=== PATIENT | female | born 1940 | race Caucasian/White ===

== ENCOUNTER 2016-12-02 11:36 | Observation (INO) | payer OTHER ==
--- NOTE | 2016-12-02 12:54 | PDOC ---
History of Present Illness - General History Source: Patient, Family - History of Present Illness Initial Comments: 12/02/16 12:57 The patient is a 76 year old female, with a significant past medical history of diabetes mellitus, hypertension, hyperlipidemia, osteoarthritis, and diverticulosis, who presents to the emergency department with rectal bleed since last night. Patient states that she felt like she had to go to the bathroom and passed a large amount of blood but [id number] stool. She states she had 6 bowel movements. Patient also states she has been experiencing swelling in her legs bilaterally for 4 days. She denies recent fevers, chills, headache or dizziness. She denies recent nausea, vomit, diarrhea. She denies recent dysuria, frequency, urgency or hematuria. She denies recent chest pain or shortness of breath. Allergies: NKA Past surgical history: None reported. Social history: Nonsmoker. Denies EtOH use and recreational drug use. Primary Care Physician: Milan Ayala <Venessa Smith - Last Filed: 12/02/16 13:50> <Elisha Vaca - Last Filed: 12/05/16 20:03> - General Chief Complaint: Rectal Bleed Stated Complaint: RECTAL BLEED Time Seen by Provider: 12/02/16 11:50 Past History <Venessa Smith - Last Filed: 12/02/16 13:50> - Past Medical History Cardiac Disorders: Yes ([place]) Diabetes: Yes HTN: Yes Thyroid Disease: Yes - Surgical History Abdominal Surgery: Yes (Bladder surgery, hernia repair) - Immunization History Immunization Up to Date: Yes - Suicide/Smoking/Psychosocial Hx Smoking Status: No Smoking History: Never smoked Have you smoked in the past 12 months: No Number of Cigarettes Smoked Daily: 0 Information on smoking cessation initiated: Yes Hx Alcohol Use: No Drug/Substance Use Hx: No Substance Use Type: None Hx Substance Use Treatment: No <Elisha Vaca - Last Filed: 12/05/16 20:03> - Past Medical History Allergies/Adverse Reactions: Allergies Allergy/AdvReac Type Severity Reaction Status Date / Time No Known Allergies Allergy Verified 12/02/16 11:47 Home Medications: Ambulatory Orders Metformin HCl [Glucophage] 1,000 mg PO BID #0 tab 10/14/12 Aripiprazole [Abilify -] 10 mg PO DAILY 12/02/16 Atorvastatin Ca [Lipitor] 80 mg PO HS 12/02/16 Calcium Citrate/Vitamin D2 [Fransisco-Citrate Plus Vitamin D Tab] 1 each PO BID Clopidogrel Bisulfate [Plavix -] 75 mg PO DAILY 12/02/16 Olmesartan Medoxomil [Benicar -] 20 mg PO DAILY 12/02/16 Omeprazole 40 mg PO DAILY 12/02/16 Oxybutynin Chloride [Oxybutynin Chloride ER] 10 mg PO DAILY 12/02/16 Paroxetine HCl [Paxil -] 20 mg PO DAILY 12/02/16 Prednisone 5 mg PO DAILY 12/02/16 Pregabalin [Lyrica -] 75 mg PO DAILY 12/02/16 Repaglinide [Prandin] 1 mg PO TID 12/02/16 Levothyroxine [Synthroid -] 37.5 mcg PO ACBK #30 tablet 12/03/16 Review of Systems - Review of Systems Able to Perform ROS?: Yes Comments:: 12/02/16 12:57 GENERAL/CONSTITUTIONAL: No fever or chills. No weakness. HEAD, EYES, EARS, NOSE AND THROAT: No change in vision. No ear pain or discharge. No sore throat. CARDIOVASCULAR: No chest pain or shortness of breath. RESPIRATORY: No cough, wheezing, or hemoptysis. GASTROINTESTINAL: +rectal bleeding. No nausea, vomiting, diarrhea.. GENITOURINARY: No dysuria, frequency, or change in urination. MUSCULOSKELETAL: No joint or muscle swelling or pain. No neck or back pain. SKIN: No rash NEUROLOGIC: No headache, vertigo, loss of consciousness, or change in strength/ sensation. ENDOCRINE: No increased thirst. No abnormal weight change. HEMATOLOGIC/LYMPHATIC: No anemia, easy bleeding, or history of blood clots. ALLERGIC/IMMUNOLOGIC: No hives or skin allergy. Is the patient limited Micronesian proficient: Yes <Venessa Smith - Last Filed: 12/02/16 13:50> *Physical Exam - Vital Signs Last Vital Signs Temp Pulse Resp BP Pulse Ox 98.2 F 64 14 131/67 96 12/02/16 11:44 12/02/16 11:44 12/02/16 11:44 12/02/16 11:44 12/02/16 11:44 <Venessa Smith - Last Filed: 12/02/16 13:50> - Vital Signs Last Vital Signs Temp Pulse Resp BP Pulse Ox 98.2 F 64 14 131/67 96 12/02/16 11:44 12/02/16 11:44 12/02/16 11:44 12/02/16 11:44 12/02/16 11:44 <Elisha Vaca - Last Filed: 12/05/16 20:03> ED Treatment Course - LABORATORY CBC & Chemistry Diagram: 12/02/16 12:42 12/02/16 12:42 - Consult/PCP Time Called: 13:51 (called @1:50.) Case discussed with personal care physician: Milan Ayala <Venessa Smith - Last Filed: 12/02/16 13:50> - LABORATORY CBC & Chemistry Diagram: 12/03/16 06:00 12/03/16 06:00 - RADIOLOGY Radiology Studies Ordered: Category Date Time Status CHEST PA & LAT [RAD] Stat Radiology 12/02/16 12:45 Ordered <Elisha Vaca - Last Filed: 12/05/16 20:03> Medical Decision Making - Medical Decision Making 12/02/16 12:53 Pt comes with red blood and lots coming out of her rectum, even when she is not moving bowels. Pt bled 6 times since 1:30AM early today. She sat on toilet and appreciated blood and clots. 12/05/16 20:02 Pt's Hb is lower than usual. Pt will be admitted to her PMD [facility]. <Elisha Vaca - Last Filed: 12/05/16 20:03> *DC/Admit/Observation/Transfer - Attestations Scribe Attestion: 12/02/16 12:58 Documentation prepared by Venessa Smith, acting as medical laboratory technical officer for Elisha Vaca MD. <Venessa Smith - Last Filed: 12/02/16 13:50> - Discharge Dispostion Admit: Yes <Elisha Vaca - Last Filed: 12/05/16 20:03> Diagnosis at time of Disposition: Rectal bleeding - Discharge Dispostion Condition at time of disposition: Guarded - Prescriptions - Referrals
[2016-12-02 13:06] LABS: EOSINOPHIL 0.5 % (0-4.5); MCH 29.7 pg (25.7-33.7); MCHC 32.5 g/dl (32.0-36.0); MEAN CELL VOLUME 91.5 fl (80-96); MEAN PLT VOLUME 8.2 fl (7.5-11.1); NEUTROPHILS 73.7 % (42.8-82.8); PLATELET COUNT 187 K/MM3 (134-434); RDW 13.6 % (11.6-15.6); WHITE BLOOD COUNT 8.9 K/mm3 (4.0-10.0)
[2016-12-02 13:40] LABS: ALBUMIN 3.2 g/dl (3.4-5.0); ANION GAP 8 (8-16); CALCIUM 8.5 mg/dL (8.5-10.1); CO2 26 mmol/L (21-32); GLUCOSE,RANDOM 163 mg/dL (74-106)
[2016-12-02 13:46] LABS: ALK PHOS 49 U/L (45-117); BILIRUBIN,TOTAL 0.2 mg/dL (0.2-1.0); CPK 68 IU/L (26-192); CREATININE 1.1 mg/dL (0.55-1.02); SGOT/AST 12 U/L (15-37); SGPT/ALT 22 U/L (12-78); TOT PROT 6.3 g/dl (6.4-8.2); TROPONIN I < 0.02 ng/ml (0.00-0.05)
[2016-12-02 15:30] VITALS: BMI 30.2
[2016-12-02] MEDS ORDERED: CLOPIDOGREL BISULFATE 75 MG TABLET (FP) PO SCH (15:45)
[2016-12-02] MEDS ORDERED: PANTOPRAZOLE 40 MG TABLET (FP) PO SCH (16:15)
--- NOTE | 2016-12-02 16:27 | HP ---
CHIEF COMPLAINT: Rectal bleeding PCP: Lucy GI: Carlos HISTORY OF PRESENT ILLNESS: The patient is a 76 year-old female, with a PMH significant for HTN, HLD, NIDDM , severe/critical canal stenosis, bladder polyps, hypothyroidism, diverticulosis and dementia. Patient presented to the ED with a complaint of rectal bleeding since 1:30am this morning x 6 episodes. She described passing blood and clots, dark red in color, with little to no stool. She denies headache , lightheadedness, or dizziness. She denies fevers, sweats, chills. She denies nausea, vomiting, diarrhea. She denies dysuria, frequency, urgency or hematuria. She denies recent chest pain or shortness of breath. Patient states she has never had a colonoscopy although, according to Dr. Gonzalez's office, she had a colonoscopy in 2011. She was last seen in his office in 2013. ER course was notable for: (1) Vital signs stable (2) Hgb 9.8 (12.3 in 2012) Recent Travel: No PAST MEDICAL HISTORY: Hypertension Hyperlipidemia NIDDM Osteoarthritis Bladder polyps Diverticulosis Hypothyroidism Dementia PAST SURGICAL HISTORY: Removal of bladder polyps Social History: Smoking: no Alcohol: no Drugs: no Family History: Allergies No Known Allergies Allergy (Verified 12/02/16 11:47) HOME MEDICATIONS: Home Medications Medication Instructions Recorded Levothyroxine [Synthroid -] 25 mcg PO DAILY #0 tablet 10/14/12 Meloxicam [Mobic -] 15 mg PO DAILY #0 tablet 10/14/12 Metformin HCl [Glucophage] 1,000 mg PO BID #0 tab 10/14/12 Aripiprazole [Abilify -] 10 mg PO DAILY 12/02/16 Aspirin [ASA -] 81 mg PO DAILY 12/02/16 Atorvastatin Ca [Lipitor] 80 mg PO HS 12/02/16 Calcium Citrate/Vitamin D2 1 each PO BID 12/02/16 [Fransisco-Citrate Plus Vitamin D Tab] Clopidogrel Bisulfate [Plavix -] 75 mg PO DAILY 12/02/16 Olmesartan Medoxomil [Benicar (Nf)] 20 mg PO DAILY 12/02/16 Omeprazole 40 mg PO DAILY 12/02/16 Oxybutynin Chloride [Oxybutynin 10 mg PO DAILY 12/02/16 Chloride ER] Paroxetine HCl [Paxil -] 20 mg PO DAILY 12/02/16 Prednisone 5 mg PO DAILY 12/02/16 Pregabalin [Lyrica -] 75 mg PO DAILY 12/02/16 Repaglinide [Prandin] 1 mg PO TID 12/02/16 REVIEW OF SYSTEMS CONSTITUTIONAL: Absent: fever, chills, diaphoresis, generalized weakness, malaise, loss of appetite, weight change HEENT: Absent: rhinorrhea, nasal congestion, throat pain, throat swelling, difficulty swallowing, mouth swelling, ear pain, eye pain, visual changes CARDIOVASCULAR: Absent: chest pain, syncope, palpitations, irregular heart rate, lightheadedness , peripheral edema RESPIRATORY: Absent: cough, shortness of breath, dyspnea with exertion, orthopnea, wheezing, stridor, hemoptysis GASTROINTESTINAL: Present: dark red blood per rectum Absent: abdominal pain, abdominal distension, nausea, vomiting, diarrhea, constipation, melena, hematochezia GENITOURINARY: Absent: dysuria, frequency, urgency, hesitancy, hematuria, flank pain, genital pain MUSCULOSKELETAL: Absent: myalgia, arthralgia, joint swelling, back pain, neck pain SKIN: Absent: rash, itching, pallor HEMATOLOGIC/IMMUNOLOGIC: Absent: easy bleeding, easy bruising, lymphadenopathy, frequent infections ENDOCRINE: Absent: unexplained weight gain, unexplained weight loss, heat intolerance, cold intolerance NEUROLOGIC: Absent: headache, focal weakness or paresthesias, dizziness, unsteady gait, seizure, mental status changes, bladder or bowel incontinence PSYCHIATRIC: Absent: anxiety, depression, suicidal or homicidal ideation, hallucinations. PHYSICAL EXAMINATION Vital Signs - 24 hr 12/02/16 12/02/16 12/02/16 14:40 15:47 15:54 Temperature 97.9 F Pulse Rate 54 L 57 L Pulse Rate [ 54 L Apical] Respiratory 14 16 Rate Blood Pressure 114/85 131/75 Blood Pressure 114/85 [Left Arm] O2 Sat by Pulse 96 98 Oximetry (%) GENERAL: Awake, alert, and fully oriented, in no acute distress. HEAD: Normal with no signs of trauma. EYES: Pupils equal, round and reactive to light, extraocular movements intact, sclera anicteric, conjunctiva clear. No lid lag. EARS, NOSE, THROAT: Ears normal, nares patent, oropharynx clear without exudates. Moist mucous membranes. NECK: Normal range of motion, supple without lymphadenopathy, JVD, or masses. LUNGS: Breath sounds equal, clear to auscultation bilaterally. No wheezes, and no crackles. No accessory muscle use. HEART: Regular rate and rhythm, normal S1 and S2 without murmur, rub or gallop. ABDOMEN: Soft, nontender, not distended, normoactive bowel sounds, no guarding, no rebound, no masses. No hepatomegaly or splenomegaly. GI/: Anal fissures, and very small flat external hemorrhoids, no active bleeding MUSCULOSKELETAL: Normal range of motion at all joints. No bony deformities or tenderness. No CVA tenderness. UPPER EXTREMITIES: 2+ pulses, warm, well-perfused. No cyanosis. No clubbing. No peripheral edema. LOWER EXTREMITIES: 2+ pulses, warm, well-perfused. No calf tenderness. No peripheral edema. NEUROLOGICAL: Cranial nerves II-XII intact. Normal speech. Normal gait. PSYCHIATRIC: Cooperative. Good eye contact. Appropriate mood and affect. SKIN: Warm, dry, normal turgor, no rashes or lesions noted, normal capillary refill. ASSESSMENT/PLAN The patient is a 76 year-old female with a PMH significant for HTN, HLD, NIDDM, severe/critical canal stenosis, bladder polyps, hypothyroidism, diverticulosis, and dementia. Admitted for rectal bleeding. Rectal bleeding Diverticulosis --patient describes "darker" red blood per rectum, no report of melena --Hgb 9.8, no recent baseline study available; repeat cbc @ 6pm --11/27/16 CTAP: diverticulosis throughout the colon, no evidence of acute diverticulitis --last colonoscopy 2011 --NPO, IV fluids, protonix --type and screen done --GI Dr. Gonzalez consult requested Hypertension --BP stable, bradycardic --hold valsartan until repeat cbc done Hyperlipidemia --continue Lipitor NIDDM --sliding scale coverage Severe canal stenosis --continue Lyrica Bladder polyps --no acute issues, no blood in UA Hypothyroidism --continue levothyroxine --f/u TSH Dementia --continue deonepezil, paroxetine, seroquel MEDICATIONS RECONCILED WITH [facility]. Visit type - Emergency Visit Emergency Visit: Yes ED Registration Date: 12/02/16 Care time: The patient presented to the Emergency Department on the above date and was hospitalized for further evaluation of their emergent condition. - New Patient This patient is new to me today: Yes Date on this admission: 12/02/16 - Critical Care Critical Care patient: No
[2016-12-02] MEDS ORDERED: FLU VACCINE QUAD 60 MCG/0.5 ML (MDV 17-18) IM ONE (16:30)
[2016-12-02] MEDS ORDERED: INSULIN (NOVOLOG) ASPART 100 UNITS/ML 10ML VIAL ONE (16:47)
[2016-12-02] MEDS: INSULIN SLIDING SCALE (NOVOLOG) 1 VIAL SQ SCH ×2 (16:52→21:19)
[2016-12-02] MEDS: SODIUM CHLORIDE 1,000 ML IV SCH (16:53)
[2016-12-02 18:05] LABS: INR 0.96 (0.82-1.09); PROTHROMBIN TIME (PATIENT) 10.9 SEC (9.98-11.88)
--- NOTE | 2016-12-02 18:32 | CON.GI ---
Consult Consult Specialty:: Gastroenerology Reason for Consultation:: rectal bleeding - History of Present Illness History of Present Illness: 76 y/o female s/p colonoscpy Nov 2011--diveticulosis and colonic polyp was admitted because of rectal bleeding She is on PLavix and Aspirin. She felt weak but denies chest pain and LOC - History Source History Provided By: Patient - Alcohol/Substance Use Hx Alcohol Use: No - Smoking History Smoking history: Never smoked Have you smoked in the past 12 months: No Aproximately how many cigarettes per day: 0 Home Medications - Allergies Allergies/Adverse Reactions: Allergies Allergy/AdvReac Type Severity Reaction Status Date / Time No Known Allergies Allergy Verified 12/02/16 11:47 - Home Medications Home Medications: Ambulatory Orders Levothyroxine [Synthroid -] 25 mcg PO DAILY #0 tablet 10/14/12 Meloxicam [Mobic -] 15 mg PO DAILY #0 tablet 10/14/12 Metformin HCl [Glucophage] 1,000 mg PO BID #0 tab 10/14/12 Aripiprazole [Abilify -] 10 mg PO DAILY 12/02/16 Aspirin [ASA -] 81 mg PO DAILY 12/02/16 Atorvastatin Ca [Lipitor] 80 mg PO HS 12/02/16 Calcium Citrate/Vitamin D2 [Fransisco-Citrate Plus Vitamin D Tab] 1 each PO BID Clopidogrel Bisulfate [Plavix -] 75 mg PO DAILY 12/02/16 Olmesartan Medoxomil [Benicar (Nf)] 20 mg PO DAILY 12/02/16 Omeprazole 40 mg PO DAILY 12/02/16 Oxybutynin Chloride [Oxybutynin Chloride ER] 10 mg PO DAILY 12/02/16 Paroxetine HCl [Paxil -] 20 mg PO DAILY 12/02/16 Prednisone 5 mg PO DAILY 12/02/16 Pregabalin [Lyrica -] 75 mg PO DAILY 12/02/16 Repaglinide [Prandin] 1 mg PO TID 12/02/16 Review of Systems - Review of Systems Constitutional: denies: No Symptoms, Chills, Diaphoresis, Fever, Lethargy, Loss of Appetite, Malaise, Night Sweats, Unintentional Wgt. Loss, Weakness, Other HENT: denies: No Symptoms, Difficult Swallowing, Ear Discharge, Ear Pain, Epistaxis, Gingival Bleeding, Hearing Loss, Mouth Swelling, Nasal Congestion, Ocular Prosthesis, Throat Pain, Toothache, Ringing in Ears, Other Cardiovascular: denies: No Symptoms, Chest Pain, Edema, Palpitations, Shortness of Breath, Other Gastrointestinal: reports: Rectal Bleeding. denies: Dysphagia, Indigestion, Melena, Nausea, Vomiting Blood Genitourinary: denies: No Symptoms, Burning, Discharge, Dysuria, Flank Pain, Frequency, Hematuria, Incontinence, Lesions, Menses, Pain, Testicular Mass, Testicular Pain, Testicular Swelling, Urgency, Vaginal Bleeding, Other Psychiatric: denies: No Symptoms, Altered Sleep Pattern, Anxiety, Depression, Hallucinations, Panic, Paranoia, Suicidal, Other Physical Exam-GI Vital Signs: Vital Signs Temperature 97.9 F 12/02/16 15:54 Pulse Rate 57 L 12/02/16 15:54 Respiratory Rate 16 12/02/16 15:54 Blood Pressure 131/75 12/02/16 15:54 O2 Sat by Pulse Oximetry (%) 98 12/02/16 15:47 Constitutional: Yes: Well Nourished Eyes: Yes: Conjunctiva Clear HENT: Yes: Atraumatic Neck: Yes: Supple Cardiovascular: Yes: Regular Rate and Rhythm Respiratory: Yes: CTA Bilaterally ...Palpate: Yes: Soft. No: Firm/Rigid, Guarding, Hepatomegaly, Mass, Pulsatile Mass, Splenomegaly, Tenderness Problem List - Problems (1) GI (gastrointestinal bleed) Assessment/Plan: r/o peptic ulcer disease vs diverticular bleeding and malignancy R> for EGD and colonoscopy in am Code(s): K92.2 - GASTROINTESTINAL HEMORRHAGE, UNSPECIFIED
[2016-12-02] MEDS ORDERED: MAGNESIUM CITRATE 300 ML BOTTLE PO ONE (18:36)
[2016-12-02 18:46] LABS: MCHC 32.7 g/dl (32.0-36.0); MEAN CELL VOLUME 91.7 fl (80-96); MEAN PLT VOLUME 8.6 fl (7.5-11.1); PLATELET COUNT 183 K/MM3 (134-434); RDW 14.1 % (11.6-15.6); WHITE BLOOD COUNT 7.2 K/mm3 (4.0-10.0)
[2016-12-02] MEDS: PANTOPRAZOLE 40 MG TABLET (FP) PO SCH (21:21)
[2016-12-02] MEDS ORDERED: QUEtiapine FUMARATE 25 MG TABLET (FP) PO SCH (22:00)
[2016-12-02] MEDS ORDERED: ATORVASTATIN CA 80 MG TABLET (FP) PO SCH (22:00)
[2016-12-03] MEDS: SODIUM CHLORIDE 1,000 ML IV SCH (02:02)
[2016-12-03 02:46] LABS: URINE APPEARANCE CLEAR; URINE BILIRUBIN NEGATIVE (NEGATIVE); URINE BLOOD 1+ (NEGATIVE); URINE COLOR STRAW; URINE GLUCOSE (UA) NEGATIVE (NEGATIVE); URINE KETONE NEGATIVE (NEGATIVE); URINE NITRITE NEGATIVE (NEGATIVE); URINE PROTEIN NEGATIVE (NEGATIVE); URINE UROBILINOGEN NEGATIVE mg/dL (0.2-1.0)
[2016-12-03 02:47] LABS: URINE MUCUS RARE; URINE RBC 1 /hpf (0-3); URINE WBC 1 /hpf (3-5)
[2016-12-03] MEDS ORDERED: SODIUM PHOSPHATE/NA BIPHOS 133 ML ENEMA PR ONE (05:00)
[2016-12-03] MEDS: INSULIN SLIDING SCALE (NOVOLOG) 1 VIAL SQ SCH ×2 (06:01→12:23)
[2016-12-03] MEDS ORDERED: LEVOTHYROXINE NA 25 MCG TABLET (FP) PO SCH ×2 (07:00→08:14)
[2016-12-03 07:33] LABS: BASOPHIL 0.7 % (0-2.0); EOSINOPHIL 1.9 % (0-4.5); MCH 29.3 pg (25.7-33.7); MCHC 32.2 g/dl (32.0-36.0); MEAN CELL VOLUME 91.2 fl (80-96); MEAN PLT VOLUME 8.1 fl (7.5-11.1); NEUTROPHILS 58.6 % (42.8-82.8); PLATELET COUNT 207 K/MM3 (134-434); RDW 14.2 % (11.6-15.6); WHITE BLOOD COUNT 8.1 K/mm3 (4.0-10.0)
[2016-12-03] MEDS ORDERED: PROPOFOL 20 ML ONE ×2 (07:42)
[2016-12-03 07:54] LABS: ALBUMIN 3.6 g/dl (3.4-5.0); ANION GAP 6 (8-16); CO2 29 mmol/L (21-32); GLUCOSE,RANDOM 109 mg/dL (74-106); MAGNESIUM 2.6 mg/dL (1.8-2.4)
--- NOTE | 2016-12-03 07:57 | PN ---
Physical Exam: SUBJECTIVE: Patient seen and examined OBJECTIVE: Vital Signs Period Temp Pulse Resp BP Sys/Saravia Pulse Ox Last 24 Hr -98.4 F-98.1 F 52-71 18-18 135-159/55-67 97 GENERAL: The patient is awake, alert, and fully oriented, in no acute distress. HEAD: Normal with no signs of trauma. EYES: PERRL, extraocular movements intact, sclera anicteric, conjunctiva clear. No ptosis. ENT: Ears normal, nares patent, oropharynx clear without exudates, moist mucous membranes. NECK: Trachea midline, full range of motion, supple. LUNGS: Breath sounds equal, clear to auscultation bilaterally, no wheezes, no crackles, no accessory muscle use. HEART: Regular rate and rhythm, S1, S2 without murmur, rub or gallop. ABDOMEN: Soft, nontender, nondistended, normoactive bowel sounds, no guarding, no rebound, no hepatosplenomegaly, no masses. EXTREMITIES: 2+ pulses, warm, well-perfused, no edema. NEUROLOGICAL: Cranial nerves II through XII grossly intact. Normal speech, gait not observed. PSYCH: Normal mood, normal affect. SKIN: Warm, dry, normal turgor, no rashes or lesions noted Laboratory Results - last 24 hr 12/02/16 12/02/16 12/02/16 16:50 18:00 20:38 WBC 7.2 RBC 3.12 L Hgb 9.3 L Hct 28.6 L MCV 91.7 MCH 30.0 MCHC 32.7 RDW 14.1 Plt Count 183 MPV 8.6 Neutrophils % Lymphocytes % Monocytes % Eosinophils % Basophils % PTT (Actin FS) POC Glucometer 222 113 Urine Color Urine Appearance Urine pH Urine Protein Urine Glucose (UA) Urine Ketones Urine Blood Urine Nitrite Urine Bilirubin Urine Urobilinogen Urine RBC Urine WBC Ur Epithelial Cells Urine Mucus 12/03/16 12/03/16 12/03/16 02:30 06:00 06:00 WBC 8.1 RBC 3.56 L Hgb 10.5 L D Hct 32.5 MCV 91.2 MCH 29.3 MCHC 32.2 RDW 14.2 Plt Count 207 MPV 8.1 Neutrophils % 58.6 D Lymphocytes % 29.7 D Monocytes % 9.1 Eosinophils % 1.9 D Basophils % 0.7 PTT (Actin FS) 27.5 POC Glucometer Urine Color Straw Urine Appearance Clear Urine pH 6.0 Urine Protein Negative Urine Glucose (UA) Negative Urine Ketones Negative Urine Blood 1+ H Urine Nitrite Negative Urine Bilirubin Negative Urine Urobilinogen Negative Urine RBC 1 Urine WBC 1 Ur Epithelial Cells Rare Urine Mucus Rare 12/03/16 06:00 WBC RBC Hgb Hct MCV MCH MCHC RDW Plt Count MPV Neutrophils % Lymphocytes % Monocytes % Eosinophils % Basophils % PTT (Actin FS) POC Glucometer 105 Urine Color Urine Appearance Urine pH Urine Protein Urine Glucose (UA) Urine Ketones Urine Blood Urine Nitrite Urine Bilirubin Urine Urobilinogen Urine RBC Urine WBC Ur Epithelial Cells Urine Mucus Active Medications Generic Name Dose Route Start Last Admin Trade Name Freq PRN Reason Stop Dose Admin Aripiprazole 10 mg 12/03/16 10:00 Abilify PO DAILY YENI Atorvastatin Calcium 80 mg 12/02/16 22:00 12/02/16 21:21 Lipitor - PO 80 mg HS YENI Administration Sodium Chloride 1,000 mls @ 100 mls/hr 12/02/16 16:15 12/03/16 02:02 Normal Saline - IV 100 mls/hr ASDIR YENI Administration Insulin Aspart 1 vial 12/02/16 16:30 12/03/16 06:01 Novolog Vial Sliding Scale - SQ Not Given [facility] Protocol Levothyroxine Sodium 25 mcg 12/03/16 07:00 12/03/16 06:01 Synthroid - PO Not Given ACBK YENI Pantoprazole Sodium 40 mg 12/02/16 22:00 12/02/16 21:21 Protonix - PO 40 mg BID YENI Administration Paroxetine HCl 20 mg 12/03/16 10:00 Paxil - PO DAILY YENI Prednisone 5 mg 12/03/16 10:00 Deltasone - PO DAILY YENI Pregabalin 75 mg 12/03/16 10:00 Lyrica - PO DAILY YENI Valsartan 40 mg 12/03/16 10:00 Diovan - PO DAILY YENI ASSESSMENT/PLAN:
[2016-12-03 08:06] LABS: ALK PHOS 57 U/L (45-117); BILIRUBIN,TOTAL 0.3 mg/dL (0.2-1.0); CREATININE 0.9 mg/dL (0.55-1.02); PHOSPHOROUS 3.6 mg/dL (2.5-4.9); SGOT/AST 12 U/L (15-37); SGPT/ALT 21 U/L (12-78); THYROID STIMULATING HORMONE 6.83 uIU/ml (0.358-3.74); TOT PROT 6.7 g/dl (6.4-8.2)
[2016-12-03 09:23] VITALS: TEMP 99
[2016-12-03] MEDS ORDERED: VALSARTAN 40 MG TABLET (FP) PO SCH (10:00)
[2016-12-03] MEDS ORDERED: ARIPiprazole 10 MG TABLET PO SCH ×2 (10:00)
[2016-12-03] MEDS ORDERED: predniSONE 5 MG TABLET (UD) PO SCH ×2 (10:00)
[2016-12-03] MEDS ORDERED: PARoxetine HCL 20 MG TABLET (FP) PO SCH (10:00)
[2016-12-03] MEDS ORDERED: PREGABALIN 75 MG CAPSULE PO SCH (10:00)
[2016-12-03] MEDS ORDERED: PARoxetine HCL 10 MG TABLET (FP) ONE (10:29)
[2016-12-03 10:30] LABS: URINE LEUK ESTERASE Negative (NEGATIVE)
[2016-12-03] MEDS ORDERED: PT OWN MED DRAWER 7, Y5N ONE (10:30)
[2016-12-03] MEDS: PANTOPRAZOLE 40 MG TABLET (FP) PO SCH (10:33)
[2016-12-03 11:25] VITALS: BP 157/69; PULSE 68
--- NOTE | 2016-12-03 11:56 | EKG ---
Test Reason : Blood Pressure : / mmHG Vent. Rate : 063 BPM Atrial Rate : 063 BPM P-R Int : 160 ms QRS Dur : 076 ms QT Int : 400 ms P-R-T Axes : 000 -15 021 degrees QTc Int : 409 ms NORMAL SINUS RHYTHM INFERIOR INFARCT (CITED ON OR BEFORE 13-NOV-2006) ANTERIOR INFARCT (CITED ON OR BEFORE 10-OCT-2012) ABNORMAL ECG WHEN COMPARED WITH ECG OF 10-OCT-2012 21:06, VENT. RATE HAS DECREASED BY 40 BPM Confirmed by ALVA BAIRD MD ([id number]) on 12/03/2016 11:56:38 AM Referred By: Confirmed By:ALVA BAIRD MD
--- NOTE | 2016-12-03 12:43 | DS ---
Physical Exam: SUBJECTIVE: Patient seen and examined. Son present. Feels better, no complaints. No further episodes of rectal bleeding since arrival to ED. OBJECTIVE: Vital Signs Period Temp Pulse Resp BP Sys/Saravia Pulse Ox Last 24 Hr -98.4 F-99 F 52-80 14-20 135-164/55-75 96-98 PHYSICAL EXAM GENERAL: The patient is awake, alert, and fully oriented, in no acute distress. HEAD: Normal with no signs of trauma. EYES: PERRL, extraocular movements intact, sclera anicteric, conjunctiva clear. ENT: Ears normal, nares patent, oropharynx clear without exudates, moist mucous membranes. NECK: Trachea midline, full range of motion, supple. LUNGS: Breath sounds equal, clear to auscultation bilaterally, no wheezes, no crackles, no accessory muscle use. HEART: Regular rate and rhythm, S1, S2 without murmur, rub or gallop. ABDOMEN: Soft, nontender, nondistended, normoactive bowel sounds, no guarding, no rebound, no hepatosplenomegaly, no masses. EXTREMITIES: 2+ pulses, warm, well-perfused, no edema. NEUROLOGICAL: Cranial nerves II through XII grossly intact. Normal speech, gait not observed. PSYCH: Normal mood, normal affect. SKIN: Warm, dry, normal turgor, no rashes or lesions noted. LABS Laboratory Results - last 24 hr 12/02/16 12/02/16 12/02/16 16:50 18:00 20:38 WBC 7.2 RBC 3.12 L Hgb 9.3 L Hct 28.6 L MCV 91.7 MCH 30.0 MCHC 32.7 RDW 14.1 Plt Count 183 MPV 8.6 Neutrophils % Lymphocytes % Monocytes % Eosinophils % Basophils % PTT (Actin FS) Sodium Potassium Chloride Carbon Dioxide Anion Gap BUN Creatinine Creat Clearance w eGFR POC Glucometer 222 113 Random Glucose Calcium Phosphorus Magnesium Total Bilirubin AST ALT Alkaline Phosphatase Total Protein Albumin TSH Urine Color Urine Appearance Urine pH Ur Specific Davis Urine Protein Urine Glucose (UA) Urine Ketones Urine Blood Urine Nitrite Urine Bilirubin Urine Urobilinogen Ur Leukocyte Esterase Urine RBC Urine WBC Ur Epithelial Cells Urine Mucus 12/03/16 12/03/16 12/03/16 02:30 06:00 06:00 WBC 8.1 RBC 3.56 L Hgb 10.5 L D Hct 32.5 MCV 91.2 MCH 29.3 MCHC 32.2 RDW 14.2 Plt Count 207 MPV 8.1 Neutrophils % 58.6 D Lymphocytes % 29.7 D Monocytes % 9.1 Eosinophils % 1.9 D Basophils % 0.7 PTT (Actin FS) 27.5 Sodium Potassium Chloride Carbon Dioxide Anion Gap BUN Creatinine Creat Clearance w eGFR POC Glucometer Random Glucose Calcium Phosphorus Magnesium Total Bilirubin AST ALT Alkaline Phosphatase Total Protein Albumin TSH Urine Color Straw Urine Appearance Clear Urine pH 6.0 Ur Specific Davis 1.015 Urine Protein Negative Urine Glucose (UA) Negative Urine Ketones Negative Urine Blood 1+ H Urine Nitrite Negative Urine Bilirubin Negative Urine Urobilinogen Negative Ur Leukocyte Esterase Negative Urine RBC 1 Urine WBC 1 Ur Epithelial Cells Rare Urine Mucus Rare 12/03/16 12/03/16 12/03/16 06:00 06:00 12:22 WBC RBC Hgb Hct MCV MCH MCHC RDW Plt Count MPV Neutrophils % Lymphocytes % Monocytes % Eosinophils % Basophils % PTT (Actin FS) Sodium 141 Potassium 4.2 Chloride 106 Carbon Dioxide 29 Anion Gap 6 L BUN 14 D Creatinine 0.9 Creat Clearance w eGFR > 60 POC Glucometer 105 156 Random Glucose 109 H D Calcium 9.0 Phosphorus 3.6 Magnesium 2.6 H Total Bilirubin 0.3 D AST 12 L ALT 21 Alkaline Phosphatase 57 Total Protein 6.7 Albumin 3.6 TSH 6.83 H Urine Color Urine Appearance Urine pH Ur Specific Davis Urine Protein Urine Glucose (UA) Urine Ketones Urine Blood Urine Nitrite Urine Bilirubin Urine Urobilinogen Ur Leukocyte Esterase Urine RBC Urine WBC Ur Epithelial Cells Urine Mucus HOSPITAL COURSE: Date of Admission:12/02/16 Date of Discharge: 12/03/16 Pre hospital course The patient is a 76 year-old female, with a PMH significant for HTN, HLD, NIDDM , severe/critical canal stenosis, bladder polyps, hypothyroidism, diverticulosis and dementia. Patient presented to the ED with a complaint of rectal bleeding since 1:30am x 6 episodes. She described passing blood and clots , dark red in color, with little to no stool. She denied headache, lightheadedness, or dizziness. She denied fevers, sweats, chills. She denied nausea, vomiting, diarrhea. She denied dysuria, frequency, urgency or hematuria. She denied chest pain or shortness of breath. Patient states she has never had a colonoscopy although, according to Dr. Gonzalez's office, she had a colonoscopy in 2011. She was last seen in his office in 2013. ER course (1) Vital signs stable (2) Hgb 9.8 (12.3 in 2013) Subsequent hospital course by problem list Rectal bleeding, resolved Diverticulosis --on admission patient described "darker" red blood per rectum, no report of melena --no further episodes of bleeding reported or observed during hospital stay --Hgb 9.8 on admission, 10.5 today --11/27/16 CTAP: diverticulosis throughout the colon, no evidence of acute diverticulitis --EGD and colonoscopy performed today by Dr. Gonzalez; preliminary findings: abnormal duodenum, erythema in antrum, diverticulosis and poor pret --advised patient to follow up with Dr. Gonzalez in 3 months for repeat colon Hypertension --BP stable --held anti-hypertensives Hyperlipidemia --continued Lipitor NIDDM --sliding scale coverage Severe canal stenosis --continued Lyrica Bladder polyps --no acute issues, no blood in UA Hypothyroidism --TSH was elevated @6.83; increased levothyroxine to 37.5mcg, new script sent --patient advised to f/u blood work in 6 weeks Dementia --continue abilify, paroxetine Minutes to complete discharge: 35 Discharge Summary Reason For Visit: RECTAL HEMORRHAGE Current Active Problems GI (gastrointestinal bleed) (Acute) Rectal bleeding (Acute) Condition: Guarded - Instructions Diet, Activity, Other Instructions: A prescription has been sent to your pharmacy for an increased dose of your thyroid medicine, levothyroxine. You should take this increased dose until you follow up with your primary care provider, Dr. Ayala. You should have your thyroid function tested in 6 weeks. 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 Gonzalez, for a colonoscopy. Call his office to make an appointment. Return to the emergency room for any new or worsening symptoms. Referrals: Milan Ayala MD [Primary Care Provider] - Kumar Gonzalez MD [Staff Physician] - 1 Month - Home Medications Comprehensive Discharge Medication List: Ambulatory Orders Metformin HCl [Glucophage] 1,000 mg PO BID #0 tab 10/14/12 Aripiprazole [Abilify -] 10 mg PO DAILY 12/02/16 Atorvastatin Ca [Lipitor] 80 mg PO HS 12/02/16 Calcium Citrate/Vitamin D2 [Fransisco-Citrate Plus Vitamin D Tab] 1 each PO BID Clopidogrel Bisulfate [Plavix -] 75 mg PO DAILY 12/02/16 Olmesartan Medoxomil [Benicar -] 20 mg PO DAILY 12/02/16 Omeprazole 40 mg PO DAILY 12/02/16 Oxybutynin Chloride [Oxybutynin Chloride ER] 10 mg PO DAILY 12/02/16 Paroxetine HCl [Paxil -] 20 mg PO DAILY 12/02/16 Prednisone 5 mg PO DAILY 12/02/16 Pregabalin [Lyrica -] 75 mg PO DAILY 12/02/16 Repaglinide [Prandin] 1 mg PO TID 12/02/16 Levothyroxine [Synthroid -] 37.5 mcg PO ACBK #30 tablet 12/03/16 This patient is new to me today: No Emergency Visit: Yes ED Registration Date: 12/02/16 Care time: The patient presented to the Emergency Department on the above date and was hospitalized for further evaluation of their emergent condition. Critical Care patient: No - Discharge Referral Referred to [facility] No
[2016-12-03] MEDS ORDERED: SODIUM CHLORIDE 1,000 ML IV SCH (13:14)
[2016-12-03] MEDS ORDERED: INSULIN SLIDING SCALE (NOVOLOG) 1 VIAL SQ SCH (16:30)
[2016-12-03] MEDS ORDERED: PANTOPRAZOLE 40 MG TABLET (FP) PO SCH (22:00)
[2016-12-03] MEDS ORDERED: ATORVASTATIN CA 80 MG TABLET (FP) PO SCH (22:00)
[2016-12-04] MEDS ORDERED: LEVOTHYROXINE NA 25 MCG TABLET (FP) PO SCH (07:00)
[2016-12-04] MEDS ORDERED: predniSONE 5 MG TABLET (UD) PO SCH (10:00)
[2016-12-04] MEDS ORDERED: PREGABALIN 75 MG CAPSULE PO SCH (10:00)
[2016-12-04] MEDS ORDERED: VALSARTAN 40 MG TABLET (FP) PO SCH (10:00)
[2016-12-04] MEDS ORDERED: ARIPiprazole 10 MG TABLET PO SCH (10:00)
[2016-12-04] MEDS ORDERED: PARoxetine HCL 20 MG TABLET (FP) PO SCH (10:00)
--- NOTE | 2016-12-04 15:03 | PATH ---
Surgical Pathology Report Patient Name: SERENA CARRINGTON Med. Rec. #: [id number] /Age/Gender: 1940 (Age: 76) / F Account: [id number] Location: [facility] MED/SURG Taken: 12/03/2016 Received: 12/03/2016 Reported: 12/04/2016 Physicians: Kumar Gonzalez M.D. Specimen(s) Received BX BODY Clinical History Abdominal pain, rectal bleeding Deformed duodenum, erythema body, diverticulosis, poor prep Final Diagnosis STOMACH, BODY, BIOPSY: GASTRIC FUNDIC MUCOSA WITH HYPERPLASTIC CHANGES. IMMUNOSTAIN FOR H. PYLORI IS NEGATIVE. Electronically Signed Shoaib Murillo M.D. Gross Description Received in formalin, labeled "biopsy body" is a randolph, irregular portion of soft tissue measuring 0.4 cm. in greatest dimension. The specimen is submitted in toto in one cassette. /12/03/201612/03/2016
== END 2016-12-03 13:47 | disposition home or self-care (01) ==
LOC: JER 11:36 → JERBED 13:43 → INTOOBSV 13:43 → UNDOADMOB 13:43 → JERBED 15:27 → J7W 15:27 → JERBED 16:02
PROVIDERS: ADMIT Family Medicine; ATTEND Nurse Practitioner Acute Care
PROC: 0DJD8ZZ Inspection of Lower Intestinal Tract, Via Natural or Artificial Opening Endoscopic (ICD-10-PCS; principal; 2016-12-02)
PROC: 0DB68ZX Excision of Stomach, Via Natural or Artificial Opening Endoscopic, Diagnostic (ICD-10-PCS; 2016-12-02)
PROC: 3E0337Z Introduction of Electrolytic and Water Balance Substance into Peripheral Vein, Percutaneous Approach (ICD-10-PCS; 2016-12-02)
PROC: 3E0234Z Introduction of Serum, Toxoid and Vaccine into Muscle, Percutaneous Approach (ICD-10-PCS; 2016-12-02)
DX: K92.2 Gastrointestinal hemorrhage, unspecified (principal); K57.30 Diverticulosis of large intestine without perforation or abscess without bleeding; K64.8 Other hemorrhoids; K31.89 Other diseases of stomach and duodenum; I10 Essential (primary) hypertension; I25.2 Old myocardial infarction; E78.5 Hyperlipidemia, unspecified; E03.9 Hypothyroidism, unspecified; E11.9 Type 2 diabetes mellitus without complications; M19.90 Unspecified osteoarthritis, unspecified site; Z79.84 Long term (current) use of oral hypoglycemic drugs; F03.90 Unspecified dementia, unspecified severity, without behavioral disturbance, psychotic disturbance, mood disturbance, and anxiety; Z79.01 Long term (current) use of anticoagulants; Z23 Encounter for immunization
CPT/HCPCS: 36415; 43239; 45378; 71020-TC; 80053; 81003; 81015; 82550; 83735; 84100; 84443; 84484; 85025; 85027; 85610; 85730; 86850; 86900; 86901; 88305-TC; 90471; 90688; 93005; 93010; 99285-25; G0378

== ENCOUNTER 2017-01-05 14:47 | Emergency (ER) | payer OTHER ==
[2017-01-05 14:52] VITALS: BP 149/92; PULSE 67; TEMP 97.8; BMI 30.1
--- NOTE | 2017-01-05 14:53 | PDOC ---
Rapid Medical Evaluation Time Seen by Provider: 01/05/17 14:50 Medical Evaluation: Allergies Allergy/AdvReac Type Severity Reaction Status Date / Time No Known Allergies Allergy Verified 01/05/17 14:50 01/05/17 14:51 I have performed a brief in-person evaluation of this patient. The patient presents with a chief complaint of: high K+ Pertinent physical exam findings: vss, I have ordered the following: ekg, cbc, comp, ua The patient will proceed to the ED for further evaluation. Discharge Disposition - Referrals Referrals: Milan Ayala MD [Primary Care Provider] - - Patient Instructions - Post Discharge Activity
[2017-01-05 15:45] LABS: MCH 29.2 pg (25.7-33.7); MEAN CELL VOLUME 88.5 fl (80-96); MEAN PLT VOLUME 8.6 fl (7.5-11.1); PLATELET COUNT 314 K/MM3 (134-434); RDW 13.9 % (11.6-15.6); WHITE BLOOD COUNT 9.7 K/mm3 (4.0-10.0)
[2017-01-05 16:09] LABS: ALBUMIN 3.7 g/dl (3.4-5.0); ALK PHOS 74 U/L (45-117); ANION GAP 6 (8-16); BILIRUBIN,TOTAL 0.2 mg/dL (0.2-1.0); CALCIUM 8.8 mg/dL (8.5-10.1); CO2 25 mmol/L (21-32); CPK 58 IU/L (26-192); CREATININE 1.2 mg/dL (0.55-1.02); GLUCOSE,RANDOM 189 mg/dL (74-106); SGPT/ALT 20 U/L (12-78); TOT PROT 7.7 g/dl (6.4-8.2)
[2017-01-05 16:11] LABS: SGOT/AST 14 U/L (15-37); TROPONIN I < 0.02 ng/ml (0.00-0.05)
[2017-01-05 17:03] LABS: TOTAL CELLS COUNTED 100
[2017-01-05 17:04] LABS: PLATELET COMMENTS NO CLUMPING NOTED; PLATELET ESTIMATE ADEQUATE
[2017-01-05] MEDS ORDERED: DEXTROSE 50%-WATER - 25 GM/50 ML VIAL IVPUSH ONE (17:21)
[2017-01-05] MEDS ORDERED: INSULIN REGULAR HUMAN 100 UNITS/ML *VIAL SQ ONE (17:26)
--- NOTE | 2017-01-05 17:32 | PDOC ---
History of Present Illness - General Chief Complaint: Revisit, Lab Variance Stated Complaint: LAB VARIANCE (PCP SENT) Time Seen by Provider: 01/05/17 14:50 - History of Present Illness Initial Comments: 01/05/17 19:54 The patient is a 76 year old female with a history of HTN, HLD, DM, diverticulosis who presents from her PCP for evaluation of a high potassium level. The patient reports that she was seen at her primary care provider's office 1 day ago and was called today and informed to present to the ED due to a high potassium level. The patient denies any palpitations, fevers, chills, SOB, chest pain, abdominal pain, or changes with urination or bowel movements. Past History - Past Medical History Allergies/Adverse Reactions: Allergies Allergy/AdvReac Type Severity Reaction Status Date / Time No Known Allergies Allergy Verified 01/05/17 14:50 Home Medications: Ambulatory Orders Metformin HCl [Glucophage] 1,000 mg PO BID #0 tab 10/14/12 Aripiprazole [Abilify -] 10 mg PO DAILY 12/02/16 Atorvastatin Ca [Lipitor] 80 mg PO HS 12/02/16 Calcium Citrate/Vitamin D2 [Fransisco-Citrate Plus Vitamin D Tab] 1 each PO BID Clopidogrel Bisulfate [Plavix -] 75 mg PO DAILY 12/02/16 Olmesartan Medoxomil [Benicar -] 20 mg PO DAILY 12/02/16 Omeprazole 40 mg PO DAILY 12/02/16 Oxybutynin Chloride [Oxybutynin Chloride ER] 10 mg PO DAILY 12/02/16 Paroxetine HCl [Paxil -] 20 mg PO DAILY 12/02/16 Prednisone 5 mg PO DAILY 12/02/16 Pregabalin [Lyrica -] 75 mg PO DAILY 12/02/16 Repaglinide [Prandin] 1 mg PO TID 12/02/16 Levothyroxine [Synthroid -] 37.5 mcg PO ACBK #30 tablet 12/03/16 Cardiac Disorders: Yes ([place]) COPD: No Diabetes: Yes HTN: Yes Thyroid Disease: Yes - Surgical History Abdominal Surgery: Yes (Bladder surgery, hernia repair) - Immunization History Immunization Up to Date: Yes - Suicide/Smoking/Psychosocial Hx Smoking Status: No Smoking History: Never smoked Have you smoked in the past 12 months: No Number of Cigarettes Smoked Daily: 0 'Breaking Loose' booklet given: 12/02/16 Hx Alcohol Use: No Drug/Substance Use Hx: No Substance Use Type: None Hx Substance Use Treatment: No Review of Systems - Review of Systems Comments:: 01/05/17 19:55 Constitutional: No fevers, chills, fatigue, malaise HEENT: No Rhinorrhea, nasal congestion, Cardiovascular: No chest pain, syncope, palpitations, lightheadedness Respiratory: No Cough, SOB, Hemoptysis, Gastrointestinal: No Abdominal pain, Nausea, Vomiting, Constipation, Diarrhea, Melena Genitourinary: No Dysuria, Frequency, Urgency, Hesitancy, Hematuria, Flank pain Musculoskeletal: No Myalgia, arthralgia Skin: No rashes, bruising, pallor Neurologic: No Headache, Dizziness, Numbness, Weakness, or Tingling Psychiatric: No Hallucinations. No SI or HI *Physical Exam - Vital Signs Last Vital Signs Temp Pulse Resp BP Pulse Ox 97.8 F 67 20 149/92 95 01/05/17 14:50 01/05/17 14:50 01/05/17 14:50 01/05/17 14:50 01/05/17 14:50 - Physical Exam Comments: 01/05/17 19:56 General Appearance: Nourished. No Apparent Distress HEENT: EOMI, GELY. Neck: No Cervical Lymphadenopathy Respiratory/Chest: Lungs Clear, Normal Breath Sounds. No Crackles, Rales, Rhonchi, Wheezing Cardiovascular: Regular Rhythm, Regular Rate. No Murmur, Gallops, Rubs Gastrointestinal/Abdominal: Normal Bowel Sounds, Soft. 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 miner blasting II-XII NML intact, Fully Oriented, Alert, Normal Mood/Affect, Normal Response, Heart Score/ECG Review #1 ECG reviewed & interpreted by me at: 19:56 General ECG Interpretation: Sinus Rhythm, Normal Rate, Normal Intervals, No acute ischemic changes ED Treatment Course - LABORATORY CBC & Chemistry Diagram: 01/05/17 15:25 01/05/17 20:00 - ADDITIONAL ORDERS Additional order review: Laboratory Results 01/05/17 15:25 Sodium 136 Potassium 6.1 H* D Chloride 105 Carbon Dioxide 25 Anion Gap 6 L BUN 33 H D Creatinine 1.2 H D Creat Clearance w eGFR 43.68 Random Glucose 189 H D Calcium 8.8 Total Bilirubin 0.2 D AST 14 L ALT 20 Alkaline Phosphatase 74 D Creatine Kinase 58 Troponin I < 0.02 Total Protein 7.7 Albumin 3.7 01/05/17 15:25 RBC 3.64 MCV 88.5 MCHC 33.0 RDW 13.9 MPV 8.6 Neutrophils % No Result Required. Lymphocytes % No Result Required. Medical Decision Making - Medical Decision Making 01/05/17 19:57 The patient is a 76 year old female with a history of HTN, HLD, DM, diverticulosis who presents from her PCP for evaluation of a high potassium level. Lab work performed in triage demonstrates a potassium of 6.1 but otherwise unremarkable. EKG does not demonstrate any changes concerning for hyperkalemia. We will treat the patient with insulin and glucose and repeat the patient's potassium to ensure a downward trend. 01/05/17 20:54 Repeat potassium is 5.0 after treatment. The patient remains asymptomatic. We are comfortable with discharging the patient home at this time with primary care provider follow up. We discussed the results with the patient as well as the plan and she voiced understanding and is agreeable. *DC/Admit/Observation/Transfer Diagnosis at time of Disposition: High serum potassium level - Discharge Dispostion Disposition: HOME Condition at time of disposition: Improved Admit: No - Referrals Referrals: Milan Ayala MD [Primary Care Provider] - - Patient Instructions Printed Discharge Instructions: DI for Hyperkalemia Additional Instructions: Please return to the ER if you experience concerning or worsening symptoms including chest pain, difficulty breathing, or fainting. You were seen in the ER for evaluation of high potassium. We treated you in the ER with insulin and sugar. Your potassium improved after treatment. It is important that you call to schedule a follow up appointment with your primary care provider within 1 week to discuss your ER visit and further management of your symptoms. Por favor regrese a la yvonne de emergencias si experimenta o empeora los sntomas , incluyendo dolor torcico, dificultad para respirar o desmayo. Te vieron en urgencias para evaluacin de potasio alto. Te tratamos en urgencias con insulina y azcar. Chopra potasio mejor despus del tratamiento. Es importante que llame para programar navjot krystal de seguimiento con chopra proveedor de atencin primaria dentro de 1 semana para discutir chopra visita de ER y la administracin posterior de danny sntomas. Print Language: WELSH - Post Discharge Activity
[2017-01-05] MEDS ORDERED: DEXTROSE 50%-WATER 25 GM/50 ML DISP.SYRIN ONE (17:48)
[2017-01-05] MEDS ORDERED: INSULIN REGULAR HUMAN 100 UNITS/ML *VIAL ONE (17:50)
[2017-01-05 20:24] LABS: ANION GAP 7 (8-16); CALCIUM 8.5 mg/dL (8.5-10.1); CO2 24 mmol/L (21-32); CREATININE 1.1 mg/dL (0.55-1.02); GLUCOSE,RANDOM 179 mg/dL (74-106)
--- NOTE | 2017-01-05 20:59 | PDOC ---
Attending Attestation - Resident Resident Name: Agustín Costa - ED Attending Attestation I have performed the following: I have examined & evaluated the patient, The case was reviewed & discussed with the resident, I agree w/resident's findings & plan, Exceptions are as noted - HPI HPI: 01/05/17 20:58 76 yo female referred to ER by her physician because of LAB abnormality, her potassium was elevated. - Physicial Exam PE: 01/05/17 20:59 76 yo female who is alert,ambulating in the ER in no acute distress HEENT wnl neck supple lungs cta b/l cvs [id number] abd soft,nontender ext no deformity,no cellulits skin no vesclicles,no petechia neuro axox3,ambulating - Medical Decision Making 01/05/17 21:01 k was initially 6.1 and she was treated w d50 and insulin and repeat potassium shows k=5.0
--- NOTE | 2017-01-06 13:03 | EKG ---
Test Reason : Blood Pressure : / mmHG Vent. Rate : 067 BPM Atrial Rate : 067 BPM P-R Int : 162 ms QRS Dur : 070 ms QT Int : 372 ms P-R-T Axes : 055 -11 030 degrees QTc Int : 393 ms NORMAL SINUS RHYTHM INFERIOR INFARCT (CITED ON OR BEFORE 13-NOV-2006) POSSIBLE ANTERIOR INFARCT (CITED ON OR BEFORE 10-OCT-2012) ABNORMAL ECG WHEN COMPARED WITH ECG OF 02-DEC-2016 12:58, NO SIGNIFICANT CHANGE WAS FOUND Confirmed by ROSA KNOWLES MD ([id number]) on 01/06/2017 1:02:49 PM Referred By: Confirmed By:ROSA KNOWLES MD
== END 2017-01-05 21:29 | disposition home or self-care (01) ==
LOC: JER 14:47
PROC: 3E013VG Introduction of Insulin into Subcutaneous Tissue, Percutaneous Approach (ICD-10-PCS; principal; 2017-01-05)
PROC: 3E0337Z Introduction of Electrolytic and Water Balance Substance into Peripheral Vein, Percutaneous Approach (ICD-10-PCS; 2017-01-05)
DX: E87.5 Hyperkalemia (principal); I10 Essential (primary) hypertension; E11.9 Type 2 diabetes mellitus without complications; Z79.84 Long term (current) use of oral hypoglycemic drugs; E78.00 Pure hypercholesterolemia, unspecified; Z87.19 Personal history of other diseases of the digestive system
CPT/HCPCS: 36415; 71010-TC; 80048; 80053; 82550; 84484; 85025; 93005; 93010; 96372; 96374; 99282-25

== ENCOUNTER 2017-01-12 14:53 | Observation (INO) | payer OTHER ==
--- NOTE | 2017-01-12 14:59 | PDOC ---
Rapid Medical Evaluation Time Seen by Provider: 01/12/17 14:54 Medical Evaluation: Allergies Allergy/AdvReac Type Severity Reaction Status Date / Time No Known Allergies Allergy Verified 01/12/17 14:55 01/12/17 14:56 Pt arrives with complaints of: high k and low h & H On exam : VSS I have ordered ekg, cbc, type and screen, comp, ua, ucx Pt will go to : main ed Discharge Disposition - Diagnosis High serum potassium level - Referrals Referrals: Milan Ayala MD [Primary Care Provider] - - Patient Instructions - Post Discharge Activity
[2017-01-12 15:00] VITALS: BMI 29.4
[2017-01-12 16:28] LABS: INR 1.08 (0.82-1.09); PROTHROMBIN TIME (PATIENT) 12.2 SEC (9.98-11.88)
[2017-01-12 16:30] LABS: ALBUMIN 3.7 g/dl (3.4-5.0); ANION GAP 8 (8-16); BILIRUBIN,TOTAL 0.2 mg/dL (0.2-1.0); CALCIUM 9.3 mg/dL (8.5-10.1); CO2 25 mmol/L (21-32); CREATININE 1.4 mg/dL (0.55-1.02); GLUCOSE,RANDOM 118 mg/dL (74-106); SGOT/AST 12 U/L (15-37); SGPT/ALT 18 U/L (12-78); TOT PROT 7.2 g/dl (6.4-8.2)
[2017-01-12 16:33] LABS: ALK PHOS 69 U/L (45-117); CPK 58 IU/L (26-192); TROPONIN I < 0.02 ng/ml (0.00-0.05)
[2017-01-12 17:33] LABS: BASOPHIL 0.6 % (0-2.0); EOSINOPHIL 0.6 % (0-4.5); MCH 28.5 pg (25.7-33.7); MCHC 32.3 g/dl (32.0-36.0); MEAN CELL VOLUME 88.3 fl (80-96); MEAN PLT VOLUME 9.3 fl (7.5-11.1); NEUTROPHILS 76.9 % (42.8-82.8); PLATELET COUNT 260 K/MM3 (134-434); RDW 14.8 % (11.6-15.6); WHITE BLOOD COUNT 8.9 K/mm3 (4.0-10.0)
--- NOTE | 2017-01-12 17:43 | PDOC ---
History of Present Illness - General History Source: Patient Exam Limitations: No Limitations - History of Present Illness Initial Comments: 01/12/17 17:49 The patient is a 76 year old female with a significant PMH of HTN, hyperlipidemia, diabetes, diverticulosis, and peptic ulcer disease, on Prednisone who presents to the emergency department from her PCP for evaluation of multiple complaints. Dr. Davis sent the patient in to be evaluated for high potassium level, low H&H, GI bleed, and urinary retention. The patient reports abdominal pain and associated nausea. The patient denies chest pain, shortness of breath, headache and dizziness. Denies fever, chills, vomit, diarrhea and constipation. Denies dysuria and hematuria. Allergies: NKA Past surgical history: None reported. Social history: No reported cigarette, alcohol, or drug use. PCP: Dr. Ayala Insurance Agent:Dr. Davis <Zafar Sanchez - Last Filed: 01/12/17 17:49> <Ronnie Ma - Last Filed: 01/12/17 19:13> - General Chief Complaint: Revisit, Lab Variance Stated Complaint: GI BLEED Time Seen by Provider: 01/12/17 14:54 Past History <Zafar Sanchez - Last Filed: 01/12/17 17:49> - Past Medical History Cardiac Disorders: Yes ([place]) COPD: No DVT: No Diabetes: Yes HTN: Yes Thyroid Disease: Yes Other medical history: pud,arithrits - Surgical History Abdominal Surgery: Yes (Bladder surgery,pud) - Immunization History Immunization Up to Date: Yes - Suicide/Smoking/Psychosocial Hx Smoking Status: No Smoking History: Never smoked Have you smoked in the past 12 months: No Number of Cigarettes Smoked Daily: 0 Information on smoking cessation initiated: No 'Breaking Loose' booklet given: 12/02/16 Hx Alcohol Use: No Drug/Substance Use Hx: No Substance Use Type: None Hx Substance Use Treatment: No <Ronnie Ma - Last Filed: 01/12/17 19:13> - Past Medical History Allergies/Adverse Reactions: Allergies Allergy/AdvReac Type Severity Reaction Status Date / Time No Known Allergies Allergy Verified 01/12/17 14:55 Home Medications: Ambulatory Orders Metformin HCl [Glucophage] 1,000 mg PO BID #0 tab 10/14/12 Aripiprazole [Abilify -] 10 mg PO DAILY 12/02/16 Atorvastatin Ca [Lipitor] 80 mg PO HS 12/02/16 Calcium Citrate/Vitamin D2 [Fransisco-Citrate Plus Vitamin D Tab] 1 each PO BID Clopidogrel Bisulfate [Plavix -] 75 mg PO DAILY 12/02/16 Olmesartan Medoxomil [Benicar -] 20 mg PO DAILY 12/02/16 Omeprazole 40 mg PO DAILY 12/02/16 Oxybutynin Chloride [Oxybutynin Chloride ER] 10 mg PO DAILY 12/02/16 Paroxetine HCl [Paxil -] 20 mg PO DAILY 12/02/16 Prednisone 5 mg PO DAILY 12/02/16 Pregabalin [Lyrica -] 75 mg PO DAILY 12/02/16 Repaglinide [Prandin] 1 mg PO TID 12/02/16 Levothyroxine [Synthroid -] 37.5 mcg PO ACBK #30 tablet 12/03/16 Review of Systems - Review of Systems Able to Perform ROS?: Yes Comments:: 01/12/17 17:49 A complete review of 10 out of 10 review of systems is taken and is negative apart from what is previously mentioned below and in the HPI. <Zafar Sanchez - Last Filed: 01/12/17 17:49> *Physical Exam - Vital Signs Last Vital Signs Temp Pulse Resp BP Pulse Ox 98.0 F 58 L 18 113/62 100 01/12/17 14:55 01/12/17 14:55 01/12/17 14:55 01/12/17 14:55 01/12/17 14:55 - Physical Exam Comments: 01/12/17 17:50 Vitals: Triage Vital signs reviewed General Appearance: no acute distress, well nourished well developed, Head: Atraumatic, normocephalic Neck: Supple;No Nuchal rigidity Chest Wall: Nontender Cardiac: Regular rate and rhythm, no murmurs, no rubs, no gallops, Lungs: Clear to auscultation bilateral, good air movement bilaterally, Abdomen: Soft, nondistended, normal bowel sounds, nontender to palpation Extremities: Full range of motion to all extremities, no cyanosis, clubbing, or edema Skin: Warm and dry, no rashes or lesions, no petechiae Neuro: AOX3; Cranial Nerves 2-12 grossly intact, Strength intact to all extremities, Sensation intact to all extremities, gait normal Psych: normal mood, normal affect <Zafar Sanchez - Last Filed: 01/12/17 17:49> - Vital Signs Last Vital Signs Temp Pulse Resp BP Pulse Ox 98.0 F 58 L 18 113/62 100 01/12/17 14:55 01/12/17 14:55 01/12/17 14:55 01/12/17 14:55 01/12/17 14:55 <Ronnie Ma - Last Filed: 01/12/17 19:13> Heart Score/ECG Review #1 01/12/17 17:50 EKG performed at [15:03] demonstrates rate of [56], rhythm of [normal], axis equal to [normal]. Q wave in lead 3. Possible inferior infarct age indeterminate. No peaked T's. no T wave inversions, no ST elevations <Zafar Sanchez - Last Filed: 01/12/17 17:49> ED Treatment Course - LABORATORY CBC & Chemistry Diagram: 01/12/17 15:30 01/12/17 15:30 - ADDITIONAL ORDERS Additional order review: Laboratory Results 01/12/17 01/12/17 01/12/17 15:50 15:30 15:30 PT with INR INR Sodium 140 Potassium 5.5 H Chloride 107 Carbon Dioxide 25 Anion Gap 8 BUN 36 H Creatinine 1.4 H D Creat Clearance w eGFR 36.56 Random Glucose 118 H D Calcium 9.3 Total Bilirubin 0.2 AST 12 L ALT 18 Alkaline Phosphatase 69 Creatine Kinase 58 Troponin I < 0.02 Total Protein 7.2 Albumin 3.7 Stool Occult Blood Negative Blood Type B POSITIVE Antibody Screen Negative 01/12/17 15:30 PT with INR 12.20 H INR 1.08 Sodium Potassium Chloride Carbon Dioxide Anion Gap BUN Creatinine Creat Clearance w eGFR Random Glucose Calcium Total Bilirubin AST ALT Alkaline Phosphatase Creatine Kinase Troponin I Total Protein Albumin Stool Occult Blood Blood Type Antibody Screen 01/12/17 15:30 RBC 3.54 L MCV 88.3 MCHC 32.3 RDW 14.8 MPV 9.3 Neutrophils % 76.9 D Lymphocytes % 17.8 D Monocytes % 4.1 Eosinophils % 0.6 Basophils % 0.6 <Zafar Sanchez - Last Filed: 01/12/17 17:49> - LABORATORY CBC & Chemistry Diagram: 01/12/17 15:30 01/12/17 15:30 - ADDITIONAL ORDERS Additional order review: Laboratory Results 01/12/17 01/12/17 01/12/17 15:50 15:30 15:30 PT with INR INR Sodium 140 Potassium 5.5 H Chloride 107 Carbon Dioxide 25 Anion Gap 8 BUN 36 H Creatinine 1.4 H D Creat Clearance w eGFR 36.56 Random Glucose 118 H D Calcium 9.3 Total Bilirubin 0.2 AST 12 L ALT 18 Alkaline Phosphatase 69 Creatine Kinase 58 Troponin I < 0.02 Total Protein 7.2 Albumin 3.7 Stool Occult Blood Negative Blood Type B POSITIVE Antibody Screen Negative 01/12/17 15:30 PT with INR 12.20 H INR 1.08 Sodium Potassium Chloride Carbon Dioxide Anion Gap BUN Creatinine Creat Clearance w eGFR Random Glucose Calcium Total Bilirubin AST ALT Alkaline Phosphatase Creatine Kinase Troponin I Total Protein Albumin Stool Occult Blood Blood Type Antibody Screen 01/12/17 15:30 RBC 3.54 L MCV 88.3 MCHC 32.3 RDW 14.8 MPV 9.3 Neutrophils % 76.9 D Lymphocytes % 17.8 D Monocytes % 4.1 Eosinophils % 0.6 Basophils % 0.6 <Ronnie Ma - Last Filed: 01/12/17 19:13> Medical Decision Making - Medical Decision Making 01/12/17 17:50 Plan: Labs: CBC, stool culture, UA Cardiology: EKG Microbiology: Urine Culture <Zafar Sanchez - Last Filed: 01/12/17 17:49> - Medical Decision Making Patient with slowly downtrending hemoglobin hematocrit slowly increasing creatinine sent to ED for further evaluation to rule out GI bleed. Guaiac negative brown stool patient's primary care provider provider requested consultation by Dr. Bledsoe gastroenterology. K 5.5 no ekg changes , Kayexalate given. Will admit for further management 01/12/17 19:13 <Ronnie Ma - Last Filed: 01/12/17 19:13> *DC/Admit/Observation/Transfer - Attestations Scribe Attestion: 01/12/17 17:51 Documentation prepared by Zafar Sanchez, acting as medical record assistant for Ronnie Ma MD. <Zafar Sanchez - Last Filed: 01/12/17 17:49> <Ronnie Ma - Last Filed: 01/12/17 19:13> Diagnosis at time of Disposition: High serum potassium level - Referrals Referrals: Milan Ayala MD [Primary Care Provider] - - Patient Instructions - Post Discharge Activity
[2017-01-12] MEDS ORDERED: SODIUM POLYSTYRENE SULFONATE 15 GM/60 ML BOTTLE PO ONE (18:46)
--- NOTE | 2017-01-12 19:00 | HP ---
Admitting History and Physical - Primary Care Physician PCP: Dr. Ayala - Admission Chief Complaint: Abd pain History of Present Illness: 76 yo F h/o HTN, HLD, NIDDM, severe canal stenosis, bladder polyps, hypothyroidism, diverticulosis, PUD, and ?dementia sent by her doctor to the ED for low H/H, vague epigastric pain, and high potassium level. Patient is a very poor historian and [place] speaking only. Limited information was obtained from her via medical appliance maker who served as refrigeration service technician and ED chart. She endorses chronic epigastric pain but unable to provide further detail. She's on daily predisone for arthritis. She denies chest pain, shortness of breath, syncope, dizziness, weakness, fatigue, dark stool, n/v, fever, or chills. History Source: Patient, Medical Record Limitations to Obtaining History: Dementia, Language Barrier - Past Medical History HOT MOLDER: Yes: Dementia Cardiovascular: Yes: HTN, Hyperlipdemia Gastrointestinal: Yes: Diverticulosis Renal/: Yes: Other (chronic urinary retention and bladder polyps) Musculoskeletal: Yes: Other (osteoporosis) Endocrine: Yes: Diabetes Mellitus, Hypothyroidism - Past Surgical History Additional Past Surgical History: Bladder polyps removal - Smoking History Smoking history: Never smoked Have you smoked in the past 12 months: No Aproximately how many cigarettes per day: 0 - Alcohol/Substance Use Hx Alcohol Use: No Home Medications - Allergies Allergies/Adverse Reactions: Allergies Allergy/AdvReac Type Severity Reaction Status Date / Time No Known Allergies Allergy Verified 01/12/17 14:55 - Home Medications Home Medications: Ambulatory Orders Metformin HCl [Glucophage] 1,000 mg PO BID #0 tab 10/14/12 Aripiprazole [Abilify -] 10 mg PO DAILY 12/02/16 Atorvastatin Ca [Lipitor] 80 mg PO HS 12/02/16 Calcium Citrate/Vitamin D2 [Fransisco-Citrate Plus Vitamin D Tab] 1 each PO BID Clopidogrel Bisulfate [Plavix -] 75 mg PO DAILY 12/02/16 Olmesartan Medoxomil [Benicar -] 20 mg PO DAILY 12/02/16 Omeprazole 40 mg PO DAILY 12/02/16 Oxybutynin Chloride [Oxybutynin Chloride ER] 10 mg PO DAILY 12/02/16 Paroxetine HCl [Paxil -] 20 mg PO DAILY 12/02/16 Prednisone 5 mg PO DAILY 12/02/16 Pregabalin [Lyrica -] 75 mg PO DAILY 12/02/16 Repaglinide [Prandin] 1 mg PO TID 12/02/16 Levothyroxine [Synthroid -] 37.5 mcg PO ACBK #30 tablet 12/03/16 Review of Systems - Review of Systems Constitutional: reports: No Symptoms Cardiovascular: reports: No Symptoms Respiratory: reports: No Symptoms Gastrointestinal: reports: Abdominal Pain Neurological: reports: No Symptoms Physical Examination Vital Signs: Vital Signs Temperature 98.0 F 01/12/17 14:55 Pulse Rate 58 L 01/12/17 14:55 Respiratory Rate 18 01/12/17 14:55 Blood Pressure 113/62 01/12/17 14:55 O2 Sat by Pulse Oximetry (%) 100 01/12/17 14:55 Constitutional: Yes: No Distress, Calm Eyes: Yes: Conjunctiva Clear, EOM Intact HENT: Yes: Atraumatic, Normocephalic Neck: Yes: Supple, Trachea Midline. No: Tenderness Cardiovascular: Yes: Bradycardia, Pulse Irregular, S1, S2. No: Regular Rate and Rhythm Respiratory: Yes: CTA Bilaterally Gastrointestinal: Yes: Tenderness (epigastric region) Edema: Yes (1+) Peripheral Pulses WNL: Yes Neurological: Yes: Alert, Oriented Labs: CBC, BMP 01/12/17 15:30 01/12/17 15:30 Imaging - Results Chest X-ray: Report Reviewed, Image Reviewed EKG: Report Reviewed, Image Reviewed Assessment/Plan 76 yo F admitted to r/o GI bleed and for hyperkalemia. Normocytic anemia, r/o GI bleed - h/o diverticulosis and PUD (Last colonoscopy in 12/08) - IV access and gentle hydration - Unknown baseline H/H - Stool OB negative - PRBC transfusion if Hgb<7 - Hold plavix - GI onboard Hyperkalemia - No EKG change - Kayalate 15mg once - Repeat BMP SARANYA - Unknown baseline - Likely prerenal azotemia 2/2 bleed - Cont. gentle hydration - Trend Cr - f/u FeNA Exogenous prednisone use - ?for arthritis per chart - Re-evaluate the need for daily prednisone - High risk for osteoporosis as patient also on PPI Urinary retention - Cont. oxybutynin Hypertension - Hold benicar to maintain adequate perfusion Hyperlipidemia - Continue Lipitor NIDDM - BGM and sliding scale Severe canal stenosis - continue Lyrica Bladder polyps - S/p surgical removal - Stable Hypothyroidism - continue levothyroxine Depression - continue paroxetine, aripiprazole FEN - Gentle hydration NS 42cc/hr - Cont. to monitor K+ - Na+ controlled diet Prophylaxis - DVT: SCDs - GI: on home PPI Dispo - Telemetry monitoring - Primary team to obtain baseline Cr and H/H and reason for daily prednisone use - Pending GI kelton Augustin Medicine PGY2 Pager: [phone] Visit type - Emergency Visit Emergency Visit: Yes Care time: The patient presented to the Emergency Department on the above date and was hospitalized for further evaluation of their emergent condition. - New Patient This patient is new to me today: Yes Date on this admission: 01/12/17 - Critical Care Critical Care patient: No
[2017-01-12] MEDS ORDERED: SODIUM POLYSTYRENE SULFONATE 15 GM/60 ML BOTTLE ONE (19:34)
[2017-01-12] MEDS ORDERED: SODIUM CHLORIDE 1,000 ML IV SCH (19:45)
[2017-01-12] MEDS ORDERED: ATORVASTATIN CA 80 MG TABLET (FP) PO SCH (22:00)
[2017-01-12 23:46] LABS: ANION GAP 8 (8-16); CALCIUM 8.7 mg/dL (8.5-10.1); CO2 26 mmol/L (21-32); CREATININE 1.6 mg/dL (0.55-1.02); GLUCOSE,RANDOM 136 mg/dL (74-106)
[2017-01-13] MEDS: INSULIN SLIDING SCALE (NOVOLOG) 1 VIAL SQ SCH ×4 (00:45→16:58)
--- NOTE | 2017-01-13 05:11 | PN ---
Teaching Attending Note Name of Resident: Tim Augustin ATTENDING PHYSICIAN STATEMENT I saw and evaluated the patient. I reviewed the resident's note and discussed the case with the resident. I agree with the resident's findings and plan as documented. SUBJECTIVE: 76 F with pmhx of htn, hld, dm, arthritis, diverticulosis, PUD on Prednisone, who presents from PMD for decreased H&H. No chest pain, pressure or shortness of breath. No black or bloody stools. No dizziness or lightheadedness. OBJECTIVE: Physical: VS: Vital Signs Period Temp Pulse Resp BP Sys/Saravia Pulse Ox Last 24 Hr 98.0 F-98.5 F 58-78 18-18 113-114/62-70 99-100 GEN: NAD, Resting in bed HEENT: NCAT, PERRL, throat without erythema or exudates CARD: RRR S1, S2 RESP: CTAB ABD: BSX4, NTD to palpation EXT: - C/C/E RECTAL: Deferred by Patient CBCD WBC 8.9 K/mm3 (4.0-10.0) 01/12/17 15:30 RBC 3.54 M/mm3 (3.60-5.2) L 01/12/17 15:30 Hgb 10.1 GM/dL (10.7-15.3) L 01/12/17 15:30 Hct 31.2 % (32.4-45.2) L 01/12/17 15:30 MCV 88.3 fl (80-96) 01/12/17 15:30 MCHC 32.3 g/dl (32.0-36.0) 01/12/17 15:30 RDW 14.8 % (11.6-15.6) 01/12/17 15:30 Plt Count 260 K/MM3 (134-434) 01/12/17 15:30 MPV 9.3 fl (7.5-11.1) 01/12/17 15:30 CMP Sodium 140 mmol/L (136-145) 01/12/17 23:11 Potassium 5.0 mmol/L (3.5-5.1) 01/12/17 23:11 Chloride 106 mmol/L (98-107) 01/12/17 23:11 Carbon Dioxide 26 mmol/L (21-32) 11/21/17 23:11 Anion Gap 8 (8-16) 01/12/17 23:11 BUN 39 mg/dL (7-18) H 01/12/17 23:11 Creatinine 1.6 mg/dL (0.55-1.02) H 01/12/17 23:11 Creat Clearance w eGFR 36.56 (>60) 01/12/17 15:30 Random Glucose 136 mg/dL (74-106) H 01/12/17 23:11 Calcium 8.7 mg/dL (8.5-10.1) 01/12/17 23:11 Total Bilirubin 0.2 mg/dL (0.2-1.0) 01/12/17 15:30 AST 12 U/L (15-37) L 01/12/17 15:30 ALT 18 U/L (12-78) 01/12/17 15:30 Alkaline Phosphatase 69 U/L (45-117) 01/12/17 15:30 Total Protein 7.2 g/dl (6.4-8.2) 01/12/17 15:30 Albumin 3.7 g/dl (3.4-5.0) 01/12/17 15:30 CARDIAC ENZYMES Creatine Kinase 58 IU/L (26-192) 01/12/17 15:30 Troponin I < 0.02 ng/ml (0.00-0.05) 01/12/17 15:30 ASSESSMENT AND PLAN: 76 F with pmhx of HTN, HLD, DM, Divertculosis who presents with Low H&H and Hyperkalemia 1.) Anemia, Normocytis - Fe studies, B12, Folate - Stool Occ. negative - PRBC if HgB <7 - GI consulted - Plavix on hold 2.) Hyperkalemia - Now Resolved 3.) SARANYA - U Lytes - Trend Cr - Avoid Nephrotoxins 4.) HTN - Hold Meds 5.) DM - FS - RAISS 6.) Hypothyriodism - C/W Levothyroxine 7.) Urinary Retention - C/W Oxybutynin 8.) ?Exogenous Steriod Use - Get records for reason why? Arthritis 9.) Dvt ppx - SCDS Rest as per resident note Place in Med-Sx
[2017-01-13] MEDS ORDERED: LEVOTHYROXINE NA 25 MCG TABLET (FP) PO SCH (07:00)
[2017-01-13 07:29] LABS: MCH 28.9 pg (25.7-33.7); MCHC 32.7 g/dl (32.0-36.0); MEAN CELL VOLUME 88.4 fl (80-96); MEAN PLT VOLUME 8.5 fl (7.5-11.1); PLATELET COUNT 210 K/MM3 (134-434); RDW 14.3 % (11.6-15.6); WHITE BLOOD COUNT 10.3 K/mm3 (4.0-10.0)
[2017-01-13 07:53] LABS: CALCIUM 7.9 mg/dL (8.5-10.1)
[2017-01-13 07:57] LABS: ANION GAP 5 (8-16); CO2 27 mmol/L (21-32); CREATININE 1.2 mg/dL (0.55-1.02); GLUCOSE,RANDOM 70 mg/dL (74-106)
[2017-01-13 09:45] LABS: URINE APPEARANCE CLEAR; URINE BILIRUBIN NEGATIVE (NEGATIVE); URINE BLOOD NEGATIVE (NEGATIVE); URINE COLOR STRAW; URINE GLUCOSE (UA) NEGATIVE (NEGATIVE); URINE KETONE NEGATIVE (NEGATIVE); URINE NITRITE NEGATIVE (NEGATIVE); URINE PROTEIN NEGATIVE (NEGATIVE); URINE UROBILINOGEN NEGATIVE mg/dL (0.2-1.0)
[2017-01-13 09:58] LABS: URINE CREATININE 49.8 mg/dL (20-320)
[2017-01-13] MEDS ORDERED: PARoxetine HCL 20 MG TABLET (FP) PO SCH (10:00)
[2017-01-13] MEDS ORDERED: predniSONE 5 MG TABLET (UD) PO SCH (10:00)
[2017-01-13] MEDS ORDERED: OXYBUTYNIN CHLORIDE 5 MG TABLET PO SCH (10:00)
[2017-01-13] MEDS ORDERED: CALCIUM 500MG/VIT-D 200 UNITS COMBO TABLET (FP) PO SCH (10:00)
[2017-01-13] MEDS ORDERED: PANTOPRAZOLE 40 MG TABLET (FP) PO SCH (10:00)
[2017-01-13] MEDS ORDERED: ARIPiprazole 10 MG TABLET PO SCH (10:00)
[2017-01-13] MEDS ORDERED: PREGABALIN 75 MG CAPSULE PO SCH (10:00)
--- NOTE | 2017-01-13 12:11 | EKG ---
Test Reason : Blood Pressure : / mmHG Vent. Rate : 056 BPM Atrial Rate : 056 BPM P-R Int : 168 ms QRS Dur : 070 ms QT Int : 418 ms P-R-T Axes : 058 -07 029 degrees QTc Int : 403 ms SINUS BRADYCARDIA INFERIOR INFARCT (CITED ON OR BEFORE 13-NOV-2006) POSSIBLE ANTERIOR INFARCT (CITED ON OR BEFORE 10-OCT-2012) ABNORMAL ECG WHEN COMPARED WITH ECG OF 05-JAN-2017 16:05, NO SIGNIFICANT CHANGE WAS FOUND Confirmed by ROSA KNOWLES MD ([id number]) on 01/13/2017 12:10:51 PM Referred By: Confirmed By:ROSA KNOWLES MD
[2017-01-13 12:29] LABS: MCH 28.4 pg (25.7-33.7); MEAN CELL VOLUME 88.9 fl (80-96); MEAN PLT VOLUME 8.4 fl (7.5-11.1); PLATELET COUNT 228 K/MM3 (134-434); RDW 14.6 % (11.6-15.6); WHITE BLOOD COUNT 10.5 K/mm3 (4.0-10.0)
[2017-01-13 12:40] LABS: URINE LEUK ESTERASE TRACE (NEGATIVE)
--- NOTE | 2017-01-13 13:22 | PN ---
Teaching Attending Note Name of Resident: Nikko Leiva ATTENDING PHYSICIAN STATEMENT Time of evaluation: 10:00 AM I saw and evaluated the patient. I reviewed the resident's note and discussed the case with the resident. I agree with the resident's findings and plan as documented. SUBJECTIVE: Patient seen and examined, no epigastric pain, nausea, vomiting, dyspnea, dizziness or dark/bloody stools. Some suprapubic discomfort, but no flank pain, its intermittent around need to void. Tolerating diet well. OBJECTIVE: Vital Signs Period Temp Pulse Resp BP Sys/Saravia Pulse Ox Last 24 Hr 98.0 F-98.5 F 58-78 18-18 113-143/59-70 99-100 Intake & Output 01/10/17 01/11/17 01/12/17 01/13/17 23:59 23:59 23:59 23:59 Intake Total 300 Output Total 400 Balance -100 Weight 166 lb General: lying in bed in no acute distress ABdomen soft, mild suprapubic tenderness, no voluntary or involuntary guarding or rigidity, positive bowel sounds, no flank tenderness Home Medication List Medication Instructions Recorded Confirmed Type Aripiprazole [Abilify -] 10 mg PO DAILY 12/02/16 01/12/17 History Atorvastatin Ca [Lipitor] 80 mg PO HS 12/02/16 01/12/17 History Calcium Citrate/Vitamin D2 1 each PO BID 12/02/16 01/12/17 History [Fransisco-Citrate Plus Vitamin D Tab] Clopidogrel Bisulfate [Plavix -] 75 mg PO DAILY 12/02/16 01/12/17 History Olmesartan Medoxomil [Benicar -] 20 mg PO DAILY 12/02/16 01/12/17 History Omeprazole 40 mg PO DAILY 12/02/16 01/12/17 History Oxybutynin Chloride [Oxybutynin 10 mg PO DAILY 12/02/16 01/12/17 History Chloride ER] Paroxetine HCl [Paxil -] 20 mg PO DAILY 12/02/16 01/12/17 History Prednisone 5 mg PO DAILY 12/02/16 01/12/17 History Pregabalin [Lyrica -] 75 mg PO DAILY 12/02/16 01/12/17 History Repaglinide [Prandin] 1 mg PO TID 10/11/17 11/21/17 History Active Medications Generic Name Dose Route Start Last Admin Trade Name Catalina PRN Reason Stop Dose Admin Aripiprazole 10 mg 01/13/17 10:00 Abilify PO DAILY YENI Atorvastatin Calcium 80 mg 01/12/17 22:00 01/13/17 00:45 Lipitor - PO 80 mg HS YENI Administration Calcium Carbonate/Cholecalciferol 1 tab 01/13/17 10:00 01/13/17 09:19 Os-Fransisco 500+D - PO 1 tab BID YENI Administration Sodium Chloride 1,000 mls @ 42 mls/hr 01/12/17 19:45 01/12/17 19:57 Normal Saline - IV 42 mls/hr ASDIR YENI Administration Insulin Aspart 1 vial 01/12/17 22:00 01/13/17 11:40 Novolog Vial Sliding Scale - SQ 2 units ACHS YENI Administration Protocol Levothyroxine Sodium 37.5 mcg 01/13/17 07:00 01/13/17 06:17 Synthroid - PO 37.5 mcg ACBK YENI Administration Oxybutynin Chloride 10 mg 01/13/17 10:00 01/13/17 09:19 Ditropan - PO 10 mg DAILY YENI Administration Pantoprazole Sodium 40 mg 01/13/17 10:00 01/13/17 09:19 Protonix - PO 40 mg DAILY YENI Administration Paroxetine HCl 20 mg 01/13/17 10:00 01/13/17 09:19 Paxil - PO 20 mg DAILY YENI Administration Prednisone 5 mg 01/13/17 10:00 01/13/17 09:19 Deltasone - PO 5 mg DAILY YENI Administration Pregabalin 75 mg 01/13/17 10:00 01/13/17 09:19 Lyrica - PO 75 mg DAILY YENI Administration Lab Results WBC 10.5 K/mm3 (4.0-10.0) H 01/13/17 12:21 RBC 3.58 M/mm3 (3.60-5.2) L 01/13/17 12:21 Hgb 10.2 GM/dL (10.7-15.3) L 01/13/17 12:21 Hct 31.8 % (32.4-45.2) L 01/13/17 12:21 MCV 88.9 fl (80-96) 01/13/17 12:21 MCHC 32.0 g/dl (32.0-36.0) 01/13/17 12:21 RDW 14.6 % (11.6-15.6) 01/13/17 12:21 Plt Count 228 K/MM3 (134-434) 01/13/17 12:21 Sodium 141 mmol/L (136-145) 01/13/17 06:30 Potassium 4.5 mmol/L (3.5-5.1) 01/13/17 06:30 Chloride 109 mmol/L (98-107) H 01/13/17 06:30 Carbon Dioxide 27 mmol/L (21-32) 01/13/17 06:30 Anion Gap 5 (8-16) L 01/13/17 06:30 BUN 33 mg/dL (7-18) H 01/13/17 06:30 Creatinine 1.2 mg/dL (0.55-1.02) H D 01/13/17 06:30 Random Glucose 70 mg/dL (74-106) L D 01/13/17 06:30 Calcium 7.9 mg/dL (8.5-10.1) L 01/13/17 06:30 Blood Type B POSITIVE 01/12/17 15:30 Antibody Screen Negative 01/12/17 15:30 INR 1.08 (0.82-1.09) 01/12/17 15:30 ASSESSMENT AND PLAN: 76 yof sent by PCP for low hemoglobin, possible GI workup, r/o UTI and possible urinary retention H/h stable from recent admission in 11/2016. FOBT neg, no history concerning for bleed or epigastric symptoms. h/h stable. Recent EGD/colonscopy with Dr. Gonzalez in 11/2016. Continue PPI and outpatient follow up. No clinical evidence of UTI, check post voidal urine, if non concerning, plan for d/c later with outpatient GI and urology follow up. Discussed with patient and all questions answered.
--- NOTE | 2017-01-13 13:55 | MSN ---
Admitting History and Physical - Primary Care Physician PCP: Dr. Milan Ayala - Admission Chief Complaint: Elevated potassium, low H & H History of Present Illness: Alexandria Clay is a 76 year old estonian-speaking female with past medical history of HTN, HLD, DM, diverticulosis, peptic ulcer disease, MS (in 2014), arthritis (on rpednisone), and hypothyroidism, who was sent by her PCP for elevated potassium, low hemoglobin, and low hematocrit. Patient was sent to rule out GI bleed and to be evaluated for urinary retention. Patient states that she is having mild suprapubic pain that began yesterday. Patient states that she had a bowel movememnt last ngiht and it was normal. She denies loose stool and blood or mucous in her stool. Patient also reports weakness and tiredness but states that it's chronic. Patient denies headache, dizziness, nausea, vomiting, diarrhea, constipation, dysuria, hematuria, chest pain or SOB. Patient states that she lives alone at home but has a director of home health services to help her with her ADLs. 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 Cardiovascular: Yes: HTN, Hyperlipdemia, MS Gastrointestinal: Yes: Diverticulosis, Peptic Ulcer Disease Renal/: Yes: Other (chronic urinary retention and bladder polyps) ...: No Musculoskeletal: Yes: Other (osteoporosis) Rheumatology: Yes: Rheumatoid Arthritis Endocrine: Yes: Diabetes Mellitus, Hypothyroidism - Past Surgical History Additional Past Surgical History: Bladder polyps removal - Smoking History Smoking history: Never smoked Have you smoked in the past 12 months: No Aproximately how many cigarettes per day: 0 - Alcohol/Substance Use Hx Alcohol Use: No - Social History Usual Living Arrangement: Yes: Alone, Other (Has a director of home health services) Home Medications - Allergies Allergies/Adverse Reactions: Allergies Allergy/AdvReac Type Severity Reaction Status Date / Time No Known Allergies Allergy Verified 01/12/17 14:55 - Home Medications Home Medications: Ambulatory Orders Metformin HCl [Glucophage] 1,000 mg PO BID #0 tab 10/14/12 Aripiprazole [Abilify -] 10 mg PO DAILY 12/02/16 Atorvastatin Ca [Lipitor] 80 mg PO HS 12/02/16 Calcium Citrate/Vitamin D2 [Fransisco-Citrate Plus Vitamin D Tab] 1 each PO BID Clopidogrel Bisulfate [Plavix -] 75 mg PO DAILY 12/02/16 Olmesartan Medoxomil [Benicar -] 20 mg PO DAILY 12/02/16 Omeprazole 40 mg PO DAILY 12/02/16 Oxybutynin Chloride [Oxybutynin Chloride ER] 10 mg PO DAILY 12/02/16 Paroxetine HCl [Paxil -] 20 mg PO DAILY 12/02/16 Prednisone 5 mg PO DAILY 12/02/16 Pregabalin [Lyrica -] 75 mg PO DAILY 12/02/16 Repaglinide [Prandin] 1 mg PO TID 12/02/16 Levothyroxine [Synthroid -] 37.5 mcg PO ACBK #30 tablet 12/03/16 Tamsulosin HCl [Flomax] 0.4 mg PO DAILY #14 capsule 01/13/17 Review of Systems - Review of Systems Constitutional: reports: Weakness, Other (Fatigue) Eyes: reports: No Symptoms HENT: reports: No Symptoms Neck: reports: No Symptoms Cardiovascular: reports: No Symptoms Respiratory: reports: No Symptoms Gastrointestinal: reports: No Symptoms Genitourinary: reports: Pain (Pain in the suprapubic region) Breasts: reports: No Symptoms Reported Musculoskeletal: reports: Joint Pain (has hx of arthritis) Integumentary: reports: No Symptoms Neurological: reports: No Symptoms Physical Examination Vital Signs: Vital Signs Temperature 98.2 F 01/13/17 06:30 Pulse Rate 59 L 01/13/17 06:30 Respiratory Rate 18 01/13/17 09:00 Blood Pressure 143/59 01/13/17 06:30 O2 Sat by Pulse Oximetry (%) 99 01/13/17 09:00 Constitutional: Yes: No Distress, Calm Eyes: Yes: Conjunctiva Clear, EOM Intact, PERRL HENT: Yes: Atraumatic, Normocephalic Neck: Yes: Supple, Trachea Midline Cardiovascular: Yes: Regular Rate and Rhythm Respiratory: Yes: CTA Bilaterally Gastrointestinal: Yes: Normal Bowel Sounds, Soft Renal/: Yes: Other (mild tenderness to palpation in the suprapubic region that resolves after urinating) Musculoskeletal: Yes: Joint Stiffness (secondary to arthritis) Extremities: Yes: WNL Edema: No Integumentary: Yes: WNL Neurological: Yes: Alert, Oriented, Cran Nerves II-XII Intact, Loss of Sensation (decreased sensation in the soles of feet bilaterally, secondary to diabetic peripheral neuropathy) Labs: CBC, BMP 01/13/17 12:21 01/13/17 06:30 Assessment/Plan Alexandria Clay is a 76 year old female with pmhx of HTN, HLD, DM, Diverticulosis, PUD, MS (2014), arthritis (on prednisone), and hypothyroidism, who was sent by her PCP for elevated potassium, low hemoglobin and hematocrit, to rule out GI bleed and to be evaluated for urinary retention. 1. Normocytic anemia secondary to possible GI bleed - NS 1L - Patient is hemodynamically stable, BP is 143/59 - Will repeat H&H - 2. Hyperkalemia secondary to SARANYA or medication side effect - now resolved - Discontinue Benicar. Can follow up with PCP for new antihypertensive regimen 3. Suprapubic pain possibly due to urinary retention - Pain resolved after urinating - Patient currently taking oxybutinin. the retention can potentially be a side effect from the medication - Will do UA to rule out UTI 4. HTN - Discontinue Benicar, can f/u with PCP for new medication regimen 5. HLD - Continue Lipitor 80 mg PO HS 6. DM - Hold repaglinide adn metformin - ISS 7. Peripheral neuropathy - Continue paroxetine 20 mg PO daily - Continue pregabalin 75 mg PO daily 8. Hypothyroidism - Continue Levothyroxine 37.5 mcg PO 9. Arthritis - Continue Prednisone 5 mg PO daily 10. PUD - Continue Omeprazole 40 mg PO daily Dispo: If UA negative and H&H stable, can potentially discharge.
[2017-01-13 14:00] LABS: URINE BACTERIA FEW /hpf (NEGATIVE); URINE RBC 0-3 /hpf (0-3); URINE WBC 0-5 (0-5)
[2017-01-13 14:02] VITALS: BP 122/75; PULSE 76; TEMP 97.7
--- NOTE | 2017-01-13 16:07 | DS ---
Physical Exam: SUBJECTIVE: Patient seen and examined at bedside. Patient states that she has no abdominal pain. She states that her pain had improved after she urinated. Denies any current complaints. OBJECTIVE: Vital Signs Period Temp Pulse Resp BP Sys/[place] Pulse Ox Last 24 Hr 97.7 F-98.5 F 59-78 18-18 113-143/59-75 99-99 PHYSICAL EXAM Constitutional: Yes: No Distress, Calm Eyes: Yes: Conjunctiva Clear, EOM Intact HENT: Yes: Atraumatic, Normocephalic Neck: Yes: Supple, Trachea Midline. No: Tenderness Cardiovascular: Yes: Bradycardia, Pulse Irregular, S1, S2. No: Regular Rate and Rhythm Respiratory: Yes: CTA Bilaterally Gastrointestinal: No tenderness to palpation, bowel sounds present Edema: Yes (1+) Peripheral Pulses WNL: Yes Neurological: Yes: Alert, Oriented LABS Laboratory Results - last 24 hr 01/12/17 01/12/17 01/12/17 15:30 15:30 15:30 WBC 8.9 RBC 3.54 L Hgb 10.1 L Hct 31.2 L MCV 88.3 MCH 28.5 MCHC 32.3 RDW 14.8 Plt Count 260 MPV 9.3 Neutrophils % 76.9 D Lymphocytes % 17.8 D Monocytes % 4.1 Eosinophils % 0.6 Basophils % 0.6 PT with INR 12.20 H INR 1.08 Sodium 140 Potassium 5.5 H Chloride 107 Carbon Dioxide 25 Anion Gap 8 BUN 36 H Creatinine 1.4 H D Creat Clearance w eGFR 36.56 POC Glucometer Random Glucose 118 H D Calcium 9.3 Magnesium Total Bilirubin 0.2 AST 12 L ALT 18 Alkaline Phosphatase 69 Creatine Kinase 58 Troponin I < 0.02 Total Protein 7.2 Albumin 3.7 Urine Color Urine Appearance Urine pH Ur Specific [place] Urine Protein Urine Glucose (UA) Urine Ketones Urine Blood Urine Nitrite Urine Bilirubin Urine Urobilinogen Ur Leukocyte Esterase Urine RBC Urine WBC Ur Epithelial Cells Urine Bacteria Ur Random Sodium Ur Random Potassium Ur Random Chloride Urine Creatinine Stool Occult Blood Blood Type Antibody Screen 01/12/17 01/12/17 01/12/17 15:30 15:50 23:11 WBC RBC Hgb Hct MCV MCH MCHC RDW Plt Count MPV Neutrophils % Lymphocytes % Monocytes % Eosinophils % Basophils % PT with INR INR Sodium 140 Potassium 5.0 Chloride 106 Carbon Dioxide 26 Anion Gap 8 BUN 39 H Creatinine 1.6 H Creat Clearance w eGFR POC Glucometer Random Glucose 136 H Calcium 8.7 Magnesium Total Bilirubin AST ALT Alkaline Phosphatase Creatine Kinase Troponin I Total Protein Albumin Urine Color Urine Appearance Urine pH Ur Specific [place] Urine Protein Urine Glucose (UA) Urine Ketones Urine Blood Urine Nitrite Urine Bilirubin Urine Urobilinogen Ur Leukocyte Esterase Urine RBC Urine WBC Ur Epithelial Cells Urine Bacteria Ur Random Sodium Ur Random Potassium Ur Random Chloride Urine Creatinine Stool Occult Blood Negative Blood Type B POSITIVE Antibody Screen Negative 01/13/17 01/13/17 01/13/17 00:44 06:05 06:30 WBC 10.3 H RBC 3.28 L Hgb 9.5 L Hct 29.0 L MCV 88.4 MCH 28.9 MCHC 32.7 RDW 14.3 Plt Count 210 MPV 8.5 Neutrophils % Lymphocytes % Monocytes % Eosinophils % Basophils % PT with INR INR Sodium Potassium Chloride Carbon Dioxide Anion Gap BUN Creatinine Creat Clearance w eGFR POC Glucometer 95 73 Random Glucose Calcium Magnesium Total Bilirubin AST ALT Alkaline Phosphatase Creatine Kinase Troponin I Total Protein Albumin Urine Color Urine Appearance Urine pH Ur Specific [place] Urine Protein Urine Glucose (UA) Urine Ketones Urine Blood Urine Nitrite Urine Bilirubin Urine Urobilinogen Ur Leukocyte Esterase Urine RBC Urine WBC Ur Epithelial Cells Urine Bacteria Ur Random Sodium Ur Random Potassium Ur Random Chloride Urine Creatinine Stool Occult Blood Blood Type Antibody Screen 01/13/17 01/13/17 01/13/17 06:30 07:50 07:50 WBC RBC Hgb Hct MCV MCH MCHC RDW Plt Count MPV Neutrophils % Lymphocytes % Monocytes % Eosinophils % Basophils % PT with INR INR Sodium 141 Potassium 4.5 Chloride 109 H Carbon Dioxide 27 Anion Gap 5 L BUN 33 H Creatinine 1.2 H D Creat Clearance w eGFR POC Glucometer Random Glucose 70 L D Calcium 7.9 L Magnesium 2.0 D Total Bilirubin AST ALT Alkaline Phosphatase Creatine Kinase Troponin I Total Protein Albumin Urine Color Urine Appearance Urine pH Ur Specific [place] Urine Protein Urine Glucose (UA) Urine Ketones Urine Blood Urine Nitrite Urine Bilirubin Urine Urobilinogen Ur Leukocyte Esterase Urine RBC Urine WBC Ur Epithelial Cells Urine Bacteria Ur Random Sodium Cancelled 105 Ur Random Potassium 17.6 Ur Random Chloride 100 Urine Creatinine 49.8 Stool Occult Blood Blood Type Antibody Screen 01/13/17 01/13/17 01/13/17 09:00 11:38 12:21 WBC 10.5 H RBC 3.58 L Hgb 10.2 L Hct 31.8 L MCV 88.9 MCH 28.4 MCHC 32.0 RDW 14.6 Plt Count 228 MPV 8.4 Neutrophils % Lymphocytes % Monocytes % Eosinophils % Basophils % PT with INR INR Sodium Potassium Chloride Carbon Dioxide Anion Gap BUN Creatinine Creat Clearance w eGFR POC Glucometer 164 Random Glucose Calcium Magnesium Total Bilirubin AST ALT Alkaline Phosphatase Creatine Kinase Troponin I Total Protein Albumin Urine Color Straw Urine Appearance Clear Urine pH 5.0 Ur Specific [place] 1.011 Urine Protein Negative Urine Glucose (UA) Negative Urine Ketones Negative Urine Blood Negative Urine Nitrite Negative Urine Bilirubin Negative Urine Urobilinogen Negative Ur Leukocyte Esterase Trace H Urine RBC 0-3 Urine WBC 0-5 Ur Epithelial Cells Moderate Urine Bacteria Few Ur Random Sodium Ur Random Potassium Ur Random Chloride Urine Creatinine Stool Occult Blood Blood Type Antibody Screen HOSPITAL COURSE: Date of Admission:01/13/17 76 year old female with a past medical history of HTN, HLD, NIDDM, severe spinal stenosis, bladder polyps, hypothyroidism, diverticulosis, and PUD presents to the hospital after being sent by her doctor to the emergency department for low hemoglobin/hematocrit and a high potassium. Patient also complained to PCP of vague abdominal pain. Patient was admitted to the hospital for management. Patient was seen by gastroenterology in November 2016 for a rectal bleed, where it was discovered by colonoscopy that she had diverticulosis. Patient was not complaining of any abdominal issues when the primary team came and examined her. Her hemoglobin was low at around 10, but that was similar to her previous presentation on discharge, which led us to believe this was near her baseline. Patient told primary team that her abdominal pain improved on urination. A post-void bladder scan showed us that patient was retaining urine some urine, but that she was able to urinate. Patient was discharged on antibiotics per GI recommendations for PUD, Flomax for urinary retention, and recommendations to make appointments with gastroenterology, urology, and her primary care physician within 1 week of discharge. On discharge, patient's ARB was held due to hyperkalemia discovered on admission. Date of Discharge: 01/13/17 Minutes to complete discharge: 30 Discharge Summary Reason For Visit: GASTROINTESTINAL HEMORRHAGE Current Active Problems High serum potassium level (Acute) Condition: Stable - Instructions Diet, Activity, Other Instructions: You were admitted to the hospital for the treatment of anemia and urinary retention. Your abdominal discomfort was likely due to urinary retention. Your urine test was negative for infection. Medical Recommendations: 1. Please follow up with your greek professor Dr. Gonzalez within 1 month of discharge. 2. Please follow up with your primary care physician Dr. Ayala within 1 week of discharge. 3. Please follow up with your urologist, Dr. Shields within 1 week of discharge. 3. If you are unable to urinate, experience severe abdominal pain, diarrhea, nausea, vomiting, rectal bleeding, severe fatigue, please call 911 and return to the ED immediately. 4. Continue to take all of your current home medications 5. CBC with your doctor in 1 week. 7. Your medication olmesartan is being held on discharge. Advise home BP monitoring daily till next doctor visit and notify doctor if SBP (upper BP ) < 100 or persistently > 140 or any dizziness noted. Other Recommendations: -Please drink plenty of water and void frequently -Maintain bowel regimen to avoid constipation. -You are started on new medication flomax and will need to follow up with your urologist outpatient. -Take Flomax once at night daily for urination for 2 weeks -Please note that flomax can cause dizziness, so take it at night before going to bed and avoid aggressive activity, ambulation or sudden postural changes after the same. Stop if concerning dizziness noted. -Hold BP medication olmesartan till next doctor visit and monitor your BP till then. Referrals: Milan Ayala MD [Primary Care Provider] - Kumar Gonzalez MD [Staff Physician] - Garrett Shields MD [Staff Physician] - Disposition: HOME - Home Medications Comprehensive Discharge Medication List: Ambulatory Orders Metformin HCl [Glucophage] 1,000 mg PO BID #0 tab 10/14/12 Aripiprazole [Abilify -] 10 mg PO DAILY 12/02/16 Atorvastatin Ca [Lipitor] 80 mg PO HS 12/02/16 Calcium Citrate/Vitamin D2 [Fransisco-Citrate Plus Vitamin D Tab] 1 each PO BID Clopidogrel Bisulfate [Plavix -] 75 mg PO DAILY 12/02/16 Olmesartan Medoxomil [Benicar -] 20 mg PO DAILY 12/02/16 Omeprazole 40 mg PO DAILY 12/02/16 Oxybutynin Chloride [Oxybutynin Chloride ER] 10 mg PO DAILY 12/02/16 Paroxetine HCl [Paxil -] 20 mg PO DAILY 12/02/16 Prednisone 5 mg PO DAILY 12/02/16 Pregabalin [Lyrica -] 75 mg PO DAILY 12/02/16 Repaglinide [Prandin] 1 mg PO TID 12/02/16 Levothyroxine [Synthroid -] 37.5 mcg PO ACBK #30 tablet 12/03/16 Tamsulosin HCl 0.4 mg PO HS #14 cap.er.24h 01/13/17 This patient is new to me today: Yes Date on this admission: 01/13/17 Emergency Visit: No Critical Care patient: No - Discharge Referral Referred to [facility] No
[2017-01-13] MEDS ORDERED: metroNIDAZOLE 250 MG TABLET PO SCH (16:15)
--- NOTE | 2017-01-13 16:23 | CON.GI ---
Consult Consult Specialty:: gastroenterology Referred by:: Dr Malave - History of Present Illness History of Present Illness: 76 y/o F was asked to be seen because progressive anemia associated with constipation, abdominal bloating. She denies nausea, dysphagia, rectal bleeding and melena. She was taking aspirin daily until a week ago. 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 Cardio/Vascular: Yes: HTN, Hyperlipdemia, [place] Gastrointestinal: Yes: Diverticulosis, Peptic Ulcer Disease Renal/: Yes: Other (chronic urinary retention and bladder polyps) ...: No Musculoskeletal: Yes: Other (osteoporosis) Rheumatology: Yes: Rheumatoid Arthritis Endocrine: Yes: Diabetes Mellitus, Hypothyroidism - Alcohol/Substance Use Hx Alcohol Use: No - Smoking History Smoking history: Never smoked Have you smoked in the past 12 months: No Aproximately how many cigarettes per day: 0 Home Medications - Allergies Allergies/Adverse Reactions: Allergies Allergy/AdvReac Type Severity Reaction Status Date / Time No Known Allergies Allergy Verified 01/12/17 14:55 - Home Medications Home Medications: Ambulatory Orders Metformin HCl [Glucophage] 1,000 mg PO BID #0 tab 10/14/12 Aripiprazole [Abilify -] 10 mg PO DAILY 12/02/16 Atorvastatin Ca [Lipitor] 80 mg PO HS 12/02/16 Calcium Citrate/Vitamin D2 [Fransisco-Citrate Plus Vitamin D Tab] 1 each PO BID Clopidogrel Bisulfate [Plavix -] 75 mg PO DAILY 12/02/16 Olmesartan Medoxomil [Benicar -] 20 mg PO DAILY 12/02/16 Omeprazole 40 mg PO DAILY 12/02/16 Oxybutynin Chloride [Oxybutynin Chloride ER] 10 mg PO DAILY 12/02/16 Paroxetine HCl [Paxil -] 20 mg PO DAILY 12/02/16 Prednisone 5 mg PO DAILY 12/02/16 Pregabalin [Lyrica -] 75 mg PO DAILY 12/02/16 Repaglinide [Prandin] 1 mg PO TID 12/02/16 Levothyroxine [Synthroid -] 37.5 mcg PO ACBK #30 tablet 12/03/16 Tamsulosin HCl 0.4 mg PO HS #14 cap.er.24h 01/13/17 Review of Systems - Review of Systems Constitutional: denies: Fever Eyes: denies: Blind Spots HENT: denies: Difficult Swallowing Neck: denies: Decreased ROM Cardiovascular: denies: Chest Pain Gastrointestinal: reports: Constipation, Other (constipation). denies: Abdominal Pain, Dysphagia, Nausea, Rectal Bleeding Genitourinary: denies: Burning Integumentary: denies: Bruising Physical Exam-GI Vital Signs: Vital Signs Temperature 97.7 F 01/13/17 14:01 Pulse Rate 76 01/13/17 14:01 Respiratory Rate 18 01/13/17 14:01 Blood Pressure 122/75 01/13/17 14:01 O2 Sat by Pulse Oximetry (%) 99 01/13/17 09:00 Constitutional: Yes: Obese Eyes: Yes: Conjunctiva Clear HENT: Yes: Atraumatic Neck: Yes: Trachea Midline Cardiovascular: Yes: Regular Rate and Rhythm Respiratory: Yes: CTA Bilaterally Gastrointestinal Inspection: No: Ascites ...Auscultate: Yes: Normoactive Bowel Sounds ...Palpate: Yes: Soft. No: Firm/Rigid, Guarding, Hepatomegaly, Mass, Pulsatile Mass, Splenomegaly, Tenderness, Epigastium ...Percussion: Yes: Tympanitic Labs: CBC, BMP 01/13/17 12:21 01/13/17 06:30 INR, PTT INR 1.08 (0.82-1.09) 01/12/17 15:30 Home Medications Medication Instructions Recorded Metformin HCl [Glucophage] 1,000 mg PO BID #0 tab 10/14/12 Aripiprazole [Abilify -] 10 mg PO DAILY 12/02/16 Atorvastatin Ca [Lipitor] 80 mg PO HS 12/02/16 Calcium Citrate/Vitamin D2 1 each PO BID 12/02/16 [Fransisco-Citrate Plus Vitamin D Tab] Clopidogrel Bisulfate [Plavix -] 75 mg PO DAILY 12/02/16 Olmesartan Medoxomil [Benicar -] 20 mg PO DAILY 12/02/16 Omeprazole 40 mg PO DAILY 12/02/16 Oxybutynin Chloride [Oxybutynin 10 mg PO DAILY 12/02/16 Chloride ER] Paroxetine HCl [Paxil -] 20 mg PO DAILY 12/02/16 Prednisone 5 mg PO DAILY 12/02/16 Pregabalin [Lyrica -] 75 mg PO DAILY 12/02/16 Repaglinide [Prandin] 1 mg PO TID 12/02/16 Levothyroxine [Synthroid -] 37.5 mcg PO ACBK #30 tablet 12/03/16 Tamsulosin HCl 0.4 mg PO HS #14 cap.er.24h 01/13/17 Problem List - Problems (1) Anemia Assessment/Plan: R> for EGD Wednesday as an outpatient Pantoporazole 40mg daily Code(s): D64.9 - ANEMIA, UNSPECIFIED (2) IBS (irritable bowel syndrome) Assessment/Plan: suspect bacterial overgrowth and possible pancreatic insufficiency R> flagyl 25 0mg tid Creon 76221 tid Code(s): K58.9 - IRRITABLE BOWEL SYNDROME WITHOUT DIARRHEA
[2017-01-13] MEDS ORDERED: DOCUSATE SODIUM 100 MG CAPSULE (FP) PO SCH (16:30)
--- NOTE | 2017-01-13 16:55 | PN ---
Progress Note (short form) - Note Progress Note: Spoke with son by phone after discharge, informed him to have patient stop taking Olmesartan until she sees her PCP. Patient understood and is agreeable to plan.
[2017-01-13] MEDS ORDERED: LIPASE/PROTEASE/AMYLASE 36,000 UNIT CAPSULE PO SCH (17:30)
== END 2017-01-13 16:48 | disposition home or self-care (01) ==
LOC: JER 14:53 → JERBED 20:30 → UNDOADMOB 20:30 → INTOOBSV 20:30 → JERBED 01-13 00:23 → J6S 01-13 00:23 → JERBED 01-13 13:48 → J6S 01-13 13:48
PROVIDERS: ADMIT Internal Medicine; ATTEND Hospitalist
PROC: 3E0337Z Introduction of Electrolytic and Water Balance Substance into Peripheral Vein, Percutaneous Approach (ICD-10-PCS; principal; 2017-01-13)
DX: E78.5 Hyperlipidemia, unspecified (principal); D64.9 Anemia, unspecified; R33.9 Retention of urine, unspecified; I10 Essential (primary) hypertension; I25.2 Old myocardial infarction; E11.9 Type 2 diabetes mellitus without complications; E03.9 Hypothyroidism, unspecified; M48.00 Spinal stenosis, site unspecified; D41.4 Neoplasm of uncertain behavior of bladder; F32.9 Major depressive disorder, single episode, unspecified; Z87.11 Personal history of peptic ulcer disease; Z87.19 Personal history of other diseases of the digestive system
CPT/HCPCS: 36415; 71010-TC; 80048; 80053; 81003; 81015; 82272; 82436; 82550; 82570; 83735; 84133; 84300; 84484; 85025; 85027; 85610; 86850; 86900; 86901; 93005; 93010; 99284-25; G0378

== ENCOUNTER 2017-03-02 16:11 | Emergency (ER) | payer OTHER ==
[2017-03-02 16:16] VITALS: BP 120/67; PULSE 65; TEMP 98.5; BMI 28.7
--- NOTE | 2017-03-02 16:16 | PDOC ---
Rapid Medical Evaluation Chief Complaint: Revisit, Lab Variance Time Seen by Provider: 03/02/17 16:13 Medical Evaluation: Allergies Allergy/AdvReac Type Severity Reaction Status Date / Time No Known Allergies Allergy Verified 01/12/17 14:55 03/02/17 16:13 The patient presents with a chief complaint of: High potassium sent from Dr. Christian's office. Admitted in the past for same. Also states decreased appetite over the past few weeks. I have performed a brief in-person evaluation of this patient; Pertinent physical exam findings: CTAB, RRR I have ordered the following: EKG, CBC, CMP, Cardiac labs, PT/INR The patient will proceed to the ED for further evaluation.
[2017-03-02 16:36] LABS: BASO % 0.8 % (0-2.0); EOS % 0.7 % (0-4.5); HEMATOCRIT 34.8 % (32.4-45.2); HEMOGLOBIN 11.3 GM/dL (10.7-15.3); LYMPH % 19.2 % (8-40); MCH 27.8 pg (25.7-33.7); MCHC 32.4 g/dl (32.0-36.0); MEAN CELL VOLUME 85.8 fl (80-96); MEAN PLT VOLUME 8.2 fl (7.5-11.1); MONO % 4.6 % (3.8-10.2); NEUT % 74.7 % (42.8-82.8); PLATELET COUNT 263 K/MM3 (134-434); RBC 4.05 M/mm3 (3.60-5.2); RDW 15.6 % (11.6-15.6); WHITE BLOOD COUNT 7.2 K/mm3 (4.0-10.0)
[2017-03-02 16:49] LABS: INR 1.04 (0.82-1.09); PROTHROMBIN TIME (PATIENT) 11.7 SEC (9.98-11.88)
[2017-03-02 16:59] LABS: ALBUMIN 4.1 g/dl (3.4-5.0); ANION GAP 6 (8-16); BLOOD UREA NITROGEN 23 mg/dL (7-18); CALCIUM 9.3 mg/dL (8.5-10.1); CHLORIDE 105 mmol/L (98-107); CO2 26 mmol/L (21-32); CREATININE 1.5 mg/dL (0.55-1.02); GLUCOSE,RANDOM 90 mg/dL (74-106); POTASSIUM 5.4 mmol/L (3.5-5.1); SGOT/AST 12 U/L (15-37); SGPT/ALT 18 U/L (12-78); SODIUM 137 mmol/L (136-145)
[2017-03-02 17:00] LABS: ALK PHOS 75 U/L (45-117); BILIRUBIN,TOTAL 0.5 mg/dL (0.2-1.0); TOT PROT 8.1 g/dl (6.4-8.2)
--- NOTE | 2017-03-02 19:22 | PDOC ---
History of Present Illness - General Chief Complaint: Revisit, Lab Variance Stated Complaint: PCP SENT/HIGH POTASSIUM LEVEL Time Seen by Provider: 03/02/17 16:13 - History of Present Illness Initial Comments: 03/02/17 19:47 Ms. Ed Clay is a 76 yo female w/ pmh of HTN, HLD, DM, diverticulosis, and PUD who presents for potassium of 5.4 per PCP (Lucy) for evaluation. Patient currently has no complaints. The patient denies chest pain, shortness of breath, headache and dizziness. Denies fever, chills, nausea, vomit, diarrhea and constipation. Denies dysuria, frequency, urgency and hematuria. Allergies: NKDA Past History - Past Medical History Allergies/Adverse Reactions: Allergies Allergy/AdvReac Type Severity Reaction Status Date / Time No Known Allergies Allergy Verified 01/12/17 14:55 Home Medications: Ambulatory Orders Metformin HCl [Glucophage] 1,000 mg PO BID #0 tab 10/14/12 Aripiprazole [Abilify -] 10 mg PO DAILY 12/02/16 Atorvastatin Ca [Lipitor] 80 mg PO HS 12/02/16 Calcium Citrate/Vitamin D2 [Fransisco-Citrate Plus Vitamin D Tab] 1 each PO BID Clopidogrel Bisulfate [Plavix -] 75 mg PO DAILY 12/02/16 Oxybutynin Chloride [Oxybutynin Chloride ER] 10 mg PO DAILY 12/02/16 Paroxetine HCl [Paxil -] 20 mg PO DAILY 12/02/16 Prednisone 5 mg PO DAILY 12/02/16 Pregabalin [Lyrica -] 75 mg PO DAILY 12/02/16 Repaglinide [Prandin] 1 mg PO TID 12/02/16 Levothyroxine [Synthroid -] 37.5 mcg PO ACBK #30 tablet 12/03/16 Lipase/Protease/Amylase [Carlotta Pride 36,000 Units Capsule] 1 each PO TIDCM #90 capsule. 01/13/17 Metronidazole [Flagyl -] 250 mg PO TID #42 tablet 01/13/17 Pantoprazole Sodium 40 mg PO DAILY #30 tablet. 01/13/17 Tamsulosin HCl 0.4 mg PO HS #14 cap.er.24h 01/13/17 Anemia: Yes Cardiac Disorders: Yes (PR) COPD: No DVT: No Diabetes: Yes HTN: Yes Thyroid Disease: Yes - Surgical History Abdominal Surgery: Yes (Bladder surgery,pud,umbilical hernia) Cardiac Surgery: Yes - Immunization History Immunization Up to Date: Yes - Suicide/Smoking/Psychosocial Hx Smoking Status: No Smoking History: Never smoked Have you smoked in the past 12 months: No Number of Cigarettes Smoked Daily: 0 Information on smoking cessation initiated: No 'Breaking Loose' booklet given: 12/02/16 Hx Alcohol Use: No Drug/Substance Use Hx: No Substance Use Type: None Hx Substance Use Treatment: No Review of Systems - Review of Systems Comments:: 03/02/17 19:54 GENERAL/CONSTITUTIONAL: No fever or chills. No weakness. HEAD, EYES, EARS, NOSE AND THROAT: No change in vision. No ear pain or discharge. No sore throat. CARDIOVASCULAR: No chest pain or shortness of breath RESPIRATORY: No cough, wheezing, or hemoptysis. GASTROINTESTINAL: No nausea, vomiting, diarrhea or constipation. GENITOURINARY: No dysuria, frequency, or change in urination. MUSCULOSKELETAL: No joint or muscle swelling or pain. No neck or back pain. SKIN: No rash NEUROLOGIC: No headache, vertigo, loss of consciousness, or change in strength/ sensation. ENDOCRINE: No increased thirst. No abnormal weight change HEMATOLOGIC/LYMPHATIC: No anemia, easy bleeding, or history of blood clots. ALLERGIC/IMMUNOLOGIC: No hives or skin allergy. *Physical Exam - Vital Signs Last Vital Signs Temp Pulse Resp BP Pulse Ox 98.5 F 65 19 120/67 98 03/02/17 16:13 03/02/17 16:13 03/02/17 16:13 03/02/17 16:13 03/02/17 16:13 - Physical Exam Comments: 03/02/17 20:14 GENERAL: Awake, alert, and fully oriented, in no acute distress HEAD: No signs of trauma, normocephalic, atraumatic EYES: PERRLA, EOMI, sclera anicteric, conjunctiva clear ENT: Auricles normal inspection, hearing grossly normal, nares patent, oropharynx clear without exudates. Moist mucosa NECK: Normal ROM, supple, no lymphadenopathy, JVD, or masses LUNGS: No distress, speaks full sentences, clear to auscultation bilaterally HEART: Regular rate and rhythm, normal S1 and S2, no murmurs, rubs or gallops, peripheral pulses normal and equal bilaterally. ABDOMEN: Soft, nontender, normoactive bowel sounds. No guarding, no rebound. No masses EXTREMITIES: Normal inspection, Normal range of motion, no edema. No clubbing or cyanosis. NEUROLOGICAL: Cranial nerves II through XII grossly intact. Normal speech, no focal sensorimotor deficits SKIN: Warm, Dry, normal turgor, no rashes or lesions noted. ED Treatment Course - LABORATORY CBC & Chemistry Diagram: 03/02/17 16:23 03/02/17 16:23 - ADDITIONAL ORDERS Additional order review: Laboratory Results 03/02/17 03/02/17 03/02/17 16:23 16:23 16:23 PT with INR 11.70 INR 1.04 Sodium 137 Potassium 5.4 H Chloride 105 Carbon Dioxide 26 Anion Gap 6 L BUN 23 H D Creatinine 1.5 H D Creat Clearance w eGFR 33.76 Random Glucose 90 D Calcium 9.3 Total Bilirubin 0.5 D AST 12 L ALT 18 Alkaline Phosphatase 75 Creatine Kinase 74 Troponin I < 0.02 Total Protein 8.1 Albumin 4.1 03/02/17 16:23 RBC 4.05 MCV 85.8 MCHC 32.4 RDW 15.6 MPV 8.2 Neutrophils % 74.7 Lymphocytes % 19.2 Monocytes % 4.6 Eosinophils % 0.7 Basophils % 0.8 Medical Decision Making - Medical Decision Making 03/02/17 20:03 Ms. Ed Clay is a 76 yo female w/ pmh as described who presents with elevated potassium levels. EKG unchanged from previous. Patient potassium confirmed 5.4. Patient has no complaints, sent in for evaluation by PCP. Kayexalate 30mg given and will have patient follow-up with PCP later this week for further evaluation. *DC/Admit/Observation/Transfer Diagnosis at time of Disposition: High serum potassium level - Discharge Dispostion Disposition: HOME - Referrals Referrals: Milan Ayala MD [Primary Care Provider] - - Patient Instructions Printed Discharge Instructions: DI for Hyperkalemia Additional Instructions: Please return immediately if any shortness of breath, pain, fever, or other concerning symptoms. Follow-up with primary care provider in 1-2 days. - Post Discharge Activity
[2017-03-02] MEDS ORDERED: SODIUM POLYSTYRENE SULFONATE 15 GM/60 ML BOTTLE PO ONE (20:13)
[2017-03-02] MEDS ORDERED: SODIUM POLYSTYRENE SULFONATE 15 GM/60 ML BOTTLE ONE (20:20)
--- NOTE | 2017-03-02 20:25 | PDOC ---
Attending Attestation - Resident Resident Name: Chalino Atwood - ED Attending Attestation I have performed the following: I have examined & evaluated the patient, The case was reviewed & discussed with the resident, I agree w/resident's findings & plan, Exceptions are as noted - HPI HPI: 03/02/17 20:24 76 yo female sent to ER by Dr Dailey because he had a lab report of hyperkalemia , k=5.4 - Physicial Exam PE: 03/02/17 20:25 heavyset 76 yo female in no acute distress who is with her attendent head ncat neck supple eyes lilian,eomi lungs no crackles,no wheezing cvs [id number] abd soft ext no deformities skin warm,dry neuro alert,slovak speaking psych appropriate ' 03/02/17 20:27 - Medical Decision Making 03/03/17 02:33 IMP hyperkalemia for which the pt was given kayexalate and discharged home,she is to follow up with her PCP
--- NOTE | 2017-03-03 09:31 | EKG ---
Test Reason : Blood Pressure : / mmHG Vent. Rate : 064 BPM Atrial Rate : 064 BPM P-R Int : 174 ms QRS Dur : 070 ms QT Int : 388 ms P-R-T Axes : 053 -24 022 degrees QTc Int : 400 ms NORMAL SINUS RHYTHM INFERIOR INFARCT (CITED ON OR BEFORE 13-NOV-2006) ANTERIOR INFARCT (CITED ON OR BEFORE 10-OCT-2012) ABNORMAL ECG WHEN COMPARED WITH ECG OF 12-JAN-2017 15:03, QUESTIONABLE CHANGE IN INITIAL FORCES OF INFERIOR LEADS Confirmed by ELENI AHUJA, ROSA ([id number]) on 03/03/2017 9:30:55 AM Referred By: Confirmed By:ROSA KNOWLES MD
== END 2017-03-02 20:31 | disposition home or self-care (01) ==
LOC: JER 16:11
DX: E87.5 Hyperkalemia (principal); E11.9 Type 2 diabetes mellitus without complications; Z79.84 Long term (current) use of oral hypoglycemic drugs
CPT/HCPCS: 36415; 80053; 82550; 84484; 85025; 85610; 93005; 93010; 99282-25

== ENCOUNTER 2017-05-26 02:09 | Inpatient (IN) | payer MEDICARE, OTHER ==
[2017-05-26 02:23] VITALS: BMI 32.9
--- NOTE | 2017-05-26 04:41 | PDOC ---
History of Present Illness - General Chief Complaint: Injury Stated Complaint: FALL Time Seen by Provider: 05/26/17 03:49 - History of Present Illness Initial Comments: 05/26/17 04:41 CHIEF COMPLAINT: fall HISTORY OF PRESENT ILLNESS: 76 year old female with a significant PMH of HTN, hyperlipidemia, diabetes, diverticulosis, dementia, and peptic ulcer disease presents to ED s/p fall. Per EMS, patient activated life alert signal s/p fall from bed. EMS reports difficulty entering apartment as patient lives alone and EMS was unable to open the door until they were able to reach the space systems operations superintendent of the building who lives next door to the patient. Patient does reports feeling weak to bilateral extremities and that "I'm not speaking well right now, but I normally speak very well." Time of fall unknown, and it is uncertain if patient's history is reliable given mildly slurred speech and history of dementia. Patient currently reports pain to R arm and leg. PAST MEDICAL HISTORY: Denies past medical history FAMILY HISTORY: Denies SOCIAL HISTORY: Denies tobacco, alcohol, illicit drug use. SURGICAL HISTORY: Denies ALLERGIES: No known drug allergies REVIEW OF SYSTEMS General/Constitutional: Weakness. Denies fever or chills. HEENT: Denies change in vision. Denies ear pain or discharge. Denies sore throat. Cardiovascular: Denies chest pain or shortness of breath. Respiratory: Denies cough, wheezing, or hemoptysis. Gastrointestinal: Denies nausea, vomiting, diarrhea or constipation. Denies rectal bleeding. Genitourinary: Denies dysuria, frequency, or change in urination. Musculoskeletal: Pain to right arm and leg. Denies joint or muscle swelling or pain. Denies neck or back pain. Skin and breasts: Denies rash or easy bruising. Neurologic: "I feel like I'm not speaking well." PHYSICAL EXAM General Appearance: Well-appearing, appropriately dressed. No apparent distress , no intoxication. HEENT: EOMI, PERRLA, normal ENT inspection, normal voice, TMs normal, pharynx normal. No conjunctival pallor. No photophobia, scleral icterus. Neck: Supple. Trachea midline. No tenderness, rigidity, carotid bruit, stridor , lymphadenopathy, or thyromegaly. Respiratory/Chest: Lungs CTAB. No shortness of breath, chest tenderness, respiratory distress, accessory muscle use. No crackles, rales, rhonchi, stridor , wheezing, dullness Cardiovascular: RRR. S1, S2. No JVD, murmur, bradycardia, tachycardia. Vascular Pulses: Dorsalis-Pedis (R): 2+, Dorsalis-Pedis (L): 2+ Gastrointestinal/Abdominal: Normal bowel sounds. Abdomen soft, non-distended. No tenderness or rebound tenderness. No organomegaly, pulsatile mass, guarding , hernia, hepatomegaly, splenomegaly. Lymphatic: No adenopathy, tenderness. Musculoskeletal/Extremities: Ecchymosis to right upper arm. Normal inspection. FROM of all extremities, normal capillary refill. Pelvis Stable. No CVA tenderness. No tenderness to extremities, pedal edema, swelling, erythema or deformity. Integumentary: Appropriate color, dry, warm. No cyanosis, erythema, jaundice or rash Neurologic: bar tender II-XII intact. Fully oriented, alert. Appropriate mood/affect. Motor strength 5/5. No appreciable EOM palsy, facial droop or sensory deficit. Past History - Past Medical History Allergies/Adverse Reactions: Allergies Allergy/AdvReac Type Severity Reaction Status Date / Time No Known Allergies Allergy Verified 05/26/17 02:23 Home Medications: Ambulatory Orders metFORMIN HCL [Glucophage] 1,000 mg PO BID #0 tab 10/14/12 Aripiprazole [Abilify -] 10 mg PO DAILY 12/02/16 Atorvastatin Ca [Lipitor] 80 mg PO HS 12/02/16 Calcium Citrate/Vitamin D2 [Fransisco-Citrate Plus Vitamin D Tab] 1 each PO BID Clopidogrel Bisulfate [Plavix -] 75 mg PO DAILY 12/02/16 Oxybutynin Chloride [Oxybutynin Chloride ER] 10 mg PO DAILY 12/02/16 Paroxetine HCl [Paxil -] 20 mg PO DAILY 12/02/16 Prednisone 5 mg PO DAILY 12/02/16 Pregabalin [Lyrica -] 75 mg PO DAILY 12/02/16 Repaglinide [Prandin] 1 mg PO TID 12/02/16 Levothyroxine [Synthroid -] 37.5 mcg PO ACBK #30 tablet 12/03/16 Lipase/Protease/Amylase [Carlotta Pride 36,000 Units Capsule] 1 each PO TIDCM #90 capsule. 01/13/17 Pantoprazole Sodium 40 mg PO DAILY #30 tablet.dr 01/13/17 Tamsulosin HCl 0.4 mg PO HS #14 cap.er.24h 01/13/17 Anemia: Yes Cardiac Disorders: Yes (ME) COPD: No DVT: No Diabetes: Yes HTN: Yes Thyroid Disease: Yes - Surgical History Abdominal Surgery: Yes (Bladder surgery,pud,umbilical hernia) Cardiac Surgery: Yes - Immunization History Immunization Up to Date: Yes - Suicide/Smoking/Psychosocial Hx Smoking Status: No Smoking History: Never smoked Have you smoked in the past 12 months: No Number of Cigarettes Smoked Daily: 0 Information on smoking cessation initiated: No 'Breaking Loose' booklet given: 12/02/16 Hx Alcohol Use: No Drug/Substance Use Hx: No Substance Use Type: None Hx Substance Use Treatment: No *Physical Exam - Vital Signs Last Vital Signs Temp Pulse Resp BP Pulse Ox 98.1 F 73 19 140/67 98 05/26/17 02:21 05/26/17 02:21 05/26/17 02:21 05/26/17 02:21 05/26/17 02:21 ED Treatment Course - LABORATORY CBC & Chemistry Diagram: 05/26/17 04:50 05/26/17 04:50 - RADIOLOGY Radiology Studies Ordered: Category Date Time Status HEAD CT WITHOUT CONTRAST [CT] Stat CT Scan 05/26/17 04:38 Ordered FEMUR-RIGHT [RAD] Stat Radiology 05/26/17 04:40 Ordered FOREARM- RIGHT [RAD] Stat Radiology 05/26/17 04:40 Ordered HIP & PELVIS-RIGHT [RAD] Stat Radiology 05/26/17 04:40 Ordered HUMERUS-RIGHT [RAD] Stat Radiology 05/26/17 04:40 Ordered LEG TIB/FIB-RIGHT [RAD] Stat Radiology 05/26/17 04:40 Ordered Medical Decision Making - Medical Decision Making 05/26/17 05:20 76 year old female with a significant PMH of HTN, hyperlipidemia, diabetes, diverticulosis, dementia, and peptic ulcer disease presents to ED s/p fall. -CBC, CMP, PT/PTT/INR, card profile -UA, UCx -head ct, x-rays Laboratory Tests 05/26/17 05/26/17 04:50 04:50 WBC 13.1 H D RBC 3.40 L Hgb 9.3 L D Hct 29.0 L D BUN 59 H Creatinine 2.7 H Random Glucose 32 L* 05/26/17 06:05 Glucose 32, [id number] given, D5 + 1/2 NS fluids started at 75cc/hr. Repeat glucose 182. Patient incidental elevated creatinine of 2.7, up from 1.5 three months ago. Pt be admitted for AMS, hypoglycemia, SARANYA. At this time patient is speaking loudly and clearly on cell phone with family, fully alert and oriented to time and place. Discussed case with hospitalist attending Amol, will admit to med/surg obs. *DC/Admit/Observation/Transfer Diagnosis at time of Disposition: Hypoglycemia, Acute kidney injury Altered mental status Qualifiers: Altered mental status type: unspecified Qualified Code(s): R41.82 - Altered mental status, unspecified - Discharge Dispostion Condition at time of disposition: Stable Admit: Yes - Referrals Referrals: Milan Ayala MD [Primary Care Provider] - - Patient Instructions - Post Discharge Activity NIH Stroke Scale - Last Known Well Date/Time & Onset Date Last Known Well: 05/26/17 - Initial Evaluation Level of consciousness: Alert Ask patient the month and their age: Answers both correctly Ask patient to open & close eyes; make fist and let go: Obeys both correctly Best gaze (horizontal eye movement): Normal Visual field testing: No visual field loss Facial paresis (Show teeth/raise eyebrows/close eyes tight): Minor paralysis ( flattened nasolabial fold, asymmetry on smiling) Motor Function: Left Arm: Normal Motor Function: Right Arm: Normal (extends arm 90 (or 45) degrees for 10 seconds without drift Motor Function: Left Leg: Normal (extends leg 30 degrees for 5 seconds without drift) Motor Function: Right Leg: Some effort against gravity (pt complains of pain to leg) Limb Ataxia: No ataxia Sensory(Use pinprick test arms,legs,trunk,face/side to side): Normal Best language (Describe picture, name items, read sentences): Mild to moderate aphasia Dysarthria (read several words): Mild to moderate slurring of words Extinction and Inattention: No abnormality - Total Score NIH Stroke Scale Score: 5
[2017-05-26 05:09] LABS: BASO % 0.2 % (0-2.0); EOS % 0.4 % (0-4.5); HEMOGLOBIN 9.3 GM/dL (10.7-15.3); LYMPH % 12.6 % (8-40); MCH 27.5 pg (25.7-33.7); MCHC 32.2 g/dl (32.0-36.0); MEAN CELL VOLUME 85.4 fl (80-96); MEAN PLT VOLUME 8.6 fl (7.5-11.1); MONO % 7.2 % (3.8-10.2); NEUT % 79.6 % (42.8-82.8); PLATELET COUNT 192 K/MM3 (134-434); WHITE BLOOD COUNT 13.1 K/mm3 (4.0-10.0)
[2017-05-26 05:23] LABS: INR 1.03 (0.82-1.09); PROTHROMBIN TIME (PATIENT) 11.6 SEC (9.98-11.88)
[2017-05-26 05:25] LABS: ACTIVATED PTT 25.5 SECONDS (26.9-34.4)
[2017-05-26 05:33] LABS: ALBUMIN 3.5 g/dl (3.4-5.0); ANION GAP 6 (8-16); BILIRUBIN,TOTAL < 0.1 mg/dL (0.2-1.0); BLOOD UREA NITROGEN 59 mg/dL (7-18); CALCIUM 8.1 mg/dL (8.5-10.1); CHLORIDE 107 mmol/L (98-107); CO2 29 mmol/L (21-32); CREATININE 2.7 mg/dL (0.55-1.02); POTASSIUM 4.5 mmol/L (3.5-5.1); SGOT/AST 12 U/L (15-37); SGPT/ALT 15 U/L (12-78); SODIUM 142 mmol/L (136-145); TOT PROT 6.9 g/dl (6.4-8.2)
[2017-05-26 05:34] LABS: GLUCOSE,RANDOM 32 mg/dL (74-106)
[2017-05-26 05:35] LABS: ALK PHOS 60 U/L (45-117)
[2017-05-26] MEDS ORDERED: DEXTROSE 50%-WATER - 25 GM/50 ML VIAL IVPUSH ONE (05:35)
[2017-05-26] MEDS ORDERED: DEXTROSE 50%-WATER 25 GM/50 ML DISP.SYRIN ONE (05:37)
[2017-05-26] MEDS ORDERED: DEXTROSE 5%-0.45% SALINE 1,000 ML IV SCH (05:45)
[2017-05-26] MEDS ORDERED: HEMOQUE TEST 1 EACH EACH ONE (05:50)
[2017-05-26 07:31] LABS: URINE APPEARANCE CLEAR; URINE BILIRUBIN NEGATIVE (<2.0 mg/dL); URINE COLOR LTYELLOW; URINE GLUCOSE (UA) NEGATIVE (NEGATIVE); URINE KETONE NEGATIVE (NEGATIVE); URINE NITRITE NEGATIVE (NEGATIVE); URINE PROTEIN NEGATIVE (NEGATIVE); URINE UROBILINOGEN NEGATIVE mg/dL (0.2-1.0)
--- NOTE | 2017-05-26 08:01 | HP ---
CHIEF COMPLAINT: "i was week this morning" PCP: HISTORY OF PRESENT ILLNESS: This is a 76 yo F with PMH of NIDDM2, urinary retention, hyperkalemia, HLD, diverticulosis, dementia, and peptic ulcer disease, who was BIBEMS s/p fall at home. Patient reports that she woke up feeling very weak and lethargic, and reports falling due to weakness in legs when trying to get out of bed. She fell on her R arm and R hip but denies hitting her head. She also reports slurred speech this morning, which is unusual. She states that for the past month she has been on low K diet and has been eating less. She also reports 4 days of suprapubic pain and decreased amount of urination. She measures her glucose every morning and it ranges from 80 to 120. She takes her metformin as prescribed. She denies f/c, n/a, d/c/abd pain, h/a, cp, cough, sob, dysuria, hematuria, hematochezia. She lives alone. She reports using waker to ambulate due to severe arthritis and that she does not walk well at home. ER course was notable for: (1)labs (2)head ct, extremities, pelvic xr (3)D5W Recent Travel: denies PAST MEDICAL HISTORY: as above PAST SURGICAL HISTORY: as above Social History:lives at home alone Smoking: denies Alcohol: denies Drugs: denies Family History: DM, HTN Allergies No Known Allergies Allergy (Verified 05/26/17 02:23) HOME MEDICATIONS: Home Medications Medication Instructions Recorded metFORMIN HCL [Glucophage] 1,000 mg PO BID #0 tab 10/14/12 Aripiprazole [Abilify -] 10 mg PO DAILY 12/02/16 Atorvastatin Ca [Lipitor] 80 mg PO HS 12/02/16 Calcium Citrate/Vitamin D2 1 each PO BID 12/02/16 [Fransisco-Citrate Plus Vitamin D Tab] Clopidogrel Bisulfate [Plavix -] 75 mg PO DAILY 12/02/16 Oxybutynin Chloride [Oxybutynin 10 mg PO DAILY 12/02/16 Chloride ER] Paroxetine HCl [Paxil -] 20 mg PO DAILY 12/02/16 Prednisone 5 mg PO DAILY 12/02/16 Pregabalin [Lyrica -] 75 mg PO DAILY 12/02/16 Repaglinide [Prandin] 1 mg PO TID 12/02/16 Levothyroxine [Synthroid -] 37.5 mcg PO ACBK #30 tablet 12/03/16 Lipase/Protease/Amylase [Carlotta Pride 1 each PO TIDCM #90 capsule. 01/13/17 36,000 Units Capsule] Pantoprazole Sodium 40 mg PO DAILY #30 tablet. 01/13/17 Tamsulosin HCl 0.4 mg PO HS #14 cap.er.24h 01/13/17 REVIEW OF SYSTEMS CONSTITUTIONAL: Absent: fever, chills HEENT: Absent: rhinorrhea, nasal congestion, throat pain CARDIOVASCULAR: Absent: chest pain, syncope, palpitations, irregular heart rate, lightheadedness , peripheral edema RESPIRATORY: Absent: cough, shortness of breath GASTROINTESTINAL: Absent: abdominal pain, abdominal distension, nausea, vomiting, diarrhea, constipation, melena, hematochezia GENITOURINARY: Absent: dysuria, hematuria MUSCULOSKELETAL: Absent: back pain, neck pain SKIN: Absent: pallor HEMATOLOGIC/IMMUNOLOGIC: Absent: easy bleeding, easy bruising ENDOCRINE: Absent: unexplained weight gain, unexplained weight loss NEUROLOGIC: Absent: headache, focal weakness or paresthesias PSYCHIATRIC: Absent: anxiety, depression PHYSICAL EXAMINATION Vital Signs - 24 hr 05/26/17 05/26/17 02:21 06:55 Temperature 98.1 F Pulse Rate 73 Pulse Rate [ 66 Right Apical] Respiratory 19 18 Rate Blood Pressure 140/67 Blood Pressure 117/63 [Right Arm] O2 Sat by Pulse 98 97 Oximetry (%) GENERAL: Awake, alert, and fully oriented, in no acute distress. HEAD: Normal with no signs of trauma. EYES: Pupils equal, round and reactive to light, extraocular movements intact, sclera anicteric, conjunctiva clear. No lid lag. EARS, NOSE, THROAT: Moist mucous membranes. NECK:supple without JVD, or masses. LUNGS: Breath sounds equal, clear to auscultation bilaterally. HEART: Regular rate and rhythm, normal S1 and S2 ABDOMEN: Soft, moderately tender suprapubic, moderately distended, large tender bladder, normoactive bowel sounds, no guarding, no rebound, no masses. MUSCULOSKELETAL: No CVA tenderness. UPPER EXTREMITIES: 2+ pulses, warm, well-perfused. No cyanosis. No clubbing. No peripheral edema. LOWER EXTREMITIES: 2+ pulses, warm, well-perfused. No calf tenderness. No peripheral edema. NEUROLOGICAL: Cranial nerves II-XII grossly intact. Normal speech. PSYCHIATRIC: Cooperative. Good eye contact. Appropriate mood and affect. SKIN: Warm, dry Laboratory Results - last 24 hr 05/26/17 05/26/17 05/26/17 04:50 04:50 04:50 WBC 13.1 H D RBC 3.40 L Hgb 9.3 L D Hct 29.0 L D MCV 85.4 MCH 27.5 MCHC 32.2 RDW 17.0 H Plt Count 192 D MPV 8.6 Neutrophils % 79.6 Lymphocytes % 12.6 D Monocytes % 7.2 Eosinophils % 0.4 Basophils % 0.2 PT with INR 11.60 INR 1.03 PTT (Actin FS) 25.5 L Sodium 142 Potassium 4.5 Chloride 107 Carbon Dioxide 29 Anion Gap 6 L BUN 59 H Creatinine 2.7 H Creat Clearance w eGFR 17.13 POC Glucometer Random Glucose 32 L* Calcium 8.1 L Total Bilirubin < 0.1 L D AST 12 L ALT 15 Alkaline Phosphatase 60 Creatine Kinase 86 Troponin I < 0.02 Total Protein 6.9 Albumin 3.5 05/26/17 05:52 WBC RBC Hgb Hct MCV MCH MCHC RDW Plt Count MPV Neutrophils % Lymphocytes % Monocytes % Eosinophils % Basophils % PT with INR INR PTT (Actin FS) Sodium Potassium Chloride Carbon Dioxide Anion Gap BUN Creatinine Creat Clearance w eGFR POC Glucometer 182.10935 Random Glucose Calcium Total Bilirubin AST ALT Alkaline Phosphatase Creatine Kinase Troponin I Total Protein Albumin ASSESSMENT/PLAN: This is a 76 yo F with PMH of NIDDM2, urinary retention, hyperkalemia, HLD, diverticulosis, dementia, and peptic ulcer disease, who was BIBEMS s/p fall at home. Patient reports that she woke up feeling very weak and lethargic, and reports falling due to weakness in legs when trying to get out of bed. s/p fall/lethargy likely due to hypoglycemia -glucose 180's after d5w -possibly precipitated by diet -hold metformin -BGM q4h -store receiving clerk teaching -ISS -diabetic low k diet -imaging appreciated, no acute bony or brain pathology -PT UTI, SARANYA -creat 2.7, gfr 17 below baseline -possibly secondary to urinary retention -bladder scan, kidney US r/o hydro -barr insertion if retaining -rocephin -continue oxybutynin -hold lasix, arb, NSAID -trend creat HTN -holding antihypertensive ARB for now, currently normotensive -add Ca channel chintan of needed HLD -resume lipitor 80 d Dementia -aaox3 Anemia -hgb 9-10 at baseline Hypothyroid -resume levothyroxine FEN no IVF because eating monitor K diabetic low k diet Hep sq, ppi ASM MS, will need rehab Problem List - Problem (1) Fall Code(s): W19.XXXA - UNSPECIFIED FALL, INITIAL ENCOUNTER (2) Hypoglycemia Code(s): E16.2 - HYPOGLYCEMIA, UNSPECIFIED (3) Urinary retention Code(s): R33.9 - RETENTION OF URINE, UNSPECIFIED (4) UTI (urinary tract infection) Code(s): N39.0 - URINARY TRACT INFECTION, SITE NOT SPECIFIED (5) HLD (hyperlipidemia) Code(s): E78.5 - HYPERLIPIDEMIA, UNSPECIFIED (6) HTN (hypertension) Code(s): I10 - ESSENTIAL (PRIMARY) HYPERTENSION (7) Hypothyroid Code(s): E03.9 - HYPOTHYROIDISM, UNSPECIFIED (8) Acute kidney injury Code(s): N17.9 - ACUTE KIDNEY FAILURE, UNSPECIFIED (9) Altered mental status Code(s): R41.82 - ALTERED MENTAL STATUS, UNSPECIFIED Qualifiers: Altered mental status type: unspecified Qualified Code(s): R41.82 - Altered mental status, unspecified (10) Anemia Code(s): D64.9 - ANEMIA, UNSPECIFIED (11) Ambulatory dysfunction Code(s): R26.2 - DIFFICULTY IN WALKING, NOT ELSEWHERE CLASSIFIED Visit type - Emergency Visit Emergency Visit: Yes ED Registration Date: 05/26/17 Care time: The patient presented to the Emergency Department on the above date and was hospitalized for further evaluation of their emergent condition. - New Patient This patient is new to me today: Yes Date on this admission: 05/26/17 - Critical Care Critical Care patient: No Hospitalist Screening - Colonoscopy Questionnaire Colonoscopy Questionnaire: Colonoscopy Questionnaire - Patient: 50 - 75 years old and never had a screening colonoscopy: No History of colon or rectal polyps, or CA: No History of IBD, Crohn's disease or UC: No History of abdominal radiation therapy as a child: No - Relative: 1 with colon or rectal CA, or polyps at age 60 or younger: No Colon or rectal CA diagnosed at age 45 or younger: No Multiple relatives with colon or rectal CA: No - Outcome: Screening Result: Negative Screen
[2017-05-26 08:08] LABS: URINE LEUK ESTERASE 1+ (NEGATIVE)
[2017-05-26 08:10] LABS: EPI CELLS RARE /HPF (FEW); URINE BACTERIA MODERATE /hpf (NONE SEEN); URINE HYALINE CAST 5 /lpf; URINE MUCUS RARE
[2017-05-26] MEDS ORDERED: CYCLOBENZAPRINE HCL 10 MG TABLET (FP) PO PRN (08:43)
[2017-05-26] MEDS ORDERED: LEVOTHYROXINE NA 25 MCG TABLET (FP) PO SCH (10:00)
[2017-05-26] MEDS ORDERED: PARoxetine HCL 20 MG TABLET (FP) PO SCH (10:00)
[2017-05-26] MEDS: ARIPiprazole 10 MG TABLET PO SCH (11:00)
[2017-05-26] MEDS ORDERED: PT OWN MED DRAWER 7, Y5N ONE (11:06)
[2017-05-26] MEDS: OXYBUTYNIN CHLORIDE 5 MG TABLET PO SCH ×2 (11:12→21:48)
[2017-05-26] MEDS: CLOPIDOGREL BISULFATE 75 MG TABLET (FP) PO SCH (11:12)
[2017-05-26] MEDS: HEPARIN NA (PORCINE) 5,000 UNITS/ML 1ML VIAL SQ SCH ×3 (11:13→21:49)
[2017-05-26] MEDS: PANTOPRAZOLE 40 MG TABLET (FP) PO SCH (11:13)
[2017-05-26] MEDS: CEFTRIAXONE 2 GM-D5W BAG 2 GM/50 ML BAG IVPB SCH (11:14)
[2017-05-26] MEDS: INSULIN SLIDING SCALE (NOVOLOG) 1 VIAL SQ SCH ×2 (12:00→16:59)
[2017-05-26] MEDS: REPAGLINIDE 1 MG TABLET PO SCH ×3 (13:00→21:49)
--- NOTE | 2017-05-26 13:15 | EKG ---
Test Reason : Blood Pressure : / mmHG Vent. Rate : 069 BPM Atrial Rate : 069 BPM P-R Int : 172 ms QRS Dur : 080 ms QT Int : 376 ms P-R-T Axes : 001 -12 017 degrees QTc Int : 402 ms NORMAL SINUS RHYTHM NORMAL ECG WHEN COMPARED WITH ECG OF 02-MAR-2017 19:14, NO SIGNIFICANT CHANGE WAS FOUND Confirmed by ROSA KNOWLES MD ([id number]) on 05/26/2017 1:14:56 PM Referred By: Confirmed By:ROSA KNOWLES MD
--- NOTE | 2017-05-26 14:24 | PN ---
Teaching Attending Note Name of Resident: Jenna Morales ATTENDING PHYSICIAN STATEMENT I saw and evaluated the patient. I reviewed the resident's note and discussed the case with the resident. I agree with the resident's findings and plan as documented. SUBJECTIVE:76 yo F with PMH of NIDDM2, urinary retention, hyperkalemia, HLD, diverticulosis, dementia, and peptic ulcer disease presented to the ER after mechanical fall. states she felt very weak this AM when getting out of bed. she landed on her R side. denies hitting her head. no LOC of symptoms prior to falling. has been on a strict diet for the past month and been eating very little. also endorses dysuria, urinary frequency and suprapubic pain. has also been taking NSAIDs frequently for her pain in the past few days. denies CP, SOB , fever, chills, N/V/C/D, hematuria OBJECTIVE: Last Vital Signs Temp Pulse Resp BP Pulse Ox 98 F 72 20 113/56 97 05/26/17 12:11 05/26/17 12:11 05/26/17 12:11 05/26/17 12:11 05/26/17 06:55 General NAD HEENT dry mucous membranes, normocephalic, atraumatic CV S1 S2 RRR no murmur/rub/gallop Lungs CTA B/L no wheezing/rales/rhonchi Abdomen soft +suprapbic tenderness ND morbid obese Extremities no pedal edema, full ROM RUE/RLE,large circumferential bruising on R forearm, pulses intact ASSESSMENT AND PLAN: 76 yo F with PMH of NIDDM2, urinary retention, hyperkalemia, HLD, diverticulosis , dementia, and peptic ulcer disease presented to the ER after mechanical fall and found to have SARANYA and UTI 1. Acute on CKD- medicine admission. due to dehydration, medications (ARB and NSAIDS), NSAID use however can not r/o obstruction. switch fluids to D5NS. check urine studies, renal/bladder u/s. initial bladder scan this AM showing 600cc however on repeat showing only 250. will repeat again and determine if barr catheter is indicated. hold ARB and NSAIDS 2. UTI- start ceftriaxone. f/u Cx 3. normocytic anemia- no signs of bleeding. slightly lower than baseline. check iron studies. trend Hgb. txn for Hgb <7 4. Mechanical fall- due to generalized weakness and hypoglycemia. now improved. CT head, XR of R side of body all negative for acute pathology. PT evaluation 5. Hypoglycemia- possible due to reduced intak. 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 check A1c. hold oral agents. BGM, ISS 6. hx of hyperkalemia- normal 7. dementia- paxil, 8. DVT ppx- hep sq 9. PT eval. may benefit from VARINDER placement. pt is in agreement if needed.
[2017-05-26] MEDS: PARoxetine HCL 20 MG TABLET (FP) PO SCH (15:12)
[2017-05-26] MEDS: DEXTROSE 5%-NORMAL SALINE 1,000 ML IV SCH ×2 (15:12→21:51)
[2017-05-26] MEDS: PREGABALIN 50 MG CAPSULE PO SCH (21:48)
[2017-05-26] MEDS: ATORVASTATIN CA 80 MG TABLET (FP) PO SCH (21:48)
[2017-05-27] MEDS ORDERED: PT OWN MED DRAWER 7, Y5N ONE ×2 (05:10→06:23)
[2017-05-27] MEDS: DEXTROSE 5%-NORMAL SALINE 1,000 ML IV SCH (05:30)
[2017-05-27] MEDS: HEPARIN NA (PORCINE) 5,000 UNITS/ML 1ML VIAL SQ SCH ×3 (06:02→21:45)
[2017-05-27] MEDS: LEVOTHYROXINE NA 25 MCG TABLET (FP) PO SCH (06:02)
[2017-05-27] MEDS: REPAGLINIDE 1 MG TABLET PO SCH ×4 (06:02→21:44)
[2017-05-27] MEDS: INSULIN SLIDING SCALE (NOVOLOG) 1 VIAL SQ SCH ×3 (06:30→16:16)
[2017-05-27 07:09] LABS: BASO % 0.6 % (0-2.0); EOS % 3.1 % (0-4.5); HEMATOCRIT 28.1 % (32.4-45.2); HEMOGLOBIN 9.1 GM/dL (10.7-15.3); MCH 27.5 pg (25.7-33.7); MCHC 32.3 g/dl (32.0-36.0); MEAN CELL VOLUME 85.2 fl (80-96); MEAN PLT VOLUME 8.3 fl (7.5-11.1); MONO % 8.1 % (3.8-10.2); NEUT % 55.2 % (42.8-82.8); PLATELET COUNT 171 K/MM3 (134-434); RDW 17.2 % (11.6-15.6); WHITE BLOOD COUNT 6.3 K/mm3 (4.0-10.0)
--- NOTE | 2017-05-27 07:50 | PN ---
Physical Exam: SUBJECTIVE: Patient seen and examined by me this AM - No major overnight events. Barr placed in PM yesterday. Endorsing pain in R arm, L posterior cranium, R hip and R leg at the knee. Pt denies f/c/n/v/d, no cp, sob, cough, neuro deficits, vision changes. OBJECTIVE: Vital Signs Intake & Output 05/24/17 05/25/17 05/26/17 05/27/17 23:59 23:59 23:59 23:59 Intake Total 825 1200 Output Total 2000 500 Balance -1175 700 Weight 81.647 kg Period Temp Pulse Resp BP Sys/Saravia Pulse Ox Last 24 Hr 98 F-98.8 F 72-89 18-20 113-150/56-76 95-96 GENERAL: Elderly woman, NAD, A&Ox3 HEAD: Small focal edema in L posterior cranium, no ecchymoses or gross bony deformities or step-offs EYES: PERRL, extraocular movements intact, sclera anicteric, conjunctiva clear. No ptosis. ENT: Ears normal, nares patent, oropharynx clear without exudates, moist mucous membranes. NECK: Trachea midline, full range of motion, supple. LUNGS: Breath sounds equal, clear to auscultation bilaterally, no wheezes, no crackles, no accessory muscle use. HEART: Regular rate and rhythm, S1, S2 without murmur, rub or gallop. ABDOMEN: No suprapubic tenderness. Soft, nontender, nondistended, normoactive bowel sounds, no guarding, no rebound, no hepatosplenomegaly, no masses. EXTREMITIES: R lateral humerus with focal abrasion and ecchymoses, TTP. TTP in R hip over R greater trochanter, no obvious fx or bony deformities or ecchymoses. 2+ radial, DP, PT pulses BL, warm, well-perfused, no edema. NEUROLOGICAL: Cranial nerves II through XII grossly intact. Normal speech, gait not observed. 5/5 strength in all extremities, preserved sensation in all dermatomes diffusely PSYCH: Normal mood, normal affect. pleasant Laboratory Results - last 24 hr CBC, BMP 05/27/17 06:35 05/27/17 06:35 8 05/26/17 05/26/17 07:10 11:19 16:58 WBC RBC Hgb Hct MCV MCH MCHC RDW Plt Count MPV Neutrophils % Lymphocytes % Monocytes % Eosinophils % Basophils % POC Glucometer 83 193 Urine Color Ltyellow Urine Appearance Clear Urine pH 5.0 Ur Specific [place] 1.014 Urine Protein Negative Urine Glucose (UA) Negative Urine Ketones Negative Urine Blood Negative Urine Nitrite Negative Urine Bilirubin Negative Urine Urobilinogen Negative Ur Leukocyte Esterase 1+ H Urine WBC (Auto) 7 Urine RBC (Auto) 2 Ur Epithelial Cells Rare Urine Bacteria Moderate Hyaline Casts 5 Urine Mucus Rare Ur Random Sodium Ur Random Potassium Ur Random Chloride Urine Creatinine 05/26/17 05/26/17 05/26/17 17:00 17:00 21:06 WBC RBC Hgb Hct MCV MCH MCHC RDW Plt Count MPV Neutrophils % Lymphocytes % Monocytes % Eosinophils % Basophils % POC Glucometer 225 Urine Color Urine Appearance Urine pH Ur Specific [place] Urine Protein Urine Glucose (UA) Urine Ketones Urine Blood Urine Nitrite Urine Bilirubin Urine Urobilinogen Ur Leukocyte Esterase Urine WBC (Auto) Urine RBC (Auto) Ur Epithelial Cells Urine Bacteria Hyaline Casts Urine Mucus Ur Random Sodium 61 Ur Random Potassium 13.0 Ur Random Chloride 41 Urine Creatinine 54.1 05/27/17 05/27/17 05/27/17 02:39 05:25 06:35 WBC 6.3 D RBC 3.30 L Hgb 9.1 L Hct 28.1 L MCV 85.2 MCH 27.5 MCHC 32.3 RDW 17.2 H Plt Count 171 MPV 8.3 Neutrophils % 55.2 D Lymphocytes % 33.0 D Monocytes % 8.1 Eosinophils % 3.1 D Basophils % 0.6 POC Glucometer 171 145 Urine Color Urine Appearance Urine pH Ur Specific [place] Urine Protein Urine Glucose (UA) Urine Ketones Urine Blood Urine Nitrite Urine Bilirubin Urine Urobilinogen Ur Leukocyte Esterase Urine WBC (Auto) Urine RBC (Auto) Ur Epithelial Cells Urine Bacteria Hyaline Casts Urine Mucus Ur Random Sodium Ur Random Potassium Ur Random Chloride Urine Creatinine Active Medications Generic Name Dose Route Start Last Admin Trade Name Freq PRN Reason Stop Dose Admin Aripiprazole 10 mg 05/26/17 10:00 05/26/17 11:00 Abilify PO Not Given DAILY YENI Atorvastatin Calcium 80 mg 05/26/17 22:00 05/26/17 21:48 Lipitor - PO 80 mg HS YENI Administration Clopidogrel Bisulfate 75 mg 05/26/17 10:00 05/26/17 11:12 Plavix - PO 75 mg DAILY YENI Administration Cyclobenzaprine HCl 10 mg 05/26/17 08:43 Flexeril - PO BID PRN MUSCLE SPASMS Heparin Sodium (Porcine) 5,000 unit 05/26/17 10:00 05/27/17 06:02 Heparin - SQ 5,000 unit TID YENI Administration CEFTRIAXONE IN IS-OSM DEXTROSE 2 gm in 50 mls @ 100 mls/hr 05/26/17 09:15 06/09 11:14 Ceftriaxone 2 Gm-D5w Bag IVPB 100 mls/hr DAILY YENI Administration Dextrose/Sodium Chloride 1,000 mls @ 100 mls/hr 05/26/17 14:45 05/27/17 05:30 D5-Ns - IV 100 mls/hr ASDIR YENI Administration Insulin Aspart 1 vial 05/26/17 11:00 05/27/17 06:30 Novolog Vial Sliding Scale - SQ Not Given TIDAC [facility] Protocol Levothyroxine Sodium 37.5 mcg 05/27/17 06:00 05/27/17 06:02 Synthroid - PO 37.5 mcg DAILY@0600 YENI Administration Oxybutynin Chloride 5 mg 05/26/17 10:00 05/26/17 21:48 Ditropan - PO 5 mg BID YENI Administration Pantoprazole Sodium 40 mg 05/26/17 10:00 05/26/17 11:13 Protonix - PO 40 mg DAILY YENI Administration Paroxetine HCl 20 mg 05/26/17 14:45 05/26/17 15:12 Paxil - PO 20 mg DAILY YENI Administration Pregabalin 200 mg 05/26/17 22:00 05/26/17 21:48 Lyrica - PO 200 mg HS YENI Administration Repaglinide 1 mg 05/26/17 12:45 05/27/17 06:02 Prandin - PO 1 mg ACHS YENI Administration blood, urine cx pending R forearm XR 05/26 - Impression. No acute bony abnormalities are seen. No evidence of radiopaque foreign body. CT Head 05/26 - Impression. No evidence of acute intracranial hemorrhage, edema, midline shift, mass effect, or skull fracture. No CT evidence of acute territorial ischemic changes. R humerus 05/26 - Impression. No acute bony abnormalities are seen R Hip/femur 4/4 - Impression. No acute bony abnormality seen. No evidence of hip dislocation. Osteoarthritis of the right knee. R tibia./fibula XR 05/26 - Impression No acute bony abnormalities are seen Renal U/S - IMPRESSION: Both kidneys are small without evidence of hydronephrosis or stones, bilaterally. Slightly lobulated contour of the left mid renal anterior cortex that was also present on prior contrast enhanced CT scan of the abdomen pelvis dated 11/27/[address] scan of the abdomen pelvis dated 10/10/2012 without gross evidence of a discrete mass. Correlate clinically and if needed confirmation with MRI of the kidneys could be obtained Bladder/pelvic u/s - IMPRESSION: Adequately distended urinary bladder without wall thickening. Bilateral ureteral jets were identified. Large postvoid urine residue measuring 395 cc. Normal-appearing uterus and endometrial stripe thickness. ASSESSMENT/PLAN: 76 yo F with PMH of NIDDM2, urinary retention, hyperkalemia, HLD, diverticulosis , dementia, and peptic ulcer disease, who was BIBEMS s/p fall at home. Patient endorsing pain in R arm and R hip. All imaging negative for fractures. Will need PT eval then d/c home tomorrow potentially. #Mechanical fall - likely secondary to hypoglycemia; CT head negative; - no fractures on imaging - pain control - PT eval - walked 60ft today with rolling walker - c/w flexeril - Will likely need walker on d/c #NIDDM - -hold metformin -BGM q4h -ISS -diabetic diet - c/w lyrica #HyperNa - likely secondary to NS load from IVFs - trend - D/c fluids - PO hydration #UTI - likely secondary to urinary retention; UA +leuk esterase -renal/bladder imaging as above -barr placed; tov this PM; d/c now; if retaining in 4 hours, bladder scan and possible replacement of barr and discharge home with barr -Day 2 rocephin -c/w oxybutynin - f/u cultures -monitor for symptoms, fever, WBC #SARANYA -improved from 2.7 -> 1.4 with IVFs - d/c fluids, PO hydration - avoid nephrotoxins - trend Cr - TOV in PM - hold lasix, arb, NSAID #HTN - normotensive, well controlled -hold Anti-HTN now #HLD -lipitor 80 d #Anemia - normocytic, at baseline -hgb 9-10 range - trend H/H - transfuse at <7 - f/u iron studies. #Dementia - c/w paxil #Hypothyroid -resume levothyroxine FEN PO hydrationl trend K, Cr diabetic low k diet PPX Hep sq, ppi Dispo MS; will dispo to rehab Plan discussed with attending, Dr. Carol Sandoval, PGY1 Visit type - Emergency Visit Emergency Visit: Yes ED Registration Date: 05/26/17 Care time: The patient presented to the Emergency Department on the above date and was hospitalized for further evaluation of their emergent condition. - New Patient This patient is new to me today: No - Critical Care Critical Care patient: No - Discharge Referral Referred to [facility] No
[2017-05-27 07:51] LABS: BLOOD UREA NITROGEN 28 mg/dL (7-18); CHLORIDE 111 mmol/L (98-107); POTASSIUM 4.3 mmol/L (3.5-5.1); SODIUM 148 mmol/L (136-145)
[2017-05-27 07:53] LABS: ANION GAP 9 (8-16); CO2 28 mmol/L (21-32); CREATININE 1.3 mg/dL (0.55-1.02); GLUCOSE,RANDOM 113 mg/dL (74-106); MAGNESIUM 1.8 mg/dL (1.8-2.4)
[2017-05-27] MEDS: CEFTRIAXONE 2 GM-D5W BAG 2 GM/50 ML BAG IVPB SCH ×2 (09:26→10:10)
[2017-05-27] MEDS: PARoxetine HCL 20 MG TABLET (FP) PO SCH (09:26)
[2017-05-27] MEDS: ARIPiprazole 10 MG TABLET PO SCH (09:26)
[2017-05-27] MEDS: PANTOPRAZOLE 40 MG TABLET (FP) PO SCH (09:26)
[2017-05-27] MEDS: CLOPIDOGREL BISULFATE 75 MG TABLET (FP) PO SCH (09:26)
[2017-05-27] MEDS: OXYBUTYNIN CHLORIDE 5 MG TABLET PO SCH ×2 (09:26→21:43)
--- NOTE | 2017-05-27 13:49 | PN ---
Teaching Attending Note Name of Resident: Behzad Sandoval ATTENDING PHYSICIAN STATEMENT I saw and evaluated the patient. I reviewed the resident's note and discussed the case with the resident. I agree with the resident's findings and plan as documented. SUBJECTIVE:suprapubic tenderness improved. denies CP, SOB, fever, chills, N/V/C/ D OBJECTIVE: Last Vital Signs Temp Pulse Resp BP Pulse Ox 98.4 F 82 18 148/74 97 05/27/17 08:00 05/27/17 08:00 05/27/17 08:00 05/27/17 08:00 05/27/17 08:46 General NAD CV S1 S2 RRR no murmur/rub/gallop Lungs CTA B/L no wheezing/rales/rhonchi Abdomen soft +suprapbic tenderness ND morbid obese ASSESSMENT AND PLAN: 76 yo F with PMH of NIDDM2, urinary retention, hyperkalemia, HLD, diverticulosis , dementia, and peptic ulcer disease presented to the ER after mechanical fall and found to have SARANYA and UTI 1. Acute on CKD-FeNa 2. likely intrinsic from ARB/NSAID use. improved. barr was placed in the evening last night due to retention. d/c IVF. d/c barr once getting out of bed. no acute pathology on renal/bladder u/s. cont to hold ARB and NSAIDS 2. UTI-leukcytosis resolved. afebrile. on ceftriaxone day2. f/u Cx 3. normocytic anemia- no signs of bleeding. Hgb stable. slightly lower than baseline. iron studies pending. txn for Hgb <7 4. Mechanical fall- due to generalized weakness and hypoglycemia. now improved. CT head, XR of R side of body all negative for acute pathology. PT evaluation 5. Hypoglycemia- possible due to reduced intake. 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 A1c 6.8. cont iss,bgm. resume hypoglycemics on discharge. 6. hx of hyperkalemia- normal 7. dementia- paxil, 8. DVT ppx- hep sq 9. PT eval. may benefit from VARINDER placement. possible d/c tomorrow
[2017-05-27] MEDS ORDERED: ACETAMINOPHEN 500 MG TABLET (FP) PO PRN (14:53)
[2017-05-27] MEDS: ATORVASTATIN CA 80 MG TABLET (FP) PO SCH (21:43)
[2017-05-27] MEDS: PREGABALIN 50 MG CAPSULE PO SCH (21:43)
[2017-05-28 06:07] LABS: SERUM IRON SATURATION 6 % (15-55); TOTAL IRON BINDING CAPACITY 293 ug/dL (250-450); UIBC 275 ug/dL (118-369)
[2017-05-28] MEDS: LEVOTHYROXINE NA 25 MCG TABLET (FP) PO SCH (06:10)
[2017-05-28] MEDS: HEPARIN NA (PORCINE) 5,000 UNITS/ML 1ML VIAL SQ SCH ×2 (06:10→14:33)
[2017-05-28] MEDS: INSULIN SLIDING SCALE (NOVOLOG) 1 VIAL SQ SCH ×2 (06:11→11:55)
[2017-05-28] MEDS: REPAGLINIDE 1 MG TABLET PO SCH ×2 (06:11→12:03)
--- NOTE | 2017-05-28 06:34 | PN ---
Physical Exam: SUBJECTIVE: Patient seen and examined by me this AM - No major overnight events. Afebrile, VSS. Pt with bladder scan in early AM 741 cc. Barr replaced, drained 800 cc of urine. Pt may require discharge with barr - Denies any f/c/n/v/d, cp, cough, sob, ab pain, LE edema. Pt with throat pain, suprapubic pain and pain in R shoulder and back. Counseled about hospital course , imaging results and need for barr on discharge due to urinary retention. Pt expressed verbal understanding. Will d/c [place]ady with barr and outpt f/u with Urology. OBJECTIVE: Vital Signs Intake & Output 05/25/17 05/26/17 05/27/17 05/28/17 23:59 23:59 23:59 23:59 Intake Total 825 3175 Output Total 1999 2700 800 Balance -1175 475 -800 Weight 81.647 kg Period Temp Pulse Resp BP Sys/Saravia Pulse Ox Last 24 Hr 98.4 F-98.5 F 82-83 18-20 136-148/67-74 97-97 GENERAL: Elderly woman, NAD, A&Ox3 HEAD: TTP in small patch of edema on L posterior cranium; still w/ no ecchymoses or gross bony deformities or step-offs EYES: PERRL, extraocular movements intact, sclera anicteric, conjunctiva clear. No ptosis. ENT: Ears normal, nares patent, oropharynx clear without exudates, moist mucous membranes. NECK: Trachea midline, full range of motion, supple. LUNGS: Breath sounds equal, clear to auscultation bilaterally, no wheezes, no crackles, no accessory muscle use. HEART: Regular rate and rhythm, S1, S2 without murmur, rub or gallop. ABDOMEN: + suprapubic tenderness. Soft, nontender, nondistended, normoactive bowel sounds, no guarding, no rebound, no hepatosplenomegaly, no masses. EXTREMITIES: R lateral humerus with focal abrasion and ecchymoses, diffusely on lateral aspected. still TTP in R hip over R greater trochanter, no obvious fx or bony deformities or ecchymoses. 2+ radial, DP, PT pulses BL, warm, well- perfused, no edema. NEUROLOGICAL: Cranial nerves II through XII grossly intact. Normal speech, gait not observed. 5/5 strength in all extremities, preserved sensation in all dermatomes diffusely PSYCH: Normal mood, normal affect. pleasant Laboratory Results - last 24 hr CBC, BMP 05/28/17 07:05 05/28/17 07:05 05/27/17 06:35 05/27/17 06:35 05/27/17 05/27/17 05/27/17 06:35 06:35 06:35 WBC 6.3 D RBC 3.30 L Hgb 9.1 L Hct 28.1 L MCV 85.2 MCH 27.5 MCHC 32.3 RDW 17.2 H Plt Count 171 MPV 8.3 Neutrophils % 55.2 D Lymphocytes % 33.0 D Monocytes % 8.1 Eosinophils % 3.1 D Basophils % 0.6 Sodium 148 H Potassium 4.3 Chloride 111 H Carbon Dioxide 28 Anion Gap 9 BUN 28 H D Creatinine 1.3 H POC Glucometer Random Glucose 113 H Hemoglobin A1c % Calcium 8.0 L Phosphorus 3.0 Magnesium 1.8 Iron 18 L TIBC 293 Iron Saturation 6 L Ferritin 11.370 05/27/17 05/27/17 05/27/17 06:35 06:35 11:44 WBC RBC Hgb Hct MCV MCH MCHC RDW Plt Count MPV Neutrophils % Lymphocytes % Monocytes % Eosinophils % Basophils % Sodium Potassium Chloride Carbon Dioxide Anion Gap BUN Creatinine POC Glucometer 207 Random Glucose Hemoglobin A1c % 6.8 H Calcium Phosphorus Magnesium Iron TIBC Iron Saturation Ferritin Cancelled 05/27/17 05/27/17 05/28/17 16:15 21:40 05:20 WBC RBC Hgb Hct MCV MCH MCHC RDW Plt Count MPV Neutrophils % Lymphocytes % Monocytes % Eosinophils % Basophils % Sodium Potassium Chloride Carbon Dioxide Anion Gap BUN Creatinine POC Glucometer 160 185 88 Random Glucose Hemoglobin A1c % Calcium Phosphorus Magnesium Iron TIBC Iron Saturation Ferritin Active Medications Generic Name Dose Route Start Last Admin Trade Name Freq PRN Reason Stop Dose Admin Acetaminophen 500 mg 05/27/17 14:53 Tylenol - PO Q4H PRN PAIN LEVEL 1-5 Aripiprazole 10 mg 05/26/17 10:00 05/27/17 09:26 Abilify PO 10 mg DAILY YENI Administration Atorvastatin Calcium 80 mg 05/26/17 22:00 05/27/17 21:43 Lipitor - PO 80 mg HS YENI Administration Clopidogrel Bisulfate 75 mg 05/26/17 10:00 05/27/17 09:26 Plavix - PO 75 mg DAILY YENI Administration Cyclobenzaprine HCl 10 mg 05/26/17 08:43 Flexeril - PO BID PRN MUSCLE SPASMS Heparin Sodium (Porcine) 5,000 unit 05/26/17 10:00 05/28/17 06:10 Heparin - SQ 5,000 unit TID YENI Administration CEFTRIAXONE IN IS-OSM DEXTROSE 2 gm in 50 mls @ 100 mls/hr 05/26/17 09:15 07/09 10:10 Ceftriaxone 2 Gm-D5w Bag IVPB Not Given DAILY [facility] Insulin Aspart 1 vial 05/26/17 11:00 05/28/17 06:11 Novolog Vial Sliding Scale - SQ Not Given TIDAC [facility] Protocol Levothyroxine Sodium 37.5 mcg 05/27/17 06:00 05/28/17 06:10 Synthroid - PO 37.5 mcg DAILY@0600 YENI Administration Oxybutynin Chloride 5 mg 05/26/17 10:00 05/27/17 21:43 Ditropan - PO 5 mg BID YENI Administration Pantoprazole Sodium 40 mg 05/26/17 10:00 05/27/17 09:26 Protonix - PO 40 mg DAILY YENI Administration Paroxetine HCl 20 mg 05/26/17 14:45 05/27/17 09:26 Paxil - PO 20 mg DAILY YENI Administration Pregabalin 200 mg 05/26/17 22:00 05/27/17 21:43 Lyrica - PO 200 mg HS YENI Administration Repaglinide 1 mg 05/26/17 12:45 05/28/17 06:11 Prandin - PO 1 mg ACHS YENI Administration Microbiology 05/26/17 09:30 Blood - Peripheral Venous Blood Culture - Preliminary NO GROWTH OBTAINED AFTER 24 HOURS, INCUBATION TO CONTINUE FOR 4 DAYS. 05/26/17 09:13 Blood - Peripheral Venous Blood Culture - Preliminary NO GROWTH OBTAINED AFTER 24 HOURS, INCUBATION TO CONTINUE FOR 4 DAYS. 05/26/17 07:10 Urine - Urine Clean Catch Urine Culture - Final R forearm XR 05/26 - Impression. No acute bony abnormalities are seen. No evidence of radiopaque foreign body. CT Head 05/26 - Impression. No evidence of acute intracranial hemorrhage, edema, midline shift, mass effect, or skull fracture. No CT evidence of acute territorial ischemic changes. R humerus 05/26 - Impression. No acute bony abnormalities are seen R Hip/femur 05/26 - Impression. No acute bony abnormality seen. No evidence of hip dislocation. Osteoarthritis of the right knee. R tibia./fibula XR 05/26 - Impression No acute bony abnormalities are seen Renal U/S - IMPRESSION: Both kidneys are small without evidence of hydronephrosis or stones, bilaterally. Slightly lobulated contour of the left mid renal anterior cortex that was also present on prior contrast enhanced CT scan of the abdomen pelvis dated 11/27/[address] scan of the abdomen pelvis dated 10/10/2012 without gross evidence of a discrete mass. Correlate clinically and if needed confirmation with MRI of the kidneys could be obtained Bladder/pelvic u/s - IMPRESSION: Adequately distended urinary bladder without wall thickening. Bilateral ureteral jets were identified. Large postvoid urine residue measuring 395 cc. Normal-appearing uterus and endometrial stripe thickness. ASSESSMENT/PLAN: 76 yo F with PMH of NIDDM2, urinary retention, hyperkalemia, HLD, diverticulosis , dementia, and peptic ulcer disease, who was BIBEMS s/p fall at home. Patient endorsing pain in R arm and R hip. All imaging negative for fractures. Will need PT eval then d/c home tomorrow potentially. #Mechanical fall - likely secondary to hypoglycemia; CT head negative; - no fractures on imaging - pain control - PT eval - walked 60ft today with rolling walker - c/w flexeril - Will likely need walker on d/c #NIDDM - -hold metformin -BGM q4h -ISS -diabetic diet - c/w lyrica #HyperNa - likely secondary to NS load from IVFs - trend - D/c fluids - PO hydration #UTI - likely secondary to urinary retention; UA +leuk esterase -renal/bladder imaging as above -barr placed; tov this PM; d/c now; if retaining in 4 hours, bladder scan and possible replacement of barr and discharge home with barr -Day 2 rocephin -c/w oxybutynin - f/u cultures -monitor for symptoms, fever, WBC #SARANYA -improved from 2.7 -> 1.4 with IVFs - d/c fluids, PO hydration - avoid nephrotoxins - trend Cr - TOV in PM - hold lasix, arb, NSAID #HTN - normotensive, well controlled -hold Anti-HTN now #HLD -lipitor 80 d #Anemia - normocytic, at baseline -hgb 9-10 range - trend H/H - transfuse at <7 - f/u iron studies. #Dementia - c/w paxil #Hypothyroid -resume levothyroxine FEN PO hydrationl trend K, Cr diabetic low k diet PPX Hep sq, ppi Dispo MS; will dispo to rehab Plan discussed with attending, Dr. Carol Sandoval, PGY1
[2017-05-28] MEDS ORDERED: DOCUSATE SODIUM 100 MG CAPSULE (FP) PO PRN (08:00)
[2017-05-28 08:02] LABS: BASO % 0.6 % (0-2.0); EOS % 3.6 % (0-4.5); HEMATOCRIT 26.7 % (32.4-45.2); HEMOGLOBIN 8.7 GM/dL (10.7-15.3); LYMPH % 40.9 % (8-40); MCH 27.5 pg (25.7-33.7); MCHC 32.6 g/dl (32.0-36.0); MEAN CELL VOLUME 84.5 fl (80-96); MEAN PLT VOLUME 8.5 fl (7.5-11.1); NEUT % 45.9 % (42.8-82.8); PLATELET COUNT 166 K/MM3 (134-434); RBC 3.16 M/mm3 (3.60-5.2); RDW 16.8 % (11.6-15.6); WHITE BLOOD COUNT 6.5 K/mm3 (4.0-10.0)
[2017-05-28 08:25] LABS: CHLORIDE 110 mmol/L (98-107); POTASSIUM 4.2 mmol/L (3.5-5.1); SODIUM 145 mmol/L (136-145)
[2017-05-28 08:35] LABS: ANION GAP 7 (8-16); BLOOD UREA NITROGEN 21 mg/dL (7-18); CALCIUM 8.4 mg/dL (8.5-10.1); CO2 28 mmol/L (21-32); GLUCOSE,RANDOM 66 mg/dL (74-106)
[2017-05-28 09:02] VITALS: BP 145/81; PULSE 82; TEMP 98
[2017-05-28] MEDS ORDERED: CEFTRIAXONE 2 GM-D5W BAG 2 GM/50 ML BAG IVPB ONE (09:15)
[2017-05-28] MEDS ORDERED: CEPHALEXIN MONOHYDRATE 500 MG CAPSULE (UD) PO SCH (10:00)
[2017-05-28] MEDS ORDERED: SENNOSIDES 8.6MG TABLET (FP) PO SCH (10:00)
[2017-05-28] MEDS ORDERED: PT OWN MED DRAWER 7, Y5N ONE ×2 (10:21→12:02)
[2017-05-28] MEDS: ARIPiprazole 10 MG TABLET PO SCH (10:25)
[2017-05-28] MEDS: CLOPIDOGREL BISULFATE 75 MG TABLET (FP) PO SCH (10:25)
[2017-05-28] MEDS: PANTOPRAZOLE 40 MG TABLET (FP) PO SCH (10:25)
[2017-05-28] MEDS: OXYBUTYNIN CHLORIDE 5 MG TABLET PO SCH (10:25)
[2017-05-28] MEDS: PARoxetine HCL 20 MG TABLET (FP) PO SCH (10:25)
--- NOTE | 2017-05-28 11:01 | PN ---
Teaching Attending Note Name of Resident: Behzad Sandoval ATTENDING PHYSICIAN STATEMENT I saw and evaluated the patient. I reviewed the resident's note and discussed the case with the resident. I agree with the resident's findings and plan as documented. SUBJECTIVE:asymptomatic. denies Cp, SOB, fever, chills, N/V/C/D OBJECTIVE: Last Vital Signs Temp Pulse Resp BP Pulse Ox 98.0 F 82 20 145/81 97 05/28/17 09:02 05/28/17 09:02 05/28/17 09:02 05/28/17 09:02 05/27/17 21:00 General NAD CV S1 S2 RRR no murmur/rub/gallop Lungs CTA B/L no wheezing/rales/rhonchi Abdomen soft NT/ND morbid obese ASSESSMENT AND PLAN: 76 yo F with PMH of NIDDM2, urinary retention, hyperkalemia, HLD, diverticulosis , dementia, and peptic ulcer disease presented to the ER after mechanical fall and found to have SARANYA and UTI 1. Acute on CKD-FeNa 2. likely intrinsic from ARB/NSAID use. resolved. started retaining in the evening and barr re-inserted. will leave with barr in place and follow up with urology as outpatient. can re-start arb. 2. UTI-leukcytosis resolved. afebrile. on ceftriaxone day3. d/c on keflex to complete course. Cx negative 3. normocytic anemia- no signs of bleeding. Hgb stable. slightly lower than baseline. iron studies pending. txn for Hgb <7 4. Mechanical fall- due to generalized weakness and hypoglycemia. now improved. CT head, XR of R side of body all negative for acute pathology. PT evaluation 5. Hypoglycemia- possible due to reduced intake. 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 A1c 6.8. cont iss,bgm. resume hypoglycemics on discharge. 6. hx of hyperkalemia- normal 7. dementia- paxil, 8. DVT ppx- hep sq 9. ambulated 60ft iwth PT. can d/c home with VNS
--- NOTE | 2017-05-28 11:29 | DS ---
Physical Exam: SUBJECTIVE: Patient seen and examined - No major overnight events. Afebrile, VSS. Pt with bladder scan in early AM 741 cc. Barr replaced, drained 800 cc of urine. Pt may require discharge with barr - Denies any f/c/n/v/d, cp, cough, sob, ab pain, LE edema. Pt with throat pain, suprapubic pain and pain in R shoulder and back. Counseled about hospital course , imaging results and need for barr on discharge due to urinary retention. Pt expressed verbal understanding. Will d/c toady with barr and outpt f/u with Urology. OBJECTIVE: Vital Signs Intake & Output 05/25/17 05/26/17 05/27/17 05/28/17 23:59 23:59 23:59 23:59 Intake Total 825 3175 Output Total 1999 2700 800 Balance -1175 475 -800 Weight 81.647 kg Period Temp Pulse Resp BP Sys/[place]avia Pulse Ox Last 24 Hr 98.0 F-98.5 F 82-83 20-20 136-145/67-81 97 PHYSICAL EXAM GENERAL: Elderly woman, NAD, A&Ox3 HEAD: TTP in small patch of edema on L posterior cranium; still w/ no ecchymoses or gross bony deformities or step-offs EYES: PERRL, extraocular movements intact, sclera anicteric, conjunctiva clear. No ptosis. ENT: Ears normal, nares patent, oropharynx clear without exudates, moist mucous membranes. NECK: Trachea midline, full range of motion, supple. LUNGS: Breath sounds equal, clear to auscultation bilaterally, no wheezes, no crackles, no accessory muscle use. HEART: Regular rate and rhythm, S1, S2 without murmur, rub or gallop. ABDOMEN: + suprapubic tenderness. Soft, nontender, nondistended, normoactive bowel sounds, no guarding, no rebound, no hepatosplenomegaly, no masses. EXTREMITIES: R lateral humerus with focal abrasion and ecchymoses, diffusely on lateral aspected. still TTP in R hip over R greater trochanter, no obvious fx or bony deformities or ecchymoses. 2+ radial, DP, PT pulses BL, warm, well- perfused, no edema. NEUROLOGICAL: Cranial nerves II through XII grossly intact. Normal speech, gait not observed. 5/5 strength in all extremities, preserved sensation in all dermatomes diffusely PSYCH: Normal mood, normal affect. pleasant LABS Laboratory Results - last 24 hr CBC, BMP 05/28/17 07:05 05/28/17 07:05 05/27/17 05/27/17 05/27/17 06:35 11:44 16:15 WBC RBC Hgb Hct MCV MCH MCHC RDW Plt Count MPV Neutrophils % Lymphocytes % Monocytes % Eosinophils % Basophils % Sodium Potassium Chloride Carbon Dioxide Anion Gap BUN Creatinine POC Glucometer 207 160 Random Glucose Calcium Iron 18 L TIBC 293 Iron Saturation 6 L 05/27/17 05/28/17 05/28/17 21:40 05:20 07:05 WBC 6.5 RBC 3.16 L Hgb 8.7 L Hct 26.7 L MCV 84.5 MCH 27.5 MCHC 32.6 RDW 16.8 H Plt Count 166 MPV 8.5 Neutrophils % 45.9 Lymphocytes % 40.9 H D Monocytes % 9.0 Eosinophils % 3.6 Basophils % 0.6 Sodium Potassium Chloride Carbon Dioxide Anion Gap BUN Creatinine POC Glucometer 185 88 Random Glucose Calcium Iron TIBC Iron Saturation 05/28/17 07:05 WBC RBC Hgb Hct MCV MCH MCHC RDW Plt Count MPV Neutrophils % Lymphocytes % Monocytes % Eosinophils % Basophils % Sodium 145 Potassium 4.2 Chloride 110 H Carbon Dioxide 28 Anion Gap 7 L BUN 21 H Creatinine 1.0 POC Glucometer Random Glucose 66 L Calcium 8.4 L Iron TIBC Iron Saturation Microbiology 05/26/17 09:13 Blood - Peripheral Venous Blood Culture - Preliminary NO GROWTH OBTAINED AFTER 48 HOURS, INCUBATION TO CONTINUE FOR 3 DAYS. 05/26/17 09:30 Blood - Peripheral Venous Blood Culture - Preliminary NO GROWTH OBTAINED AFTER 48 HOURS, INCUBATION TO CONTINUE FOR 3 DAYS. 05/26/17 07:10 Urine - Urine Clean Catch Urine Culture - Final Imaging: R forearm XR / - Impression. No acute bony abnormalities are seen. No evidence of radiopaque foreign body. CT Head 05/26 - Impression. No evidence of acute intracranial hemorrhage, edema, midline shift, mass effect, or skull fracture. No CT evidence of acute territorial ischemic changes. R humerus / - Impression. No acute bony abnormalities are seen R Hip/femur / - Impression. No acute bony abnormality seen. No evidence of hip dislocation. Osteoarthritis of the right knee. R tibia./fibula XR 05/26 - Impression No acute bony abnormalities are seen Renal U/S - IMPRESSION: Both kidneys are small without evidence of hydronephrosis or stones, bilaterally. Slightly lobulated contour of the left mid renal anterior cortex that was also present on prior contrast enhanced CT scan of the abdomen pelvis dated 11/27/[address] scan of the abdomen pelvis dated 10/10/2012 without gross evidence of a discrete mass. Correlate clinically and if needed confirmation with MRI of the kidneys could be obtained Bladder/pelvic u/s - IMPRESSION: Adequately distended urinary bladder without wall thickening. Bilateral ureteral jets were identified. Large postvoid urine residue measuring 395 cc. Normal-appearing uterus and endometrial stripe thickness. HOSPITAL COURSE: Prehospital: This is a 76 yo F with PMH of NIDDM2, urinary retention, hyperkalemia, HLD, diverticulosis, dementia, and peptic ulcer disease, who was BIBEMS s/p fall at home. Patient reports that she woke up feeling very weak and lethargic, and reports falling due to weakness in legs when trying to get out of bed. She fell on her R arm and R hip but denies hitting her head. She also reports slurred speech this morning, which is unusual. She states that for the past month she has been on low K diet and has been eating less. She also reports 4 days of suprapubic pain and decreased amount of urination. She measures her glucose every morning and it ranges from 80 to 120. She takes her metformin as prescribed. She denies f/c, n/a, d/c/abd pain, h/a, cp, cough, sob, dysuria, hematuria, hematochezia. She lives alone. She reports using waker to ambulate due to severe arthritis and that she does not walk well at home. ER course was notable for: (1)labs (2)head ct, extremities, pelvic xr (3)D5W Hospital: VSS on admission. Labs notable for WBC 13, Hgb 9.3, glucose of 32, and Cr 2.7. UA 1+ luek est, 7 wbcs. Received dose of rocephin in ED. Pt received amp of D25 , started on d5w IVFs with correction of glucose to 180. Metformin held, ordered for ISS. Bladder scan notable for 600cc retained urine, barr placed. All imaging negative for acute fractures or gross bony deformities; Head CT negative for acute pathology. Pt started on flexeril. Renal and bladder U/S ordered given SARANYA, results noted above. Pt continued on rocephin for UTI coverage, urine and blood cultures sent. Walked 60 ft with PT on day 2 admission. Cr improved from 2.7 to 1.4 with IVFs; switched to PO hydration. WBC count resolved, no fevers on day 3; switched to keflex for total of 7 day course. Pt failed TOV, discharged home with barr and VNS. Provided with outpt urology referral with Dr. Kilgore. Started on ferrous sulfate due to chronic anemia on discharge. Pt counseled on plan, all questions answered. Date of Admission:05/26/17 Date of Discharge: 05/28/17 Pt is medically cleared for discharge with outpt with PCP and Urology for further management of urinary retention and removal of indwelling barr catheter. Minutes to complete discharge: 35 Discharge Summary Reason For Visit: ACUTE KIDNEY INJURY,HYPOGLYCEMIA,AMS Current Active Problems Acute kidney injury (Acute) Altered mental status (Acute) Ambulatory dysfunction (Acute) Fall (Acute) HLD (hyperlipidemia) (Acute) HTN (hypertension) (Acute) Hypoglycemia (Acute) Hypothyroid (Acute) UTI (urinary tract infection) (Acute) Urinary retention (Acute) Condition: Stable - Instructions Diet, Activity, Other Instructions: During your stay at [facility], you were treated for a mechanical fall and low blood sugar. You have received extensive imaging of your body to rule out fractures and no gross deformities or fractures have been found. Medications: Please take the following medications as directed below: Ferrous sulfate (325mg), take one pill twice a day by mouth. This medication can turn your stools dark and can induce constipation. Do not be alarmed as this is normal. Please take laxative as needed to help with the constipation. Keflex (500mg), take one pill twice a day by mouth, for the next two days (05/29-). Please take all other home medication as previously prescribed. Please check your sugars regularly and frequently at home and keep a meticulous records of the values. Please bring this information to your primary care doctor to determine if you require adjustment of your home diabetes regimen. If you experience pain, you may take one tylenol 650mg every four hours, until your pain resolves. Follow-ups: Please follow-up with your primary care physician, Dr Malave, in one week for further management of your medications. Please call their office to schedule an appointment. You are being discharged with a barr catheter to help you urinate due to the fact that you have been having difficulty urinating since your admission. You will need to be seen by a urologist upon discharge to determine when to remove this catheter. Contact information for Dr. Carvajal, our urologist, has been provided in this packet. Please call his office to schedule an appointment for removal of the catheter. Diet/exercise: During your stay at [facility], you were seen and evaluated by our physical therapy team. They determined you will require a walker when ambulating at home. A prescription for a rolling walker has been provided to you. Please return to the hospital if you experience any of the following symptoms: - Any persistent swelling, decreased temperature or redness in one leg versus the other. - Any numbness or weakness in one or multiple limbs. - Any gross deformities or annalee fractures that you notice that may have been missed due to soft tissue swelling after your fall. - Any drastic changes in your mental status, such as severe fatigue, inability to concentrate, facial asymmetry, persistent vision changes or think clearly or any loss of consciousness/seizures. - Persistently increased urination or thirst - Any new or concerning symptoms Referrals: Milan Ayala MD [Primary Care Provider] - 1 Week Tony Kilgore MD [Staff Physician] - 1 Week (Evaluation of urinary retention and removal of barr catheter on discharge after mechanical fall. ) Disposition: VNS/HOME HEALTH CARE - Home Medications Comprehensive Discharge Medication List: Ambulatory Orders metFORMIN HCL [Glucophage] 1,000 mg PO BID #0 tab 10/14/12 Atorvastatin Ca [Lipitor] 80 mg PO HS 12/02/16 Clopidogrel Bisulfate [Plavix -] 75 mg PO DAILY 12/02/16 Paroxetine HCl [Paxil -] 20 mg PO DAILY 12/02/16 Pregabalin [Lyrica -] 200 mg PO HS 12/02/16 Repaglinide [Prandin] 1 mg PO QID 12/02/16 Pantoprazole Sodium 40 mg PO DAILY #30 tablet. 01/13/17 Aripiprazole [Abilify] 10 mg PO DAILY 05/26/17 Cyclobenzaprine HCl [Flexeril 10 mg] 10 mg PO BID PRN 05/26/17 Diclofenac Sodium [Diclofenac Sodium ER] 100 mg PO DAILY 05/26/17 Furosemide [Lasix] 40 mg PO DAILY 05/26/17 Olmesartan Medoxomil [Benicar -] 20 mg PO DAILY 05/26/17 Oxybutynin Chloride [Oxybutynin Chloride ER] 10 mg PO DAILY 05/26/17 Cephalexin Monohydrate [Keflex -] 500 mg PO BID #4 capsule 05/28/17 Ferrous Sulfate 325 mg PO BID #60 tablet 05/28/17 Levothyroxine [Synthroid -] 37.5 mcg PO DAILY@0600 tablet 05/28/17 Miscellaneous Drug Not in Syst 1 each .ROUTE ASDIR #1 each 05/28/17 This patient is new to me today: No Emergency Visit: Yes ED Registration Date: 05/26/17 Care time: The patient presented to the Emergency Department on the above date and was hospitalized for further evaluation of their emergent condition. Critical Care patient: No - Discharge Referral Referred to [facility] Med [facility].: No
== END 2017-05-28 15:52 | disposition home health service (06) | DRG 683 ==
LOC: JER 02:09 → JERBED 06:33 → OBSVTOIN 08:19 → J6S 08:30
PROVIDERS: ADMIT Internal Medicine; ATTEND Internal Medicine
DX: N17.9 Acute kidney failure, unspecified (principal); E87.0 Hyperosmolality and hypernatremia; N39.0 Urinary tract infection, site not specified; E11.649 Type 2 diabetes mellitus with hypoglycemia without coma; E78.5 Hyperlipidemia, unspecified; F03.90 Unspecified dementia, unspecified severity, without behavioral disturbance, psychotic disturbance, mood disturbance, and anxiety; E86.0 Dehydration; D72.829 Elevated white blood cell count, unspecified; R41.82 Altered mental status, unspecified; K57.90 Diverticulosis of intestine, part unspecified, without perforation or abscess without bleeding; R26.2 Difficulty in walking, not elsewhere classified; I12.9 Hypertensive chronic kidney disease with stage 1 through stage 4 chronic kidney disease, or unspecified chronic kidney disease; N18.9 Chronic kidney disease, unspecified; E11.22 Type 2 diabetes mellitus with diabetic chronic kidney disease; R33.9 Retention of urine, unspecified; E03.9 Hypothyroidism, unspecified; D64.9 Anemia, unspecified; S70.211A Abrasion, right hip, initial encounter; W18.39XA Other fall on same level, initial encounter; Y93.89 Activity, other specified; Y92.099 Unspecified place in other non-institutional residence as the place of occurrence of the external cause; Z87.11 Personal history of peptic ulcer disease
CPT/HCPCS: 36415; 70450-TC; 73060-TC-RT-FY; 73090-TC-RT-FY; 73523-TC-FY; 73552-TC-RT-FY; 73590-TC-RT-FY; 76775-TC; 76856-TC; 80048; 80053; 81003; 81015; 82436; 82550; 82570; 82728; 82962; 83036; 83540; 83550; 83735; 84100; 84133; 84300; 84484; 85025; 85610; 85730; 87040; 87086; 93005; 93010; 97116-GP; 97161-GP; 99283-25; G0378; J1644

== ENCOUNTER 2017-09-07 13:57 | Inpatient (IN) | payer MEDICARE, OTHER ==
[2017-09-07 14:06] VITALS: BMI 30.2
--- NOTE | 2017-09-07 14:14 | PDOC ---
History of Present Illness - General Chief Complaint: SIRS, Suspected/Possible Stated Complaint: BLOOD PRESSURE PROBLEM Time Seen by Provider: 09/07/17 14:13 - History of Present Illness Initial Comments: 09/07/17 14:23 Ms. Ed Clay is a 77 yo female w/ pmh of PUD, NE, NIDDM, hypokalemia, HLD, dementia, and recent admission 09/01-09/06 for hyperkalemia, SARANYA, and UTI (ESBL) - scheduled for 3 more days (today 06/28) of outpatient ertapenem 1gm who presents for evaluation of hypotension noted earlier today while at her appointment for her ertapenem administration. She also endorses single episode today of getting dizzy while sitting in her chair and that she subsequently fell out of bed. She is unsure if she hit her head or lost consciousness earlier although she reports pain at left shoulder and right forearm where she was hurt when she fell. The patient denies chest pain, shortness of breath, headache and dizziness. Denies fever, chills, nausea, vomit, diarrhea and constipation. Denies dysuria, frequency, urgency and hematuria. Allergies: NKDA Past History - Past Medical History Allergies/Adverse Reactions: Allergies Allergy/AdvReac Type Severity Reaction Status Date / Time No Known Allergies Allergy Verified 09/07/17 14:01 Home Medications: Ambulatory Orders metFORMIN HCL [Glucophage] 1,000 mg PO BID #0 tab 10/14/12 Atorvastatin Ca [Lipitor] 80 mg PO HS 12/02/16 Clopidogrel Bisulfate [Plavix -] 75 mg PO DAILY 12/02/16 Paroxetine HCl [Paxil -] 20 mg PO DAILY 12/02/16 Pregabalin [Lyrica -] 200 mg PO HS 12/02/16 Repaglinide [Prandin] 1 mg PO QID 12/02/16 Pantoprazole Sodium 40 mg PO DAILY #30 tablet. 01/13/17 Aripiprazole [Abilify] 10 mg PO DAILY 05/26/17 Cyclobenzaprine HCl [Flexeril 10 mg] 10 mg PO BID PRN 05/26/17 Oxybutynin Chloride [Oxybutynin Chloride ER] 10 mg PO DAILY 05/26/17 Ferrous Sulfate 325 mg PO BID #60 tablet 05/28/17 Levothyroxine [Synthroid -] 37.5 mcg PO DAILY@00 tablet 05/28/17 Miscellaneous Drug Not in Syst 1 each .ROUTE ASDIR #1 each 05/28/17 Ertapenem Sodium [Invanz -] 1 gm IVPB DAILY 3 Days #3 vial 09/06/17 Metoprolol Succinate [Toprol XL -] 25 mg PO DAILY #30 tab.sr.24h 09/06/17 [place]-3 Acid Ethyl Esters [Lovaza -] 2 gm PO BID #60 cap 09/06/17 Anemia: Yes Asthma: No Cancer: No Cardiac Disorders: Yes (NE) CVA: No COPD: No CHF: No DVT: No Dementia: No Diabetes: Yes Dialysis: No GI Disorders: No Disorders: No HTN: Yes Hypercholesterolemia: No Kidney Stones: No Liver Disease: No Psychiatric Problems: No Seizures: No Thyroid Disease: Yes Lung CA: No - Surgical History Abdominal Surgery: Yes (Bladder surgery,pud,umbilical hernia) Appendectomy: No Cardiac Surgery: No Cholecystectomy: No Gastric Stapling: No GI Surgery: No Lung Surgery: No Neurologic Surgery: No Orthopedic Surgery: No - Immunization History Immunization Up to Date: Yes - Suicide/Smoking/Psychosocial Hx Smoking Status: No Smoking History: Never smoked Have you smoked in the past 12 months: No Number of Cigarettes Smoked Daily: 0 Information on smoking cessation initiated: No 'Breaking Loose' booklet given: 12/02/16 Hx Alcohol Use: No Drug/Substance Use Hx: No Substance Use Type: None Hx Substance Use Treatment: No Review of Systems - Review of Systems Comments:: 09/07/17 14:49 GENERAL/CONSTITUTIONAL: No fever or chills. No weakness. HEAD, EYES, EARS, NOSE AND THROAT: No change in vision. No ear pain or discharge. No sore throat. CARDIOVASCULAR: No chest pain or shortness of breath RESPIRATORY: No cough, wheezing, or hemoptysis. GASTROINTESTINAL: No nausea, vomiting, diarrhea or constipation. GENITOURINARY: No dysuria, frequency, or change in urination. MUSCULOSKELETAL: +Pain at left shoulder and right forearm s/p fall SKIN: No rash NEUROLOGIC: +Dizziness w/ fall as described. No headache, vertigo, or change in strength/sensation. ENDOCRINE: No increased thirst. No abnormal weight change HEMATOLOGIC/LYMPHATIC: No anemia, easy bleeding, or history of blood clots. ALLERGIC/IMMUNOLOGIC: No hives or skin allergy. *Physical Exam - Vital Signs Last Vital Signs Temp Pulse Resp BP Pulse Ox 98.6 F 77 18 62/29 100 09/07/17 14:02 09/07/17 14:02 09/07/17 14:02 09/07/17 14:02 09/07/17 14:02 - Physical Exam Comments: 09/07/17 14:51 GENERAL: Awake, alert, and fully oriented, in no acute distress HEAD: No signs of trauma, normocephalic, atraumatic EYES: PERRLA, EOMI, sclera anicteric, conjunctiva clear ENT: Auricles normal inspection, hearing grossly normal, nares patent, oropharynx clear without exudates. Moist mucosa NECK: Normal ROM, supple, no lymphadenopathy, JVD, or masses LUNGS: No distress, speaks full sentences, clear to auscultation bilaterally HEART: Regular rate and rhythm, normal S1 and S2, no murmurs, rubs or gallops, peripheral pulses normal and equal bilaterally. ABDOMEN: Soft, nontender, normoactive bowel sounds. No guarding, no rebound. No masses EXTREMITIES: +Left shoulder abbrasion extremely shallow however 10-15 cm long. Right forearm has additional abbrasion. Otherwise normal inspection, normal range of motion, no edema. No clubbing or cyanosis. NEUROLOGICAL: Cranial nerves II through XII grossly intact. Normal speech, normal gait, no focal sensorimotor deficits SKIN: Warm, Dry, normal turgor, no rashes or lesions noted. ED Treatment Course - LABORATORY CBC & Chemistry Diagram: 09/07/17 15:00 09/07/17 15:00 Medical Decision Making - Medical Decision Making 09/07/17 19:41 Ms. Ed Clay is a 77 yo female w/ pmh as described who presents for evaluation after syncopal episode with hypotension as noted. Sepsis workup started, patient noted to continue to have UTI w/ WBC as below. Head /c-spine CT both ordered for evaluation post fall (both negative). Patient given planned ertapenem as well as renally dosed zosyn. Inpatient team paged for admission. Laboratory Results - last 24 hr 09/07/17 09/07/17 09/07/17 15:00 15:00 15:00 WBC 11.4 H RBC 3.69 Hgb 10.6 L Hct 32.6 MCV 88.3 MCH 28.7 MCHC 32.5 RDW 16.3 H Plt Count 267 MPV 8.2 Absolute Neuts (auto) 9.5 Neutrophils % 83.4 H D Lymphocytes % 10.9 D Monocytes % 4.6 Eosinophils % 0.5 D Basophils % 0.6 Nucleated RBC % 0 PT with INR 11.90 INR 1.05 PTT (Actin FS) 27.4 VBG pH 7.35 POC VBG pCO2 52.0 POC VBG pO2 31.0 Mixed VBG HCO3 28.2 H Sodium Potassium Chloride Carbon Dioxide Anion Gap BUN Creatinine Creat Clearance w eGFR Random Glucose Lactic Acid Calcium Total Bilirubin AST ALT Alkaline Phosphatase Troponin I Total Protein Albumin Urine Color Urine Appearance Urine pH Ur Specific [place] Urine Protein Urine Glucose (UA) Urine Ketones Urine Blood Urine Nitrite Urine Bilirubin Urine Urobilinogen Ur Leukocyte Esterase Urine WBC (Auto) Urine RBC (Auto) Ur Epithelial Cells Hyaline Casts Urine Mucus 09/07/17 09/07/17 09/07/17 15:00 15:00 18:35 WBC RBC Hgb Hct MCV MCH MCHC RDW Plt Count MPV Absolute Neuts (auto) Neutrophils % Lymphocytes % Monocytes % Eosinophils % Basophils % Nucleated RBC % PT with INR INR PTT (Actin FS) VBG pH POC VBG pCO2 POC VBG pO2 Mixed VBG HCO3 Sodium 141 Potassium 4.0 Chloride 102 Carbon Dioxide 30 Anion Gap 9 BUN 30 H Creatinine 2.4 H Creat Clearance w eGFR 19.58 Random Glucose 62 L Lactic Acid 3.3 H* Calcium 9.2 Total Bilirubin 0.2 AST 23 ALT 27 Alkaline Phosphatase 79 Troponin I < 0.02 Total Protein 7.7 Albumin 3.8 Urine Color Ltyellow Urine Appearance Slcloudy Urine pH 5.0 Ur Specific [place] 1.008 Urine Protein Negative Urine Glucose (UA) Negative Urine Ketones Negative Urine Blood Negative Urine Nitrite Negative Urine Bilirubin Negative Urine Urobilinogen Negative Ur Leukocyte Esterase 2+ H Urine WBC (Auto) 6 Urine RBC (Auto) 1 Ur Epithelial Cells Few Hyaline Casts 6 Urine Mucus Rare *DC/Admit/Observation/Transfer Diagnosis at time of Disposition: Sepsis Qualifiers: Sepsis type: sepsis due to unspecified organism Qualified Code(s): A41.9 - Sepsis, unspecified organism UTI (urinary tract infection) Qualifiers: Urinary tract infection type: site unspecified Hematuria presence: without hematuria Qualified Code(s): N39.0 - Urinary tract infection, site not specified - Discharge Dispostion Decision to Admit order: Yes - Referrals - Patient Instructions - Post Discharge Activity
[2017-09-07] MEDS ORDERED: SODIUM CHLORIDE 0.9% 1000 ML INFUS.BAG IV STA (14:32)
[2017-09-07] MEDS ORDERED: DIPHTH,PERTUSS(ACELL),TET 0.5 ML DISP.SYRIN IM ONE (14:47)
[2017-09-07] MEDS ORDERED: ACETAMINOPHEN 1000 MG/100 ML VIAL (NON FORMULARY) IVPB ONE ×2 (14:52→17:29)
--- NOTE | 2017-09-07 15:00 | PDOC ---
Attending Attestation - HPI HPI: 09/07/17 17:15 The patient is a 77 year old female accompanied with her aide, with a significant past medical history of DC, hypertension, anemia, diabetes, PUD, dementia, and recent hyperkalemia, SARANYA, UTI (09/01-09/06) who presents to the emergency department for evaluation of dizziness s/p fall. The patient reports falling out of her bed and getting dizzy while sitting in her chair this morning at an outpatient office for ertapenem administration for her recent UTI. Patients BP noted to be 50/20 prior to arrival. The patient states she is unsure if she hit her head or if she lost consciousness. She reports 2 abrasions on her left arm. The patient denies chest pain, shortness of breath, headache and dizziness. Denies fever, chills, nausea, vomit, diarrhea and constipation. Denies dysuria, frequency, urgency and hematuria. Allergies: NKDA Social History: No reported alcohol, cigarette, or drug use. Surgical History: Yes: Bladder surgery,pud,umbilical hernia, bilateral knee, eye - Physicial Exam PE: Vitals: Triage Vital signs reviewed General Appearance: no acute distress, well nourished well developed, Head: Atraumatic, normocephalic Eyes: Pupils equal reactive round, extraocular movement intact Neck: Supple Chest Wall: Nontender Cardiac: Regular rate and rhythm, no murmurs, no rubs, no gallops, Lungs: Clear to auscultation bilateral, good air movement bilaterally, Abdomen: Soft, nondistended, nontender to palpation Extremities: (+)Abrasion on left humerus. (+)Abrasion on left forearm. (+)Mild bruising to left foot. Skin: Warm and dry, no rashes or lesions, no petechiae Psych: normal mood, normal affect. - Medical Decision Making The patient is a 77 year old female accompanied with her aide, with a significant past medical history of DC, hypertension, anemia, diabetes, PUD, dementia, and recent hyperkalemia, SARANYA, UTI (09/01-09/06) who presents to the emergency department for evaluation of dizziness s/p fall. Plans: EKG Labs Head CT Cervical spine CT <Zeke Rogers - Last Filed: 09/07/17 17:15> - Resident Resident Name: Chalino Atwood - ED Attending Attestation I have performed the following: I have examined & evaluated the patient, The case was reviewed & discussed with the resident, I agree w/resident's findings & plan, Exceptions are as noted - Medical Decision Making Patient presents with fall from hypotension has been on outpatient ertapenem for resistant UTI Here in the emergency department initially hypotensive but responded appropriately to fluids patient redosed with ertapenem. Vital signs have markedly improved after IV fluids she is comfortable she has no abdominal discomfort Her labs are notable for an elevated lactic of 3.3 as well as a bump in her creatinine We will broaden her antibiotic coverage to include vancomycin she will be admitted to medicine for IV hydration and further management as well as follow- up of cultures <Ronnie Ma - Last Filed: 09/07/17 19:22> Heart Score/ECG Review - ECG Impressions Comment:: 09/07/17 19:22 EKG performed at 1432 demonstrates normal sinus rhythm inferior infarct age indeterminate. No ST elevations no acute T-wave inversions Interpreted by me. <Ronnie Ma - Last Filed: 09/07/17 19:22> Attestations - Attestations Documentation prepared by Zeke Rogers, acting as pesticide use medical coordinator for Ronnie Ma MD. <Zeke Rogers - Last Filed: 09/07/17 17:15>
[2017-09-07 15:18] LABS: BASO % 0.6 % (0-2.0); EOS % 0.5 % (0-4.5); HEMATOCRIT 32.6 % (32.4-45.2); HEMOGLOBIN 10.6 GM/dL (10.7-15.3); LYMPH % 10.9 % (8-40); MCH 28.7 pg (25.7-33.7); MCHC 32.5 g/dl (32.0-36.0); MEAN CELL VOLUME 88.3 fl (80-96); MEAN PLT VOLUME 8.2 fl (7.5-11.1); MONO % 4.6 % (3.8-10.2); NEUT % 83.4 % (42.8-82.8); PLATELET COUNT 267 K/MM3 (134-434); RBC 3.69 M/mm3 (3.60-5.2); RDW 16.3 % (11.6-15.6); WHITE BLOOD COUNT 11.4 K/mm3 (4.0-10.0)
[2017-09-07 15:24] LABS: VENOUS PH 7.35 (7.32-7.42)
[2017-09-07] MEDS ORDERED: BACITRACIN 0.9 GM PACKET ONE (15:25)
[2017-09-07 15:46] LABS: INR 1.05 (0.82-1.09); PROTHROMBIN TIME (PATIENT) 11.9 SEC (9.7-13.0)
[2017-09-07 15:49] LABS: ACTIVATED PTT 27.4 SECONDS (25.2-36.5)
[2017-09-07] MEDS ORDERED: ERTAPENEM SODIUM 1 GM/50 ML PRE-DOCKED IVPB ONE (15:56)
[2017-09-07 16:15] LABS: ALBUMIN 3.8 g/dl (3.4-5.0); ANION GAP 9 (8-16); BILIRUBIN,TOTAL 0.2 mg/dL (0.2-1.0); BLOOD UREA NITROGEN 30 mg/dL (7-18); CALCIUM 9.2 mg/dL (8.5-10.1); CHLORIDE 102 mmol/L (98-107); CO2 30 mmol/L (21-32); CREATININE 2.4 mg/dL (0.55-1.02); GLUCOSE,RANDOM 62 mg/dL (74-106); SGOT/AST 23 U/L (15-37); SGPT/ALT 27 U/L (12-78); SODIUM 141 mmol/L (136-145); TOT PROT 7.7 g/dl (6.4-8.2)
[2017-09-07 16:18] LABS: ALK PHOS 79 U/L (45-117)
[2017-09-07] MEDS ORDERED: ACETAMINOPHEN INJECTION 100 ML IVPB ONE (16:34)
[2017-09-07] MEDS ORDERED: ERTAPENEM SODIUM 1 GM VIAL ONE (17:52)
[2017-09-07 18:42] LABS: URINE APPEARANCE SLCLOUDY; URINE BILIRUBIN NEGATIVE (<2.0 mg/dL); URINE COLOR LTYELLOW; URINE GLUCOSE (UA) NEGATIVE (NEGATIVE); URINE KETONE NEGATIVE (NEGATIVE); URINE NITRITE NEGATIVE (NEGATIVE); URINE PROTEIN NEGATIVE (NEGATIVE); URINE UROBILINOGEN NEGATIVE mg/dL (0.2-1.0)
[2017-09-07 18:43] LABS: URINE LEUK ESTERASE 2+ (NEGATIVE)
[2017-09-07 18:46] LABS: EPI CELLS FEW /HPF (FEW); URINE HYALINE CAST 6 /lpf; URINE MUCUS RARE
[2017-09-07] MEDS ORDERED: PIPERACILLIN/TAZOB 2.25 GM 2.25 GM in DEXTROSE 5%-WATER - 50 ML IVPB ONE (19:06)
[2017-09-07] MEDS ORDERED: VANCOMYCIN 1,000 MG in DEXTROSE 5%-WATER - 250 ML IVPB ONE (19:30)
[2017-09-07] MEDS ORDERED: SODIUM CHLORIDE 1,000 ML IV STA (20:21)
--- NOTE | 2017-09-07 20:54 | PN ---
Teaching Attending Note Name of Resident: Juanjo Vazquez ATTENDING PHYSICIAN STATEMENT I saw and evaluated the patient. I reviewed the resident's note and discussed the case with the resident. I agree with the resident's findings and plan as documented. SUBJECTIVE: Patient is a 77 year old woman with history of PUD, [place], NIDDM, hypokalemia, HLD , dementia, and recent admission 09/01-09/06 for hyperkalemia, SARANYA, and UTI (ESBL producing Klebsiella Pneumonia) - scheduled for 3 more days (today 06/28) of outpatient Ertapenem (1 gm daily) who presents for evaluation of hypotension noted earlier today while at her appointment for her ertapenem administration. She also has a history of dizziness today while sitting in her chair and that she subsequently fell out of bed. She is unsure if she hit her head or lost consciousness although she reports pain at left shoulder and right forearm where she was hurt when she fell. She says she has had a chronic issue with dizzness. In the ER she was noted to have lactic acidosis and got bolus doses of IV NS, vancomycin and zosyn. Sepsis work up is being repeated and CXR, head and neck CT did not show any abnormality. OBJECTIVE: Alert and in no acute distress. Not orthostatic. Vital Signs Period Temp Pulse Resp BP Sys/[place] Pulse Ox Last 24 Hr 98.6 F-100 F 77 18 62-104/29-59 100 HEENT: No Jaundice, eye redness or discharge, PERRLA, EOMI. Normocephalic, atraumatic. External ears are normal and hearing is grossly intact. No nasal discharge. Neck: Supple, nontender. No palpable adenopathy or thyromegaly. No JVD Chest: Good effort. Clear to auscultation and percussion. Heart: Regular. No S3, rub or murmur Abdomen: Not distended, soft, nontender and no HSM. No rebound or guarding. Normoactive bowel sounds. Ext: Peripheral pulses intact. No leg edema. Skin: Warm and dry. No petechiae, rash or ecchymosis. Abrasions on left shoulder and right forearm. Neuro: Oriented x 3. Alert. CN 2-12 grossly intact. Sensation grossly intact in all four extremities and DTR are symmetric. Current Medications Generic Name Dose Route Start Last Admin Trade Name Freq PRN Reason Stop Dose Admin Sodium Chloride 1,000 mls @ 1,000 mls/hr 09/07/17 20:21 Normal Saline - IV 09/07/17 21:20 ASDIR STA Home Medications Medication Instructions Recorded metFORMIN HCL [Glucophage] 1,000 mg PO BID #0 tab 10/14/12 Atorvastatin Ca [Lipitor] 80 mg PO HS 12/02/16 Clopidogrel Bisulfate [Plavix -] 75 mg PO DAILY 12/02/16 Paroxetine HCl [Paxil -] 20 mg PO DAILY 12/02/16 Pregabalin [Lyrica -] 200 mg PO HS 12/02/16 Repaglinide [Prandin] 1 mg PO QID 12/02/16 Pantoprazole Sodium 40 mg PO DAILY #30 tablet.dr 01/13/17 Aripiprazole [Abilify] 10 mg PO DAILY 05/26/17 Cyclobenzaprine HCl [Flexeril 10 10 mg PO BID PRN 05/26/17 mg] Oxybutynin Chloride [Oxybutynin 10 mg PO DAILY 05/26/17 Chloride ER] Ferrous Sulfate 325 mg PO BID #60 tablet 05/28/17 Levothyroxine [Synthroid -] 37.5 mcg PO DAILY@0600 tablet 05/28/17 Miscellaneous Drug Not in Syst 1 each .ROUTE ASDIR #1 each 05/28/17 Ertapenem Sodium [Invanz -] 1 gm IVPB DAILY 3 Days #3 vial 09/06/17 Metoprolol Succinate [Toprol XL -] 25 mg PO DAILY #30 tab.sr.24h 09/06/17 [place]-3 Acid Ethyl Esters [Lovaza 2 gm PO BID #60 cap 09/06/17 -] Abnormal Lab Results 09/07/17 09/07/17 09/07/17 15:00 15:00 15:00 WBC 11.4 H Hgb 10.6 L RDW 16.3 H Neutrophils % 83.4 H D Mixed VBG HCO3 28.2 H BUN Creatinine Random Glucose Lactic Acid 3.3 H* Ur Leukocyte Esterase 09/07/17 09/07/17 15:00 18:35 WBC Hgb RDW Neutrophils % Mixed VBG HCO3 BUN 30 H Creatinine 2.4 H Random Glucose 62 L Lactic Acid Ur Leukocyte Esterase 2+ H ASSESSMENT AND PLAN: 1. Sepsis due to UTI - Its is likely that current symptoms are related to ESBL producing Klebsiella Pneumonia UTI that was note on 09/01/17. Toxic metabolic encephalopathy may explain mental status changes. Anemia as well as drug side effect may be potential contributing variables to her mental status changes and dizziness - will hold Lyrica, Abilify, Flexeril, Oxybutynin and Paxil. Lactic acidosis may be partly due to metformin. Will trend lactic acid, discontinue metformin, continue Ertapenem 1 gm IV daily pending results of repeat sepsis work up. Consult ID and continue IV NS in the ICU. her underlying dizziness is a chronic issue - CT head/neck and CXR are all negative. Will monitor her on telemetry, get an ECHO and implement fall precautions. Neurology consult. 2. DM - For now, we will hold the home diabetes drugs and implement sliding scale insulin regimen. Provide comprehensive diabetes care with patient teaching and counseling about the importance of euglycemia, eye care and foot care. 3. SARANYA - Etiology unclear. May also be transitioning to CKD. Will consult nephrology and avoid nephrotoxic agents such as NSAIDS, aminoglycosides, contrast dyes and certain alternative medicine products. 4. Anemia - Do basic anemia work up including serial stool guaiacs, reticulocyte count and iron studies. 5. DVT prophylaxis - Heparin 5000u sq tid. 6. Advance directives - Full code
[2017-09-07 21:36] LABS: BASO % 1.3 % (0-2.0); EOS % 0.4 % (0-4.5); HEMATOCRIT 26.2 % (32.4-45.2); HEMOGLOBIN 8.5 GM/dL (10.7-15.3); LYMPH % 21.4 % (8-40); MCH 28.8 pg (25.7-33.7); MCHC 32.5 g/dl (32.0-36.0); MEAN CELL VOLUME 88.7 fl (80-96); MEAN PLT VOLUME 8.5 fl (7.5-11.1); MONO % 7.1 % (3.8-10.2); NEUT % 69.8 % (42.8-82.8); PLATELET COUNT 201 K/MM3 (134-434); RBC 2.95 M/mm3 (3.60-5.2); RDW 16.4 % (11.6-15.6); WHITE BLOOD COUNT 8.8 K/mm3 (4.0-10.0)
--- NOTE | 2017-09-07 21:41 | EKG ---
Test Reason : Blood Pressure : / mmHG Vent. Rate : 075 BPM Atrial Rate : 075 BPM P-R Int : 188 ms QRS Dur : 076 ms QT Int : 396 ms P-R-T Axes : 044 -20 042 degrees QTc Int : 442 ms NORMAL SINUS RHYTHM INFERIOR INFARCT (CITED ON OR BEFORE 01-SEP-2017) ANTERIOR INFARCT (CITED ON OR BEFORE 01-SEP-2017) ABNORMAL ECG WHEN COMPARED WITH ECG OF 02-SEP-2017 04:11, NO SIGNIFICANT CHANGE WAS FOUND Confirmed by MD YISEL, SOLITARIO ([id number]) on 09/07/2017 9:41:37 PM Referred By: Confirmed By:SOLITARIO MORILLO MD
[2017-09-07 22:01] LABS: ALBUMIN 2.9 g/dl (3.4-5.0); ANION GAP 10 (8-16); BILIRUBIN,TOTAL 0.2 mg/dL (0.2-1.0); BLOOD UREA NITROGEN 30 mg/dL (7-18); CALCIUM 7.8 mg/dL (8.5-10.1); CHLORIDE 106 mmol/L (98-107); CO2 25 mmol/L (21-32); CREATININE 2.3 mg/dL (0.55-1.02); GLUCOSE,RANDOM 109 mg/dL (74-106); SGOT/AST 18 U/L (15-37); SGPT/ALT 21 U/L (12-78); SODIUM 141 mmol/L (136-145); TOT PROT 5.9 g/dl (6.4-8.2)
[2017-09-07 22:04] LABS: ALK PHOS 61 U/L (45-117)
[2017-09-07] MEDS ORDERED: PIPERACILLIN/TAZOBACTAM 2.25 GM VIAL IVPB ONE (22:05)
[2017-09-08] MEDS ORDERED: SODIUM CHLORIDE 1,000 ML IV SCH (00:30)
--- NOTE | 2017-09-08 02:31 | HP ---
CHIEF COMPLAINT: Hypotension PCP: HISTORY OF PRESENT ILLNESS: 77 y/o female with PMH ESBL Klebsiella UTI on Ertapenem, PUD, [place], DM, HLD presents after hypotensive episode today as she was to recieve Ertapenem infusion. She states she felt lightheaded today, and admits to multiple episodes of lightheadedness associated with multiple falls over past 3 months. Admits to fall today from chair as she attempted to get up. She denies any prior workup for these falls. Denies prodromal symptoms prior to fall. Denies fevers, flushing, chills, shortness of breath, cough, chest pain, palpitaitons, abdominal pain, nausea, vomiting, diarrhea, hematuria, hematochezia. ER course was notable for: (1) UA, blod cx, (2) Zosyn, Vancomycin, Ertapenem, Ofirimev, IVNS (3) Recent Travel: PAST MEDICAL HISTORY: ESBL Klebsiella UTI on Ertapenem, PUD, [place], DM, HLD PAST SURGICAL HISTORY: Umbilical hernia repair, unknown bladder surgery Social History: Smoking: denies Alcohol: denies Drugs: denies Family History: Allergies No Known Allergies Allergy (Verified 09/07/17 14:01) HOME MEDICATIONS: Home Medications Medication Instructions Recorded metFORMIN HCL [Glucophage] 1,000 mg PO BID #0 tab 10/14/12 Atorvastatin Ca [Lipitor] 80 mg PO HS 12/02/16 Clopidogrel Bisulfate [Plavix -] 75 mg PO DAILY 12/02/16 Paroxetine HCl [Paxil -] 20 mg PO DAILY 12/02/16 Pregabalin [Lyrica -] 200 mg PO HS 12/02/16 Repaglinide [Prandin] 1 mg PO QID 12/02/16 Pantoprazole Sodium 40 mg PO DAILY #30 tablet. 01/13/17 Aripiprazole [Abilify] 10 mg PO DAILY 05/26/17 Cyclobenzaprine HCl [Flexeril 10 10 mg PO BID PRN 05/26/17 mg] Oxybutynin Chloride [Oxybutynin 10 mg PO DAILY 05/26/17 Chloride ER] Ferrous Sulfate 325 mg PO BID #60 tablet 05/28/17 Levothyroxine [Synthroid -] 37.5 mcg PO DAILY@0600 tablet 05/28/17 Ertapenem Sodium [Invanz -] 1 gm IVPB DAILY 3 Days #3 vial 09/06/17 Metoprolol Succinate [Toprol XL -] 25 mg PO DAILY #30 tab.sr.24h 09/06/17 [place]-3 Acid Ethyl Esters [Lovaza 2 gm PO BID #60 cap 09/06/17 -] REVIEW OF SYSTEMS As per HPI PHYSICAL EXAMINATION Vital Signs - 24 hr 09/07/17 09/07/17 09/07/17 14:02 14:50 15:30 Temperature 98.6 F 100 F H Pulse Rate 77 Pulse Rate [ Radial] Respiratory 18 18 Rate Blood Pressure 62/29 Blood Pressure 93/70 [Right Arm] O2 Sat by Pulse 100 93 L Oximetry (%) 09/07/17 09/07/17 09/07/17 16:06 17:00 17:11 Temperature Pulse Rate Pulse Rate [ 66 66 Radial] Respiratory 18 19 Rate Blood Pressure Blood Pressure 95/53 104/59 104/59 [Right Arm] O2 Sat by Pulse 95 Oximetry (%) 09/07/17 18:30 Temperature 98.2 F Pulse Rate Pulse Rate [ 66 Radial] Respiratory 18 Rate Blood Pressure Blood Pressure 114/57 [Right Arm] O2 Sat by Pulse Oximetry (%) GENERAL: Awake, alert, and fully oriented, in no acute distress. HEAD: Normal with no signs of trauma. EYES: Pupils equal, round and reactive to light, extraocular movements intact EARS, NOSE, THROAT: Oropharynx clear without exudates. Moist mucous membranes. LUNGS: Breath sounds equal, clear to auscultation bilaterally. No wheezes, and no crackles. No accessory muscle use. HEART: Regular rate and rhythm, normal S1 and S2 without murmur, rub or gallop. ABDOMEN: Soft, nontender, not distended, normoactive bowel sounds, no guarding, no rebound, no masses. No hepatomegaly or splenomegaly. EXTREMITIES: 2+ pulses, warm, well-perfused. No cyanosis. No peripheral edema. NEUROLOGICAL: Cranial nerves II-XII intact. Normal speech. PSYCHIATRIC: Cooperative. Appropriate mood and affect. SKIN: Warm, dry, normal capillary refill. Laboratory Results - last 24 hr 09/07/17 09/07/17 09/07/17 15:00 15:00 15:00 WBC 11.4 H RBC 3.69 Hgb 10.6 L Hct 32.6 MCV 88.3 MCH 28.7 MCHC 32.5 RDW 16.3 H Plt Count 267 MPV 8.2 Absolute Neuts (auto) 9.5 Neutrophils % 83.4 H D Lymphocytes % 10.9 D Monocytes % 4.6 Eosinophils % 0.5 D Basophils % 0.6 Nucleated RBC % 0 PT with INR 11.90 INR 1.05 PTT (Actin FS) 27.4 VBG pH 7.35 POC VBG pCO2 52.0 POC VBG pO2 31.0 Mixed VBG HCO3 28.2 H Sodium Potassium Chloride Carbon Dioxide Anion Gap BUN Creatinine Creat Clearance w eGFR Random Glucose Lactic Acid Calcium Phosphorus Magnesium Total Bilirubin AST ALT Alkaline Phosphatase Troponin I Total Protein Albumin Urine Color Urine Appearance Urine pH Ur Specific [place] Urine Protein Urine Glucose (UA) Urine Ketones Urine Blood Urine Nitrite Urine Bilirubin Urine Urobilinogen Ur Leukocyte Esterase Urine WBC (Auto) Urine RBC (Auto) Ur Epithelial Cells Hyaline Casts Urine Mucus 09/07/17 09/07/17 09/07/17 15:00 15:00 18:35 WBC RBC Hgb Hct MCV MCH MCHC RDW Plt Count MPV Absolute Neuts (auto) Neutrophils % Lymphocytes % Monocytes % Eosinophils % Basophils % Nucleated RBC % PT with INR INR PTT (Actin FS) VBG pH POC VBG pCO2 POC VBG pO2 Mixed VBG HCO3 Sodium 141 Potassium 4.0 Chloride 102 Carbon Dioxide 30 Anion Gap 9 BUN 30 H Creatinine 2.4 H Creat Clearance w eGFR 19.58 Random Glucose 62 L Lactic Acid 3.3 H* Calcium 9.2 Phosphorus Magnesium Total Bilirubin 0.2 AST 23 ALT 27 Alkaline Phosphatase 79 Troponin I < 0.02 Total Protein 7.7 Albumin 3.8 Urine Color Ltyellow Urine Appearance Slcloudy Urine pH 5.0 Ur Specific [place] 1.008 Urine Protein Negative Urine Glucose (UA) Negative Urine Ketones Negative Urine Blood Negative Urine Nitrite Negative Urine Bilirubin Negative Urine Urobilinogen Negative Ur Leukocyte Esterase 2+ H Urine WBC (Auto) 6 Urine RBC (Auto) 1 Ur Epithelial Cells Few Hyaline Casts 6 Urine Mucus Rare 09/07/17 09/07/17 09/07/17 21:30 21:30 21:30 WBC 8.8 RBC 2.95 L Hgb 8.5 L Hct 26.2 L D MCV 88.7 MCH 28.8 MCHC 32.5 RDW 16.4 H Plt Count 201 D MPV 8.5 Absolute Neuts (auto) 6.1 Neutrophils % 69.8 Lymphocytes % 21.4 D Monocytes % 7.1 Eosinophils % 0.4 Basophils % 1.3 Nucleated RBC % 0 PT with INR INR PTT (Actin FS) VBG pH POC VBG pCO2 POC VBG pO2 Mixed VBG HCO3 Sodium 141 Potassium 4.0 Chloride 106 Carbon Dioxide 25 Anion Gap 10 BUN 30 H Creatinine 2.3 H Creat Clearance w eGFR 20.56 Random Glucose 109 H Lactic Acid 2.2 H* Calcium 7.8 L Phosphorus Magnesium 2.0 Total Bilirubin 0.2 AST 18 ALT 21 Alkaline Phosphatase 61 D Troponin I < 0.02 Total Protein 5.9 L Albumin 2.9 L Urine Color Urine Appearance Urine pH Ur Specific [place] Urine Protein Urine Glucose (UA) Urine Ketones Urine Blood Urine Nitrite Urine Bilirubin Urine Urobilinogen Ur Leukocyte Esterase Urine WBC (Auto) Urine RBC (Auto) Ur Epithelial Cells Hyaline Casts Urine Mucus 09/07/17 21:30 WBC RBC Hgb Hct MCV MCH MCHC RDW Plt Count MPV Absolute Neuts (auto) Neutrophils % Lymphocytes % Monocytes % Eosinophils % Basophils % Nucleated RBC % PT with INR INR PTT (Actin FS) VBG pH POC VBG pCO2 POC VBG pO2 Mixed VBG HCO3 Sodium Potassium Chloride Carbon Dioxide Anion Gap BUN Creatinine Creat Clearance w eGFR Random Glucose Lactic Acid Calcium Phosphorus 4.3 Magnesium Total Bilirubin AST ALT Alkaline Phosphatase Troponin I Total Protein Albumin Urine Color Urine Appearance Urine pH Ur Specific [place] Urine Protein Urine Glucose (UA) Urine Ketones Urine Blood Urine Nitrite Urine Bilirubin Urine Urobilinogen Ur Leukocyte Esterase Urine WBC (Auto) Urine RBC (Auto) Ur Epithelial Cells Hyaline Casts Urine Mucus ASSESSMENT/PLAN: 77 y/o female with PMH ESBL Klebsiella UTI on Ertapenem, PUD, [place], DM, HLD presents with hypotension as she was to recieve Ertapenem infusion today. Sepsis -Likely d/t ESBL resistant Klebsiella UTI -Continue Ertapenem for now -Nephrology consult requested -ID consult requested -F/U urine, blood cultures Dizziness with falls -Monitor on telemetry -F/U cardiac echo -Neurology consult placed Lactic Acidosis -Lactate 3.3 -May be d/t Metformin -hold Metformin -IVNS 50ml/ hr -trend lactic acid DM -ISS, fingestick blood glucose monitoring SARANYA -Cr 2.4 -Nephrology consult requested Anemia -Hb 10.6/ Hct 32.6 -F/U Fe studies, reticulocytes -F/U stool guiac Hx urine retention -F/U bladder scan -Insert barr if retaining urine Isolation precautions Fall precautions FEN -IVNS 50ml/ hr -No electrolyte repletion for now -Diabetic diet PPX -Heparin 5000u subq TID Advance directives: Full code Disposition: Admit to telemetry Case discussed with radiosonde specialist attending Visit type - Emergency Visit Emergency Visit: Yes ED Registration Date: 09/07/17 Care time: The patient presented to the Emergency Department on the above date and was hospitalized for further evaluation of their emergent condition. - New Patient This patient is new to me today: Yes Date on this admission: 09/08/17 - Critical Care Critical Care patient: No Hospitalist Screening - Colonoscopy Questionnaire Colonoscopy Questionnaire: Colonoscopy Questionnaire - Patient: 50 - 75 years old and never had a screening colonoscopy: Unknown History of colon or rectal polyps, or CA: Unknown History of IBD, Crohn's disease or UC: Unknown History of abdominal radiation therapy as a child: Unknown - Relative: 1 with colon or rectal CA, or polyps at age 60 or younger: Unknown Colon or rectal CA diagnosed at age 45 or younger: Unknown Multiple relatives with colon or rectal CA: Unknown - Outcome: Screening Result: Negative Screen
[2017-09-08] MEDS: HEPARIN NA (PORCINE) 5,000 UNITS/ML 1ML VIAL SQ SCH ×3 (06:39→22:20)
[2017-09-08] MEDS: INSULIN SLIDING SCALE (NOVOLOG) 1 VIAL SQ SCH ×4 (06:57→22:24)
[2017-09-08 07:40] LABS: BASO % 0.4 % (0-2.0); EOS % 1.7 % (0-4.5); HEMATOCRIT 27.5 % (32.4-45.2); HEMOGLOBIN 9.1 GM/dL (10.7-15.3); LYMPH % 24.7 % (8-40); MCH 29.2 pg (25.7-33.7); MCHC 32.9 g/dl (32.0-36.0); MEAN CELL VOLUME 88.6 fl (80-96); MEAN PLT VOLUME 8.8 fl (7.5-11.1); MONO % 8.3 % (3.8-10.2); NEUT % 64.9 % (42.8-82.8); PLATELET COUNT 201 K/MM3 (134-434); RBC 3.11 M/mm3 (3.60-5.2); WHITE BLOOD COUNT 9.6 K/mm3 (4.0-10.0)
[2017-09-08 08:17] LABS: ALBUMIN 3.2 g/dl (3.4-5.0); ANION GAP 7 (8-16); BILIRUBIN,TOTAL 0.2 mg/dL (0.2-1.0); BLOOD UREA NITROGEN 31 mg/dL (7-18); CALCIUM 8.7 mg/dL (8.5-10.1); CHLORIDE 105 mmol/L (98-107); CO2 30 mmol/L (21-32); CREATININE 2.3 mg/dL (0.55-1.02); GLUCOSE,RANDOM 84 mg/dL (74-106); SGOT/AST 20 U/L (15-37); SGPT/ALT 22 U/L (12-78); SODIUM 142 mmol/L (136-145); TOT PROT 6.4 g/dl (6.4-8.2)
[2017-09-08 08:19] LABS: ALK PHOS 64 U/L (45-117)
--- NOTE | 2017-09-08 08:19 | PN ---
Physical Exam: SUBJECTIVE: Patient seen and examined at the bedside. States she feels weak, and now presents with a fall at home. Patient lives alone and has a mobile homes repairer. She has a life alert button. OBJECTIVE: left upper arm, right lower skin tear cleaned with NS and changed by copy writer Vital Signs Period Temp Pulse Resp BP Sys/[place] Pulse Ox Last 24 Hr 98 F-100 F 64-77 18-20 62-119/29-70 93-100 GENERAL: The patient is awake, alert, and fully oriented, in no acute distress. HEAD: Normal with no signs of trauma. EYES: PERRL, extraocular movements intact, sclera anicteric, conjunctiva clear. No ptosis. ENT: Ears normal, nares patent, oropharynx clear without exudates, moist mucous membranes. NECK: Trachea midline, full range of motion, supple. LUNGS: Breath sounds diminished bilateraly HEART: Regular rate and rhythm ABDOMEN: Soft, nontender, nondistended, normoactive bowel sounds EXTREMITIES: no edema. left upper arm bruise, minimal bleeding, right arm skin tear, wound care performed NEUROLOGICAL: Normal speech, gait not observed. PSYCH: Normal mood, normal affect. Laboratory Results - last 24 hr 09/07/17 09/07/17 09/07/17 15:00 15:00 15:00 WBC 11.4 H RBC 3.69 Hgb 10.6 L Hct 32.6 MCV 88.3 MCH 28.7 MCHC 32.5 RDW 16.3 H Plt Count 267 MPV 8.2 Absolute Neuts (auto) 9.5 Neutrophils % 83.4 H D Lymphocytes % 10.9 D Monocytes % 4.6 Eosinophils % 0.5 D Basophils % 0.6 Nucleated RBC % 0 PT with INR 11.90 INR 1.05 PTT (Actin FS) 27.4 VBG pH 7.35 POC VBG pCO2 52.0 POC VBG pO2 31.0 Mixed VBG HCO3 28.2 H Sodium Potassium Chloride Carbon Dioxide Anion Gap BUN Creatinine Creat Clearance w eGFR POC Glucometer Random Glucose Lactic Acid Calcium Phosphorus Magnesium Total Bilirubin AST ALT Alkaline Phosphatase Troponin I Total Protein Albumin Urine Color Urine Appearance Urine pH Ur Specific [place] Urine Protein Urine Glucose (UA) Urine Ketones Urine Blood Urine Nitrite Urine Bilirubin Urine Urobilinogen Ur Leukocyte Esterase Urine WBC (Auto) Urine RBC (Auto) Ur Epithelial Cells Hyaline Casts Urine Mucus 09/07/17 09/07/17 09/07/17 15:00 15:00 18:35 WBC RBC Hgb Hct MCV MCH MCHC RDW Plt Count MPV Absolute Neuts (auto) Neutrophils % Lymphocytes % Monocytes % Eosinophils % Basophils % Nucleated RBC % PT with INR INR PTT (Actin FS) VBG pH POC VBG pCO2 POC VBG pO2 Mixed VBG HCO3 Sodium 141 Potassium 4.0 Chloride 102 Carbon Dioxide 30 Anion Gap 9 BUN 30 H Creatinine 2.4 H Creat Clearance w eGFR 19.58 POC Glucometer Random Glucose 62 L Lactic Acid 3.3 H* Calcium 9.2 Phosphorus Magnesium Total Bilirubin 0.2 AST 23 ALT 27 Alkaline Phosphatase 79 Troponin I < 0.02 Total Protein 7.7 Albumin 3.8 Urine Color Ltyellow Urine Appearance Slcloudy Urine pH 5.0 Ur Specific [place] 1.008 Urine Protein Negative Urine Glucose (UA) Negative Urine Ketones Negative Urine Blood Negative Urine Nitrite Negative Urine Bilirubin Negative Urine Urobilinogen Negative Ur Leukocyte Esterase 2+ H Urine WBC (Auto) 6 Urine RBC (Auto) 1 Ur Epithelial Cells Few Hyaline Casts 6 Urine Mucus Rare 09/07/17 09/07/17 09/07/17 21:30 21:30 21:30 WBC 8.8 RBC 2.95 L Hgb 8.5 L Hct 26.2 L D MCV 88.7 MCH 28.8 MCHC 32.5 RDW 16.4 H Plt Count 201 D MPV 8.5 Absolute Neuts (auto) 6.1 Neutrophils % 69.8 Lymphocytes % 21.4 D Monocytes % 7.1 Eosinophils % 0.4 Basophils % 1.3 Nucleated RBC % 0 PT with INR INR PTT (Actin FS) VBG pH POC VBG pCO2 POC VBG pO2 Mixed VBG HCO3 Sodium 141 Potassium 4.0 Chloride 106 Carbon Dioxide 25 Anion Gap 10 BUN 30 H Creatinine 2.3 H Creat Clearance w eGFR 20.56 POC Glucometer Random Glucose 109 H Lactic Acid 2.2 H* Calcium 7.8 L Phosphorus Magnesium 2.0 Total Bilirubin 0.2 AST 18 ALT 21 Alkaline Phosphatase 61 D Troponin I < 0.02 Total Protein 5.9 L Albumin 2.9 L Urine Color Urine Appearance Urine pH Ur Specific [place] Urine Protein Urine Glucose (UA) Urine Ketones Urine Blood Urine Nitrite Urine Bilirubin Urine Urobilinogen Ur Leukocyte Esterase Urine WBC (Auto) Urine RBC (Auto) Ur Epithelial Cells Hyaline Casts Urine Mucus 09/07/17 09/08/17 09/08/17 21:30 06:38 07:10 WBC 9.6 RBC 3.11 L Hgb 9.1 L Hct 27.5 L MCV 88.6 MCH 29.2 MCHC 32.9 RDW 17.0 H Plt Count 201 MPV 8.8 Absolute Neuts (auto) 6.2 Neutrophils % 64.9 Lymphocytes % 24.7 Monocytes % 8.3 Eosinophils % 1.7 D Basophils % 0.4 Nucleated RBC % 0 PT with INR INR PTT (Actin FS) VBG pH POC VBG pCO2 POC VBG pO2 Mixed VBG HCO3 Sodium Potassium Chloride Carbon Dioxide Anion Gap BUN Creatinine Creat Clearance w eGFR POC Glucometer 81 Random Glucose Lactic Acid Calcium Phosphorus 4.3 Magnesium Total Bilirubin AST ALT Alkaline Phosphatase Troponin I Total Protein Albumin Urine Color Urine Appearance Urine pH Ur Specific [place] Urine Protein Urine Glucose (UA) Urine Ketones Urine Blood Urine Nitrite Urine Bilirubin Urine Urobilinogen Ur Leukocyte Esterase Urine WBC (Auto) Urine RBC (Auto) Ur Epithelial Cells Hyaline Casts Urine Mucus Active Medications Generic Name Dose Route Start Last Admin Trade Name Javedq PRN Reason Stop Dose Admin Ertapenem 1 gm 09/08/17 18:00 Invanz (Pre-Docked) IVPB DAILY YENI Heparin Sodium (Porcine) 5,000 unit 09/08/17 06:00 09/08/17 06:39 Heparin - SQ 5,000 unit TID YENI Administration Sodium Chloride 1,000 mls @ 50 mls/hr 09/08/17 00:30 09/08/17 05:30 Normal Saline - IV 09/09/17 00:20 50 mls/hr ASDIR YENI Administration Insulin Aspart 1 vial 09/08/17 07:00 09/08/17 06:57 Novolog Vial Sliding Scale - SQ Not Given ACHS [facility] Protocol ASSESSMENT/PLAN: The patient is a 77 year old female with past medical history of MS, NIDDM 2, urinary retention, hypokalemia, HLD and dementia who presents to the ED overnight for hypotension and syncopal episode at home. She was recently here from 09/01 to 09/06 for hyperkalemia, SARANYA and ESBL UTI. She was scheduled for 3 more days of outpatient IV Ertapenem at the endoscopy suite but was noted to be hypotensive. Patient reported a fall at home and was sent to the ED for further evaluation. Patient reports intermittent dizziness at home. She ambulates with a rolling walker and has a mobile homes repairer a few times a week. She also attends a senior day program three times per week. Renal: SARANYA: SARANYA worsened since last admission. Her Lasix was put on hold for SARANYA on recent admission. Patient is forgetful and unsure which medications she took at home. Will hydrate. Renal consulted, for kidney ultrasound. Hyperkalemia: resolved on last admission, continue to hold Benicar. ID: [id number] UTI: On dose / of ertapenem today. Will reduce Ertapenem to 500mg based on creat clearance. Card: CAD s/p MS: On Plavix and Lipitor. Cardiology following. Hypertriglyceridemia: On Lipitor 80mg daily. Started on Lovaza for elevated triglycerides. Rule out ACS: troponins negative. Echo on 09/08/17: with trace MR Neurology: Syncope: syncope workup. carotid doppler. Physical therapy. Monitor mental status. Dizziness: unclear etiology: head ct negative, echo with trace MR. Will order carotid doppler. Iron studies pending. Stool for occult blood ordered. Endocrine: Diabetes: On Novolog SS, BGMs controlled. Hypothyroidism: On synthroid. TSH wnl. fen normal saline @ 50cc/hr monitor electrolytes diabetic diet prophy SCDs when bed, heparin, protonix Visit type - Emergency Visit Emergency Visit: Yes ED Registration Date: 09/07/17 Care time: The patient presented to the Emergency Department on the above date and was hospitalized for further evaluation of their emergent condition. - New Patient This patient is new to me today: No - Critical Care Critical Care patient: No - Discharge Referral Referred to [facility] Med P.C.: No
--- NOTE | 2017-09-08 08:58 | PN ---
Progress Note (short form) - Note Progress Note: ID Day 5 Ertepenem Dizziness with hypotesnion noted Currently looks feels ok though still experiencing dizziness Selected Entries 09/08/17 04:00 Temperature 98 F Pulse Rate 64 Respiratory 20 Rate Blood Pressure 102/64 O2 Sat by Pulse 100 Oximetry (%) Lung Clear Cor S1 S2 RR Abd Soft nontender Ext No CCE Microbiology 09/01/17 11:30 Urine - Urine Clean Catch Urine Culture - Final Klebsiella Pneumoniae - Esbl Laboratory Tests 09/07/17 09/07/17 09/07/17 15:00 18:35 21:30 WBC Hgb Hct Plt Count INR 1.05 BUN Creat Clearance w eGFR Lactic Acid 2.2 H* Total Bilirubin AST ALT Alkaline Phosphatase Ur Leukocyte Esterase 2+ H 09/08/17 09/08/17 09/08/17 07:10 07:10 07:10 WBC 9.6 Hgb 9.1 L Hct 27.5 L Plt Count 201 INR BUN 31 H Creat Clearance w eGFR 20.56 Lactic Acid 1.1 Total Bilirubin 0.2 AST 20 ALT 22 Alkaline Phosphatase 64 Ur Leukocyte Esterase Assessment Episode of hypotension and dizziness. No chest pain EKG no acute change I doubt sepsis Blood cultures no growth this am so far Got Vanco Zosyn On therapy for UTI ESBL day 5 Plan Continue Ertepenem as originally ordered Louise AHUJA Problem List - Problems (1) Drug (multiple) resistant infection Code(s): Z16.35 - RESISTANCE TO MULTIPLE ANTIMICROBIAL DRUGS (2) Hypotension Code(s): I95.9 - HYPOTENSION, UNSPECIFIED
--- NOTE | 2017-09-08 09:21 | CONSULT ---
Consult - text type - Consultation Consultation Note: Neurology CHIEF COMPLAINT: Hypotension HISTORY OF PRESENT ILLNESS: 77 y/o female with PMH ESBL Klebsiella UTI on Ertapenem, PUD, [place], DM, HLD presented after hypotensive episode as she was to recieve Ertapenem infusion. She stated she felt lightheaded with reportedly multiple episodes of lightheadedness associated with multiple falls over past 3 months. Reportedly with fall from chair as she attempted to get up. CT head completed and without acute changes. CT C spine without fractures or dislocations reviewed. May require Physical therapy for ambulation and gait training. May benefit from assistive device and if needed, short term rehab, depending on PT recommendations. PAST MEDICAL HISTORY: ESBL Klebsiella UTI on Ertapenem, PUD, [place], DM, HLD PAST SURGICAL HISTORY: Umbilical hernia repair, unknown bladder surgery Social History: Smoking: denies Alcohol: denies Drugs: denies Family History: Allergies No Known Allergies Allergy (Verified 09/07/17 14:01) HOME MEDICATIONS: Home Medications Medication Instructions Recorded metFORMIN HCL [Glucophage] 1,000 mg PO BID #0 tab 10/14/12 Atorvastatin Ca [Lipitor] 80 mg PO HS 12/02/16 Clopidogrel Bisulfate [Plavix -] 75 mg PO DAILY 12/02/16 Paroxetine HCl [Paxil -] 20 mg PO DAILY 12/02/16 Pregabalin [Lyrica -] 200 mg PO HS 12/02/16 Repaglinide [Prandin] 1 mg PO QID 12/02/16 Pantoprazole Sodium 40 mg PO DAILY #30 tablet. 01/13/17 Aripiprazole [Abilify] 10 mg PO DAILY 05/26/17 Cyclobenzaprine HCl [Flexeril 10 10 mg PO BID PRN 05/26/17 mg] Oxybutynin Chloride [Oxybutynin 10 mg PO DAILY 05/26/17 Chloride ER] Ferrous Sulfate 325 mg PO BID #60 tablet 05/28/17 Levothyroxine [Synthroid -] 37.5 mcg PO DAILY@0600 tablet 05/28/17 Ertapenem Sodium [Invanz -] 1 gm IVPB DAILY 3 Days #3 vial 09/06/17 Metoprolol Succinate [Toprol XL -] 25 mg PO DAILY #30 tab.sr.24h 09/06/17 [place]-3 Acid Ethyl Esters [Lovaza 2 gm PO BID #60 cap 09/06/17 -] REVIEW OF SYSTEMS As per HPI PHYSICAL EXAMINATION Vital Signs Temperature 98 F 09/08/17 04:00 Pulse Rate 64 09/08/17 04:00 Respiratory Rate 20 09/08/17 04:00 Blood Pressure 102/64 09/08/17 04:00 O2 Sat by Pulse Oximetry (%) 100 09/08/17 04:00 GENERAL: Awake, alert, and fully oriented, in no acute distress. HEAD: Normal with no signs of trauma. EYES: Pupils equal, round and reactive to light, extraocular movements intact EARS, NOSE, THROAT: Oropharynx clear without exudates. Moist mucous membranes. LUNGS: Breath sounds equal, clear to auscultation bilaterally. No wheezes, and no crackles. No accessory muscle use. HEART: Regular rate and rhythm, normal S1 and S2 without murmur, rub or gallop. ABDOMEN: Soft, nontender, not distended, normoactive bowel sounds, no guarding, no rebound, no masses. No hepatomegaly or splenomegaly. EXTREMITIES: 2+ pulses, warm, well-perfused. No cyanosis. No peripheral edema. NEUROLOGICAL: Cranial nerves II-XII intact. Normal speech, moves all extremities equally, sensory intact PSYCHIATRIC: Cooperative. Appropriate mood and affect. SKIN: Warm, dry, normal capillary refill. Laboratory Results - last 24 hr 09/07/17 09/07/17 09/07/17 15:00 15:00 15:00 WBC 11.4 H RBC 3.69 Hgb 10.6 L Hct 32.6 MCV 88.3 MCH 28.7 MCHC 32.5 RDW 16.3 H Plt Count 267 MPV 8.2 Absolute Neuts (auto) 9.5 Neutrophils % 83.4 H D Lymphocytes % 10.9 D Monocytes % 4.6 Eosinophils % 0.5 D Basophils % 0.6 Nucleated RBC % 0 PT with INR 11.90 INR 1.05 PTT (Actin FS) 27.4 VBG pH 7.35 POC VBG pCO2 52.0 POC VBG pO2 31.0 Mixed VBG HCO3 28.2 H Sodium Potassium Chloride Carbon Dioxide Anion Gap BUN Creatinine Creat Clearance w eGFR Random Glucose Lactic Acid Calcium Phosphorus Magnesium Total Bilirubin AST ALT Alkaline Phosphatase Troponin I Total Protein Albumin Urine Color Urine Appearance Urine pH Ur Specific [place] Urine Protein Urine Glucose (UA) Urine Ketones Urine Blood Urine Nitrite Urine Bilirubin Urine Urobilinogen Ur Leukocyte Esterase Urine WBC (Auto) Urine RBC (Auto) Ur Epithelial Cells Hyaline Casts Urine Mucus 09/07/17 09/07/17 09/07/17 15:00 15:00 18:35 WBC RBC Hgb Hct MCV MCH MCHC RDW Plt Count MPV Absolute Neuts (auto) Neutrophils % Lymphocytes % Monocytes % Eosinophils % Basophils % Nucleated RBC % PT with INR INR PTT (Actin FS) VBG pH POC VBG pCO2 POC VBG pO2 Mixed VBG HCO3 Sodium 141 Potassium 4.0 Chloride 102 Carbon Dioxide 30 Anion Gap 9 BUN 30 H Creatinine 2.4 H Creat Clearance w eGFR 19.58 Random Glucose 62 L Lactic Acid 3.3 H* Calcium 9.2 Phosphorus Magnesium Total Bilirubin 0.2 AST 23 ALT 27 Alkaline Phosphatase 79 Troponin I < 0.02 Total Protein 7.7 Albumin 3.8 Urine Color Ltyellow Urine Appearance Slcloudy Urine pH 5.0 Ur Specific [place] 1.008 Urine Protein Negative Urine Glucose (UA) Negative Urine Ketones Negative Urine Blood Negative Urine Nitrite Negative Urine Bilirubin Negative Urine Urobilinogen Negative Ur Leukocyte Esterase 2+ H Urine WBC (Auto) 6 Urine RBC (Auto) 1 Ur Epithelial Cells Few Hyaline Casts 6 Urine Mucus Rare 09/07/17 09/07/17 09/07/17 21:30 21:30 21:30 WBC 8.8 RBC 2.95 L Hgb 8.5 L Hct 26.2 L D MCV 88.7 MCH 28.8 MCHC 32.5 RDW 16.4 H Plt Count 201 D MPV 8.5 Absolute Neuts (auto) 6.1 Neutrophils % 69.8 Lymphocytes % 21.4 D Monocytes % 7.1 Eosinophils % 0.4 Basophils % 1.3 Nucleated RBC % 0 PT with INR INR PTT (Actin FS) VBG pH POC VBG pCO2 POC VBG pO2 Mixed VBG HCO3 Sodium 141 Potassium 4.0 Chloride 106 Carbon Dioxide 25 Anion Gap 10 BUN 30 H Creatinine 2.3 H Creat Clearance w eGFR 20.56 Random Glucose 109 H Lactic Acid 2.2 H* Calcium 7.8 L Phosphorus Magnesium 2.0 Total Bilirubin 0.2 AST 18 ALT 21 Alkaline Phosphatase 61 D Troponin I < 0.02 Total Protein 5.9 L Albumin 2.9 L Urine Color Urine Appearance Urine pH Ur Specific [place] Urine Protein Urine Glucose (UA) Urine Ketones Urine Blood Urine Nitrite Urine Bilirubin Urine Urobilinogen Ur Leukocyte Esterase Urine WBC (Auto) Urine RBC (Auto) Ur Epithelial Cells Hyaline Casts Urine Mucus 09/07/17 21:30 WBC RBC Hgb Hct MCV MCH MCHC RDW Plt Count MPV Absolute Neuts (auto) Neutrophils % Lymphocytes % Monocytes % Eosinophils % Basophils % Nucleated RBC % PT with INR INR PTT (Actin FS) VBG pH POC VBG pCO2 POC VBG pO2 Mixed VBG HCO3 Sodium Potassium Chloride Carbon Dioxide Anion Gap BUN Creatinine Creat Clearance w eGFR Random Glucose Lactic Acid Calcium Phosphorus 4.3 Magnesium Total Bilirubin AST ALT Alkaline Phosphatase Troponin I Total Protein Albumin Urine Color Urine Appearance Urine pH Ur Specific [place] Urine Protein Urine Glucose (UA) Urine Ketones Urine Blood Urine Nitrite Urine Bilirubin Urine Urobilinogen Ur Leukocyte Esterase Urine WBC (Auto) Urine RBC (Auto) Ur Epithelial Cells Hyaline Casts Urine Mucus CT head reviewed CT C spine reviewed ASSESSMENT/PLAN: 77 y/o female with PMH ESBL Klebsiella UTI on Ertapenem, PUD, [place], DM, HLD presented after hypotensive episode as she was to recieve Ertapenem infusion. She stated she felt lightheaded with reportedly multiple episodes of lightheadedness associated with multiple falls over past 3 months. Reportedly with fall from chair as she attempted to get up. CT head completed and without acute changes. CT C spine without fractures or dislocations reviewed. May require Physical therapy for ambulation and gait training. May benefit from assistive device and if needed, short term rehab, depending on PT recommendations. Can continue mgmt for UTI and infection, abx per ID. Follow up cultures. Maintain adequate hydration, IV fluids as needed. Check orthostatics, avoid sudden ambulation. Monitor blood sugars, maintain normal range.
[2017-09-08] MEDS ORDERED: PT OWN MED DRAWER 7, Y5N ONE (09:51)
[2017-09-08] MEDS ORDERED: ERTAPENEM SODIUM 1 GM in SODIUM CHLORIDE 50 ML IVPB SCH (10:00)
--- NOTE | 2017-09-08 10:55 | PN ---
Progress Note, Physician History of Present Illness: Readmitted for orthostasis and fall while undergoing home abx infusion, positional light-headedness improved post fluids. - Current Medication List Current Medications: Active Medications Acetaminophen (Tylenol -) 650 mg PO Q6H PRN PRN Reason: PAIN LEVEL 7 - 10 Heparin Sodium (Porcine) (Heparin -) 5,000 unit SQ TID YENI Last Admin: 09/08/17 06:39 Dose: 5,000 unit Sodium Chloride (Normal Saline -) 1,000 mls @ 50 mls/hr IV ASDIR YENI Stop: 09/09/17 00:20 Last Admin: 09/08/17 05:30 Dose: 50 mls/hr Ertapenem 0.5 gm/ Sodium (Chloride) 50 mls @ 50 mls/hr IVPB DAILY [facility]; Protocol Insulin Aspart (Novolog Vial Sliding Scale -) 1 vial SQ ACHS [facility]; Protocol Last Admin: 09/08/17 06:57 Dose: Not Given - Objective Vital Signs: Vital Signs Temperature 98 F 09/08/17 04:00 Pulse Rate 64 09/08/17 04:00 Respiratory Rate 20 09/08/17 04:00 Blood Pressure 102/64 09/08/17 04:00 O2 Sat by Pulse Oximetry (%) 100 09/08/17 04:00 Constitutional: Yes: No Distress, Calm Neck: Yes: Supple Cardiovascular: Yes: Regular Rate and Rhythm Respiratory: Yes: Regular, CTA Bilaterally Gastrointestinal: Yes: Normal Bowel Sounds, Soft Edema: No Labs: CBC, BMP 09/08/17 07:10 09/08/17 07:10 INR, PTT INR 1.05 (0.82-1.09) 09/07/17 15:00 Problem List - Problems (1) Hypotension Code(s): I95.9 - HYPOTENSION, UNSPECIFIED Qualifiers: Hypotension type: orthostatic hypotension Qualified Code(s): I95.1 - Orthostatic hypotension (2) UTI (urinary tract infection) Code(s): N39.0 - URINARY TRACT INFECTION, SITE NOT SPECIFIED Qualifiers: Urinary tract infection type: site unspecified Hematuria presence: without hematuria Qualified Code(s): N39.0 - Urinary tract infection, site not specified (3) Acute kidney injury Code(s): N17.9 - ACUTE KIDNEY FAILURE, UNSPECIFIED (4) CKD (chronic kidney disease) Code(s): N18.9 - CHRONIC KIDNEY DISEASE, UNSPECIFIED Qualifiers: Chronic kidney disease stage: stage 2 (mild) Qualified Code(s): N18.2 - Chronic kidney disease, stage 2 (mild) (5) Coronary artery disease Code(s): I25.10 - ATHSCL HEART DISEASE OF [place] CORONARY ARTERY W/O ANG PCTRS Qualifiers: Coronary Disease-Associated Artery/Lesion type: [place] artery [place] vs. transplanted heart: [place] heart Associated angina: without angina Qualified Code(s): I25.10 - Atherosclerotic heart disease of [place] coronary artery without angina pectoris (6) Diabetes Code(s): E11.9 - TYPE 2 DIABETES MELLITUS WITHOUT COMPLICATIONS Qualifiers: Diabetes mellitus type: type 2 Diabetes mellitus half-way insulin use: without intermediate school teacher use Diabetes mellitus complication status: without complication Qualified Code(s): E11.9 - Type 2 diabetes mellitus without complications (7) HLD (hyperlipidemia) Code(s): E78.5 - HYPERLIPIDEMIA, UNSPECIFIED Qualifiers: Hyperlipidemia type: mixed hyperlipidemia Qualified Code(s): E78.2 - Mixed hyperlipidemia (8) HTN (hypertension) Code(s): I10 - ESSENTIAL (PRIMARY) HYPERTENSION Qualifiers: Hypertension type: essential hypertension Qualified Code(s): I10 - Essential (primary) hypertension (9) Hypothyroid Code(s): E03.9 - HYPOTHYROIDISM, UNSPECIFIED Qualifiers: Hypothyroidism type: unspecified Qualified Code(s): E03.9 - Hypothyroidism , unspecified Assessment/Plan 1. Orthostatic hypotension and falls 2. Acute in CKD hemodynamic alterations 3. CAD h/o [place] 4. Mixed hyperlipidemia 5. Type 2 DM 6. Hypothyroidism 7. Klebsiella UTI P:1. Continue abx course, hydration 2. Hold Lasix and Benicar pending recovery of renal fxn 3. Resume Plavix 75 qd, Lipitor 80 qhs, Lovaza 2 bid, and Toprol XL 25 qd as hemodynamics tolerate 4. Further cardiovascular work-up may be performed as outpatient 5. PT and gait training, DVT prophylaxis
--- NOTE | 2017-09-08 12:32 | CONSULT ---
Consult - text type - Consultation Consultation Note: Renal Consult for SARANYA This is a 77 year old woman with PMhx of CKD, DM, CAD s/p AL, Dementia, PUD recent admission for SARANYA/UTI discharged on outpatient Abx who presented with hypotension while at infusion center for her Abx and noted to have lactic acidosis and SARANYA in setting of hypotension/Sepsis. Pt denie any fever, chills or dysuria at home. Did feel very weak yesterday. Making urine w/o blood or pain. NO flank pain. Started on IVF in the ED and felt better. Denies any sob, cough, abd pain, N/V/D. No Leg swelling. No rash on skin. No recent contrast exposure. On PPI at home. PMhx: as above Allergies: NKDA Family hx: NC Social Hx: No T/A/D ROS: As per HPI Home Medications Medication Instructions Recorded metFORMIN HCL [Glucophage] 1,000 mg PO BID #0 tab 10/14/12 Atorvastatin Ca [Lipitor] 80 mg PO HS 12/02/16 Clopidogrel Bisulfate [Plavix -] 75 mg PO DAILY 12/02/16 Paroxetine HCl [Paxil -] 20 mg PO DAILY 12/02/16 Pregabalin [Lyrica -] 200 mg PO HS 12/02/16 Repaglinide [Prandin] 1 mg PO QID 12/02/16 Pantoprazole Sodium 40 mg PO DAILY #30 tablet. 01/13/17 Aripiprazole [Abilify] 10 mg PO DAILY 05/26/17 Cyclobenzaprine HCl [Flexeril 10 10 mg PO BID PRN 05/26/17 mg] Oxybutynin Chloride [Oxybutynin 10 mg PO DAILY 05/26/17 Chloride ER] Ferrous Sulfate 325 mg PO BID #60 tablet 05/28/17 Levothyroxine [Synthroid -] 37.5 mcg PO DAILY@0600 tablet 05/28/17 Ertapenem Sodium [Invanz -] 1 gm IVPB DAILY 3 Days #3 vial 09/06/17 Metoprolol Succinate [Toprol XL -] 25 mg PO DAILY #30 tab.sr.24h 09/06/17 [place]-3 Acid Ethyl Esters [Lovaza 2 gm PO BID #60 cap 09/06/17 -] Vital Signs Temperature 98 F 09/08/17 04:00 Pulse Rate 86 09/08/17 08:50 Respiratory Rate 20 09/08/17 04:00 Blood Pressure 130/86 09/08/17 08:50 O2 Sat by Pulse Oximetry (%) 100 09/08/17 04:00 Intake & Output 09/05/17 09/06/17 09/07/17 09/08/17 23:59 23:59 23:59 23:59 Intake Total 350 Balance 350 Weight 68.039 kg 72.263 kg NAD awake and alert neck supple, No JVD RRR, No M/R CTA, no rales or wheeze soft NT/ND no LE edema, clubbing or cyanosis CBC, BMP 09/08/17 07:10 09/08/17 07:10 Current Medications Acetaminophen (Tylenol -) 650 mg PO Q6H PRN PRN Reason: PAIN LEVEL 7 - 10 Atorvastatin Calcium (Lipitor -) 80 mg PO HS YENI Clopidogrel Bisulfate (Plavix -) 75 mg PO DAILY [facility] Heparin Sodium (Porcine) (Heparin -) 5,000 unit SQ TID [facility] Last Admin: 09/08/17 06:39 Dose: 5,000 unit Sodium Chloride (Normal Saline -) 1,000 mls @ 50 mls/hr IV ASDIR YENI Stop: 09/09/17 00:20 Last Admin: 09/08/17 05:30 Dose: 50 mls/hr Ertapenem 0.5 gm/ Sodium (Chloride) 50 mls @ 50 mls/hr IVPB DAILY [facility]; Protocol Insulin Aspart (Novolog Vial Sliding Scale -) 1 vial SQ ACHS [facility]; Protocol Last Admin: 09/08/17 11:37 Dose: 2 units Metoprolol Succinate (Toprol Xl -) 25 mg PO DAILY [facility] 77 year old woman with PMhx of CKD, DM, CAD s/p AL, Dementia, PUD recent admission for SARANYA/UTI discharged on outpatient Abx who presented with hypotension while at infusion center for her Abx and noted to have lactic acidosis and SARANYA in setting of hypotension/Sepsis. #SARANYA on CKD Likely secondary to renal hypoprofusion in setting of hypotension/ sepsis but need to r/o AIN with Abx and PPI #SARANYA #Sepsis secondary to UTI #Hypotension #Anemia #Lactic acidosis Renal function unchanged in the first 24 hours Check urine studies and imaging of the kidney (unlikely obstructed but r/o pylonephritis) Continue Abx as per ID Maintain map > 65 would no start AMY/ARB in this acute setting avoid NSAIDs, Aminoglycosides, Fleets Trend H/H, check iron studies Thank you Will follow Ayo Cortes DO
--- NOTE | 2017-09-08 12:42 | EKG ---
Test Reason : Blood Pressure : / mmHG Vent. Rate : 072 BPM Atrial Rate : 072 BPM P-R Int : 218 ms QRS Dur : 078 ms QT Int : 414 ms P-R-T Axes : 052 -09 035 degrees QTc Int : 453 ms SINUS RHYTHM WITH 1ST DEGREE A-V BLOCK INFERIOR INFARCT (CITED ON OR BEFORE 01-SEP-2017) CANNOT RULE OUT ANTERIOR INFARCT (CITED ON OR BEFORE 01-SEP-2017) ABNORMAL ECG WHEN COMPARED WITH ECG OF 07-SEP-2017 14:32, [place] INTERVAL HAS INCREASED Confirmed by ELENI AHUJA, ROSA ([id number]) on 09/08/2017 12:41:53 PM Referred By: Confirmed By:ROSA KNOWLES MD
[2017-09-08] MEDS: CLOPIDOGREL BISULFATE 75 MG TABLET (FP) PO SCH (13:12)
--- NOTE | 2017-09-08 14:39 | ECHO ---
Name: DARIAN ONTIVERO, SERENA Exam:Adult Echocardiogram Study Date: 09/08/2017 01:20 PM Reason For Study: HX OF FALLS Height: 59 in Weight: 150 lb BSA: 1.6 m2 MMode/2D Measurements & Calculations IVSd: 1.1 cm Ao root diam: 2.6 cm LVIDd: 3.9 cm LA dimension: 3.0 cm LVIDs: 2.5 cm LVPWd: 0.77 cm EDV(Teich): 64.1 ml RV S Tony: 10.5 cm/sec ESV(Teich): 23.0 ml Doppler Measurements & Calculations MV E max tony: 58.7 cm/sec TR max tony: 213.1 cm/sec MV A max tony: 91.8 cm/sec TR max P.2 mmHg MV E/A: 0.64 PI end-d tony: 126.2 cm/sec Med Peak E' Tony: 5.9 cm/sec Med E/e': 9.9 Lat Peak E' Tony: 4.3 cm/sec Lat E/e': 13.7 Procedure A two-dimensional transthoracic echocardiogram with color flow and Doppler was performed. Left Ventricle The left ventricular size, thickness and function are normal. The left ventricular ejection fraction is normal. E/A reversal consistent with but not diagnostic of poor LV compliance. The left ventricular w all motion is normal. Right Ventricle The right ventricle is normal in size and function. Atria Normal left and right atrial size and function. Mitral Valve There is mild mitral valve thickening. There is no mitral valve stenosis. There is trace mitral regur gitation. Tricuspid Valve There is mild tricuspid valve thickening. There is no tricuspid stenosis. There is mild to moderate t ricuspid regurgitation. Right ventricular systolic pressure is normal. Aortic Valve The aortic valve is normal in structure and function. No hemodynamically significant valvular aortic stenosis. No aortic regurgitation is present. Pulmonic Valve The pulmonic valve is not well visualized. There is no pulmonic valvular stenosis. Mild pulmonic valv ular regurgitation. Great Vessels The aortic root is normal size. Pericardium/Pleura There is no pericardial effusion. Interpretation Summary There is mild to moderate tricuspid regurgitation. Right ventricular systolic pressure is normal. E/A reversal consistent with but not diagnostic of poor LV compliance The left ventricular size, thickness and function are normal The left ventricular ejection fraction is normal. The left ventricular wall motion is normal. There is trace mitral regurgitation. MD Duke Mcwilliams 09/08/2017 02:39 PM
[2017-09-08 15:54] LABS: URINE CREATININE 28.1 mg/dL (20-320)
[2017-09-08 17:17] LABS: BASO % 0.6 % (0-2.0); EOS % 3.8 % (0-4.5); HEMATOCRIT 26.7 % (32.4-45.2); MCHC 33.8 g/dl (32.0-36.0); MEAN CELL VOLUME 88.8 fl (80-96); MEAN PLT VOLUME 8.3 fl (7.5-11.1); MONO % 9.2 % (3.8-10.2); NEUT % 54.4 % (42.8-82.8); PLATELET COUNT 206 K/MM3 (134-434); RBC 3.01 M/mm3 (3.60-5.2); RDW 16.2 % (11.6-15.6); WHITE BLOOD COUNT 6.3 K/mm3 (4.0-10.0)
[2017-09-08] MEDS ORDERED: ERTAPENEM SODIUM 0.5 GM in SODIUM CHLORIDE 50 ML IVPB ONE (18:00)
[2017-09-08] MEDS ORDERED: ERTAPENEM SODIUM 1 GM/50 ML PRE-DOCKED IVPB SCH (18:00)
[2017-09-08] MEDS: ARIPiprazole 10 MG TABLET PO SCH (20:20)
[2017-09-08] MEDS: SODIUM CHLORIDE 1,000 ML IV SCH (22:21)
[2017-09-08] MEDS: OMEGA-3 ACID ETHYL ESTERS (FATTY-ACIDS) 1 GM CAPSULE (FP) PO SCH (22:21)
[2017-09-08] MEDS: ACETAMINOPHEN 325 MG TABLET (FP) PO PRN (22:25)
[2017-09-08] MEDS: ATORVASTATIN CA 80 MG TABLET (FP) PO SCH (22:27)
[2017-09-09] MEDS: INSULIN SLIDING SCALE (NOVOLOG) 1 VIAL SQ SCH ×4 (06:24→23:35)
[2017-09-09] MEDS: HEPARIN NA (PORCINE) 5,000 UNITS/ML 1ML VIAL SQ SCH ×3 (06:24→23:34)
[2017-09-09] MEDS: SODIUM CHLORIDE 1,000 ML IV SCH (06:27)
[2017-09-09 08:06] LABS: BASO % 0.7 % (0-2.0); EOS % 5.2 % (0-4.5); HEMATOCRIT 26.5 % (32.4-45.2); MCH 29.9 pg (25.7-33.7); MCHC 33.8 g/dl (32.0-36.0); MEAN CELL VOLUME 88.4 fl (80-96); MEAN PLT VOLUME 8.7 fl (7.5-11.1); MONO % 9.5 % (3.8-10.2); NEUT % 51.6 % (42.8-82.8); PLATELET COUNT 189 K/MM3 (134-434); RDW 16.3 % (11.6-15.6); WHITE BLOOD COUNT 5.4 K/mm3 (4.0-10.0)
[2017-09-09 08:23] LABS: ANION GAP 6 (8-16); BLOOD UREA NITROGEN 25 mg/dL (7-18); CALCIUM 8.6 mg/dL (8.5-10.1); CHLORIDE 108 mmol/L (98-107); CO2 27 mmol/L (21-32); CREATININE 1.4 mg/dL (0.55-1.02); GLUCOSE,RANDOM 128 mg/dL (74-106); MAGNESIUM 2.1 mg/dL (1.8-2.4); POTASSIUM 4.1 mmol/L (3.5-5.1); SGOT/AST 17 U/L (15-37); SGPT/ALT 21 U/L (12-78); SODIUM 141 mmol/L (136-145)
[2017-09-09 08:28] LABS: ALK PHOS 65 U/L (45-117); BILIRUBIN,TOTAL 0.1 mg/dL (0.2-1.0); PHOSPHOROUS 3.1 mg/dL (2.5-4.9); TOT PROT 6.2 g/dl (6.4-8.2)
[2017-09-09 08:52] LABS: SERUM IRON SATURATION 11 % (15-55); TOTAL IRON BINDING CAPACITY 288 ug/dL (250-450); UIBC 255 ug/dL (118-369)
--- NOTE | 2017-09-09 09:22 | PN ---
Progress Note (short form) - Note Progress Note: Neurology HISTORY OF PRESENT ILLNESS: 77 y/o female with PMH ESBL Klebsiella UTI on Ertapenem, PUD, AL, DM, HLD presented after hypotensive episode as she was to recieve Ertapenem infusion. She stated she felt lightheaded with reportedly multiple episodes of lightheadedness associated with multiple falls over past 3 months. Reportedly with fall from chair as she attempted to get up. CT head completed and without acute changes. CT C spine without fractures or dislocations reviewed. Echo completed and reviewed, mild to mod TR, normal RV and LV function. Discussed with patient. Neurologically stable and ambulating with assistance. Active Medications Acetaminophen (Tylenol -) 650 mg PO Q6H PRN PRN Reason: PAIN LEVEL 7 - 10 Last Admin: 09/08/17 22:25 Dose: 650 mg Aripiprazole (Abilify) 10 mg PO DAILY [facility] Last Admin: 09/08/17 20:20 Dose: 10 mg Atorvastatin Calcium (Lipitor -) 80 mg PO HS [facility] Last Admin: 09/08/17 22:27 Dose: 80 mg Clopidogrel Bisulfate (Plavix -) 75 mg PO DAILY [facility] Last Admin: 09/08/17 13:12 Dose: 75 mg Heparin Sodium (Porcine) (Heparin -) 5,000 unit SQ TID [facility] Last Admin: 09/09/17 06:24 Dose: 5,000 unit Ertapenem 0.5 gm/ Sodium (Chloride) 50 mls @ 50 mls/hr IVPB DAILY [facility]; Protocol Sodium Chloride (Normal Saline -) 1,000 mls @ 50 mls/hr IV ASDIR [facility] Stop: 09/09/17 21:14 Last Admin: 09/09/17 06:27 Dose: 50 mls/hr Insulin Aspart (Novolog Vial Sliding Scale -) 1 vial SQ ACHS [facility]; Protocol Last Admin: 09/09/17 06:24 Dose: Not Given Metoprolol Succinate (Toprol Xl -) 25 mg PO DAILY [facility] [id number] Ethyl Esters (Lovaza -) 2 gm PO BID [facility] Last Admin: 09/08/17 22:21 Dose: 2 gm Pantoprazole Sodium (Protonix -) 40 mg PO DAILY [facility] PHYSICAL EXAMINATION Vital Signs Period Temp Pulse Resp BP Sys/[place] Pulse Ox Last 24 Hr 98.5 F-98.6 F 75-75 18-20 109-133/60-74 100 GENERAL: Awake, alert, and fully oriented, in no acute distress. HEAD: Normal with no signs of trauma. EYES: Pupils equal, round and reactive to light, extraocular movements intact EARS, NOSE, THROAT: Oropharynx clear without exudates. Moist mucous membranes. LUNGS: Breath sounds equal, clear to auscultation bilaterally. No wheezes, and no crackles. No accessory muscle use. HEART: Regular rate and rhythm, normal S1 and S2 without murmur, rub or gallop. ABDOMEN: Soft, nontender, not distended, normoactive bowel sounds, no guarding, no rebound, no masses. No hepatomegaly or splenomegaly. EXTREMITIES: 2+ pulses, warm, well-perfused. No cyanosis. No peripheral edema. NEUROLOGICAL: Cranial nerves II-XII intact. Normal speech, moves all extremities equally, sensory intact, ambulating with assistance PSYCHIATRIC: Cooperative. Appropriate mood and affect. SKIN: Warm, dry, normal capillary refill. CBCD WBC 5.4 K/mm3 (4.0-10.0) 09/09/17 07:10 RBC 3.00 M/mm3 (3.60-5.2) L 09/09/17 07:10 Hgb 9.0 GM/dL (10.7-15.3) L 09/09/17 07:10 Hct 26.5 % (32.4-45.2) L 09/09/17 07:10 MCV 88.4 fl (80-96) 09/09/17 07:10 MCHC 33.8 g/dl (32.0-36.0) 09/09/17 07:10 RDW 16.3 % (11.6-15.6) H 09/09/17 07:10 Plt Count 189 K/MM3 (134-434) 09/09/17 07:10 MPV 8.7 fl (7.5-11.1) 09/09/17 07:10 CMP Sodium 141 mmol/L (136-145) 09/09/17 07:10 Potassium 4.1 mmol/L (3.5-5.1) 09/09/17 07:10 Chloride 108 mmol/L (98-107) H 09/09/17 07:10 Carbon Dioxide 27 mmol/L (21-32) 09/09/17 07:10 Anion Gap 6 (8-16) L 09/09/17 07:10 BUN 25 mg/dL (7-18) H 09/09/17 07:10 Creatinine 1.4 mg/dL (0.55-1.02) H 09/09/17 07:10 Creat Clearance w eGFR 36.46 (>60) 09/09/17 07:10 Random Glucose 128 mg/dL (74-106) H 09/09/17 07:10 Calcium 8.6 mg/dL (8.5-10.1) 09/09/17 07:10 Total Bilirubin 0.1 mg/dL (0.2-1.0) L 09/09/17 07:10 AST 17 U/L (15-37) 09/09/17 07:10 ALT 21 U/L (12-78) 09/09/17 07:10 Alkaline Phosphatase 65 U/L (45-117) 09/09/17 07:10 Total Protein 6.2 g/dl (6.4-8.2) L 09/09/17 07:10 Albumin 3.0 g/dl (3.4-5.0) L 09/09/17 07:10 CARDIAC ENZYMES Troponin I < 0.02 ng/ml (0.00-0.05) 09/08/17 07:[address] C spine reviewed Echo reviewed ASSESSMENT/PLAN: 77 y/o female with PMH ESBL Klebsiella UTI on Ertapenem, PUD, AL, DM, HLD presented after hypotensive episode as she was to recieve Ertapenem infusion. She stated she felt lightheaded with reportedly multiple episodes of lightheadedness associated with multiple falls over past 3 months. Reportedly with fall from chair as she attempted to get up. CT head completed and without acute changes. CT C spine without fractures or dislocations reviewed. May require Physical therapy for ambulation and gait training. May benefit from assistive device and if needed, short term rehab, depending on PT recommendations. Can continue mgmt for UTI and infection, abx per ID. Follow up cultures. Maintain adequate hydration, IV fluids as needed. Echo reviewed, cardiology followup. Check orthostatics, avoid sudden ambulation. Monitor blood sugars, maintain normal range.
[2017-09-09] MEDS ORDERED: PT OWN MED DRAWER 7, Y5N ONE (10:08)
--- NOTE | 2017-09-09 10:19 | PN ---
Progress Note, Physician History of Present Illness: Positional light-headedness improved post fluids. - Current Medication List Current Medications: Active Medications Acetaminophen (Tylenol -) 650 mg PO Q6H PRN PRN Reason: PAIN LEVEL 7 - 10 Last Admin: 09/08/17 22:25 Dose: 650 mg Aripiprazole (Abilify) 10 mg PO DAILY [facility] Last Admin: 09/08/17 20:20 Dose: 10 mg Atorvastatin Calcium (Lipitor -) 80 mg PO HS [facility] Last Admin: 09/08/17 22:27 Dose: 80 mg Clopidogrel Bisulfate (Plavix -) 75 mg PO DAILY [facility] Last Admin: 09/08/17 13:12 Dose: 75 mg Heparin Sodium (Porcine) (Heparin -) 5,000 unit SQ TID [facility] Last Admin: 09/09/17 06:24 Dose: 5,000 unit Ertapenem 0.5 gm/ Sodium (Chloride) 50 mls @ 50 mls/hr IVPB DAILY [facility]; Protocol Sodium Chloride (Normal Saline -) 1,000 mls @ 50 mls/hr IV ASDIR [facility] Stop: 09/09/17 21:14 Last Admin: 09/09/17 06:27 Dose: 50 mls/hr Insulin Aspart (Novolog Vial Sliding Scale -) 1 vial SQ ACHS [facility]; Protocol Last Admin: 09/09/17 06:24 Dose: Not Given Metoprolol Succinate (Toprol Xl -) 25 mg PO DAILY [facility] [id number]-[id number] Ethyl Esters (Lovaza -) 2 gm PO BID [facility] Last Admin: 09/08/17 22:21 Dose: 2 gm Pantoprazole Sodium (Protonix -) 40 mg PO DAILY [facility] - Objective Vital Signs: Vital Signs Temperature 98.5 F 09/09/17 06:43 Pulse Rate 75 09/09/17 06:43 Respiratory Rate 20 09/09/17 06:43 Blood Pressure 133/74 09/09/17 06:43 O2 Sat by Pulse Oximetry (%) 100 09/08/17 21:00 Constitutional: Yes: No Distress, Calm Neck: Yes: Supple Cardiovascular: Yes: Regular Rate and Rhythm Respiratory: Yes: Regular, CTA Bilaterally Gastrointestinal: Yes: Normal Bowel Sounds, Soft Edema: No Labs: CBC, BMP 09/09/17 07:10 09/09/17 07:10 INR, PTT INR 1.05 (0.82-1.09) 09/07/17 15:00 Problem List - Problems (1) Hypotension Code(s): I95.9 - HYPOTENSION, UNSPECIFIED Qualifiers: Hypotension type: orthostatic hypotension Qualified Code(s): I95.1 - Orthostatic hypotension (2) UTI (urinary tract infection) Code(s): N39.0 - URINARY TRACT INFECTION, SITE NOT SPECIFIED Qualifiers: Urinary tract infection type: site unspecified Hematuria presence: without hematuria Qualified Code(s): N39.0 - Urinary tract infection, site not specified (3) Acute kidney injury Code(s): N17.9 - ACUTE KIDNEY FAILURE, UNSPECIFIED (4) CKD (chronic kidney disease) Code(s): N18.9 - CHRONIC KIDNEY DISEASE, UNSPECIFIED Qualifiers: Chronic kidney disease stage: stage 2 (mild) Qualified Code(s): N18.2 - Chronic kidney disease, stage 2 (mild) (5) Coronary artery disease Code(s): I25.10 - ATHSCL HEART DISEASE OF [place] CORONARY ARTERY W/O ANG PCTRS Qualifiers: Coronary Disease-Associated Artery/Lesion type: [place] artery [place] vs. 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 Diabetes mellitus complication status: without complication Qualified Code(s): E11.9 - Type 2 diabetes mellitus without complications (7) HLD (hyperlipidemia) Code(s): E78.5 - HYPERLIPIDEMIA, UNSPECIFIED Qualifiers: Hyperlipidemia type: mixed hyperlipidemia Qualified Code(s): E78.2 - Mixed hyperlipidemia (8) HTN (hypertension) Code(s): I10 - ESSENTIAL (PRIMARY) HYPERTENSION Qualifiers: Hypertension type: essential hypertension Qualified Code(s): I10 - Essential (primary) hypertension (9) Hypothyroid Code(s): E03.9 - HYPOTHYROIDISM, UNSPECIFIED Qualifiers: Hypothyroidism type: unspecified Qualified Code(s): E03.9 - Hypothyroidism , unspecified Assessment/Plan 1. Orthostatic hypotension and falls 2. Acute in CKD hemodynamic alterations 3. CAD h/o [place] 4. Mixed hyperlipidemia 5. Type 2 DM 6. Hypothyroidism 7. Klebsiella UTI P:1. Continue abx course, hydration 2. Hold Lasix and Benicar pending recovery of renal fxn 3. Continue Plavix 75 qd, Lipitor 80 qhs, Lovaza 2 bid, and Toprol XL 25 qd as hemodynamics tolerate 4. Further cardiovascular work-up may be performed as outpatient 5. PT and gait training, DVT prophylaxis, counseled on abortive maneuvers when prodromal sxs are experienced, compression stockings
[2017-09-09] MEDS: ERTAPENEM SODIUM 0.5 GM in SODIUM CHLORIDE 50 ML IVPB SCH (10:38)
[2017-09-09] MEDS: PANTOPRAZOLE 40 MG TABLET (FP) PO SCH (10:39)
[2017-09-09] MEDS: OMEGA-3 ACID ETHYL ESTERS (FATTY-ACIDS) 1 GM CAPSULE (FP) PO SCH ×2 (10:39→23:33)
[2017-09-09] MEDS: ARIPiprazole 10 MG TABLET PO SCH (10:39)
[2017-09-09] MEDS: metoPROLOL SUCCINATE 25 MG TAB.SR.24H (FP) PO SCH (10:39)
[2017-09-09] MEDS: CLOPIDOGREL BISULFATE 75 MG TABLET (FP) PO SCH (10:39)
--- NOTE | 2017-09-09 11:32 | PN ---
Progress Note (short form) - Note Progress Note: ID Othostatic hypotension Ertepenem day 6 Rx NO fever Selected Entries 09/09/17 06:43 Temperature 98.5 F Pulse Rate 75 Respiratory 20 Rate Blood Pressure 133/74 Microbiology 09/07/17 18:35 Urine - Urine Clean Catch Urine Culture - Final NO GROWTH OBTAINED 09/01/17 11:30 Urine - Urine Clean Catch Urine Culture - Final Klebsiella Pneumoniae - Esbl 09/07/17 15:00 Blood - Peripheral Venous Blood Culture - Preliminary NO GROWTH OBTAINED AFTER 24 HOURS, INCUBATION TO CONTINUE FOR 4 DAYS. 09/07/17 15:00 Blood - Peripheral Venous Blood Culture - Preliminary NO GROWTH OBTAINED AFTER 24 HOURS, INCUBATION TO CONTINUE FOR 4 DAYS. Laboratory Tests 09/09/17 09/09/17 07:10 07:10 WBC 5.4 RBC 3.00 L Hgb 9.0 L Plt Count 189 BUN 25 H Creatinine 1.4 H Creat Clearance w eGFR 36.46 Assessment Complete treatmetn for original UTI ESBL day 6 Tomorrow last dose Louise AHUJA Problem List - Problems (1) Drug (multiple) resistant infection Code(s): Z16.35 - RESISTANCE TO MULTIPLE ANTIMICROBIAL DRUGS (2) Hypotension Code(s): I95.9 - HYPOTENSION, UNSPECIFIED Qualifiers: Hypotension type: orthostatic hypotension Qualified Code(s): I95.1 - Orthostatic hypotension
--- NOTE | 2017-09-09 14:36 | PN ---
Progress Note (short form) - Note Progress Note: Renal follow up for SARANYA Pt seen and examined at the bedside no acute complaints denies any sob, chest pain, abd pain, N/V/D, fever, chills making urine on IVF Vital Signs Temperature 97.6 F 09/09/17 09:00 Pulse Rate 72 09/09/17 08:30 Respiratory Rate 20 09/09/17 09:00 Blood Pressure 110/70 09/09/17 09:00 O2 Sat by Pulse Oximetry (%) 97 09/09/17 09:00 Intake & Output 09/06/17 09/07/17 09/08/17 09/09/17 23:59 23:59 23:59 23:59 Intake Total 1067 350 Balance 1067 350 Weight 68.039 kg 72.263 kg NAD RRR, No M/R CTA soft NT/ND No LE edema CBC, BMP 09/09/17 07:10 09/09/17 07:10 Laboratory Tests 09/09/17 07:10 Calcium 8.6 Phosphorus 3.1 Magnesium 2.1 Albumin 3.0 L Current Medications Acetaminophen (Tylenol -) 650 mg PO Q6H PRN PRN Reason: PAIN LEVEL 7 - 10 Last Admin: 09/08/17 22:25 Dose: 650 mg Aripiprazole (Abilify) 10 mg PO DAILY [facility] Last Admin: 09/09/17 10:39 Dose: 10 mg Atorvastatin Calcium (Lipitor -) 80 mg PO HS [facility] Last Admin: 09/08/17 22:27 Dose: 80 mg Clopidogrel Bisulfate (Plavix -) 75 mg PO DAILY [facility] Last Admin: 09/09/17 10:39 Dose: 75 mg Heparin Sodium (Porcine) (Heparin -) 5,000 unit SQ TID [facility] Last Admin: 09/09/17 13:54 Dose: 5,000 unit Ertapenem 0.5 gm/ Sodium (Chloride) 50 mls @ 50 mls/hr IVPB DAILY [facility]; Protocol Last Admin: 09/09/17 10:38 Dose: 50 mls/hr Sodium Chloride (Normal Saline -) 1,000 mls @ 50 mls/hr IV ASDIR [facility] Stop: 09/09/17 21:14 Last Admin: 09/09/17 06:27 Dose: 50 mls/hr Insulin Aspart (Novolog Vial Sliding Scale -) 1 vial SQ ACHS [facility]; Protocol Last Admin: 09/09/17 11:44 Dose: 4 units Metoprolol Succinate (Toprol Xl -) 25 mg PO DAILY [facility] Last Admin: 09/09/17 10:39 Dose: 25 mg Rfcda-8-Jmrm Ethyl Esters (Lovaza -) 2 gm PO BID [facility] Last Admin: 09/09/17 10:39 Dose: 2 gm Pantoprazole Sodium (Protonix -) 40 mg PO DAILY [facility] Last Admin: 09/09/17 10:39 Dose: 40 mg 77 year old woman with PMhx of CKD, DM, CAD s/p [place], Dementia, PUD recent admission for SARANYA/UTI discharged on outpatient Abx who presented with hypotension while at infusion center for her Abx and noted to have lactic acidosis and SARANYA in setting of hypotension/Sepsis. #SARANYA on CKD Likely secondary to renal hypoprofusion in setting of hypotension/ sepsis but need to r/o AIN with Abx and PPI #Sepsis secondary to UTI #Hypotension #Anemia with low iron levels #Lactic acidosis (improved) Renal function improving with IVF Urine studies showed FeNa of 3.6% and non-significant proteinuira would continue gentle IVF for now Renal US is pending Urine Eos pending keep MAP > 65 hold diuretics for now, can plan to resume on discharge continue Abx for UTI iron studies show low iron saturation, start oral iron discharge planning as per primary Ayo Cortes DO
[2017-09-09] MEDS: ACETAMINOPHEN 325 MG TABLET (FP) PO PRN (16:53)
--- NOTE | 2017-09-09 16:56 | PN ---
Physical Exam: SUBJECTIVE: Patient seen and examined. Pt feels well, no complaints, no sob, cp , dysuria. OBJECTIVE: Vital Signs Period Temp Pulse Resp BP Sys/Saravia Pulse Ox Last 24 Hr 97.6 F-98.5 F 72-79 18-20 89-133/59-74 97-100 PE Neuro: alert, awake, cn 2-12intact Pulm: CTAB CV: s1 s2 rrr no mrg Abd: s nt nd + bs Ext: Warm, no le edema Skin: skin tear: r wrist dressing, lue dressing intact, no bleeding Laboratory Results - last 24 hr 09/08/17 09/08/17 09/08/17 07:10 16:31 17:00 WBC 6.3 RBC 3.01 L Hgb 9.0 L Hct 26.7 L MCV 88.8 MCH 30.0 MCHC 33.8 RDW 16.2 H Plt Count 206 MPV 8.3 Absolute Neuts (auto) 3.4 Neutrophils % 54.4 Lymphocytes % 32.0 D Monocytes % 9.2 Eosinophils % 3.8 D Basophils % 0.6 Nucleated RBC % 0 Sodium Potassium Chloride Carbon Dioxide Anion Gap BUN Creatinine Creat Clearance w eGFR POC Glucometer 136 Random Glucose Calcium Phosphorus Magnesium Iron 33 TIBC 288 Iron Saturation 11 L Ferritin Total Bilirubin AST ALT Alkaline Phosphatase Total Protein Albumin Stool Occult Blood 09/08/17 09/09/17 09/09/17 22:24 06:21 07:10 WBC 5.4 RBC 3.00 L Hgb 9.0 L Hct 26.5 L MCV 88.4 MCH 29.9 MCHC 33.8 RDW 16.3 H Plt Count 189 MPV 8.7 Absolute Neuts (auto) 2.8 Neutrophils % 51.6 Lymphocytes % 33.0 Monocytes % 9.5 Eosinophils % 5.2 H Basophils % 0.7 Nucleated RBC % 0 Sodium Potassium Chloride Carbon Dioxide Anion Gap BUN Creatinine Creat Clearance w eGFR POC Glucometer 123 127 Random Glucose Calcium Phosphorus Magnesium Iron TIBC Iron Saturation Ferritin Total Bilirubin AST ALT Alkaline Phosphatase Total Protein Albumin Stool Occult Blood 09/09/17 09/09/17 09/09/17 07:10 11:35 12:11 WBC RBC Hgb Hct MCV MCH MCHC RDW Plt Count MPV Absolute Neuts (auto) Neutrophils % Lymphocytes % Monocytes % Eosinophils % Basophils % Nucleated RBC % Sodium 141 Potassium 4.1 Chloride 108 H Carbon Dioxide 27 Anion Gap 6 L BUN 25 H Creatinine 1.4 H Creat Clearance w eGFR 36.46 POC Glucometer 194 Random Glucose 128 H Calcium 8.6 Phosphorus 3.1 Magnesium 2.1 Iron TIBC Iron Saturation Ferritin 13.6 Total Bilirubin 0.1 L AST 17 ALT 21 Alkaline Phosphatase 65 Total Protein 6.2 L Albumin 3.0 L Stool Occult Blood Negative Active Medications Generic Name Dose Route Start Last Admin Trade Name Freq PRN Reason Stop Dose Admin Acetaminophen 650 mg 09/08/17 08:53 09/08/17 22:25 Tylenol - PO 650 mg Q6H PRN Administration PAIN LEVEL 7 - 10 Aripiprazole 10 mg 09/08/17 18:15 09/09/17 10:39 Abilify PO 10 mg DAILY [facility] Administration Atorvastatin Calcium 80 mg 09/08/17 22:00 09/08/17 22:27 Lipitor - PO 80 mg HS [facility] Administration Clopidogrel Bisulfate 75 mg 09/08/17 11:45 09/09/17 10:39 Plavix - PO 75 mg DAILY [facility] Administration Heparin Sodium (Porcine) 5,000 unit 09/08/17 22:00 09/09/17 13:54 Heparin - SQ 5,000 unit TID [facility] Administration Ertapenem 0.5 gm/ Sodium 50 mls @ 50 mls/hr 09/09/17 10:00 09/09/17 10:38 Chloride IVPB 50 mls/hr DAILY [facility] Administration Protocol Sodium Chloride 1,000 mls @ 50 mls/hr 09/08/17 21:15 09/09/17 06:27 Normal Saline - IV 09/09/17 21:14 50 mls/hr ASDIR [facility] Administration Insulin Aspart 1 vial 09/08/17 22:00 09/09/17 11:44 Novolog Vial Sliding Scale - SQ 4 units ACHS [facility] Administration Protocol Metoprolol Succinate 25 mg 09/09/17 10:00 09/09/17 10:39 Toprol Xl - PO 25 mg DAILY [facility] Administration Ikcjk-0-Wugx Ethyl Esters 2 gm 09/08/17 22:00 09/09/17 10:39 Lovaza - PO 2 gm BID [facility] Administration Pantoprazole Sodium 40 mg 09/09/17 10:00 09/09/17 10:39 Protonix - PO 40 mg DAILY [facility] Administration Assessment: 77 year old female with Pmhx of CAD s/p [place], CKD, DM II, urinary retention, hypokalemia, HLD, and dementia recent admission for SARANYA/UTI is now admitted with pre syncope and evaluation of hypotension while at infusion center. Plan: 1. Sepsis ESBL UTI - Final dose ertapenem tomorrow - Lactic acidosis resolved 2. SARANYA on CKD - Likely d/t hypotension/AID d/t ppi and abx - Improving - Hold benicar, lasix, can resume at discharge - Continue fluids - Follow kidney/bladder us - d/w Renal 3. Orthostaic hypotension - Further cardiac w/u as outpt 4. CAD s/p [place] - Continue plavix, lipitor 5. Hypertriglyceridemia - Started Lovaza 6. DM II - ISS, BGM ACHS 7. Anemia, low iron sat - Dose x1 venofer - Start ferrous sulfate Visit type - Emergency Visit Emergency Visit: Yes ED Registration Date: 09/07/17 Care time: The patient presented to the Emergency Department on the above date and was hospitalized for further evaluation of their emergent condition. - New Patient This patient is new to me today: Yes Date on this admission: 09/09/17 - Critical Care Critical Care patient: No
[2017-09-09] MEDS: FERROUS SO4 325 MG TABLET (FP) PO SCH (18:03)
[2017-09-09] MEDS ORDERED: IRON SUCROSE INJECTION 200 MG in SODIUM CHLORIDE 90 ML IVPB ONE (18:15)
[2017-09-09] MEDS ORDERED: INSULIN (NOVOLOG) ASPART 100 UNITS/ML 10ML VIAL ONE (18:51)
[2017-09-09] MEDS: ATORVASTATIN CA 80 MG TABLET (FP) PO SCH (23:34)
[2017-09-10] MEDS: INSULIN SLIDING SCALE (NOVOLOG) 1 VIAL SQ SCH ×2 (06:42→12:05)
[2017-09-10] MEDS: HEPARIN NA (PORCINE) 5,000 UNITS/ML 1ML VIAL SQ SCH ×2 (06:42→13:30)
[2017-09-10] MEDS: FERROUS SO4 325 MG TABLET (FP) PO SCH (07:46)
[2017-09-10 08:38] LABS: ANION GAP 7 (8-16); BLOOD UREA NITROGEN 21 mg/dL (7-18); CALCIUM 9.1 mg/dL (8.5-10.1); CHLORIDE 108 mmol/L (98-107); CO2 29 mmol/L (21-32); CREATININE 1.4 mg/dL (0.55-1.02); GLUCOSE,RANDOM 116 mg/dL (74-106); POTASSIUM 4.3 mmol/L (3.5-5.1); SODIUM 144 mmol/L (136-145)
--- NOTE | 2017-09-10 09:04 | PN ---
Progress Note (short form) - Note Progress Note: Neurology HISTORY OF PRESENT ILLNESS: 77 y/o female with PMH ESBL Klebsiella UTI on Ertapenem, PUD, [place], DM, HLD presented after hypotensive episode as she was to recieve Ertapenem infusion. She stated she felt lightheaded with reportedly multiple episodes of lightheadedness associated with multiple falls over past 3 months. Reportedly with fall from chair as she attempted to get up. CT head completed and without acute changes. CT C spine without fractures or dislocations reviewed. Echo completed and reviewed, mild to mod TR, normal RV and LV function. Carotids compelted with mild athero w/o hemodynamically significant stenosis. Renal ultrasound reviewed and small kidney noted, no acute path. Neurologically stable and ambulating with assistance. Active Medications Acetaminophen (Tylenol -) 650 mg PO Q6H PRN PRN Reason: PAIN LEVEL 7 - 10 Last Admin: 09/09/17 16:53 Dose: 650 mg Aripiprazole (Abilify) 10 mg PO DAILY [facility] Last Admin: 09/09/17 10:39 Dose: 10 mg Atorvastatin Calcium (Lipitor -) 80 mg PO HS [facility] Last Admin: 09/09/17 23:34 Dose: 80 mg Clopidogrel Bisulfate (Plavix -) 75 mg PO DAILY [facility] Last Admin: 09/09/17 10:39 Dose: 75 mg Ferrous Sulfate (Feosol -) 325 mg PO BIDWM [facility] Last Admin: 09/10/17 07:46 Dose: 325 mg Heparin Sodium (Porcine) (Heparin -) 5,000 unit SQ TID [facility] Last Admin: 09/10/17 06:42 Dose: 5,000 unit Ertapenem 0.5 gm/ Sodium (Chloride) 50 mls @ 50 mls/hr IVPB DAILY [facility]; Protocol Last Admin: 09/09/17 10:38 Dose: 50 mls/hr Insulin Aspart (Novolog Vial Sliding Scale -) 1 vial SQ ACHS [facility]; Protocol Last Admin: 09/10/17 06:42 Dose: 2 units Metoprolol Succinate (Toprol Xl -) 25 mg PO DAILY [facility] Last Admin: 09/09/17 10:39 Dose: 25 mg Cieqj-7-Stkz Ethyl Esters (Lovaza -) 2 gm PO BID [facility] Last Admin: 09/09/17 23:33 Dose: 2 gm Pantoprazole Sodium (Protonix -) 40 mg PO DAILY [facility] Last Admin: 09/09/17 10:39 Dose: 40 mg PHYSICAL EXAMINATION Vital Signs Period Temp Pulse Resp BP Sys/Saravia Pulse Ox Last 24 Hr 97.4 F-98.7 F 78-92 16-18 120-145/67-87 96 GENERAL: Awake, alert, and fully oriented, in no acute distress. HEAD: Normal with no signs of trauma. EYES: Pupils equal, round and reactive to light, extraocular movements intact EARS, NOSE, THROAT: Oropharynx clear without exudates. Moist mucous membranes. LUNGS: Breath sounds equal, clear to auscultation bilaterally. No wheezes, and no crackles. No accessory muscle use. HEART: Regular rate and rhythm, normal S1 and S2 without murmur, rub or gallop. ABDOMEN: Soft, nontender, not distended, normoactive bowel sounds, no guarding, no rebound, no masses. No hepatomegaly or splenomegaly. EXTREMITIES: 2+ pulses, warm, well-perfused. No cyanosis. No peripheral edema. NEUROLOGICAL: Cranial nerves II-XII intact. Normal speech, moves all extremities equally, sensory intact, ambulating with assistance PSYCHIATRIC: Cooperative. Appropriate mood and affect. SKIN: Warm, dry, normal capillary refill. CBCD WBC 5.4 K/mm3 (4.0-10.0) 09/09/17 07:10 RBC 3.00 M/mm3 (3.60-5.2) L 09/09/17 07:10 Hgb 9.0 GM/dL (10.7-15.3) L 09/09/17 07:10 Hct 26.5 % (32.4-45.2) L 09/09/17 07:10 MCV 88.4 fl (80-96) 09/09/17 07:10 MCHC 33.8 g/dl (32.0-36.0) 09/09/17 07:10 RDW 16.3 % (11.6-15.6) H 09/09/17 07:10 Plt Count 189 K/MM3 (134-434) 09/09/17 07:10 MPV 8.7 fl (7.5-11.1) 09/09/17 07:10 CMP Sodium 144 mmol/L (136-145) 09/10/17 06:20 Potassium 4.3 mmol/L (3.5-5.1) 09/10/17 06:20 Chloride 108 mmol/L (98-107) H 09/10/17 06:20 Carbon Dioxide 29 mmol/L (21-32) 09/10/17 06:20 Anion Gap 7 (8-16) L 09/10/17 06:20 BUN 21 mg/dL (7-18) H 09/10/17 06:20 Creatinine 1.4 mg/dL (0.55-1.02) H 09/10/17 06:20 Creat Clearance w eGFR 36.46 (>60) 09/10/17 06:20 Calcium 9.1 mg/dL (8.5-10.1) 09/10/17 06:20 Total Bilirubin 0.1 mg/dL (0.2-1.0) L 09/09/17 07:10 AST 17 U/L (15-37) 09/09/17 07:10 ALT 21 U/L (12-78) 09/09/17 07:10 Alkaline Phosphatase 65 U/L (45-117) 09/09/17 07:10 Total Protein 6.2 g/dl (6.4-8.2) L 09/09/17 07:10 Albumin 3.0 g/dl (3.4-5.0) L 09/09/17 07:[address] C spine reviewed Echo reviewed Carotids reviewed Renal ultrasound reviewed ASSESSMENT/PLAN: 77 y/o female with PMH ESBL Klebsiella UTI on Ertapenem, PUD, [place], DM, HLD presented after hypotensive episode as she was to recieve Ertapenem infusion. She stated she felt lightheaded with reportedly multiple episodes of lightheadedness associated with multiple falls over past 3 months. Reportedly with fall from chair as she attempted to get up. CT head completed and without acute changes. CT C spine without fractures or dislocations reviewed. Consider short term rehab, depending on PT recommendations. Can continue mgmt for UTI and infection, abx per ID. Carotids and Echo stable, defer to cardiology/ primary.Maintain adequate hydration, IV fluids as needed. Avoid sudden ambulation. Monitor blood sugars, maintain normal range. Fall precautions.
[2017-09-10] MEDS ORDERED: PT OWN MED DRAWER 7, Y5N ONE (09:32)
[2017-09-10] MEDS: ERTAPENEM SODIUM 0.5 GM in SODIUM CHLORIDE 50 ML IVPB SCH (09:36)
[2017-09-10] MEDS: PANTOPRAZOLE 40 MG TABLET (FP) PO SCH (09:36)
[2017-09-10] MEDS: ARIPiprazole 10 MG TABLET PO SCH (09:36)
[2017-09-10] MEDS: CLOPIDOGREL BISULFATE 75 MG TABLET (FP) PO SCH (09:36)
[2017-09-10] MEDS: metoPROLOL SUCCINATE 25 MG TAB.SR.24H (FP) PO SCH (09:37)
--- NOTE | 2017-09-10 09:56 | PN ---
Progress Note, Physician History of Present Illness: Positional light-headedness improved post fluids. - Current Medication List Current Medications: Active Medications Acetaminophen (Tylenol -) 650 mg PO Q6H PRN PRN Reason: PAIN LEVEL 7 - 10 Last Admin: 09/09/17 16:53 Dose: 650 mg Aripiprazole (Abilify) 10 mg PO DAILY [facility] Last Admin: 09/10/17 09:36 Dose: 10 mg Atorvastatin Calcium (Lipitor -) 80 mg PO HS [facility] Last Admin: 09/09/17 23:34 Dose: 80 mg Clopidogrel Bisulfate (Plavix -) 75 mg PO DAILY [facility] Last Admin: 09/10/17 09:36 Dose: 75 mg Ferrous Sulfate (Feosol -) 325 mg PO BIDWM [facility] Last Admin: 09/10/17 07:46 Dose: 325 mg Heparin Sodium (Porcine) (Heparin -) 5,000 unit SQ TID [facility] Last Admin: 09/10/17 06:42 Dose: 5,000 unit Ertapenem 0.5 gm/ Sodium (Chloride) 50 mls @ 50 mls/hr IVPB DAILY [facility]; Protocol Last Admin: 09/10/17 09:36 Dose: 50 mls/hr Insulin Aspart (Novolog Vial Sliding Scale -) 1 vial SQ ACHS [facility]; Protocol Last Admin: 09/10/17 06:42 Dose: 2 units Metoprolol Succinate (Toprol Xl -) 25 mg PO DAILY [facility] Last Admin: 09/10/17 09:37 Dose: 25 mg Eiwwe-0-Xnea Ethyl Esters (Lovaza -) 2 gm PO BID [facility] Last Admin: 09/09/17 23:33 Dose: 2 gm Pantoprazole Sodium (Protonix -) 40 mg PO DAILY [facility] Last Admin: 09/10/17 09:36 Dose: 40 mg - Objective Vital Signs: Vital Signs Temperature 97.4 F L 09/10/17 08:00 Pulse Rate 87 09/10/17 08:00 Respiratory Rate 16 09/10/17 08:00 Blood Pressure 120/75 09/10/17 08:00 O2 Sat by Pulse Oximetry (%) 96 09/09/17 21:00 Constitutional: Yes: No Distress, Calm Neck: Yes: Supple Cardiovascular: Yes: Regular Rate and Rhythm Respiratory: Yes: Regular, CTA Bilaterally Gastrointestinal: Yes: Normal Bowel Sounds, Soft Edema: No Labs: CBC, BMP 09/09/17 07:10 09/10/17 06:20 INR, PTT INR 1.05 (0.82-1.09) 09/07/17 15:00 - ....Imaging Ultrasound: Report Reviewed (No carotid stenosis, no renal hydronephrosis) Problem List - Problems (1) Hypotension Code(s): I95.9 - HYPOTENSION, UNSPECIFIED Qualifiers: Hypotension type: orthostatic hypotension Qualified Code(s): I95.1 - Orthostatic hypotension (2) UTI (urinary tract infection) Code(s): N39.0 - URINARY TRACT INFECTION, SITE NOT SPECIFIED Qualifiers: Urinary tract infection type: site unspecified Hematuria presence: without hematuria Qualified Code(s): N39.0 - Urinary tract infection, site not specified (3) Acute kidney injury Code(s): N17.9 - ACUTE KIDNEY FAILURE, UNSPECIFIED (4) CKD (chronic kidney disease) Code(s): N18.9 - CHRONIC KIDNEY DISEASE, UNSPECIFIED Qualifiers: Chronic kidney disease stage: stage 2 (mild) Qualified Code(s): N18.2 - Chronic kidney disease, stage 2 (mild) (5) Coronary artery disease Code(s): I25.10 - ATHSCL HEART DISEASE OF [place] CORONARY ARTERY W/O ANG PCTRS Qualifiers: Coronary Disease-Associated Artery/Lesion type: [place] artery [place] vs. transplanted heart: [place] heart Associated angina: without angina Qualified Code(s): I25.10 - Atherosclerotic heart disease of [place] coronary artery without angina pectoris (6) Diabetes Code(s): E11.9 - TYPE 2 DIABETES MELLITUS WITHOUT COMPLICATIONS Qualifiers: Diabetes mellitus type: type 2 Diabetes mellitus [place] insulin use: without residential use Diabetes mellitus complication status: without complication Qualified Code(s): E11.9 - Type 2 diabetes mellitus without complications (7) HLD (hyperlipidemia) Code(s): E78.5 - HYPERLIPIDEMIA, UNSPECIFIED Qualifiers: Hyperlipidemia type: mixed hyperlipidemia Qualified Code(s): E78.2 - Mixed hyperlipidemia (8) HTN (hypertension) Code(s): I10 - ESSENTIAL (PRIMARY) HYPERTENSION Qualifiers: Hypertension type: essential hypertension Qualified Code(s): I10 - Essential (primary) hypertension (9) Hypothyroid Code(s): E03.9 - HYPOTHYROIDISM, UNSPECIFIED Qualifiers: Hypothyroidism type: unspecified Qualified Code(s): E03.9 - Hypothyroidism , unspecified Assessment/Plan 1. Orthostatic hypotension and falls 2. Acute in CKD hemodynamic alterations improving 3. CAD h/o [place] 4. Mixed hyperlipidemia 5. Type 2 DM 6. Hypothyroidism 7. Klebsiella UTI P:1. Continue abx course, oral hydration 2. Hold Lasix and Benicar pending recovery of renal fxn 3. Continue Plavix 75 qd, Lipitor 80 qhs, Lovaza 2 bid, and Toprol XL 25 qd as hemodynamics tolerate 4. Further cardiovascular work-up may be performed as outpatient 5. PT and gait training, DVT prophylaxis, counseled on abortive maneuvers when prodromal sxs are experienced, compression stockings
[2017-09-10] MEDS: OMEGA-3 ACID ETHYL ESTERS (FATTY-ACIDS) 1 GM CAPSULE (FP) PO SCH (09:57)
[2017-09-10 13:41] VITALS: BP 140/62; PULSE 77; TEMP 98.5
--- NOTE | 2017-09-10 14:34 | PN ---
Progress Note (short form) - Note Progress Note: Renal follow up for SARANYA Pt seen and examined at the bedside awake and alert no acute complaints for discharge home today as per Pt making urine no sob, chest pain, abd pain Vital Signs Temperature 98.5 F 09/10/17 13:39 Pulse Rate 77 09/10/17 13:39 Respiratory Rate 18 09/10/17 13:39 Blood Pressure 140/62 09/10/17 13:39 O2 Sat by Pulse Oximetry (%) 95 09/10/17 09:00 Intake & Output 09/07/17 09/08/17 09/09/17 09/10/17 23:59 23:59 23:59 23:59 Intake Total 1067 1700 350 Balance 1067 1700 350 Weight 68.039 kg 72.263 kg NAD RRR, No M/R CTA soft NT/ND No LE edema CBC, BMP 09/09/17 07:10 09/10/17 06:20 Current Medications Acetaminophen (Tylenol -) 650 mg PO Q6H PRN PRN Reason: PAIN LEVEL 7 - 10 Last Admin: 09/09/17 16:53 Dose: 650 mg Aripiprazole (Abilify) 10 mg PO DAILY [facility] Last Admin: 09/10/17 09:36 Dose: 10 mg Atorvastatin Calcium (Lipitor -) 80 mg PO HS [facility] Last Admin: 09/09/17 23:34 Dose: 80 mg Clopidogrel Bisulfate (Plavix -) 75 mg PO DAILY [facility] Last Admin: 09/10/17 09:36 Dose: 75 mg Ferrous Sulfate (Feosol -) 325 mg PO BIDWM [facility] Last Admin: 09/10/17 07:46 Dose: 325 mg Heparin Sodium (Porcine) (Heparin -) 5,000 unit SQ TID [facility] Last Admin: 09/10/17 13:30 Dose: 5,000 unit Ertapenem 0.5 gm/ Sodium (Chloride) 50 mls @ 50 mls/hr IVPB DAILY [facility]; Protocol Last Admin: 09/10/17 09:36 Dose: 50 mls/hr Insulin Aspart (Novolog Vial Sliding Scale -) 1 vial SQ ACHS [facility]; Protocol Last Admin: 09/10/17 12:05 Dose: 4 units Metoprolol Succinate (Toprol Xl -) 25 mg PO DAILY [facility] Last Admin: 09/10/17 09:37 Dose: 25 mg [id number] Ethyl Esters (Lovaza -) 2 gm PO BID [facility] Last Admin: 09/10/17 09:57 Dose: 2 gm Pantoprazole Sodium (Protonix -) 40 mg PO DAILY [facility] Last Admin: 09/10/17 09:36 Dose: 40 mg 77 year old woman with PMhx of CKD, DM, CAD s/p [place], Dementia, PUD recent admission for SARANYA/UTI discharged on outpatient Abx who presented with hypotension while at infusion center for her Abx and noted to have lactic acidosis and SARANYA in setting of hypotension/Sepsis. #SARANYA on CKD Likely secondary to renal hypoprofusion in setting of hypotension/ sepsis but need to r/o AIN with Abx and PPI #Sepsis secondary to UTI #Hypotension #Anemia with low iron levels #Lactic acidosis (improved) Renal function stable can d.c IVF Us of the kidneys showed small kidney s/o obstruction or stones can resume diuretics on discharge will need to follow up with and have BUN/Cr monitored as outpatient discharge planning as per primary Ayo Cortes DO
--- NOTE | 2017-09-10 14:47 | DS ---
Physical Exam: SUBJECTIVE: Patient seen and examined. She feels well, ambulating with walker, eager to go home. OBJECTIVE: Vital Signs Period Temp Pulse Resp BP Sys/Saravia Pulse Ox Last 24 Hr 97.4 F-98.7 F 77-92 16-18 120-145/62-87 95-96 PE Neuro: alert, awake, cn 2-12intact Pulm: CTAB CV: s1 s2 rrr no mrg Abd: s nt nd + bs Ext: Warm, no le edema Skin: skin tear: r wrist dressing, lue skin tear, stable no bleeding Laboratory Results - last 24 hr 09/09/17 09/09/17 09/10/17 16:56 23:32 06:20 Sodium 144 Potassium 4.3 Chloride 108 H Carbon Dioxide 29 Anion Gap 7 L BUN 21 H Creatinine 1.4 H Creat Clearance w eGFR 36.46 POC Glucometer 156 124 Random Glucose 116 H Calcium 9.1 09/10/17 09/10/17 06:41 12:04 Sodium Potassium Chloride Carbon Dioxide Anion Gap BUN Creatinine Creat Clearance w eGFR POC Glucometer 115 183 Random Glucose Calcium HOSPITAL COURSE: Date of Admission:09/07/17 Date of Discharge: 09/10/17 Minutes to complete discharge: 36 Discharge Summary Reason For Visit: UTI/SEPSIS Current Active Problems Drug (multiple) resistant infection (Acute) Hypotension (Acute) Sepsis (Acute) UTI (urinary tract infection) (Acute) Hospital Course: Initial Hospital Course: Briefly, this 77 year old female wiht pmhx of PUD, [place], NIDDM, hypokalemia, HLD, dementia, and recent admission 09/01-09/06 for hyperkalemia, SARANYA, and UTI (ESBL producing Klebsiella Pneumonia) - scheduled for 3 more days of outpatient Ertapenem (1 gm daily) presented for evaluation of hypotension noted earlier today while at her appointment for her ertapenem infusion. Additionally, had an episode of dizziness while sitting in her chair and subsequently fell out of bed. She is unsure if she hit her head or lost consciousness although she reported pain at left shoulder and right forearm where she was hurt when she fell. In the ER she was noted to have lactic acidosis and got bolus doses of IV NS, vancomycin and zosyn. Head CT negative. Subsequent Hospital Course/Progress Note/DC summary: Assessment: 77 year old female with Pmhx of CAD s/p [place], CKD, DM II, urinary retention, hypokalemia, HLD, and dementia recent admission for SARANYA/UTI is now admitted with pre syncope and evaluation of hypotension while at infusion center. Plan: 1. Sepsis ESBL UTI - Ertapenem 7 days - Lactic acidosis resolved 2. SARANYA on CKD - Improved - Likely d/t hypotension/AID d/t ppi and abx - Does not appear to have been on diuretics as home medication, however restart po antidiabetics 3. Orthostaic hypotension - Further cardiac w/u as outpt 4. CAD s/p [place] - Continue plavix, lipitor 5. Hypertriglyceridemia - Continue Lovaza 6. DM II - Resume po meds 7. Anemia, low iron sat - Dose x1 venofer - Ferrous sulfate BID Dispo: - Home with above meds and pcp follow up Condition: Stable - Instructions Diet, Activity, Other Instructions: Please return to the ED for any new, persistent, or worsening symptoms. Follow up with your PCP in 1 week Take home medications as directed Apply neosporin to skin years on R wrist and L upper arm Referrals: Milan Ayala MD [Staff Physician] - Disposition: HOME - Home Medications Comprehensive Discharge Medication List: Ambulatory Orders metFORMIN HCL [Glucophage] 1,000 mg PO BID #0 tab 10/14/12 Atorvastatin Ca [Lipitor] 80 mg PO HS 12/02/16 Clopidogrel Bisulfate [Plavix -] 75 mg PO DAILY 12/02/16 Paroxetine HCl [Paxil -] 20 mg PO DAILY 12/02/16 Pregabalin [Lyrica -] 200 mg PO HS 12/02/16 Repaglinide [Prandin] 1 mg PO QID 12/02/16 Pantoprazole Sodium 40 mg PO DAILY #30 tablet. 01/13/17 Aripiprazole [Abilify] 10 mg PO DAILY 05/26/17 Cyclobenzaprine HCl [Flexeril 10 mg] 10 mg PO BID PRN 05/26/17 Oxybutynin Chloride [Oxybutynin Chloride ER] 10 mg PO DAILY 05/26/17 Ferrous Sulfate 325 mg PO BID #60 tablet 05/28/17 Levothyroxine [Synthroid -] 37.5 mcg PO DAILY@0600 tablet 05/28/17 Metoprolol Succinate [Toprol XL -] 25 mg PO DAILY #30 tab.sr.24h 09/06/17 [place]-3 Acid Ethyl Esters [Lovaza -] 2 gm PO BID #60 cap 09/06/17 This patient is new to me today: No Emergency Visit: Yes ED Registration Date: 09/07/17 Care time: The patient presented to the Emergency Department on the above date and was hospitalized for further evaluation of their emergent condition. Critical Care patient: No - Discharge Referral Referred to [facility] Med P.C.: No
== END 2017-09-10 15:01 | disposition home or self-care (01) | DRG 872 ==
LOC: JER 13:57 → JERBED 19:41 → J8W 09-08 03:38
PROVIDERS: ADMIT Internal Medicine; ATTEND Nurse Practitioner Acute Care
DX: A41.9 Sepsis, unspecified organism (principal); N17.9 Acute kidney failure, unspecified; N39.0 Urinary tract infection, site not specified; E87.2 Acidosis; E78.5 Hyperlipidemia, unspecified; F03.90 Unspecified dementia, unspecified severity, without behavioral disturbance, psychotic disturbance, mood disturbance, and anxiety; E11.9 Type 2 diabetes mellitus without complications; I25.2 Old myocardial infarction; E78.1 Pure hyperglyceridemia; D64.9 Anemia, unspecified; E03.9 Hypothyroidism, unspecified; R33.9 Retention of urine, unspecified; I12.9 Hypertensive chronic kidney disease with stage 1 through stage 4 chronic kidney disease, or unspecified chronic kidney disease; B96.1 Klebsiella pneumoniae [K. pneumoniae] as the cause of diseases classified elsewhere; N18.2 Chronic kidney disease, stage 2 (mild); Z16.35 Resistance to multiple antimicrobial drugs; Z87.11 Personal history of peptic ulcer disease
CPT/HCPCS: 36415; 70450-TC; 71045-TC-FY; 72125-TC; 76775-TC; 80048; 80053; 81003; 81015; 82272; 82570; 82728; 82803; 82962; 83540; 83550; 83605; 83735; 84100; 84156; 84300; 84484; 85025; 85044; 85610; 85730; 87040; 87086; 87205; 90715; 93005; 93010; 93306-TC; 93880-TC; 97116-GP; 97161-GP; 99284-25; J0131; J1644; J1756; J7030

== ENCOUNTER 2018-03-10 13:05 | Emergency (ER) | payer OTHER ==
[2018-03-10 13:17] VITALS: BP 147/66; PULSE 69; TEMP 98.6; BMI 41.8
[2018-03-10] MEDS ORDERED: IBUPROFEN 400 MG TABLET (FP) PO ONE ×3 (14:27→14:36)
--- NOTE | 2018-03-10 14:34 | PDOC ---
History of Present Illness - General Chief Complaint: Ear Problem Stated Complaint: EAR PAIN Time Seen by Provider: 03/10/18 14:16 History Source: Patient Exam Limitations: Clinical Condition - History of Present Illness Initial Comments: 03/10/18 14:35 Patient with history of diabetes, hyperlipidemia, hypertension and hypothyroidism present with complaint of one month history of intermittent bilateral ear pain and jaw pain. Patient reported taking Tylenol for pain with no improvement. Patient reported using upper and lower dentures for 3 years now. Patient reported increased pain with chewing.Patient denies fever, decreased hearing or any other symptoms. 03/10/18 14:37 Timing/Duration: other (1 MONTH) Past History - Past Medical History Allergies/Adverse Reactions: Allergies Allergy/AdvReac Type Severity Reaction Status Date / Time No Known Allergies Allergy Verified 09/07/17 14:01 Home Medications: Ambulatory Orders metFORMIN HCL [Glucophage] 1,000 mg PO BID #0 tab 10/14/12 Atorvastatin Ca [Lipitor] 80 mg PO HS 12/02/16 Clopidogrel Bisulfate [Plavix -] 75 mg PO DAILY 12/02/16 Paroxetine HCl [Paxil -] 20 mg PO DAILY 12/02/16 Pregabalin [Lyrica -] 200 mg PO HS 12/02/16 Repaglinide [Prandin] 1 mg PO QID 12/02/16 Pantoprazole Sodium 40 mg PO DAILY #30 tablet. 01/13/17 Aripiprazole [Abilify] 10 mg PO DAILY 05/26/17 Cyclobenzaprine HCl [Flexeril 10 mg] 10 mg PO BID PRN 05/26/17 Oxybutynin Chloride [Oxybutynin Chloride ER] 10 mg PO DAILY 05/26/17 Ferrous Sulfate 325 mg PO BID #60 tablet 05/28/17 Levothyroxine [Synthroid -] 37.5 mcg PO DAILY@0600 tablet 05/28/17 Metoprolol Succinate [Toprol XL -] 25 mg PO DAILY #30 tab.sr.24h 09/06/17 [place]-3 Acid Ethyl Esters [Lovaza -] 2 gm PO BID #60 cap 09/06/17 Ferrous Sulfate [Feosol] 325 mg PO BID #60 tablet 09/11/17 Naproxen 500 mg PO BID PRN #20 tablet 03/10/18 Anemia: Yes Asthma: No Cancer: No Cardiac Disorders: Yes ([place]) CVA: No COPD: No CHF: No DVT: No Dementia: No Diabetes: Yes Dialysis: No GI Disorders: No Disorders: No HTN: Yes Hypercholesterolemia: No Kidney Stones: No Liver Disease: No Psychiatric Problems: No Seizures: No Thyroid Disease: Yes Lung CA: No - Surgical History Abdominal Surgery: Yes (Bladder surgery,pud,umbilical hernia) Appendectomy: No Cardiac Surgery: No Cholecystectomy: No Gastric Stapling: No GI Surgery: No Lung Surgery: No Neurologic Surgery: No Orthopedic Surgery: No - Immunization History Immunization Up to Date: Yes - Suicide/Smoking/Psychosocial Hx Smoking Status: No Smoking History: Never smoked Have you smoked in the past 12 months: No Number of Cigarettes Smoked Daily: 0 Information on smoking cessation initiated: No 'Breaking Loose' booklet given: 12/02/16 Hx Alcohol Use: No Drug/Substance Use Hx: No Substance Use Type: None Hx Substance Use Treatment: No Review of Systems - Review of Systems Able to Perform ROS?: Yes Is the patient limited Italian proficient: No Constitutional: No: Chills, Fever, Weakness HEENTM: Yes: See HPI, Ear Pain (b/l ear pain). No: Blurred Vision, Recent change in vision, Double Vision, Hearing Loss Respiratory: No: Symptoms reported Cardiac (ROS): No: Symptoms Reported ABD/GI: No: Nausea, Vomiting *Physical Exam - Vital Signs Last Vital Signs Temp Pulse Resp BP Pulse Ox 98.6 F 69 16 147/66 97 03/10/18 13:13 03/10/18 13:13 03/10/18 13:13 03/10/18 13:13 03/10/18 13:13 - Physical Exam Comments: 03/10/18 14:38 GENERAL: Well developed, well nourished. Awake and alert. No acute distress. HEENT: Normal external ear canal bilateral. Tympanic membrane normal bilateral. Mild tenderness over bilateral TMJ which is worse with occlusion of mouth against resistance. No mastoid tenderness bilateral. Normocephalic, atraumatic. PERRLA, EOMI. No conjunctival pallor. Sclera are non-icteric. Moist mucous membranes. Oropharynx is clear. NECK: Supple. Full ROM. CARDIOVASCULAR: Regular rate and rhythm. No murmurs, rubs, or gallops. Distal pulses are 2+ and symmetric. PULMONARY: No evidence of respiratory distress. Lungs clear to auscultation bilaterally. No wheezing, rales or rhonchi. ABDOMINAL: Soft. Non-tender. Non-distended. No rebound or guarding. No organomegaly. Normoactive bowel sounds. SKIN: Warm and dry. NEUROLOGICAL: Alert, awake, appropriate. Gait is normal without ataxia. PSYCHIATRIC: Cooperative. Good eye contact. Appropriate mood General Appearance: Yes: Nourished, Appropriately Dressed. No: Apparent Distress Moderate Sedation - Procedure Monitoring Vital Signs: Procedure Monitoring Vital Signs Temperature 98.6 F 03/10/18 13:13 Pulse Rate 69 03/10/18 13:13 Respiratory Rate 16 03/10/18 13:13 Blood Pressure 147/66 03/10/18 13:13 O2 Sat by Pulse Oximetry (%) 97 03/10/18 13:13 Medical Decision Making - Medical Decision Making 03/10/18 14:40 Patient with history of multiple comorbidities culture with meds present with complaint of one month history of bilateral ear pain and jaw pain. Patient reported taking Tylenol for symptoms with no improvement. Patient has not seen anybody for symptoms. Exam shows normal ear canals bilateral with no evidence of any infection. Mild tenderness to bilateral TMJ. Patient symptoms likely TMJ arthralgia caused by patient dentures. Patient stable for discharge with oral surgery follow-up. Motrin 800 mg by mouth given for pain. *DC/Admit/Observation/Transfer Diagnosis at time of Disposition: Otalgia of both ears TMJ arthralgia Qualifiers: Laterality: bilateral Qualified Code(s): M26.623 - Arthralgia of bilateral temporomandibular joint - Discharge Dispostion Disposition: HOME Condition at time of disposition: Stable Decision to Admit order: No - Prescriptions Prescriptions: Naproxen 500 mg PO BID PRN #20 tablet PRN Reason: pain - Referrals Referrals: Milan Ayala MD [Primary Care Provider] - [facility] [place] [Other] - Patient Instructions Printed Discharge Instructions: TMJ Syndrome (Alternative Therapy), DI for Temporomandibular Disorder Additional Instructions: Take medication as prescribed as needed for pain. Follow-up with dentist for jaw pains. Print Language: ERITREAN - Post Discharge Activity
== END 2018-03-10 15:21 | disposition home or self-care (01) ==
LOC: JERFT 13:05
DX: M26.623 Arthralgia of bilateral temporomandibular joint (principal); H92.03 Otalgia, bilateral; I25.10 Atherosclerotic heart disease of native coronary artery without angina pectoris; I10 Essential (primary) hypertension; I25.2 Old myocardial infarction; E11.9 Type 2 diabetes mellitus without complications; E78.00 Pure hypercholesterolemia, unspecified; E03.9 Hypothyroidism, unspecified; Z87.19 Personal history of other diseases of the digestive system
CPT/HCPCS: 99281-25

== ENCOUNTER 2018-09-29 11:40 | Inpatient (IN) | payer OTHER ==
[2018-09-29 11:46] VITALS: BMI 27.4
[2018-09-29] MEDS ORDERED: ACETAMINOPHEN 1000 MG/100 ML VIAL (NON FORMULARY) IVPB ONE (12:52)
[2018-09-29] MEDS ORDERED: ACETAMINOPHEN INJECTION 100 ML IVPB ONE (13:40)
[2018-09-29 13:43] LABS: EPI CELLS 8.5 /HPF (0-5/HPF); HYALINE CASTS 4 /lpf (0-8); URINE APPEARANCE CLEAR; URINE BACTERIA 215.7 /hpf (NEGATIVE); URINE BILIRUBIN NEGATIVE (NEGATIVE); URINE COLOR YELLOW; URINE GLUCOSE (UA) NEGATIVE (NEGATIVE); URINE KETONE NEGATIVE (NEGATIVE); URINE LEUK ESTERASE 1+ (NEGATIVE); URINE NITRITE NEGATIVE (NEGATIVE); URINE PROTEIN NEGATIVE (NEGATIVE); URINE RBC 0 /hpf (0-4); URINE UROBILINOGEN 0.2 mg/dL (0.2-1.0); URINE WBC 16 /hpf (0-5)
[2018-09-29 14:01] LABS: BASO % 0.9 % (0-2.0); EOS % 1.8 % (0-4.5); HEMOGLOBIN 12.9 GM/dL (10.7-15.3); LYMPH % 35.1 % (8-40); MCH 31.4 pg (25.7-33.7); MCHC 33.9 g/dl (32.0-36.0); MEAN CELL VOLUME 92.6 fl (80-96); MONO % 7.5 % (3.8-10.2); NEUT % 54.7 % (42.8-82.8); PLATELET COUNT 267 K/MM3 (134-434); RBC 4.11 M/mm3 (3.60-5.2); RDW 12.6 % (11.6-15.6); WHITE BLOOD COUNT 9.2 K/mm3 (4.0-10.0)
--- NOTE | 2018-09-29 14:24 | PDOC ---
History of Present Illness - General Chief Complaint: Pain Stated Complaint: PELVIC PAIN Time Seen by Provider: 09/29/18 11:55 History Source: Patient Exam Limitations: Language Barrier Past History - Past Medical History Allergies/Adverse Reactions: Allergies Allergy/AdvReac Type Severity Reaction Status Date / Time No Known Allergies Allergy Verified 09/29/18 11:43 Home Medications: Ambulatory Orders metFORMIN HCL [Glucophage] 1,000 mg PO BID #0 tab 10/14/12 Atorvastatin Ca [Lipitor] 80 mg PO HS 12/02/16 Clopidogrel Bisulfate [Plavix -] 75 mg PO DAILY 12/02/16 Paroxetine HCl [Paxil -] 20 mg PO DAILY 12/02/16 Pregabalin [Lyrica -] 200 mg PO HS 12/02/16 Repaglinide [Prandin] 1 mg PO QID 12/02/16 Pantoprazole Sodium 40 mg PO DAILY #30 tablet. 01/13/17 Aripiprazole [Abilify] 10 mg PO DAILY 05/26/17 Cyclobenzaprine HCl [Flexeril 10 mg] 10 mg PO BID PRN 05/26/17 Oxybutynin Chloride [Oxybutynin Chloride ER] 10 mg PO DAILY 05/26/17 Ferrous Sulfate 325 mg PO BID #60 tablet 05/28/17 Levothyroxine [Synthroid -] 37.5 mcg PO DAILY@0600 tablet 05/28/17 Metoprolol Succinate [Toprol XL -] 25 mg PO DAILY #30 tab.sr.24h 09/06/17 [place]-3 Acid Ethyl Esters [Lovaza -] 2 gm PO BID #60 cap 09/06/17 Ferrous Sulfate [Feosol] 325 mg PO BID #60 tablet 09/11/17 Naproxen 500 mg PO BID PRN #20 tablet 03/10/18 Anemia: Yes Asthma: No Cancer: No Cardiac Disorders: Yes ([place]) CVA: No COPD: No CHF: No DVT: No Dementia: No Diabetes: Yes Dialysis: No GI Disorders: No Disorders: No HTN: Yes Hypercholesterolemia: No Kidney Stones: No Liver Disease: No Psychiatric Problems: No Seizures: No Thyroid Disease: Yes Lung CA: No Other medical history: arthritis - Surgical History Abdominal Surgery: Yes (Bladder surgery,pud,umbilical hernia) Appendectomy: No Cardiac Surgery: No Cholecystectomy: No Gastric Stapling: No GI Surgery: No Lung Surgery: No Neurologic Surgery: No Orthopedic Surgery: No - Immunization History Immunization Up to Date: Yes - Suicide/Smoking/Psychosocial Hx Smoking Status: No Smoking History: Never smoked Have you smoked in the past 12 months: No Number of Cigarettes Smoked Daily: 0 'Breaking Loose' booklet given: 12/02/16 Hx Alcohol Use: No Drug/Substance Use Hx: No Substance Use Type: None Hx Substance Use Treatment: No *Physical Exam - Vital Signs Last Vital Signs Temp Pulse Resp BP Pulse Ox 98.4 F 94 H 24 H 145/77 99 09/29/18 11:43 09/29/18 11:43 09/29/18 11:43 09/29/18 11:43 09/29/18 11:43 - Physical Exam General Appearance: Yes: Mild Distress (due to pain) Respiratory/Chest: positive: Lungs Clear, Normal Breath Sounds. negative: Respiratory Distress Cardiovascular: positive: Regular Rhythm, Regular Rate, S1, S2. negative: Murmur Female Pelvic Exam: positive: normal external exam. negative: lesions Gastrointestinal/Abdominal: positive: Tender (suprapubic region), Soft. negative: Distended, Guarding, Rebound, Hernia, Mass Rectal Exam: positive: normal exam. negative: melena, hemorrhoids Integumentary: positive: Normal Color Neurologic: positive: Alert, Normal Mood/Affect ED Treatment Course - LABORATORY CBC & Chemistry Diagram: 09/29/18 13:50 09/29/18 13:50 - ADDITIONAL ORDERS Additional order review: Laboratory Results 09/29/18 13:01 Urine Color Yellow Urine Appearance Clear Urine pH 6.0 Ur Specific [place] 1.011 Urine Protein Negative Urine Glucose (UA) Negative Urine Ketones Negative Urine Blood Negative Urine Nitrite Negative Urine Bilirubin Negative Urine Urobilinogen 0.2 Ur Leukocyte Esterase 1+ H Urine WBC (Auto) 16 Urine RBC (Auto) 0 Urine Casts (Auto) 4 U Epithel Cells (Auto) 8.5 Urine Bacteria (Auto) 215.7 09/29/18 13:50 RBC 4.11 MCV 92.6 MCHC 33.9 RDW 12.6 D MPV 8.0 Neutrophils % 54.7 Lymphocytes % 35.1 Monocytes % 7.5 Eosinophils % 1.8 Basophils % 0.9 - Medications Given in the ED: ED Medications Discontinued Medications Generic Name Dose Route Start Last Admin Trade Name Freq PRN Reason Stop Dose Admin Acetaminophen 1,000 mg 09/29/18 12:52 09/29/18 13:45 Ofirmev Injection - IVPB 09/29/18 12:53 1,000 mg ONCE ONE Administration Medical Decision Making - Medical Decision Making 78 y/o F hx of HTN, HLD, DM, hypothyroid, PUD, CAD s/p [place], CKD presents with supapubic pressure, pelvic/anal discomfort x 10 days, worsening the past 2 days. Mentions having dysuria x 8 days and decreased voiding x 2 days. Denies fever, sob, cp, n/v/d, constipation, hematuria. Patient had normal BM today. Abdominal surgery hx includes and hernia repair. Bedside US performed with Dr. Askew - 100 cc of urine noted in bladder, no evidence of hydronephrosis Rectal exam unremarkable UA sent - however, not very remarkable for UTI Given age and discomfort, will get CT A/P to further assess Patient resting more comfortably after getting IV Tylenol 09/29/18 14:18 CT A/P negative Will tx for UTI given symptomatic Prior Urine cx shows kleb, resistant to PO abx Will give Zosyn and admit for IV abx Pending admission - signed out to [employer] Courtney Edwards 09/29/18 16:22 *DC/Admit/Observation/Transfer Diagnosis at time of Disposition: UTI (urinary tract infection) Qualifiers: Urinary tract infection type: acute cystitis Hematuria presence: without hematuria Qualified Code(s): N30.00 - Acute cystitis without hematuria - Discharge Dispostion Decision to Admit order: Yes - Referrals - Patient Instructions - Post Discharge Activity
[2018-09-29 14:27] LABS: ALBUMIN 4.1 g/dl (3.4-5.0); BILIRUBIN,TOTAL 0.3 mg/dL (0.2-1); BLOOD UREA NITROGEN 16.1 mg/dL (7-18); CALCIUM 9.2 mg/dL (8.5-10.1); CREATININE 1.1 mg/dL (0.55-1.3); POTASSIUM 4.2 mmol/L (3.5-5.1)
[2018-09-29] MEDS ORDERED: PIPERACILLIN/TAZOB 3.375 GM 3.375 GM in DEXTROSE 5%-WATER - 50 ML IVPB ONE (15:58)
[2018-09-29] MEDS ORDERED: PHENAZOPYRIDINE HCL 100 MG TABLET (FP) PO ONE (16:26)
--- NOTE | 2018-09-29 16:58 | PN ---
Teaching Attending Note Name of Resident: Miguel Angel Gore ATTENDING PHYSICIAN STATEMENT I saw and evaluated the patient. I reviewed the resident's note and discussed the case with the resident. I agree with the resident's findings and plan as documented. 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 OBJECTIVE: Vital Signs Temperature 98.4 F 09/29/18 11:43 Pulse Rate 94 H 09/29/18 11:43 Respiratory Rate 24 H 09/29/18 11:43 Blood Pressure 145/77 09/29/18 11:43 O2 Sat by Pulse Oximetry (%) 99 09/29/18 11:43 Elderly F c/o suprapubic pain HEENT:Mm moist no anemia, PERRLa EOMI NECK: No JVD No Bruit CHEST:CTa B/L CVS:S1S2 R ABD:No distention suprapubic tenderness EXT:No edema feet, no calf tenderness OVERHEAD [employer]ER:AOX3 non focal CBC, BMP 09/29/18 13:50 09/29/18 13:50 Urine Test Results Urine Color Yellow 09/29/18 13:01 Urine Appearance Clear 09/29/18 13:01 Urine pH 6.0 (5.0-8.0) 09/29/18 13:01 Ur Specific [place] 1.011 (1.010-1.035) 09/29/18 13:01 Urine Protein Negative (NEGATIVE) 09/29/18 13:01 Urine Glucose (UA) Negative (NEGATIVE) 09/29/18 13:01 Urine Ketones Negative (NEGATIVE) 09/29/18 13:01 Urine Blood Negative (NEGATIVE) 09/29/18 13:01 Urine Nitrite Negative (NEGATIVE) 09/29/18 13:01 Urine Bilirubin Negative (NEGATIVE) 09/29/18 13:01 Ur Leukocyte Esterase 1+ (NEGATIVE) H 09/29/18 13:01 Abd Ultrasound: CT abd; Normal ASSESSMENT AND PLAN: 78 yrs old man with H/O T2DM, HTN, CAD s/p [place], CKD stgae 3 present with lower abd discomfort dysuria for past 10 days recent worsening over past 2 days normal CBc, afebrile, UA suggestive of UTI Problem List - Problems (1) UTI (urinary tract infection) Assessment/Plan: present with symptoms of cystitis Ct scan is normal, F/U urine culture although H/O ESBL but 1 yr ago considering no systemic sign cont Ceftriaxone pending cultures , Pyridium IV Hydration , needs [employer] exam to R/o vaginitis meantime topical clotrimazole and Po fluconazole Code(s): N39.0 - URINARY TRACT INFECTION, SITE NOT SPECIFIED Qualifiers: Urinary tract infection type: acute cystitis Hematuria presence: without hematuria Qualified Code(s): N30.00 - Acute cystitis without hematuria (2) T2DM (type 2 diabetes mellitus) Assessment/Plan: Poor Po RPG 58 hold Po Meds correction dose insulin AC Code(s): E11.9 - TYPE 2 DIABETES MELLITUS WITHOUT COMPLICATIONS (3) Coronary artery disease Assessment/Plan: S/P stent 1 yr ago resume all home meds including antiplatelete Code(s): I25.10 - ATHSCL HEART DISEASE OF [place] CORONARY ARTERY W/O ANG PCTRS Qualifiers: Coronary Disease-Associated Artery/Lesion type: [place] artery [place] vs. transplanted heart: [place] heart Associated angina: without angina Qualified Code(s): I25.10 - Atherosclerotic heart disease of [place] coronary artery without angina pectoris (4) CKD (chronic kidney disease) Assessment/Plan: Satge 3 renal functions are at base line Code(s): N18.9 - CHRONIC KIDNEY DISEASE, UNSPECIFIED Qualifiers: Chronic kidney disease stage: stage 2 (mild) Qualified Code(s): N18.2 - Chronic kidney disease, stage 2 (mild) (5) Hypothyroid Assessment/Plan: Resume Levothyroxine F/U TSh Code(s): E03.9 - HYPOTHYROIDISM, UNSPECIFIED Qualifiers: Hypothyroidism type: unspecified Qualified Code(s): E03.9 - Hypothyroidism , unspecified (6) HTN (hypertension) Assessment/Plan: Resume home meds Code(s): I10 - ESSENTIAL (PRIMARY) HYPERTENSION Qualifiers: Hypertension type: essential hypertension Qualified Code(s): I10 - Essential (primary) hypertension (7) HLD (hyperlipidemia) Assessment/Plan: Cont Statin Code(s): E78.5 - HYPERLIPIDEMIA, UNSPECIFIED Qualifiers: Hyperlipidemia type: mixed hyperlipidemia Qualified Code(s): E78.2 - Mixed hyperlipidemia
[2018-09-29] MEDS ORDERED: traMADol HCL 50 MG TABLET PO PRN (17:26)
--- NOTE | 2018-09-29 18:19 | HP ---
CHIEF COMPLAINT: Dysuria PCP: Dr. Malave HISTORY OF PRESENT ILLNESS: This is a 78 Y/O azerbaijani speaking female (who resides at home with a health aid ) with a PMH of PUD, OA, Hypothyroidism, NIDDM, CAD s/p stent placement 3 yrs ago, who presented to the ED c/o sharp pain in the suprapubic region 10/10 on pain scale for 10 days. It acutely worsened as of yesterday and she has associated difficulty emptying her bladder fully when she urinates. Patient admits to having cloudy urine in appearance. She admits to having chills along with this, increased urgency, frequency, but denies any fevers, hematuria, flank pain, or recent abx use. 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 She endorses having a barr catheter placed for a short time a couple years ago but doesnt recall why. She admits increasing her water intake improves her symptoms. She denies taking any medications to alleviate her symptoms. ER course was notable for: (1) UA 1+ leuk esterase, wbc- 16 negative nitrites (2) zosyn 1 dose given, UA Cx pending (3) Phenazopyridine 200mg given. Recent Travel: PAST MEDICAL HISTORY: see HPI PAST SURGICAL HISTORY: b/l knee replacements in [place], umbillical hernia, breast reduction, b/l eye cataracts, c section Social History: Smoking: never Alcohol: never Drugs: never Family History: brother and sister- of lung CA they were heavy smokers in [place], Mom, Dad- nothing Allergies: NKDA No Known Allergies Allergy (Verified 09/29/18 11:43) HOME MEDICATIONS: Home Medications Medication Instructions Recorded metFORMIN HCL [Glucophage] 1,000 mg PO BID #0 tab 10/14/12 Atorvastatin Ca [Lipitor] 80 mg PO HS 12/02/16 Clopidogrel Bisulfate [Plavix -] 75 mg PO DAILY 12/02/16 Paroxetine HCl [Paxil -] 20 mg PO DAILY 12/02/16 Pregabalin [Lyrica -] 200 mg PO HS 12/02/16 Repaglinide [Prandin] 1 mg PO QID 12/02/16 Pantoprazole Sodium 40 mg PO DAILY #30 tablet. 01/13/17 Aripiprazole [Abilify] 10 mg PO DAILY 05/26/17 Cyclobenzaprine HCl [Flexeril 10 10 mg PO BID PRN 05/26/17 mg] Oxybutynin Chloride [Oxybutynin 10 mg PO DAILY 05/26/17 Chloride ER] Ferrous Sulfate 325 mg PO BID #60 tablet 05/28/17 Levothyroxine [Synthroid -] 37.5 mcg PO DAILY@0600 tablet 05/28/17 Metoprolol Succinate [Toprol XL -] 25 mg PO DAILY #30 tab.sr.24h 09/06/17 [place]-3 Acid Ethyl Esters [Lovaza 2 gm PO BID #60 cap 09/06/17 -] Ferrous Sulfate [Feosol] 325 mg PO BID #60 tablet 09/11/17 Naproxen 500 mg PO BID PRN #20 tablet 03/10/18 REVIEW OF SYSTEMS See HPI PHYSICAL EXAMINATION GENERAL: Awake, alert, and fully oriented, in moderate distress. HEAD: Normal with no signs of trauma. NECK: Normal range of motion, supple without lymphadenopathy, JVD. No thyromegaly or nodules present exam. LUNGS: Breath sounds equal, clear to auscultation bilaterally. No wheezes, and no crackles. No accessory muscle use. HEART: Regular rate and rhythm, normal S1 and S2 without murmur, rub or gallop. ABDOMEN: Soft, nontender in mid and upper epigastrium, non-distended, hyperactive bowel sounds, no guarding, no rebound, no masses, + suprapubic tenderness on deep palpation. No hepatomegaly or splenomegaly. MUSCULOSKELETAL: No CVA tenderness. UPPER EXTREMITIES: 2+ pulses, warm, well-perfused. No cyanosis. No clubbing. No peripheral edema. LOWER EXTREMITIES: 2+ pulses, warm, well-perfused. No calf tenderness. No peripheral edema. NEUROLOGICAL: Cranial nerves II-XII grossly intact. Normal speech. walks with walker difficulty ambulating PSYCHIATRIC: Cooperative. Good eye contact. Appropriate mood and affect. SKIN: Warm, dry, no rashes or lesions noted. ASSESSMENT/PLAN: This is a 78 y/o F with a PMH of PUD, hypothyroidism, OA, NIDDM, CAD s/p stent 3 yrs ago, who presented for 10 days of dysuria and incomplete bladder emptying. #Acute uncomplicated cystitis - UA 1+ leuk est, wbc 16, negative nitrites - dysuria on phenazopyridine 100 mg to anesthetize her bladder, pt needs to be warned of blood orange urine side effect. - 1g Ceftriaxone - UA Cx pending - IV 75ml of NS - holding oxybutynin for her overactive bladder (overflow incontinence) #CAD s/p stent - continuing Plavix - atorvastatin 80mg #NIDDM - hypoglycemic(56) in ER possible malnutrition - stopping metformin and prandin - SSI - Lyrica for neuropathy #Hypothyroidism -continue synthroid 37.5 mcg DVT PPX: lovenox 40mg SQ FEN: Diabetic diet, monitor lytes, IV NS 75mL. Visit type - Emergency Visit Emergency Visit: Yes ED Registration Date: 09/29/18 Care time: The patient presented to the Emergency Department on the above date and was hospitalized for further evaluation of their emergent condition. - New Patient This patient is new to me today: Yes Date on this admission: 09/29/18 - Critical Care Critical Care patient: No ATTENDING PHYSICIAN STATEMENT I saw and evaluated the patient. I reviewed the resident's note and discussed the case with the resident. I agree with the resident's findings and plan as documented. SUBJECTIVE: OBJECTIVE: ASSESSMENT AND PLAN:
[2018-09-29] MEDS ORDERED: FLUCONAZOLE 100 MG TABLET (UD) PO ONE (18:30)
[2018-09-29] MEDS ORDERED: FLUCONAZOLE 100 MG TABLET (UD) ONE (18:34)
[2018-09-29] MEDS ORDERED: PHENAZOPYRIDINE HCL 100 MG TABLET (FP) ONE (18:34)
[2018-09-29] MEDS: SODIUM CHLORIDE 1,000 ML IV SCH (18:35)
[2018-09-29] MEDS ORDERED: CEFTRIAXONE 1 GM/50 ML BAG ONE (18:35)
[2018-09-29] MEDS: CEFTRIAXONE 1 GM in DEXTROSE 5%-WATER - 50 ML IVPB SCH (18:35)
[2018-09-29] MEDS: PHENAZOPYRIDINE HCL 100 MG TABLET (FP) PO SCH (18:36)
[2018-09-29] MEDS: INSULIN SLIDING SCALE (NOVOLOG) 1 VIAL SQ SCH (21:41)
[2018-09-29] MEDS: CLOTRIMAZOLE 1% VAGINAL CREAM WITH APPLICATOR 45 GM TUBE VG SCH (22:59)
[2018-09-30] MEDS: LEVOTHYROXINE NA 25 MCG TABLET (FP) PO SCH (05:14)
[2018-09-30] MEDS: ACETAMINOPHEN 325 MG TABLET (FP) PO PRN (05:29)
[2018-09-30] MEDS: INSULIN SLIDING SCALE (NOVOLOG) 1 VIAL SQ SCH ×4 (06:18→22:50)
[2018-09-30 07:00] LABS: HEMOGLOBIN 11.4 GM/dL (10.7-15.3); MCH 31.2 pg (25.7-33.7); MCHC 33.5 g/dl (32.0-36.0); MEAN CELL VOLUME 93.2 fl (80-96); MEAN PLT VOLUME 8.5 fl (7.5-11.1); PLATELET COUNT 220 K/MM3 (134-434); RBC 3.65 M/mm3 (3.60-5.2); RDW 12.9 % (11.6-15.6); WHITE BLOOD COUNT 5.5 K/mm3 (4.0-10.0)
[2018-09-30 07:18] LABS: BLOOD UREA NITROGEN 15.2 mg/dL (7-18); CALCIUM 8.7 mg/dL (8.5-10.1); POTASSIUM 4.4 mmol/L (3.5-5.1)
--- NOTE | 2018-09-30 07:56 | PN ---
Teaching Attending Note Name of Resident: Miguel Angel Gore ATTENDING PHYSICIAN STATEMENT I saw and evaluated the patient. I reviewed the resident's note and discussed the case with the resident. I agree with the resident's findings and plan as documented. SUBJECTIVE: Pain disperpiotnate to Physical findinGs OBJECTIVE: Vital Signs Temperature 98.1 F 09/30/18 06:00 Pulse Rate 71 09/30/18 06:00 Respiratory Rate 18 09/30/18 06:00 Blood Pressure 139/75 09/30/18 06:00 O2 Sat by Pulse Oximetry (%) 99 09/29/18 21:00 Elderly F HEENT:Mm moist no anemia, PERRLa EOMI NECK: No JVD No Bruit CHEST:CTa B/L CVS:S1S2 R ABD:No distention suprapubic tenderness EXT:No edema feet, no calf tenderness [employer] ENG[employer]ER:AOX3 non focal Abd Ultrasound: CT abd; Normal ASSESSMENT AND PLAN: 78 yrs old man with H/O T2DM, HTN, CAD s/p NM, CKD stgae 3 present with lower abd discomfort dysuria for past 10 days recent worsening over past 2 days normal CBc, afebrile, UA few WBC U Culture -ve : Problem List - Problems (1) UTI (urinary tract infection) Assessment/Plan: Pain disproportionate to imaging lab and physical finding will Dc IV abx as U culture is -ve consider N INSIDE PHONE SALES exam and consult possibility of vaginitis Code(s): N39.0 - URINARY TRACT INFECTION, SITE NOT SPECIFIED Qualifiers: Urinary tract infection type: acute cystitis Hematuria presence: without hematuria Qualified Code(s): N30.00 - Acute cystitis without hematuria (2) T2DM (type 2 diabetes mellitus) Assessment/Plan: Poor Po RPG 58 hold Po Meds correction dose insulin AC Code(s): E11.9 - TYPE 2 DIABETES MELLITUS WITHOUT COMPLICATIONS (3) Coronary artery disease Assessment/Plan: S/P stent 1 yr ago resume all home meds including antiplatelete Code(s): I25.10 - ATHSCL HEART DISEASE OF [place] CORONARY ARTERY W/O ANG PCTRS Qualifiers: Coronary Disease-Associated Artery/Lesion type: [place] artery [place] vs. transplanted heart: [place] heart Associated angina: without angina Qualified Code(s): I25.10 - Atherosclerotic heart disease of [place] coronary artery without angina pectoris (4) CKD (chronic kidney disease) Assessment/Plan: Satge 3 renal functions are at base line Code(s): N18.9 - CHRONIC KIDNEY DISEASE, UNSPECIFIED Qualifiers: Chronic kidney disease stage: stage 2 (mild) Qualified Code(s): N18.2 - Chronic kidney disease, stage 2 (mild) (5) Hypothyroid Assessment/Plan: Resume Levothyroxine F/U TSh Code(s): E03.9 - HYPOTHYROIDISM, UNSPECIFIED Qualifiers: Hypothyroidism type: unspecified Qualified Code(s): E03.9 - Hypothyroidism , unspecified (6) HTN (hypertension) Assessment/Plan: Resume home meds Code(s): I10 - ESSENTIAL (PRIMARY) HYPERTENSION Qualifiers: Hypertension type: essential hypertension Qualified Code(s): I10 - Essential (primary) hypertension (7) HLD (hyperlipidemia) Assessment/Plan: Cont Statin Code(s): E78.5 - HYPERLIPIDEMIA, UNSPECIFIED Qualifiers: Hyperlipidemia type: mixed hyperlipidemia Qualified Code(s): E78.2 - Mixed hyperlipidemia
[2018-09-30] MEDS ORDERED: MORPHINE SULFATE 2 MG/ML VIAL IVPUSH ONE (09:01)
[2018-09-30] MEDS ORDERED: DEXTROSE 5%-WATER - 50 ML IVPB ONE (09:14)
[2018-09-30] MEDS ORDERED: cefTRIAXone SODIUM 1 GM VIAL ONE (09:14)
[2018-09-30] MEDS: CLOPIDOGREL BISULFATE 75 MG TABLET (FP) PO SCH (09:23)
[2018-09-30] MEDS: FOLIC ACID 1 MG TABLET (FP) PO SCH (09:23)
[2018-09-30] MEDS: CEFTRIAXONE 1 GM in DEXTROSE 5%-WATER - 50 ML IVPB SCH (09:24)
[2018-09-30] MEDS: PHENAZOPYRIDINE HCL 100 MG TABLET (FP) PO SCH ×3 (09:24→17:32)
[2018-09-30] MEDS ORDERED: ENOXAPARIN NA (PORCINE) 40 MG/0.4 ML DISP.SYRIN SQ SCH (10:00)
[2018-09-30] MEDS: SODIUM CHLORIDE 1,000 ML IV SCH ×2 (11:07→17:32)
--- NOTE | 2018-09-30 14:04 | EKG ---
Test Reason : Blood Pressure : / mmHG Vent. Rate : 075 BPM Atrial Rate : 075 BPM P-R Int : 172 ms QRS Dur : 076 ms QT Int : 400 ms P-R-T Axes : 064 -08 050 degrees QTc Int : 446 ms POOR DATA QUALITY, INTERPRETATION MAY BE ADVERSELY AFFECTED NORMAL SINUS RHYTHM INFERIOR INFARCT (CITED ON OR BEFORE 01-SEP-2017) ABNORMAL ECG WHEN COMPARED WITH ECG OF 08-SEP-2017 00:54, VT INTERVAL HAS DECREASED Confirmed by DORIS REBOLLEDO MD ([id number]) on 09/30/2018 2:04:17 PM Referred By: Confirmed By:DORIS REBOLLEDO MD
--- NOTE | 2018-09-30 14:21 | CONSULT ---
Consult - text type - Consultation Consultation Note: 78yo with numerous co-morbidities, including diabetes, admitted for suprapubic discomfort with a significant history for UTIs, also now noting vaginal discomfort/burning- though not presenting problem. Not bleeding. Uncertain if she has a private OBGYN. Chart and labs reviewed. Given her age and co-morbidities this could be fungal/bacterial vs atrophy related, in addition to other causes. This is not a pressing inpatient matter and she can follow up as an outpatient with OBGYN for appropriate testing to determine the etiology of her symptoms, if still present and the appropriate treatment. Stephanie Duffy MD OBGYN
--- NOTE | 2018-09-30 17:52 | PN ---
Physical Exam: SUBJECTIVE: Patient seen and examined at the bedside. no acute events. OBJECTIVE: Vital Signs Period Temp Pulse Resp BP Sys/[place] Pulse Ox Last 24 Hr 98.1 F-98.7 F 65-73 18-18 139-156/70-80 99-99 GENERAL: The patient is awake, alert, and fully oriented, in no acute distress. HEAD: Normal with no signs of trauma. LUNGS: Breath sounds equal, clear to auscultation bilaterally, no wheezes, no crackles, no accessory muscle use. HEART: Regular rate and rhythm, S1, S2 without murmur, rub or gallop. ABDOMEN: Soft, nontender, nondistended, no guarding, no rebound, no hepatosplenomegaly, no masses. EXTREMITIES: warm, well-perfused, no edema. NEUROLOGICAL: Cranial nerves II through XII grossly intact. Normal speech, gait not observed. PSYCH: Normal mood, normal affect. SKIN: Warm, dry, no rashes or lesions noted Laboratory Results - last 24 hr 09/29/18 09/29/18 09/30/18 20:30 21:39 05:45 WBC 5.5 RBC 3.65 Hgb 11.4 Hct 34.0 MCV 93.2 MCH 31.2 MCHC 33.5 RDW 12.9 Plt Count 220 MPV 8.5 Sodium Potassium Chloride Carbon Dioxide Anion Gap BUN Creatinine Est GFR (CKD-EPI)AfAm Est GFR (CKD-EPI)NonAf POC Glucometer 87 Random Glucose 109 H Calcium 09/30/18 09/30/18 09/30/18 05:45 06:17 16:34 WBC RBC Hgb Hct MCV MCH MCHC RDW Plt Count MPV Sodium 142 Potassium 4.4 Chloride 110 H Carbon Dioxide 25 Anion Gap 6 L BUN 15.2 Creatinine 1.0 Est GFR (CKD-EPI)AfAm 62.49 Est GFR (CKD-EPI)NonAf 53.92 POC Glucometer 90 147 Random Glucose 94 Calcium 8.7 Active Medications Generic Name Dose Route Start Last Admin Trade Name Freq PRN Reason Stop Dose Admin Acetaminophen 650 mg 09/29/18 17:10 09/30/18 05:29 Tylenol - PO 650 mg Q4H PRN Administration FEVER Atorvastatin Calcium 80 mg 09/30/18 22:00 Lipitor - PO HS YENI Clopidogrel Bisulfate 75 mg 09/30/18 10:00 09/30/18 09:23 Plavix - PO 75 mg DAILY YENI Administration Clotrimazole 1 applic 09/29/18 22:00 09/29/18 22:59 Gyne-Lotrimin - VG 1 applic HS YENI Administration Folic Acid 1 mg 09/30/18 10:00 09/30/18 09:23 Folic Acid - PO 1 mg DAILY YENI Administration Sodium Chloride 1,000 mls @ 75 mls/hr 09/29/18 18:15 09/30/18 17:32 Normal Saline - IV Not Given ASDIR YENI Insulin Aspart 1 vial 09/29/18 22:00 09/30/18 16:35 Novolog Vial Sliding Scale - SQ Not Given ACHS [facility] Protocol Levothyroxine Sodium 37.5 mcg 09/30/18 06:00 09/30/18 05:14 Synthroid - PO 37.5 mcg DAILY@0600 YENI Administration Metronidazole 500 mg 09/30/18 22:00 Flagyl - PO BID YENI Phenazopyridine HCl 100 mg 09/29/18 18:30 09/30/18 17:32 Pyridium - PO 100 mg PC YENI Administration ASSESSMENT/PLAN: This is a 78 y/o F with a PMH of PUD, hypothyroidism, OA, NIDDM, CAD s/p stent 3 yrs ago, who presented for 10 days of dysuria and incomplete bladder emptying. #Vulvovaginitis/vaginismus - UA Cx negative - dysuria on phenazopyridine 100 mg to anesthetize her bladder, pt needs to be warned of blood orange urine side effect. - clotrimazole vaginal cream - Flagyl 500 BID PO - IV 75ml of NS - holding oxybutynin for her overactive bladder (overflow incontinence) #CAD s/p stent - continuing Plavix - atorvastatin 80mg #NIDDM - hypoglycemic(56) in ER possible malnutrition - stopping metformin and prandin - SSI - Lyrica for neuropathy #Hypothyroidism -continue synthroid 37.5 mcg DVT PPX: lovenox 40mg SQ FEN: Diabetic diet, monitor lytes, IV NS 75mL Visit type - Emergency Visit Emergency Visit: Yes ED Registration Date: 09/29/18 Care time: The patient presented to the Emergency Department on the above date and was hospitalized for further evaluation of their emergent condition. - New Patient This patient is new to me today: Yes Date on this admission: 09/30/18 - Critical Care Critical Care patient: No - Discharge Referral Referred to [facility] Med P.C.: No ATTENDING PHYSICIAN STATEMENT I saw and evaluated the patient. I reviewed the resident's note and discussed the case with the resident. I agree with the resident's findings and plan as documented. SUBJECTIVE: OBJECTIVE: ASSESSMENT AND PLAN:
[2018-09-30] MEDS: ATORVASTATIN CA 80 MG TABLET (FP) PO SCH (21:03)
[2018-09-30] MEDS: metroNIDAZOLE 250 MG TABLET PO SCH (21:03)
[2018-09-30] MEDS: CLOTRIMAZOLE 1% VAGINAL CREAM WITH APPLICATOR 45 GM TUBE VG SCH (22:59)
[2018-10-01] MEDS: LEVOTHYROXINE NA 25 MCG TABLET (FP) PO SCH (06:32)
[2018-10-01] MEDS: SODIUM CHLORIDE 1,000 ML IV SCH (06:35)
[2018-10-01] MEDS: INSULIN SLIDING SCALE (NOVOLOG) 1 VIAL SQ SCH ×4 (07:00→21:14)
[2018-10-01 07:03] LABS: BASO % 0.8 % (0-2.0); EOS % 3.1 % (0-4.5); HEMATOCRIT 35.2 % (32.4-45.2); HEMOGLOBIN 11.9 GM/dL (10.7-15.3); LYMPH % 31.2 % (8-40); MCH 31.5 pg (25.7-33.7); MCHC 33.9 g/dl (32.0-36.0); MEAN CELL VOLUME 93.1 fl (80-96); MEAN PLT VOLUME 8.2 fl (7.5-11.1); MONO % 8.3 % (3.8-10.2); NEUT % 56.6 % (42.8-82.8); PLATELET COUNT 209 K/MM3 (134-434); RBC 3.78 M/mm3 (3.60-5.2); RDW 12.8 % (11.6-15.6); WHITE BLOOD COUNT 5.5 K/mm3 (4.0-10.0)
[2018-10-01 07:43] LABS: ALBUMIN 3.4 g/dl (3.4-5.0); BILIRUBIN,TOTAL 0.4 mg/dL (0.2-1); BLOOD UREA NITROGEN 19.4 mg/dL (7-18); CALCIUM 8.9 mg/dL (8.5-10.1); POTASSIUM 4.8 mmol/L (3.5-5.1)
[2018-10-01] MEDS: FOLIC ACID 1 MG TABLET (FP) PO SCH (09:01)
[2018-10-01] MEDS: metroNIDAZOLE 250 MG TABLET PO SCH ×2 (09:01→21:15)
[2018-10-01] MEDS: CLOPIDOGREL BISULFATE 75 MG TABLET (FP) PO SCH (09:01)
[2018-10-01] MEDS: PHENAZOPYRIDINE HCL 100 MG TABLET (FP) PO SCH (09:01)
[2018-10-01] MEDS ORDERED: PHENAZOPYRIDINE HCL 100 MG TABLET (FP) PO PRN (11:46)
--- NOTE | 2018-10-01 11:46 | PN ---
<Miguel Angel Gore - Last Filed: 10/01/18 11:52> Physical Exam: SUBJECTIVE: Patient seen and examined at bedside this AM. No acute events OBJECTIVE: Vital Signs Period Temp Pulse Resp BP Sys/[place] Pulse Ox Last 24 Hr 97.8 F-98.9 F 69-75 18-18 134-147/68-91 97-98 GENERAL: The patient is awake, alert, and fully oriented, in slight acute distress due to vaginal pain HEAD: Normal with no signs of trauma. NECK: supple. LUNGS: Breath sounds equal, clear to auscultation bilaterally, no wheezes, no crackles, no accessory muscle use. HEART: Regular rate and rhythm, S1, S2 without murmur, rub or gallop. ABDOMEN: Soft, tender suprapubic area and lower towards the vagina, nondistended , normoactive bowel sounds, no guarding, no rebound. EXTREMITIES: warm, well-perfused, no edema. NEUROLOGICAL: Cranial nerves II through XII grossly intact. Normal speech, gait not observed. PSYCH: Normal mood, normal affect. SKIN: Warm, dry, no rashes or lesions noted Laboratory Results - last 24 hr 09/30/18 09/30/18 10/01/18 16:34 20:20 06:31 WBC 5.5 RBC 3.78 Hgb 11.9 Hct 35.2 MCV 93.1 MCH 31.5 MCHC 33.9 RDW 12.8 Plt Count 209 MPV 8.2 Absolute Neuts (auto) 3.1 Neutrophils % 56.6 Lymphocytes % 31.2 Monocytes % 8.3 Eosinophils % 3.1 Basophils % 0.8 Nucleated RBC % 0 Sodium Potassium Chloride Carbon Dioxide Anion Gap BUN Creatinine Est GFR (CKD-EPI)AfAm Est GFR (CKD-EPI)NonAf POC Glucometer 147 117 Random Glucose Calcium Total Bilirubin AST ALT Alkaline Phosphatase Total Protein Albumin 10/01/18 10/01/18 10/01/18 06:31 06:55 11:04 WBC RBC Hgb Hct MCV MCH MCHC RDW Plt Count MPV Absolute Neuts (auto) Neutrophils % Lymphocytes % Monocytes % Eosinophils % Basophils % Nucleated RBC % Sodium 144 Potassium 4.8 Chloride 111 H Carbon Dioxide 25 Anion Gap 8 BUN 19.4 H Creatinine 1.0 Est GFR (CKD-EPI)AfAm 62.49 Est GFR (CKD-EPI)NonAf 53.92 POC Glucometer 123 148 Random Glucose 106 Calcium 8.9 Total Bilirubin 0.4 AST 11 L ALT 18 Alkaline Phosphatase 106 Total Protein 7.0 Albumin 3.4 Active Medications Generic Name Dose Route Start Last Admin Trade Name [place] PRN Reason Stop Dose Admin Acetaminophen 650 mg 09/29/18 17:10 09/30/18 05:29 Tylenol - PO 650 mg Q4H PRN Administration FEVER Atorvastatin Calcium 80 mg 09/30/18 22:00 09/30/18 21:03 Lipitor - PO 80 mg HS YENI Administration Clopidogrel Bisulfate 75 mg 09/30/18 10:00 10/01/18 09:01 Plavix - PO 75 mg DAILY YENI Administration Clotrimazole 1 applic 09/29/18 22:00 09/30/18 22:59 Gyne-Lotrimin - VG 1 applic HS YENI Administration Folic Acid 1 mg 09/30/18 10:00 10/01/18 09:01 Folic Acid - PO 1 mg DAILY YENI Administration Insulin Aspart 1 vial 09/29/18 22:00 10/01/18 11:06 Novolog Vial Sliding Scale - SQ Not Given ACHS [facility] Protocol Levothyroxine Sodium 37.5 mcg 09/30/18 06:00 10/01/18 06:32 Synthroid - PO 37.5 mcg DAILY@0600 YENI Administration Metronidazole 500 mg 09/30/18 22:00 10/01/18 09:01 Flagyl - PO 500 mg BID YENI Administration Phenazopyridine HCl 100 mg 09/29/18 18:30 10/01/18 09:01 Pyridium - PO 100 mg PC YENI Administration ASSESSMENT/PLAN: This is a 78 y/o F with a PMH of PUD, hypothyroidism, OA, NIDDM, CAD s/p stent 3 yrs ago, who presented for 10 days of dysuria and incomplete bladder emptying. #Vulvovaginitis/vaginismus - UA Cx negative - dysuria changed pyridium to PRN. - awaiting vaginal discharge culture for gardnerella, trichomonas. - clotrimazole vaginal cream - Flagyl 500 BID PO for vaginitis - d/c the fluids #CAD s/p stent - continuing Plavix - atorvastatin 80mg #NIDDM - hypoglycemic(56) in ER possible malnutrition - stopping metformin and prandin - SSI - Lyrica for neuropathy #Hypothyroidism -continue synthroid 37.5 mcg DVT PPX: ON PLAVIX FEN: Diabetic diet, monitor lytes Visit type - Emergency Visit Emergency Visit: Yes ED Registration Date: 09/29/18 Care time: The patient presented to the Emergency Department on the above date and was hospitalized for further evaluation of their emergent condition. - New Patient This patient is new to me today: No - Critical Care Critical Care patient: No - Discharge Referral Referred to [facility] Med P.C.: No ATTENDING PHYSICIAN STATEMENT I saw and evaluated the patient. I reviewed the resident's note and discussed the case with the resident. I agree with the resident's findings and plan as documented. SUBJECTIVE: OBJECTIVE: ASSESSMENT AND PLAN: <Javier Way - Last Filed: 10/01/18 16:29> Physical Exam: SUBJECTIVE: Patient seen and examined OBJECTIVE: Vital Signs Period Temp Pulse Resp BP Sys/[place] Pulse Ox Last 24 Hr 97.8 F-98.9 F 72-75 18-20 134-147/68-91 97-98 GENERAL: The patient is awake, alert, and fully oriented, in no acute distress. HEAD: Normal with no signs of trauma. EYES: PERRL, extraocular movements intact, sclera anicteric, conjunctiva clear. No ptosis. ENT: Ears normal, nares patent, oropharynx clear without exudates, moist mucous membranes. NECK: Trachea midline, full range of motion, supple. LUNGS: Breath sounds equal, clear to auscultation bilaterally, no wheezes, no crackles, no accessory muscle use. HEART: Regular rate and rhythm, S1, S2 without murmur, rub or gallop. ABDOMEN: Soft, nontender, nondistended, normoactive bowel sounds, no guarding, no rebound, no hepatosplenomegaly, no masses. EXTREMITIES: 2+ pulses, warm, well-perfused, no edema. NEUROLOGICAL: Cranial nerves II through XII grossly intact. Normal speech, gait not observed. PSYCH: Normal mood, normal affect. SKIN: Warm, dry, normal turgor, no rashes or lesions noted Laboratory Results - last 24 hr 09/30/18 09/30/18 10/01/18 16:34 20:20 06:31 WBC 5.5 RBC 3.78 Hgb 11.9 Hct 35.2 MCV 93.1 MCH 31.5 MCHC 33.9 RDW 12.8 Plt Count 209 MPV 8.2 Absolute Neuts (auto) 3.1 Neutrophils % 56.6 Lymphocytes % 31.2 Monocytes % 8.3 Eosinophils % 3.1 Basophils % 0.8 Nucleated RBC % 0 Sodium Potassium Chloride Carbon Dioxide Anion Gap BUN Creatinine Est GFR (CKD-EPI)AfAm Est GFR (CKD-EPI)NonAf POC Glucometer 147 117 Random Glucose Calcium Total Bilirubin AST ALT Alkaline Phosphatase Total Protein Albumin 10/01/18 10/01/18 10/01/18 06:31 06:55 11:04 WBC RBC Hgb Hct MCV MCH MCHC RDW Plt Count MPV Absolute Neuts (auto) Neutrophils % Lymphocytes % Monocytes % Eosinophils % Basophils % Nucleated RBC % Sodium 144 Potassium 4.8 Chloride 111 H Carbon Dioxide 25 Anion Gap 8 BUN 19.4 H Creatinine 1.0 Est GFR (CKD-EPI)AfAm 62.49 Est GFR (CKD-EPI)NonAf 53.92 POC Glucometer 123 148 Random Glucose 106 Calcium 8.9 Total Bilirubin 0.4 AST 11 L ALT 18 Alkaline Phosphatase 106 Total Protein 7.0 Albumin 3.4 Active Medications Generic Name Dose Route Start Last Admin Trade Name Freq PRN Reason Stop Dose Admin Acetaminophen 650 mg 09/29/18 17:10 10/01/18 12:41 Tylenol - PO 650 mg Q4H PRN Administration FEVER Atorvastatin Calcium 80 mg 09/30/18 22:00 09/30/18 21:03 Lipitor - PO 80 mg HS YENI Administration Clopidogrel Bisulfate 75 mg 09/30/18 10:00 10/01/18 09:01 Plavix - PO 75 mg DAILY YENI Administration Clotrimazole 1 applic 09/29/18 22:00 09/30/18 22:59 Gyne-Lotrimin - VG 1 applic HS YENI Administration Enoxaparin Sodium 40 mg 10/01/18 16:30 Lovenox - SQ DAILY YENI Folic Acid 1 mg 09/30/18 10:00 10/01/18 09:01 Folic Acid - PO 1 mg DAILY YENI Administration Insulin Aspart 1 vial 09/29/18 22:00 10/01/18 16:28 Novolog Vial Sliding Scale - SQ Not Given ACHS [facility] Protocol Levothyroxine Sodium 37.5 mcg 09/30/18 06:00 10/01/18 06:32 Synthroid - PO 37.5 mcg DAILY@0600 YENI Administration Metronidazole 500 mg 09/30/18 22:00 10/01/18 09:01 Flagyl - PO 500 mg BID YENI Administration ASSESSMENT/PLAN: ATTENDING PHYSICIAN STATEMENT See teaching attending note
[2018-10-01] MEDS: ACETAMINOPHEN 325 MG TABLET (FP) PO PRN ×2 (12:41→21:17)
--- NOTE | 2018-10-01 15:11 | PN ---
Teaching Attending Note Name of Resident: Miguel Angel Gore ATTENDING PHYSICIAN STATEMENT I saw and evaluated the patient. I reviewed the resident's note and discussed the case with the resident. I agree with the resident's findings and plan as documented. SUBJECTIVE: Pt with no acute events overnight, reports some improvement in pelvic discomfort ,no further dysuria, tolerating PO intake, no N/V/D or fever spikes. Now on flagyl and pending trichomonas. OBJECTIVE: Vital Signs Temperature 97.8 F 10/01/18 13:14 Pulse Rate 73 10/01/18 13:14 Respiratory Rate 20 10/01/18 13:14 Blood Pressure 141/69 10/01/18 13:14 O2 Sat by Pulse Oximetry (%) 98 10/01/18 09:00 GEN: well appearing, elderly woman in no distress, AAOx3 HEENT: EOMI, MMM, no scleral pallor or icterus NECK: no JVD CVS: NRRR, S1 &S2 nrml, no murmurs, rubs or gallops RESP: CTA b/l, no wheezes, rales, or rhonchi. ABD: soft, obese pannus, nondistended, normoactive BS EXT: warm, well perfused, 2+ DP and radial pulses b/l, no LE Edema Laboratory Results - last 24 hr 09/30/18 09/30/18 10/01/18 16:34 20:20 06:31 WBC 5.5 RBC 3.78 Hgb 11.9 Hct 35.2 MCV 93.1 MCH 31.5 MCHC 33.9 RDW 12.8 Plt Count 209 MPV 8.2 Absolute Neuts (auto) 3.1 Neutrophils % 56.6 Lymphocytes % 31.2 Monocytes % 8.3 Eosinophils % 3.1 Basophils % 0.8 Nucleated RBC % 0 Sodium Potassium Chloride Carbon Dioxide Anion Gap BUN Creatinine Est GFR (CKD-EPI)AfAm Est GFR (CKD-EPI)NonAf POC Glucometer 147 117 Random Glucose Calcium Total Bilirubin AST ALT Alkaline Phosphatase Total Protein Albumin 10/01/18 10/01/18 10/01/18 06:31 06:55 11:04 WBC RBC Hgb Hct MCV MCH MCHC RDW Plt Count MPV Absolute Neuts (auto) Neutrophils % Lymphocytes % Monocytes % Eosinophils % Basophils % Nucleated RBC % Sodium 144 Potassium 4.8 Chloride 111 H Carbon Dioxide 25 Anion Gap 8 BUN 19.4 H Creatinine 1.0 Est GFR (CKD-EPI)AfAm 62.49 Est GFR (CKD-EPI)NonAf 53.92 POC Glucometer 123 148 Random Glucose 106 Calcium 8.9 Total Bilirubin 0.4 AST 11 L ALT 18 Alkaline Phosphatase 106 Total Protein 7.0 Albumin 3.4 ASSESSMENT AND PLAN: Type 2 DM - monitor glucose target 140-180, c/w novolog Coronary artery disease/ HLD - c/w atorvastatin 80mg, Plavix daily HTN - target BP < 140/90mmhg whlie admitted Hypothyroid - c/w levothyroxine 37.5mcg Vaginismus/ ? bacterial vaginitis - c/w flagyl & topical clotrimazole - prn tylenol for pain Current Medications Generic Name Dose Route Start Last Admin Trade Name Freq PRN Reason Stop Dose Admin Acetaminophen 650 mg 09/29/18 17:10 10/01/18 12:41 Tylenol - PO 650 mg Q4H PRN Administration FEVER Atorvastatin Calcium 80 mg 09/30/18 22:00 09/30/18 21:03 Lipitor - PO 80 mg HS YENI Administration Clopidogrel Bisulfate 75 mg 09/30/18 10:00 10/01/18 09:01 Plavix - PO 75 mg DAILY YENI Administration Clotrimazole 1 applic 09/29/18 22:00 09/30/18 22:59 Gyne-Lotrimin - VG 1 applic HS YENI Administration Folic Acid 1 mg 09/30/18 10:00 10/01/18 09:01 Folic Acid - PO 1 mg DAILY YENI Administration Insulin Aspart 1 vial 09/29/18 22:00 10/01/18 11:06 Novolog Vial Sliding Scale - SQ Not Given ACHS [facility] Protocol Levothyroxine Sodium 37.5 mcg 09/30/18 06:00 10/01/18 06:32 Synthroid - PO 37.5 mcg DAILY@0600 YENI Administration Metronidazole 500 mg 09/30/18 22:00 10/01/18 09:01 Flagyl - PO 500 mg BID YENI Administration DVT PPx: Lovenox 40mg subcut
[2018-10-01] MEDS ORDERED: IBUPROFEN 600 MG TABLET (FP) PO ONE (15:27)
[2018-10-01] MEDS: ENOXAPARIN NA (PORCINE) 40 MG/0.4 ML DISP.SYRIN SQ SCH (16:41)
[2018-10-01] MEDS ORDERED: INSULIN (NOVOLOG) ASPART 100 UNITS/ML 10ML VIAL ONE (19:33)
[2018-10-01] MEDS: ATORVASTATIN CA 80 MG TABLET (FP) PO SCH (21:15)
[2018-10-01] MEDS: CLOTRIMAZOLE 1% VAGINAL CREAM WITH APPLICATOR 45 GM TUBE VG SCH (21:18)
[2018-10-02] MEDS: INSULIN SLIDING SCALE (NOVOLOG) 1 VIAL SQ SCH ×4 (06:03→21:02)
[2018-10-02] MEDS: LEVOTHYROXINE NA 25 MCG TABLET (FP) PO SCH (06:03)
--- NOTE | 2018-10-02 08:44 | PN ---
Physical Exam: SUBJECTIVE: Patient seen and examined, She is in severe pain and is crying at this time. OBJECTIVE: Vital Signs Period Temp Pulse Resp BP Sys/[place] Pulse Ox Last 24 Hr 97.7 F-98.9 F 72-79 18-20 141-148/69-91 97-98 GENERAL: The patient is awake, alert, and fully oriented,in severe distress, she is crying at this time HEAD: Normal with no signs of trauma. EYES: PERRL, extraocular movements intact, sclera anicteric, conjunctiva clear. No ptosis. ENT: Ears normal, nares patent, oropharynx clear without exudates, moist mucous membranes. NECK: Trachea midline, full range of motion, supple. LUNGS: Breath sounds equal, clear to auscultation bilaterally, no wheezes, no crackles, no accessory muscle use. HEART: Regular rate and rhythm, S1, S2 without murmur, rub or gallop. ABDOMEN: Soft, nontender, nondistended, normoactive bowel sounds, no guarding, no rebound, no hepatosplenomegaly, no masses. EXTREMITIES: 2+ pulses, warm, well-perfused, no edema. NEUROLOGICAL: Cranial nerves II through XII grossly intact. Normal speech, gait not observed. Vaginal exam: she has one non blistering lesion on her R labia which is not tender, she has no discharge, she has red, inflamed area of skin erosion in her vagina, could not do further exam as she was in severe pain, it has sharp borders with no discharge on it. PSYCH: Normal mood, normal affect. SKIN: Warm, dry, normal turgor, no rashes or lesions noted Laboratory Results - last 24 hr 10/01/18 10/01/18 10/01/18 11:04 16:26 21:13 POC Glucometer 148 114 132 10/02/18 06:01 POC Glucometer 111 Active Medications Generic Name Dose Route Start Last Admin Trade Name Freq PRN Reason Stop Dose Admin Acetaminophen 650 mg 09/29/18 17:10 10/01/18 21:17 Tylenol - PO 650 mg Q4H PRN Administration FEVER Atorvastatin Calcium 80 mg 09/30/18 22:00 10/01/18 21:15 Lipitor - PO 80 mg HS YENI Administration Clopidogrel Bisulfate 75 mg 09/30/18 10:00 10/01/18 09:01 Plavix - PO 75 mg DAILY YENI Administration Clotrimazole 1 applic 09/29/18 22:00 10/01/18 21:18 Gyne-Lotrimin - VG 1 applic HS YNEI Administration Enoxaparin Sodium 40 mg 10/01/18 16:30 10/01/18 16:41 Lovenox - SQ 40 mg DAILY YENI Administration Folic Acid 1 mg 09/30/18 10:00 10/01/18 09:01 Folic Acid - PO 1 mg DAILY YENI Administration Insulin Aspart 1 vial 09/29/18 22:00 10/02/18 06:03 Novolog Vial Sliding Scale - SQ Not Given ACHS [facility] Protocol Levothyroxine Sodium 37.5 mcg 09/30/18 06:00 10/02/18 06:03 Synthroid - PO 37.5 mcg DAILY@0600 YENI Administration Metronidazole 500 mg 09/30/18 22:00 10/01/18 21:15 Flagyl - PO 500 mg BID YENI Administration ASSESSMENT/PLAN: 78 y/o F with PUD, hypothyroidism, OA, NIDDM, CAD s/p stent 3 yrs ago, who presented for 10 days of dysuria and incomplete bladder emptying. negative urine cultuers , also evaluated by OBGYN yesterday and there is no recs for inpatient evaluation and she has to follow up as O/P. considering that the imaging were reviewed and no mass or fluid collection was noted. at this time pending vaginal cultures and if negative can get vaginal Estrogen cream as out patient. also can get further /DIRECTOR HOUSEKEEPING eval as O/P. but in my exam she has a very inflamed, erythematous lesion on the vaginal wall with no other finding in favor of candica as there is no other excoriation in other areas, the only issue is that she is SP 4 days of treatment for cy which could have changed the exam since admission. It does not look like bacterial vaginosis. it can be HSV but the only lesion is in the vaginal and no lesion on the labia. At this time I am also concern about malignancy as cause of the abnormal finding and will consider calling derm as wheel mill operator dose not think it is any need for acute intervention. vaginal ulcer, - UA Cx negative - dysuria changed pyridium to PRN. - awaiting vaginal discharge culture for gardnerella, trichomonas. - clotrimazole vaginal cream - Flagyl 500 BID PO for vaginitis - Will start on estrogen vaginal cream - Will ask derm tomorrow to evaluate the patient and if indicated get biopsy from the lesion - pain management with Percocet #CAD s/p stent - continuing Plavix - atorvastatin 80mg #NIDDM - hypoglycemic(56) in ER possible malnutrition - stopping metformin and prandin - SSI - Lyrica for neuropathy #Hypothyroidism -continue synthroid 37.5 mcg DVT PPX: ON PLAVIX FEN: Diabetic diet, monitor lytes Visit type - Emergency Visit Emergency Visit: Yes ED Registration Date: 09/29/18 Care time: The patient presented to the Emergency Department on the above date and was hospitalized for further evaluation of their emergent condition. - New Patient This patient is new to me today: Yes Date on this admission: 10/02/18 - Critical Care Critical Care patient: No - Discharge Referral Referred to [facility] Med P.C.: No
[2018-10-02] MEDS: ENOXAPARIN NA (PORCINE) 40 MG/0.4 ML DISP.SYRIN SQ SCH (09:00)
[2018-10-02] MEDS: CLOPIDOGREL BISULFATE 75 MG TABLET (FP) PO SCH (09:00)
[2018-10-02] MEDS: metroNIDAZOLE 250 MG TABLET PO SCH (09:00)
[2018-10-02] MEDS: FOLIC ACID 1 MG TABLET (FP) PO SCH (09:00)
[2018-10-02] MEDS ORDERED: oxyCODONE HCL 5 MG TABLET PO ONE (11:00)
[2018-10-02] MEDS ORDERED: ACETAMINOPHEN 325 MG TABLET (FP) PO ONE (11:00)
[2018-10-02] MEDS ORDERED: LIDOCAINE HCL 2% JELLY (5 ML/TUBE) TP ONE (11:20)
--- NOTE | 2018-10-02 14:27 | CONSULT ---
Consult - text type - Consultation Consultation Note: 78yo here with suprapubic pain and vaginal burning- internal. Worse with urination. No bleeding. No discharge. No external lesions or irritation. 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 No history of REGIONAL SALES ENGINEER surgeries aside from C/S. Chart reviewed. Per my previous recommendation, the appropriate testing for yeast and vaginal infections are not available in house and therefore outpatient evaluation recommended. The gram stain is not sufficient for BV/Trich/Yeast testing. Does not need treatment for yeast/BV given not confirmed diagnosis, nor do her symptoms entirely correlate to this. Unable to do full exam secondary to patient intolerance and lack of REGIONAL SALES ENGINEER bed and proper equipment Should be stopped off estrogen cream as it is not going to cause immediate relief of symptoms and is not definitive that this is secondary to atrophy vs lichen sclerosus vs other etiology. Recommend topical steroid cream BID x 7 days and should follow up in the office for further care. No clobetasol on formulary so BMZ cream started here. Should follow up in the next 2-3 days in the office. Stephanie Duffy MD
[2018-10-02] MEDS: BETAMETHASONE DIP 0.05% TP LOTION 60 ML BOTTLE TP SCH ×2 (15:16→21:02)
[2018-10-02] MEDS ORDERED: INSULIN (NOVOLOG) ASPART 100 UNITS/ML 10ML VIAL ONE (20:46)
[2018-10-02] MEDS: ATORVASTATIN CA 80 MG TABLET (FP) PO SCH (21:02)
[2018-10-02] MEDS ORDERED: ESTROGENS,CONJUGATE VAGINAL CR 30 GM TUBE VG SCH (22:00)
[2018-10-03] MEDS: LEVOTHYROXINE NA 25 MCG TABLET (FP) PO SCH (06:09)
[2018-10-03] MEDS: INSULIN SLIDING SCALE (NOVOLOG) 1 VIAL SQ SCH ×3 (06:09→17:03)
--- NOTE | 2018-10-03 08:17 | PN ---
Teaching Attending Note Name of Resident: Miguel Angel Gore ATTENDING PHYSICIAN STATEMENT I saw and evaluated the patient. I reviewed the resident's note and discussed the case with the resident. I agree with the resident's findings and plan as documented. SUBJECTIVE:Still c/o pain evaluted by FILM PAINTER OBJECTIVE: Vital Signs Period Temp Pulse Resp BP Sys/Saravia Pulse Ox Last 24 Hr 97.7 F-98.5 F 66-81 18-18 138-150/76-84 97-97 Elderly F HEENT:Mm moist no anemia, PERRLa EOMI NECK: No JVD No Bruit CHEST:CTa B/L CVS:S1S2 R ABD:No distention suprapubic tenderness EXT:No edema feet, no calf tenderness GENERATING PLANT SUPERINTENDENT:AOX3 non focal Abd Ultrasound: CT abd; Normal CBC, BMP 10/01/18 06:31 10/01/18 06:31 Active Medications Acetaminophen (Tylenol -) 650 mg PO Q4H PRN PRN Reason: FEVER Last Admin: 10/01/18 21:17 Dose: 650 mg Atorvastatin Calcium (Lipitor -) 80 mg PO HS [facility] Last Admin: 10/02/18 21:02 Dose: 80 mg Betamethasone Dipropionate (Diprosone 0.05% Lotion -) 1 applic TP BID [facility] Last Admin: 10/02/18 21:02 Dose: 1 applic Clopidogrel Bisulfate (Plavix -) 75 mg PO DAILY [facility] Last Admin: 10/02/18 09:00 Dose: 75 mg Enoxaparin Sodium (Lovenox -) 40 mg SQ DAILY [facility] Last Admin: 10/02/18 09:00 Dose: 40 mg Folic Acid (Folic Acid -) 1 mg PO DAILY [facility] Last Admin: 10/02/18 09:00 Dose: 1 mg Insulin Aspart (Novolog Vial Sliding Scale -) 1 vial SQ ACHS [facility]; Protocol Last Admin: 10/03/18 06:09 Dose: Not Given Levothyroxine Sodium (Synthroid -) 37.5 mcg PO DAILY@0600 [facility] Last Admin: 10/03/18 06:09 Dose: 37.5 mcg ASSESSMENT AND PLAN: 78 yrs old man with H/O T2DM, HTN, CAD s/p [place], CKD stgae 3 present with lower abd discomfort dysuria for past 10 days recent worsening over past 2 days normal CBc, afebrile, UA few WBC U Culture -ve Problem List - Problems (1) UTI (urinary tract infection) Assessment/Plan: Pain disproportionate to imaging lab and physical finding will Dc IV abx as U culture is -ve consider N FILM PAINTER exam and consult possibility of vaginitis Code(s): N39.0 - URINARY TRACT INFECTION, SITE NOT SPECIFIED Qualifiers: Urinary tract infection type: acute cystitis Hematuria presence: without hematuria Qualified Code(s): N30.00 - Acute cystitis without hematuria (2) T2DM (type 2 diabetes mellitus) Assessment/Plan: Poor Po RPG 58 hold Po Meds correction dose insulin AC Code(s): E11.9 - TYPE 2 DIABETES MELLITUS WITHOUT COMPLICATIONS (3) Coronary artery disease Assessment/Plan: S/P stent 1 yr ago resume all home meds including antiplatelete Code(s): I25.10 - ATHSCL HEART DISEASE OF [place] CORONARY ARTERY W/O ANG PCTRS Qualifiers: Coronary Disease-Associated Artery/Lesion type: [place] artery [place] vs. transplanted heart: [place] heart Associated angina: without angina Qualified Code(s): I25.10 - Atherosclerotic heart disease of [place] coronary artery without angina pectoris (4) CKD (chronic kidney disease) Assessment/Plan: Satge 3 renal functions are at base line Code(s): N18.9 - CHRONIC KIDNEY DISEASE, UNSPECIFIED Qualifiers: Chronic kidney disease stage: stage 2 (mild) Qualified Code(s): N18.2 - Chronic kidney disease, stage 2 (mild) (5) Hypothyroid Assessment/Plan: Resume Levothyroxine F/U TSh Code(s): E03.9 - HYPOTHYROIDISM, UNSPECIFIED Qualifiers: Hypothyroidism type: unspecified Qualified Code(s): E03.9 - Hypothyroidism , unspecified (6) HTN (hypertension) Assessment/Plan: Resume home meds Code(s): I10 - ESSENTIAL (PRIMARY) HYPERTENSION Qualifiers: Hypertension type: essential hypertension Qualified Code(s): I10 - Essential (primary) hypertension (7) HLD (hyperlipidemia) Assessment/Plan: Cont Statin Code(s): E78.5 - HYPERLIPIDEMIA, UNSPECIFIED Qualifiers: Hyperlipidemia type: mixed hyperlipidemia Qualified Code(s): E78.2 - Mixed hyperlipidemia (8) Vaginitis Assessment/Plan: evaluated by FILM PAINTER possibility of non infectious cause is very high will add Topical Steroidand Lidocaine for symptomatic relief, F/U with FILM PAINTER and PCP hold all anti infective agents. Code(s): N76.0 - ACUTE VAGINITIS
[2018-10-03] MEDS: FOLIC ACID 1 MG TABLET (FP) PO SCH (09:23)
[2018-10-03] MEDS: ENOXAPARIN NA (PORCINE) 40 MG/0.4 ML DISP.SYRIN SQ SCH (09:23)
[2018-10-03] MEDS: CLOPIDOGREL BISULFATE 75 MG TABLET (FP) PO SCH (09:23)
[2018-10-03] MEDS: BETAMETHASONE DIP 0.05% TP LOTION 60 ML BOTTLE TP SCH (09:24)
[2018-10-03] MEDS ORDERED: LIDOCAINE HCL 5% TOP OINTMENT 50 GM TUBE TP ONE (10:00)
[2018-10-03] MEDS: ACETAMINOPHEN 325 MG TABLET (FP) PO PRN (14:09)
--- NOTE | 2018-10-03 16:48 | DS ---
Physical Exam: SUBJECTIVE: Patient seen and examined at the bedside. No acute events. OBJECTIVE: Vital Signs Period Temp Pulse Resp BP Sys/Saravia Pulse Ox Last 24 Hr 97.7 F-98.5 F 66-87 18-20 136-168/66-91 97-97 PHYSICAL EXAM GENERAL: The patient is awake, alert, and fully oriented, in some distress due to vaginismus. HEAD: Normal with no signs of trauma. NECK: supple. LUNGS: Breath sounds equal, clear to auscultation bilaterally, no wheezes, no crackles, no accessory muscle use. HEART: Regular rate and rhythm, S1, S2 without murmur, rub or gallop. ABDOMEN: Soft, nontender, nondistended, normoactive bowel sounds, no guarding. EXTREMITIES: warm, well-perfused, no edema. NEUROLOGICAL: Cranial nerves II through XII grossly intact. Normal speech, gait not observed. Genitalia exam: vaginal pain, erythematous inside vagina could not enter into vagina due to pt extreme discomfort. PSYCH: Normal mood, normal affect. SKIN: Warm, dry, no rashes or lesions noted. LABS Laboratory Results - last 24 hr 10/02/18 10/03/18 10/03/18 21:01 06:05 11:26 POC Glucometer 117 126 141 10/03/18 16:44 POC Glucometer 99 HOSPITAL COURSE: Date of Admission:09/29/18 This is a 76 y/o F with a PMH of PUD, hypothyroidism, OA, NIDDM, CAD s/p stent 3 yrs ago, who was admitted for presumable UTI but urine culture was negative and IV abx was haulted. She complained of vaginal pain and I tried to perform a speculum exam however pt was in immense pain and I was only able to assess her frothy discharge and sent it for trichomonas and gardnerella gram stain and started on flagyl. OBGYN was consulted (Dr. Dfufy) and she was not able to do a pelvic exam as an inpatient and recommended doing it as an o/p. She d/c the flagyl and started her on steroid cream BID X 7 days. She will follow up with Dr. Charles this (10/06) for assesment. Spoke to pt and made appointment for patient. Date of Discharge: 10/03/18 Minutes to complete discharge: 35 Discharge Summary Reason For Visit: URINARY TRACT INFECTION Current Active Problems Vaginitis (Acute) T2DM (type 2 diabetes mellitus) (Chronic) Condition: Stable - Instructions Diet, Activity, Other Instructions: You were admitted for having pain upon urination and difficulty urinating. You were treated with antibiotics and vaginal cream. You were evaluated by the OBGYN and it was recommended that you follow up as an outpatient for further evaluation of your pubic pain. Medications Please take Betamethasone cream and apply twice a day to the affected area in your groin region. Please take Lidocaine cream and apply once daily to the affected area in your groin region. You may continue taking the rest of your home medications as directed. Follow Up Please follow up with your OBGYN with Dr. Barnes. We have made an appointment for you on September at 9am. Please follow up with your primary care doctor, Dr. Ayala, within 1 week. Please return to the emergency room if your have any chest pain, shortness of breath, fevers, chills. Referrals: Milan Ayala MD [Staff Physician] - 1 Week Feli Barnes DO [Staff Physician] - Disposition: HOME - Home Medications Comprehensive Discharge Medication List: Ambulatory Orders Clopidogrel Bisulfate [Plavix -] 75 mg PO DAILY 12/02/16 Repaglinide [Prandin] 1 mg PO BID 12/02/16 Levothyroxine [Synthroid -] 37.5 mcg PO DAILY@0600 tablet 05/28/17 Atorvastatin Calcium 80 mg PO DAILY 09/29/18 Folic Acid 1 mg PO DAILY 09/29/18 Omeprazole 40 mg PO DAILY 09/29/18 metFORMIN HCL [Metformin HCl] 500 mg PO BID 09/29/18 Carbamazepine 200 mg PO BID 10/01/18 Furosemide 40 mg PO DAILY 10/01/18 Betamethasone Dipropionate [Diprosone 0.05% Lotion -] 1 applic TP BID #1 bottle 10/03/18 Lidocaine 2% Jelly [Xylocaine 2% Jelly] 0 applic TP DAILY PRN #1 applic This patient is new to me today: No Emergency Visit: Yes ED Registration Date: 09/29/18 Care time: The patient presented to the Emergency Department on the above date and was hospitalized for further evaluation of their emergent condition. Critical Care patient: No - Discharge Referral Referred to [facility] Med P.C.: No ATTENDING PHYSICIAN STATEMENT I saw and evaluated the patient. I reviewed the resident's note and discussed the case with the resident. I agree with the resident's findings and plan as documented. SUBJECTIVE: OBJECTIVE: ASSESSMENT AND PLAN:
[2018-10-03 18:58] VITALS: BP 133/72; PULSE 75; TEMP 98.1
== END 2018-10-03 19:06 | disposition home or self-care (01) | DRG 690 ==
LOC: JER 11:40 → JERBED 16:27 → J7W 19:57
PROVIDERS: ADMIT Internal Medicine; ATTEND Internal Medicine
DX: N30.00 Acute cystitis without hematuria (principal); N76.0 Acute vaginitis; I25.10 Atherosclerotic heart disease of native coronary artery without angina pectoris; E78.5 Hyperlipidemia, unspecified; I25.2 Old myocardial infarction; E11.22 Type 2 diabetes mellitus with diabetic chronic kidney disease; I12.9 Hypertensive chronic kidney disease with stage 1 through stage 4 chronic kidney disease, or unspecified chronic kidney disease; N18.3 Chronic kidney disease, stage 3 (moderate); E03.9 Hypothyroidism, unspecified; Z79.84 Long term (current) use of oral hypoglycemic drugs; N94.2 Vaginismus
CPT/HCPCS: 36415; 74177-TC; 80048; 80053; 81003; 82947; 82962; 85025; 85027; 87070; 87086; 87205; 93005; 93010; 97116-GP; 97161-GP; 99285-25; J0131; J1410; J7030

== ENCOUNTER 2019-02-28 10:04 | Emergency (ER) | payer OTHER ==
[2019-02-28 10:31] VITALS: BP 128/88; PULSE 92; TEMP 97.9; BMI 38.2
[2019-02-28 11:07] LABS: URINE APPEARANCE CLEAR; URINE BILIRUBIN NEGATIVE (NEGATIVE); URINE COLOR YELLOW; URINE GLUCOSE (UA) NEGATIVE (NEGATIVE); URINE KETONE NEGATIVE (NEGATIVE); URINE LEUK ESTERASE NEGATIVE (NEGATIVE); URINE NITRITE NEGATIVE (NEGATIVE); URINE PROTEIN NEGATIVE (NEGATIVE); URINE UROBILINOGEN 0.2 mg/dL (0.2-1.0)
--- NOTE | 2019-02-28 12:28 | PDOC ---
History of Present Illness - General Chief Complaint: Urinary Problem Stated Complaint: LWR ABD PAIN Time Seen by Provider: 02/28/19 10:44 History Source: Patient Exam Limitations: No Limitations Past History - Travel Traveled outside of the country in the last 30 days: No Close contact w/someone who was outside of country & ill: No - Past Medical History Allergies/Adverse Reactions: Allergies Allergy/AdvReac Type Severity Reaction Status Date / Time No Known Allergies Allergy Verified 09/29/18 11:43 Home Medications: Ambulatory Orders Diclofenac Sodium 1 applic TD ASDIR 02/28/19 Famotidine [Pepcid] 40 mg PO DAILY 02/28/19 Fluticasone Prop 0.05% Nasal [Flonase -] 21 spr IH BID 02/28/19 Icosapent Ethyl [Vascepa] 2 g PO BID 02/28/19 Levothyroxine Sodium [Levoxyl] 25 mcg PO DAILY 02/28/19 Metoprolol Succinate [Toprol Xl -] 25 mg PO BID 02/28/19 Omeprazole 40 mg PO DAILY 02/28/19 metFORMIN HCL [Metformin HCl] 500 mg PO BID 02/28/19 Anemia: Yes Asthma: No Cancer: No Cardiac Disorders: Yes ([place]) CVA: No COPD: No CHF: No DVT: No Dementia: No Diabetes: Yes Dialysis: No GI Disorders: No Disorders: No HTN: Yes Hypercholesterolemia: No Kidney Stones: No Liver Disease: No Psychiatric Problems: No Seizures: No Thyroid Disease: Yes Lung CA: No - Surgical History Abdominal Surgery: Yes (Bladder surgery,pud,umbilical hernia) Appendectomy: No Cardiac Surgery: No Cholecystectomy: No Gastric Stapling: No GI Surgery: No Lung Surgery: No Neurologic Surgery: No Orthopedic Surgery: No - Reproductive History Is Patient Now?: No Therapeutic (s) & number: No - Immunization History Immunization Up to Date: Yes - Psycho Social/Smoking Cessation Hx Smoking Status: No Smoking History: Never smoked Have you smoked in the past 12 months: No Number of Cigarettes Smoked Daily: 0 'Breaking Loose' booklet given: 12/02/16 Hx Alcohol Use: No Drug/Substance Use Hx: No Substance Use Type: None Hx Substance Use Treatment: No Review of Systems - Review of Systems Able to Perform ROS?: Yes Comments:: 02/28/19 12:33 CONSTITUTIONAL: Absent: fever, chills, diaphoresis, generalized weakness, malaise, loss of appetite HEENT: Absent: rhinorrhea, nasal congestion, throat pain, throat swelling, difficulty swallowing, mouth swelling, ear pain, eye pain, visual Changes CARDIOVASCULAR: Absent: chest pain, loss of consciousness, palpitations, irregular heart rate, peripheral edema RESPIRATORY: Absent: cough, shortness of breath, dyspnea with exertion, orthopnea, wheezing, stridor, hemoptysis GASTROINTESTINAL: Present: lower abdominal pain Absent: abdominal distension, nausea, vomiting, diarrhea, constipation, melena, hematochezia GENITOURINARY: Present: pelvic pain Absent: dysuria, frequency, urgency, hesitancy, hematuria, flank pain, genital pain MUSCULOSKELETAL: Absent: myalgia, arthralgia, joint swelling SKIN: Absent: rash, itching, pallor HEMATOLOGIC/IMMUNOLOGIC: Absent: easy bleeding, easy bruising, lymphadenopathy, frequent infections ENDOCRINE: Absent: unexplained weight gain, unexplained weight loss, heat intolerance, cold intolerance NEUROLOGIC: Absent: headache, focal weakness or paresthesias, dizziness, unsteady gait, seizure, mental status changes, bladder or bowel incontinence PSYCHIATRIC: Absent: anxiety, depression, suicidal or homicidal ideation, hallucinations. Is the patient limited Fijian proficient: No *Physical Exam - Vital Signs Last Vital Signs Temp Pulse Resp BP Pulse Ox 97.9 F 92 H 20 128/88 97 02/28/19 10:30 02/28/19 10:30 02/28/19 10:30 02/28/19 10:30 02/28/19 10:30 - Physical Exam 02/28/19 12:44 GENERAL: Well developed, well nourished. Awake and alert. No acute distress. HEENT: Normocephalic, atraumatic. PERRLA, EOMI. No conjunctival pallor. Sclera are non- icteric. Moist mucous membranes. Oropharynx is clear. NECK: Supple. Full ROM. No JVD. Carotid pulses 2+ and symmetric, without bruits. No thyromegaly. No lymphadenopathy. CARDIOVASCULAR: Regular rate and rhythm. No murmurs, rubs, or gallops. Distal pulses are 2+ and symmetric. PULMONARY: No evidence of respiratory distress. Lungs clear to auscultation bilaterally. No wheezing, rales or rhonchi. ABDOMINAL: Suprapubic tenderness, right lower quadrant and left lower quadrant discomfort. Soft. Non-tender. Non-distended. No rebound or guarding. No organomegaly. Normoactive bowel sounds. Pelvic: External genitalia with no lesions, vulva has been removed. Vaginal vault is red and irritated. Pt was unable to tolerate the rest of the exam. Uterus is nontender and normal in size. MUSCULOSKELETAL Normal range of motion at all joints. No bony deformities or tenderness. No CVA tenderness. EXTREMITIES: No cyanosis. No clubbing. No edema. No calf tenderness. SKIN: Warm and dry. Normal capillary refill. No rashes. No jaundice. NEUROLOGICAL: Alert, awake, appropriate. Cranial nerves 2-12 intact. No deficits to light touch and temperature in face, upper extremities and lower extremities. No motor deficits in the in face, upper extremities and lower extremities. Normoreflexic in the upper and lower extremities. Normal speech. Toes are down- going bilaterally. Gait is normal without ataxia. PSYCHIATRIC: Cooperative. Good eye contact. Appropriate mood and affect. ED Treatment Course - ADDITIONAL ORDERS Additional order review: Laboratory Results 02/28/19 10:30 Urine Color Yellow Urine Appearance Clear Urine pH 5.0 Ur Specific [place] 1.011 Urine Protein Negative Urine Glucose (UA) Negative Urine Ketones Negative Urine Blood Negative Urine Nitrite Negative Urine Bilirubin Negative Urine Urobilinogen 0.2 Ur Leukocyte Esterase Negative Medical Decision Making - Medical Decision Making 02/28/19 12:45 Patient is 78-year-old with past medical history of hypertension, hyperlipidemia , diabetes, hypothyroid, PUD, CAD status post PA, CKD, frequent UTIs, presents to the ER with suprapubic pressure, pelvic pain for 3 days. She states that the pain is severe and goes to the "inside. She states she has a lot of dysuria and it hurts when she pees. Denies fevers, chills, back pain, nausea, vomiting, constipation and hematuria. A/P: Abdominal pain, vaginal discomfort On exam patient with suprapubic tenderness, right lower and left lower abdominal discomfort as well. Urine was sent from triage. It is grossly negative for infection at this time. On pelvic exam, patient is unable to tolerate the speculum. What is noted is a irritated vaginal vault and some thin grayish discharge. No smell noted Culture of the vaginal canal was sent Will transfer to the main ER for abdominal pain work-up given negative urine. Basic labs and ultrasound was ordered Signout given to ANGIE Marin and charge nurse Onelia made aware. Discharge - Discharge Information Problems reviewed: Yes Clinical Impression/Diagnosis: Pelvic pain Abdominal pain Qualifiers: Abdominal location: unspecified location Qualified Code(s): R10.9 - Unspecified abdominal pain - Follow up/Referral - Patient Discharge Instructions - Post Discharge Activity
[2019-02-28 13:10] LABS: BASO % 1.1 % (0-2.0); EOS % 4.1 % (0-4.5); HEMATOCRIT 40.4 % (32.4-45.2); HEMOGLOBIN 13.3 GM/dL (10.7-15.3); MCH 29.5 pg (25.7-33.7); MCHC 32.8 g/dl (32.0-36.0); MEAN CELL VOLUME 89.9 fl (80-96); MEAN PLT VOLUME 8.1 fl (7.5-11.1); MONO % 10.8 % (3.8-10.2); PLATELET COUNT 235 K/MM3 (134-434); RBC 4.49 M/mm3 (3.60-5.2); RDW 14.2 % (11.6-15.6); WHITE BLOOD COUNT 4.9 K/mm3 (4.0-10.0)
[2019-02-28 13:21] LABS: INR 0.99 (0.83-1.09); PROTHROMBIN TIME (PATIENT) 11.7 SEC (9.7-13.0)
[2019-02-28 13:35] LABS: BILIRUBIN,TOTAL 0.2 mg/dL (0.2-1); BLOOD UREA NITROGEN 20.7 mg/dL (7-18); CALCIUM 9.3 mg/dL (8.5-10.1); CREATININE 1.2 mg/dL (0.55-1.3); POTASSIUM 4.6 mmol/L (3.5-5.1); TOT PROT 8.4 g/dl (6.4-8.2)
--- NOTE | 2019-02-28 14:22 | PDOC ---
*Physical Exam - Vital Signs Last Vital Signs Temp Pulse Resp BP Pulse Ox 97.9 F 92 H 20 128/88 97 02/28/19 10:30 02/28/19 10:30 02/28/19 10:30 02/28/19 10:30 02/28/19 10:30 - Physical Exam General Appearance: Yes: Appropriately Dressed. No: Apparent Distress HEENT: positive: Normal Voice Neck: positive: Supple Respiratory/Chest: negative: Respiratory Distress Female Pelvic Exam: positive: other (Exam performed by ANGIE Conner) Gastrointestinal/Abdominal: positive: Normal Bowel Sounds, Soft. negative: Tender, Distended, Guarding, Rebound Musculoskeletal: negative: CVA Tenderness Integumentary: positive: Dry, Warm Neurologic: positive: Fully Oriented, Alert, Normal Mood/Affect ED Treatment Course - LABORATORY CBC & Chemistry Diagram: 02/28/19 12:53 02/28/19 12:53 - ADDITIONAL ORDERS Additional order review: Laboratory Results 02/28/19 02/28/19 02/28/19 12:53 12:53 10:30 PT with INR 11.70 INR 0.99 Sodium 137 Potassium 4.6 Chloride 105 Carbon Dioxide 23 Anion Gap 9 BUN 20.7 H Creatinine 1.2 Est GFR (CKD-EPI)AfAm 50.13 Est GFR (CKD-EPI)NonAf 43.25 Random Glucose 135 H Calcium 9.3 Total Bilirubin 0.2 AST 32 ALT 38 Alkaline Phosphatase 111 Total Protein 8.4 H Albumin 4.0 Urine Color Yellow Urine Appearance Clear Urine pH 5.0 Ur Specific [place] 1.011 Urine Protein Negative Urine Glucose (UA) Negative Urine Ketones Negative Urine Blood Negative Urine Nitrite Negative Urine Bilirubin Negative Urine Urobilinogen 0.2 Ur Leukocyte Esterase Negative 02/28/19 12:53 RBC 4.49 MCV 89.9 MCHC 32.8 RDW 14.2 D MPV 8.1 Neutrophils % 57.0 Lymphocytes % 27.0 Monocytes % 10.8 H Eosinophils % 4.1 Basophils % 1.1 Medical Decision Making - Medical Decision Making 02/28/19 14:22 Patient signed out to me from fast track 78 yo F, s/p procedure for vulva ca, s/p procedure [address] Duffy , recurrent UTIs, diabetes, here with vaginal and lower abdominal pain for 2 days worsened last night. No acute urinary issues and no vaginal discharge, bleeding, n/v/f/c or change in BM. States pain similar to pain prior to vulva surgery. Patient well-appearing and stable with benign abdomen. Per ANGIE Conner, patient was unable to tolerate speculum exam but from limited exam, intraoitus/distal vault jenna erythematous. No obvious lesion otherwise. Labs and UA unremarkable. Patient s/p US. Contacted Dr. Duffy to discuss disposition but MD reports that patient does not follow with her, that patient follows up with Dr. Barnes who was the one who actually diagnosed the vulvar cancer. [facility] patient needs to follow-up with and her oncologist 02/28/19 14:46 US read as small atrophic uterus with normal endometrial stripe. Both ovaries were not visualized. On reassessment patient feels well. Abdomen remains benign on reassessment. Will contact Dr. Barnes to discuss disposition 02/28/19 15:15 Dr. Cameron [facility] patient should follow-up with Dr Charles at facility. On re-assessment now, patient remains well-appearing with benign abdomen. Currently eating a sandwich and walking through facility. Stable for discharge to follow-up in clinic this week. Reasons to return discussed with patient Discharge - Discharge Information Problems reviewed: Yes Clinical Impression/Diagnosis: Pelvic pain Condition: Improved Disposition: HOME - Follow up/Referral - Patient Discharge Instructions Additional Instructions: La causa de chopra dolor no est wayne en jm momento, thang necesitar navjot evaluacin adicional por parte de PRESCRIPTION BENEFIT SPECIALIST. Llame a la clnica de tasha a tasha para hacer navjot krystal para an al Dr. Charles Si los sntomas empeoran, regrese a la yvonne de emergencias - Post Discharge Activity
--- NOTE | 2019-03-03 09:53 | PDOC ---
*Physical Exam - Vital Signs Last Vital Signs Temp Pulse Resp BP Pulse Ox 97.9 F 92 H 20 128/88 97 02/28/19 10:30 02/28/19 10:30 02/28/19 10:30 02/28/19 10:30 02/28/19 10:30 ED Treatment Course - LABORATORY CBC & Chemistry Diagram: 02/28/19 12:53 02/28/19 12:53 - ADDITIONAL ORDERS Additional order review: 02/28/19 12:30 Gram Stain - Final Vaginal Genital Culture - Final NORMAL GENITAL LUCIANO ISOLATED 02/28/19 10:30 Urine Culture - Final Urine - Urine Clean Catch Escherichia Coli 02/28/19 12:53 RBC 4.49 MCV 89.9 MCHC 32.8 RDW 14.2 D MPV 8.1 Neutrophils % 57.0 Lymphocytes % 27.0 Monocytes % 10.8 H Eosinophils % 4.1 Basophils % 1.1 Medical Decision Making - Medical Decision Making 03/03/19 09:51 Patient's son in the emergency room due to a call back for positive E. coli in the urine. Need for antibiotics. Sensitivity reviewed sensitive to most everything except for Levaquin. Keflex 500 mg twice daily x5 days prescribed. Discharge - Discharge Information Problems reviewed: Yes Clinical Impression/Diagnosis: Pelvic pain Condition: Improved Disposition: HOME - Follow up/Referral - Patient Discharge Instructions Additional Instructions: La causa de chopra dolor no est wayne en jm momento, thang necesitar navjot evaluacin adicional por parte de [employer]. Llame a la clnica de tasha a tasha para hacer navjot krystal para an al Dr. Charles Si los sntomas empeoran, regrese a la yvonne de emergencias - Post Discharge Activity
== END 2019-02-28 16:00 | disposition home or self-care (01) ==
LOC: JERFT 10:04 → JER 10:04
DX: R10.2 Pelvic and perineal pain (principal); I10 Essential (primary) hypertension; E11.9 Type 2 diabetes mellitus without complications; E07.9 Disorder of thyroid, unspecified; Z85.44 Personal history of malignant neoplasm of other female genital organs; Z87.440 Personal history of urinary (tract) infections
CPT/HCPCS: 36415; 76856-TC; 80053; 81003; 85025; 85610; 87070; 87086; 87186; 87205; 99282-25

== ENCOUNTER 2019-03-08 12:59 | Emergency (ER) | payer OTHER ==
[2019-03-08 13:20] VITALS: BMI 29.2
--- NOTE | 2019-03-08 13:58 | PDOC ---
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 Pain is located in all my back and the sides, can't resist it, also in my waist. Brianda here at [facility] they found a bacteria inside her abdomen, gave her Abx and now she fiished her Abx course yesterday. Patient states she doesn't want tylenol because it doesn't help her pain OB: Dr. Barnes PCP: brandon nava PSH: Hernia operation, eye surgery, breast surgery Social Hx: Resides at home with a health aid Allergies: NKA, NKDA Past History - Past Medical History Allergies/Adverse Reactions: Allergies Allergy/AdvReac Type Severity Reaction Status Date / Time No Known Allergies Allergy Verified 03/08/19 13:55 Home Medications: Ambulatory Orders Diclofenac Sodium 1 applic TD ASDIR 02/28/19 Famotidine [Pepcid] 40 mg PO DAILY 02/28/19 Fluticasone Prop 0.05% Nasal [Flonase -] 21 spr IH BID 02/28/19 Icosapent Ethyl [Vascepa] 2 g PO BID 02/28/19 Levothyroxine Sodium [Levoxyl] 25 mcg PO DAILY 02/28/19 Metoprolol Succinate [Toprol Xl -] 25 mg PO BID 02/28/19 Omeprazole 40 mg PO DAILY 02/28/19 metFORMIN HCL [Metformin HCl] 500 mg PO BID 02/28/19 Cephalexin Monohydrate [Keflex -] 500 mg PO BID #10 capsule 03/03/19 Anemia: Yes Asthma: No Cancer: No Cardiac Disorders: Yes ([place]) CVA: No COPD: No CHF: No DVT: No Dementia: No Diabetes: Yes Dialysis: No GI Disorders: No Disorders: No HTN: Yes Hypercholesterolemia: No Kidney Stones: No Liver Disease: No Psychiatric Problems: No Seizures: No Thyroid Disease: Yes Lung CA: No - Surgical History Abdominal Surgery: Yes (Bladder surgery,pud,umbilical hernia) Appendectomy: No Cardiac Surgery: No Cholecystectomy: No Gastric Stapling: No GI Surgery: No Lung Surgery: No Neurologic Surgery: No Orthopedic Surgery: No - Reproductive History Therapeutic (s) & number: No - Immunization History Immunization Up to Date: Yes - Psycho Social/Smoking Cessation Hx Smoking Status: No Smoking History: Never smoked Have you smoked in the past 12 months: No Number of Cigarettes Smoked Daily: 0 Information on smoking cessation initiated: No 'Breaking Loose' booklet given: 12/02/16 Hx Alcohol Use: No Drug/Substance Use Hx: No Substance Use Type: None Hx Substance Use Treatment: No Review of Systems - Review of Systems Able to Perform ROS?: Yes Comments:: CONSTITUTIONAL: Absent: fever, no chills, no fatigue EYES: Absent: visual changes ENT: Absent: ear pain, no sore throat CARDIOVASCULAR: Absent: chest pain, no palpitations RESPIRATORY: Absent: cough, no SOB GI: Absent: abdominal pain, no nausea, no vomiting, no constipation, no diarrhea GENITOURINARY: Absent: dysuria, no frequency, no hematuria MUSKULOSKELETAL: Present: Back pain, arthralgia Absent: no myalgia SKIN: Absent: rash NEURO: Absent: headache *Physical Exam - Vital Signs Last Vital Signs Temp Pulse Resp BP Pulse Ox 97 H 16 157/85 98 03/08/19 13:14 03/08/19 13:14 03/08/19 13:14 03/08/19 13:14 - Physical Exam GENERAL: Elderly, frail appearing. Well-nourished. Mild apparent distress. HEENT: Normocephalic, atraumatic. PERRL, EOM intact. CARDIOVASCULAR: Normal S1, S2. Regular rate and rhythm. PULMONARY: No evidence of respiratory distress. Lungs clear to auscultation bilaterally. No wheezing, rales or rhonchi. ABDOMEN: Soft, non-distended, non-tender. Back: There is diffuse lower back TTP EXTREMITIES: Normal ROM in all four extremities. No gross deformities. SKIN: Warm, dry. No rash NEUROLOGICAL: No focal neurological deficits. ED Treatment Course - LABORATORY CBC & Chemistry Diagram: 03/08/19 14:30 03/08/19 14:30 - RADIOLOGY Radiograph Interpretation: CTAP: EXAM#: TYPE/EXAM: RESULT: [id number] CT/ABDOMEN PELVIS CT WITH CONTR HISTORY PROVIDED: Severe lower back and waist pain TECHNIQUE: Sequential axial images were obtained from the domes of the diaphragm through the symphysis pubis following the administration of intravenous contrast material. The lung bases are clear. The liver, spleen, pancreas, adrenal glands and kidneys demonstrate no significant abnormalities. The gallbladder is clear. There is no evidence of intra-abdominal or retroperitoneal lymphadenopathy or fluid collections. Examination of the pelvis demonstrates no evidence of pelvic masses, fluid collections or lymphadenopathy. There is extensive diverticulosis of the left colon with no evidence of acute diverticulitis. There is severe degenerative arthritic changes of the lumbosacral spine with no evidence of acute bony pathology. Since a prior study of 09/29/2018, there has been no significant change. IMPRESSION: 1. Extensive diverticulosis of the left colon with no evidence of diverticulitis or acute pathology within the abdomen or pelvis. 2. Severe degenerative arthritis of the lumbosacral spine. Please see above discussion. 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 Pain is located in all my back and the sides, can't resist it, also in my waist. Brianda here at [facility] they found a bacteria inside her abdomen, gave her Abx and now she fiished her Abx course yesterday. Patient states she doesn't want tylenol because it doesn't help her pain Vital Signs Temp Pulse Resp BP Pulse Ox 97 H 16 157/85 98 03/08/19 13:14 03/08/19 13:14 03/08/19 13:14 03/08/19 13:14 DDx IBNLT: Metastatis, vertebral fx, abdominal abscess, UTI/Pylo, electrolyte/ metabolic disturbance Plan: Labs, CTAP, analgesia, IV hydration, re-assess. Labs: Elevated BUN - Hydrating w 2LNS patient cleared for contrast CTAP: 1. Extensive diverticulosis of the left colon with no evidence of diverticulitis or acute pathology within the abdomen or pelvis. 2. Severe degenerative arthritis of the lumbosacral spine. Please see above discussion. Re-assessment: Patient doing much better in ED, seen eating multiple turkey sandwiches and in no active distress. CTAP grossly unremarkable Disposition: Home with PCP FU Discharge - Discharge Information Problems reviewed: Yes Clinical Impression/Diagnosis: Back pain Qualifiers: Back pain location: low back pain Chronicity: unspecified Back pain laterality : unspecified Sciatica presence: without sciatica Qualified Code(s): M54.5 - Low back pain Condition: Improved Disposition: HOME - Admission No - Follow up/Referral Referrals: Brandon Nava MD [Primary Care Provider] - - Patient Discharge Instructions Patient Printed Discharge Instructions: Back Pain (Alternative Therapy), DI for Low Back Pain Additional Instructions: Please schedule a follow up appointment with your primary care doctor in the next 3 to 5 days. Your ER workup is not complete without it. Come back to the ER immediately with any new or worsening concerns. Thank you for coming to the [facility] ER. We hope you feel better soon! Print Language: IVORIAN - Post Discharge Activity
[2019-03-08] MEDS ORDERED: SODIUM CHLORIDE 1,000 ML IV STA (14:13)
[2019-03-08] MEDS ORDERED: KETOROLAC TROMETHAMINE 30 MG/1 ML VIAL IVPUSH ONE (14:13)
[2019-03-08] MEDS ORDERED: KETOROLAC TROMETHAMINE 30 MG/1 ML VIAL ONE (14:21)
[2019-03-08 15:09] LABS: BASO % 0.8 % (0-2.0); EOS % 3.1 % (0-4.5); HEMATOCRIT 37.1 % (32.4-45.2); HEMOGLOBIN 12.3 GM/dL (10.7-15.3); LYMPH % 30.4 % (8-40); MCH 29.5 pg (25.7-33.7); MCHC 33.2 g/dl (32.0-36.0); MEAN CELL VOLUME 88.8 fl (80-96); MEAN PLT VOLUME 7.8 fl (7.5-11.1); MONO % 8.7 % (3.8-10.2); PLATELET COUNT 320 K/MM3 (134-434); RBC 4.17 M/mm3 (3.60-5.2); RDW 13.9 % (11.6-15.6)
[2019-03-08 15:15] LABS: URINE APPEARANCE CLEAR; URINE BILIRUBIN NEGATIVE (NEGATIVE); URINE COLOR YELLOW; URINE GLUCOSE (UA) NEGATIVE (NEGATIVE); URINE KETONE TRACE (NEGATIVE); URINE LEUK ESTERASE NEGATIVE (NEGATIVE); URINE NITRITE NEGATIVE (NEGATIVE); URINE PROTEIN NEGATIVE (NEGATIVE); URINE UROBILINOGEN 0.2 mg/dL (0.2-1.0)
[2019-03-08 15:50] LABS: ALBUMIN 4.2 g/dl (3.4-5.0); BILIRUBIN,TOTAL 0.3 mg/dL (0.2-1); BLOOD UREA NITROGEN 23.3 mg/dL (7-18); CALCIUM 9.7 mg/dL (8.5-10.1); CREATININE 1.3 mg/dL (0.55-1.3); POTASSIUM 4.8 mmol/L (3.5-5.1); TOT PROT 8.4 g/dl (6.4-8.2)
[2019-03-08] MEDS ORDERED: SODIUM CHLORIDE 0.9% 500 ML INFUS.BAG IV ONE (15:51)
--- NOTE | 2019-03-08 17:10 | PDOC ---
Documentation entered by Urmila Petit SCRIBE, acting as scribe for Deepali Frazier MD. Deepali Frazier MD: This documentation has been prepared by the Damaso valera Adrianna, SCRIBE, under my direction and personally reviewed by me in its entirety. I confirm that the documentation accurately reflects all work, treatment, procedures, and medical decision making performed by me. Attending Attestation - Resident Resident Name: Tej Moscoso - ED Attending Attestation I have performed the following: I have examined & evaluated the patient, The case was reviewed & discussed with the resident, I agree w/resident's findings & plan, Exceptions are as noted - HPI HPI: The patient is a 78 year old female, with a significant PMH of vulvar cancer, PUD, OA, Hypothyroidism, NIDDM, CAD (s/p stent placement 3 yrs ago), who presents to the ED for evaluation of back pain for 5 days. Patient complains of diffuse back pain, that radiates into her waist and sides. She notes she cannot eat or sleep secondary to the pain. Patient was seen in [facility] one week ago, and was found to have positive E. coli in the urine, given Keflex 500 mg twice daily x5 days. She completed her course of antibiotics yesterday. Allergies: NKA, NKDA Surgical History: Hernia operation, eye surgery, breast surgery Social History: Lives at home with health aid PCP: Dr. Ayala OB: Dr. Barnes - Physicial Exam PE: 03/08/19 17:08 GENERAL: Elderly, frail appearing. Well-nourished. Mild apparent distress. HEENT: Normocephalic, atraumatic. PERRL, EOM intact. CARDIOVASCULAR: Normal S1, S2. Regular rate and rhythm. PULMONARY: No evidence of respiratory distress. Lungs clear to auscultation bilaterally. ABDOMEN: Soft, non-distended, non-tender. Back: There is diffuse lower back TTP EXTREMITIES: Normal ROM in all four extremities. No gross deformities. SKIN: Warm, dry. No rash NEUROLOGICAL: No focal neurological deficits. - Medical Decision Making 03/08/19 17:08 EKG: Normal sinus rhythm, rate of 70 bpm, axis is normal, intervals are normal, no ST elevation or depression, T wave inversion noted in lead I and aVF otherwise t waves upright 03/08/19 17:09 Laboratory Tests 03/08/19 03/08/19 03/08/19 14:30 14:30 14:30 WBC 8.0 Hgb 12.3 Hct 37.1 Plt Count 320 D BUN 23.3 H Creatinine 1.3 Urine Blood Negative Urine Nitrite Negative Ur Leukocyte Esterase Negative CT results pending 03/08/19 18:48 CT: Extensive diverticulosis of the left colon without diverticulitis Severe degenerative arthritis of the lumbosacral spine No acute bony pathology Patient is ambulatory with a steady gait Tylenol IV given for pain Patient has a follow-up with primary care physician for PT referral Return to the ER for any other concerns or complaint
[2019-03-08 17:42] VITALS: BP 139/63; PULSE 82; TEMP 97.3
[2019-03-08] MEDS ORDERED: ACETAMINOPHEN 1000 MG/100 ML VIAL (NON FORMULARY) IVPB ONE (17:53)
[2019-03-08] MEDS ORDERED: ACETAMINOPHEN INJECTION 100 ML IVPB ONE (17:54)
--- NOTE | 2019-03-09 11:57 | EKG ---
Test Reason : Blood Pressure : / mmHG Vent. Rate : 070 BPM Atrial Rate : 070 BPM P-R Int : 182 ms QRS Dur : 076 ms QT Int : 394 ms P-R-T Axes : 000 -27 129 degrees QTc Int : 425 ms NORMAL SINUS RHYTHM INFERIOR INFARCT (CITED ON OR BEFORE 01-SEP-2017) ANTERIOR INFARCT , AGE UNDETERMINED ABNORMAL ECG WHEN COMPARED WITH ECG OF 29-SEP-2018 18:05, NONSPECIFIC T WAVE ABNORMALITY NOW EVIDENT IN INFERIOR LEADS Confirmed by ALVA BAIRD MD ([id number]) on 03/09/2019 11:57:17 AM Referred By: Confirmed By:ALVA BAIRD MD
== END 2019-03-08 18:49 | disposition home or self-care (01) ==
LOC: JER 12:59
PROC: 3E033NZ Introduction of Analgesics, Hypnotics, Sedatives into Peripheral Vein, Percutaneous Approach (ICD-10-PCS; principal; 2019-03-08)
PROC: 3E0333Z Introduction of Anti-inflammatory into Peripheral Vein, Percutaneous Approach (ICD-10-PCS; 2019-03-08)
PROC: 3E0337Z Introduction of Electrolytic and Water Balance Substance into Peripheral Vein, Percutaneous Approach (ICD-10-PCS; 2019-03-08)
DX: M54.5 Low back pain (principal); Z85.89 Personal history of malignant neoplasm of other organs and systems; K27.9 Peptic ulcer, site unspecified, unspecified as acute or chronic, without hemorrhage or perforation; E03.9 Hypothyroidism, unspecified; E11.9 Type 2 diabetes mellitus without complications; I25.10 Atherosclerotic heart disease of native coronary artery without angina pectoris; Z95.5 Presence of coronary angioplasty implant and graft
CPT/HCPCS: 36415; 74177-TC; 80053; 81003; 85025; 87086; 93005; 93010; 99284-25; J0131; J7030; Q9967

== ENCOUNTER 2019-10-20 05:14 | Day surgery (SDC) | payer OTHER ==
[2019-10-19 09:11] VITALS: BMI 28.1
[~2019-10-20 05:14] MED LIST: BUPIVACAINE HCL/PF 0.5% (5 MG/ML) 30 ML VIAL IJ ONE; IOHEXOL 180 MG/1 ML ML IJ ONE; LIDOCAINE HCL 1%, 10 MG/ML (20ML VIAL) INF ONE
[2019-10-20] MEDS ORDERED: LIDOCAINE HCL 1%, 10 MG/ML (20ML VIAL) ONE (07:14)
[2019-10-20] MEDS ORDERED: BUPIVACAINE HCL/PF 0.25% (2.5MG/ML) 10 ML VIAL ONE (07:14)
[2019-10-20] MEDS ORDERED: TRIAMCINOLONE ACET 40MG/1ML VIAL IM ONE (09:07)
[2019-10-20] MEDS ORDERED: BUPIVACAINE HCL/PF 0.5% (5 MG/ML) 30 ML VIAL IJ ONE (09:07)
[2019-10-20] MEDS ORDERED: LIDOCAINE HCL 1%, 10 MG/ML (20ML VIAL) INF ONE (09:07)
[2019-10-20] MEDS ORDERED: IOHEXOL 180 MG/1 ML ML IJ ONE (09:07)
[2019-10-20 10:19] VITALS: BP 141/74; PULSE 68; TEMP 96.9
--- NOTE | 2019-10-23 22:12 | PROC ---
Procedure Note Procedure: Pre procedure Diagnosis: Sacroilliac Joint Dysfunction Post Procedure Diagnosis: same Anesthesia: local Procedure Performed: Right & Left Sacroilliac Joint Injection Under Fluoroscopic Guidance After the risks and benefits were explained, informed consent was obtained. The patient was then taken to the procedure room and positioned prone on the procedure table. Time out was performed. The region overlying the right sacroiliac joint was identified using fluoroscopy. The skin was prepped and draped in the usual sterile fashion. The skin and soft tissues were anesthetized using 2% lidocaine. Using fluoroscopic guidance, a 22 gauge 3.5 inch spinal needle was then introduced to the inferior aspect of the posterior Right sacroiliac joint. Omnipaque 180 confirmed appropriate needle placement. 1 cc .5% bupivacaine and 1 cc Kenalog was then injected. The same was performed on the left side. The patient tolerated the procedure well and there were no complications. The patient was taken to the post procedure recovery area in good condition. Vital signs remained stable before, during, and after the procedure. The patient was given oral and written follow-up instructions. The patient was given a follow up appointment with me in the near future. Miguel Bob DO
== END 2019-10-20 09:50 | disposition home or self-care (01) ==
LOC: JASU-SURG 05:14
PROVIDERS: ATTEND Pain Medicine Pain Medicine
PROC: 3E0U3BZ Introduction of Anesthetic Agent into Joints, Percutaneous Approach (ICD-10-PCS; 2019-10-20)
PROC: 3E0U33Z Introduction of Anti-inflammatory into Joints, Percutaneous Approach (ICD-10-PCS; principal; 2019-10-20 09:00)
DX: M53.3 Sacrococcygeal disorders, not elsewhere classified (principal)
CPT/HCPCS: 76000-TC-FY

== ENCOUNTER 2019-11-17 04:46 | Day surgery (SDC) | payer OTHER ==
[2019-11-15 11:49] VITALS: BMI 28.3
[2019-11-17 11:04] VITALS: BP 140/64; PULSE 63; TEMP 97.3
== END 2019-11-17 12:10 | disposition home or self-care (01) ==
LOC: JASU-SURG 04:46
PROVIDERS: ATTEND Pain Medicine Pain Medicine
DX: Z53.8 Procedure and treatment not carried out for other reasons (principal)
CPT/HCPCS: 82962

== ENCOUNTER 2022-01-15 12:48 | Inpatient (IN) | payer OTHER ==
[2022-01-15 12:58] VITALS: BMI 33.2
[2022-01-15] MEDS ORDERED: ASPIRIN 81 MG CHEWABLE TABLETS PO ONE ×2 (13:07→14:32)
[2022-01-15] MEDS ORDERED: ASPIRIN 81 MG CHEWABLE TABLETS ONE ×2 (13:44→14:41)
[2022-01-15 13:48] LABS: BASO % 0.7 % (0-2.0); EOS % 0.8 % (0-4.5); HEMATOCRIT 42.4 % (32.4-45.2); HEMOGLOBIN 13.8 GM/dL (10.7-15.3); LYMPH % 18.3 % (8-40); MCH 29.3 pg (25.7-33.7); MCHC 32.5 g/dl (32.0-36.0); MEAN CELL VOLUME 90.3 fl (80-96); MEAN PLT VOLUME 7.7 fl (7.5-11.1); MONO % 7.8 % (3.8-10.2); NEUT % 72.4 % (42.8-82.8); PLATELET COUNT 206 10^3/uL (134-434); RDW 13.9 % (11.6-15.6); WHITE BLOOD COUNT 7.5 K/mm3 (4.0-10.0)
[2022-01-15 13:55] LABS: PROTHROMBIN TIME (PATIENT) 11.5 SEC (9.7-13.0)
[2022-01-15 13:58] LABS: ACTIVATED PTT 28.3 SECONDS (25.2-36.5)
[2022-01-15 14:09] LABS: CHLORIDE 101 mmol/L (98-107); SODIUM 139 mmol/L (136-145)
[2022-01-15 14:11] LABS: CALCIUM 9.7 mg/dL (8.5-10.1)
[2022-01-15 14:12] LABS: ALBUMIN 4.2 g/dl (3.4-5.0); ANION GAP 9 MMOL/L (8-16); BLOOD UREA NITROGEN 28.2 mg/dL (7-18); CO2 29 mmol/L (21-32); GLUCOSE,RANDOM 126 mg/dL (74-106); MAGNESIUM 2.1 mg/dL (1.8-2.4)
[2022-01-15 14:15] LABS: CREATININE 1.2 mg/dL (0.55-1.3); SGOT/AST 45 U/L (15-37); SGPT/ALT 39 U/L (13-61)
[2022-01-15 14:17] LABS: BILIRUBIN,TOTAL 0.4 mg/dL (0.2-1); TOT PROT 8.1 g/dl (6.4-8.2)
[2022-01-15 14:18] LABS: ALK PHOS 89 U/L (45-117)
[2022-01-15] MEDS ORDERED: TICAGRELOR 90 MG TABLET PO ONE ×2 (14:41→14:45)
[2022-01-15] MEDS ORDERED: TICAGRELOR 60 MG TABLET PO ONE (14:41)
[2022-01-15] MEDS ORDERED: HEPARIN NA (PORCINE) 5,000 UNITS/ML 1ML VIAL IVPUSH PRN ×3 (14:49→14:54)
[2022-01-15] MEDS ORDERED: HEPARIN NA (PORCINE) 5,000 UNITS/ML 1ML VIAL ONE (15:02)
[2022-01-15] MEDS ORDERED: HEPARIN INFUSION - 25,000 UNITS/500 ML INFUS.BAG IVPB ONE (15:02)
[2022-01-15] MEDS: HEPARIN - 25,000 UNIT in SODIUM CHLORIDE 495 ML IV SCH (15:15)
[2022-01-15] MEDS ORDERED: METOPROLOL TARTRATE 25 MG TABLET (FP) PO ONE (15:52)
[2022-01-15] MEDS ORDERED: NITROGLYCERIN SUBLINGUAL 1/200 0.3 MG BTL SL ONE (15:55)
[2022-01-15] MEDS ORDERED: NITROGLYCERIN SUBLINGUAL 1/150 0.4 MG TAB SL ONE (16:01)
[2022-01-15] MEDS: INSULIN SLIDING SCALE (NOVOLOG) 1 VIAL SQ SCH (16:30)
[2022-01-15] MEDS ORDERED: FUROSEMIDE 40 MG/4 ML INJECTABLE VIAL IVPUSH ONE (18:02)
[2022-01-15] MEDS ORDERED: ATORVASTATIN CA 80 MG TABLET (FP) PO SCH (22:00)
[2022-01-15] MEDS ORDERED: TICAGRELOR 60 MG TABLET PO SCH (22:00)
[2022-01-16] MEDS: INSULIN SLIDING SCALE (NOVOLOG) 1 VIAL SQ SCH ×2 (00:24→06:15)
[2022-01-16] MEDS: PANTOPRAZOLE 40 MG TABLET PO SCH ×2 (00:26→10:20)
[2022-01-16 03:10] VITALS: RESP 20; TEMP 98
[2022-01-16] MEDS: HEPARIN - 25,000 UNIT in SODIUM CHLORIDE 495 ML IV SCH (03:20)
[2022-01-16] MEDS ORDERED: LEVOTHYROXINE NA 25 MCG TABLET (FP) PO SCH (07:00)
[2022-01-16] MEDS ORDERED: NITROGLYCERIN SUBLINGUAL 1/150 0.4 MG TAB SL PRN (08:06)
[2022-01-16] MEDS ORDERED: TICAGRELOR 90 MG TABLET PO SCH (10:00)
[2022-01-16] MEDS ORDERED: CLOPIDOGREL BISULFATE 75 MG TABLET (FP) PO SCH (10:00)
[2022-01-16] MEDS ORDERED: busPIRone HCL 5 MG TABLET PO SCH (10:00)
[2022-01-16 10:19] VITALS: BP 147/76; PULSE 92
== END 2022-01-16 11:30 | disposition short-term general hospital (02) | DRG 282 ==
LOC: JER 12:48 → JERBED 15:17 → J4W 01-16 04:34
PROVIDERS: ADMIT Internal Medicine; ATTEND Internal Medicine
DX: I21.4 Non-ST elevation (NSTEMI) myocardial infarction (principal); E78.5 Hyperlipidemia, unspecified; I25.10 Atherosclerotic heart disease of native coronary artery without angina pectoris; E03.9 Hypothyroidism, unspecified; M06.9 Rheumatoid arthritis, unspecified; E11.42 Type 2 diabetes mellitus with diabetic polyneuropathy; M81.0 Age-related osteoporosis without current pathological fracture; R26.2 Difficulty in walking, not elsewhere classified; R42 Dizziness and giddiness; R53.1 Weakness; Z95.5 Presence of coronary angioplasty implant and graft; I12.9 Hypertensive chronic kidney disease with stage 1 through stage 4 chronic kidney disease, or unspecified chronic kidney disease; E11.22 Type 2 diabetes mellitus with diabetic chronic kidney disease; N18.2 Chronic kidney disease, stage 2 (mild); Z87.11 Personal history of peptic ulcer disease; I25.2 Old myocardial infarction; Z85.89 Personal history of malignant neoplasm of other organs and systems
CPT/HCPCS: 0241U-QW; 36415; 71045-TC-FY; 80053; 82962; 83036; 83735; 84484; 85025; 85610; 85730; 93005; 93010; 93306-TC; 99285-25; J1644

== ENCOUNTER 2023-05-29 11:48 | Emergency (ER) | payer OTHER ==
[2023-05-29 11:59] VITALS: TEMP 97.6; BMI 30.7
[2023-05-29 13:26] LABS: EOS % 4.5 % (0-4.5); HEMATOCRIT 32.6 % (32.4-45.2); HEMOGLOBIN 10.6 GM/dL (10.7-15.3); LYMPH % 27.5 % (8-40); MCH 27.8 pg (25.7-33.7); MCHC 32.4 g/dl (32.0-36.0); MEAN CELL VOLUME 85.7 fl (80-96); MEAN PLT VOLUME 6.9 fl (7.5-11.1); MONO % 9.2 % (3.8-10.2); NEUT % 57.8 % (42.8-82.8); PLATELET COUNT 305 10^3/uL (134-434); RBC 3.81 M/mm3 (3.60-5.2); RDW 15.3 % (11.6-15.6); WHITE BLOOD COUNT 6.4 K/mm3 (4.0-10.0)
[2023-05-29 13:57] LABS: POTASSIUM 4.9 mmol/L (3.5-5.1)
[2023-05-29 13:59] LABS: ALBUMIN 3.5 g/dl (3.4-5.0); CALCIUM 9.2 mg/dL (8.5-10.1)
[2023-05-29 14:00] LABS: BLOOD UREA NITROGEN 16.3 mg/dL (7-18); MAGNESIUM 2.5 mg/dL (1.8-2.4)
[2023-05-29 14:02] LABS: CREATININE 1.2 mg/dL (0.55-1.3)
[2023-05-29 14:04] LABS: TOT PROT 7.6 g/dl (6.4-8.2)
[2023-05-29 14:06] LABS: BILIRUBIN,TOTAL 0.3 mg/dL (0.2-1)
[2023-05-29 14:17] VITALS: BP 125/60; PULSE 89; RESP 18
== END 2023-05-29 14:21 | disposition home or self-care (01) ==
LOC: JER 11:48
DX: E87.5 Hyperkalemia (principal)
CPT/HCPCS: 36415; 80053; 83735; 85025; 93005; 93010; 99284-25